=== PATIENT | male | born 1985 | race Hispanic/Latino ===

== ENCOUNTER 2017-06-21 04:09 | Emergency (ER) | payer MEDICAID ==
[2017-06-21 04:20] VITALS: BMI 18.1
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
[2017-06-21 04:31] VITALS: BP 116/63; PULSE 107; RESP 16; TEMP 98.5; O2SAT 98
[2017-06-21] MEDS ORDERED: TDAP Vaccine 0.5 mL Syr IM ONE (05:22)
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
== END 2017-06-21 05:50 | disposition home or self-care (01) ==
LOC: ED 04:09
DX: S00.33XA Contusion of nose, initial encounter (principal); Y04.0XXA Assault by unarmed brawl or fight, initial encounter; F17.210 Nicotine dependence, cigarettes, uncomplicated; Z23 Encounter for immunization

== ENCOUNTER 2017-08-27 10:48 | Emergency (ER) | payer MEDICAID ==
[2017-08-27 10:49] VITALS: BMI 18.1
--- NOTE | 2017-08-27 11:13 | ED PDOC ---
Arrival/HPI - General Time Seen by Provider: 08/27/17 11:09 Historian: Patient - History of Present Illness Narrative History of Present Illness (Text): 08/27/17 11:11 32yo male with no PMHx bib bls with complaint of tremors, palpitation since this morning. Patient notes past history of similar symptoms. States he was told is anxiety, but was never given anxiolytic. Denies chest pain, SOB, diaphoresis, focal weakness, nausea, dizziness, visual changes, any other complaint. Past Medical History - Provider Review Nursing Documentation Reviewed: Yes - Cardiac Hx Cardiac Disorders: No - Pulmonary Hx Respiratory Disorders: No - Neurological Hx Neurological Disorder: No - HEENT Other/Comment: deviated septum - Renal Hx Renal Disorder: No - Endocrine/Metabolic Hx Endocrine Disorders: No - Hematological/Oncological Hx Blood Disorders: No - Integumentary Hx Dermatological Disorder: No - Musculoskeletal/Rheumatological Hx Musculoskeletal Disorders: 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 - Gastrointestinal Hx Gastrointestinal Disorders: No - Genitourinary/Gynecological Hx Genitourinary Disorders: No - Psychiatric Hx Psychophysiologic Disorder: No Hx Substance Use: No - Surgical History Other/Comment: Hemifacial Microsomia - Anesthesia Hx Anesthesia: Yes Hx Anesthesia Reactions: No Hx Malignant Hyperthermia: No Family/Social History - Physician Review Nursing Documentation Reviewed: Yes Family/Social History: Unknown Family HX Smoking Status: Heavy Smoker > 10 Cigarettes Daily Hx Alcohol Use: No Hx Substance Use: No Allergies/Home Meds Allergies/Adverse Reactions: Allergies No Known Allergies Allergy (Verified 08/27/17 13:25) Home Medications: Home Meds Medication Instructions Recorded Confirmed No Known Home Med 06/21/17 08/27/17 Review of Systems - Physician Review All systems were reviewed & negative as marked: Yes - Review of Systems Constitutional: Normal, Other (Tremor) Eyes: Normal ENT: Normal Respiratory: Normal Cardiovascular: Normal Gastrointestinal: Normal Genitourinary Male: Normal Musculoskeletal: Normal Skin: Normal Neurological: Normal Endocrine: Normal Hemo/Lymphatic: Normal Psychiatric: Normal Physical Exam Vital Signs Reviewed: Yes Vital Signs Temp Pulse Resp BP Pulse Ox 08/27/17 17:50 74 16 108/60 97 08/27/17 16:11 65 18 107/61 99 08/27/17 15:41 69 18 105/59 L 99 08/27/17 13:01 98.0 F 77 18 103/58 L 100 08/27/17 11:17 98.4 F 88 18 102/51 L 95 Temperature: Afebrile Blood Pressure: Normal Pulse: Regular Respiratory Rate: Normal Appearance: Positive for: Well-Appearing, Non-Toxic, Comfortable, Other (Tremors ) Pain Distress: None Mental Status: Positive for: Alert and Oriented X 3 - Systems Exam Head: Present: Atraumatic, Normocephalic Pupils: Present: PERRL Extroacular Muscles: Present: EOMI Conjunctiva: Present: Normal Mouth: Present: Moist Mucous Membranes Neck: Present: Normal Range of Motion Respiratory/Chest: Present: Clear to Auscultation, Good Air Exchange. No: Respiratory Distress, Accessory Muscle Use Cardiovascular: Present: Regular Rate and Rhythm, Normal S1, S2. No: Murmurs Abdomen: Present: Normal Bowel Sounds. No: Tenderness, Distention, Peritoneal Signs Back: Present: Normal Inspection Upper Extremity: Present: Normal Inspection. No: Cyanosis, Edema Lower Extremity: Present: Normal Inspection. No: Edema Neurological: Present: GCS=15, CN II-XII Intact, Speech Normal Skin: Present: Warm, Dry, Normal Color. No: Rashes Psychiatric: Present: Alert, Oriented x 3, Normal Insight, Normal Concentration Medical Decision Making ED Course and Treatment: 08/27/17 20:07 Patient became sleep and difficult to arouse in ED. He was monitored, he was cris at a point, but his HR improved to the 80's with hydration. On re evaluation [id number] in ED pt was AAO x3. He admitted to taking ecstasy pill yesterday. He was adulatory with steady gait, without help. He was advised to stop using drugs. He will be DC home. - Lab Interpretations Lab Results: 08/27/17 12:50 08/27/17 12:50 Lab Results 08/27/17 12:50: PT 12.6 H, INR 1.09 H, APTT 28.7 08/27/17 12:50: Sodium 144, Potassium 4.0, Chloride 104, Carbon Dioxide 29, Anion Gap 15, BUN 10, Creatinine 0.6 L, Est GFR ( Amer) > 60, Est GFR ( Non-Af Amer) > 60, Random Glucose 99, Calcium 10.1, Total Bilirubin 0.6, AST 20 , ALT 21, Alkaline Phosphatase 60, Lactate Dehydrogenase 377, Total Creatine Kinase 175, Troponin I < 0.01, Total Protein 7.0, Albumin 4.3, Globulin 2.8, Albumin/Globulin Ratio 1.5 08/27/17 12:50: WBC 10.0, RBC 4.68, Hgb 14.1, Hct 42.8, MCV 91.5, MCH 30.1, MCHC 32.9, RDW 15.4 H, Plt Count 275, MPV 9.8, Gran % 77.8 H, Lymph % (Auto) 13.9 L, [place] % (Auto) 7.4 H, Eos % (Auto) 0.6 L, Baso % (Auto) 0.3, Gran # 7.78 H, Lymph # (Auto) 1.4, [place] # (Auto) 0.7 H, Eos # (Auto) 0.1, Baso # (Auto) 0.03 - Medication Orders Current Medication Orders: Discontinued Medications Sodium Chloride (Sodium Chloride 0.9%) 1,000 mls @ 999 mls/hr IV .Q1H1M STA Stop: 08/27/17 15:26 Last Admin: 08/27/17 14:41 Dose: 999 mls/hr eMAR Start Stop Document 08/27/17 14:41 OCS (Rec: 08/27/17 14:41 [place] [facility] [id number] Intravenous Solution Start Date 08/27/17 Start Time 14:41 End Date 08/27/17 End time 15:41 Total Infusion Time 60 Lorazepam (Ativan) 2 mg IVP ONCE ONE PRN Reason: Protocol Stop: 08/27/17 11:26 Last Admin: 08/27/17 12:43 Dose: 2 mg IVP Administration Document 08/27/17 12:43 OCS (Rec: 08/27/17 12:43 [place] [facility] [id number] Charges for Administration # of IVP Administrations 1 Disposition/Present on Arrival - Present on Arrival Any Indicators Present on Arrival: No History of DVT/PE: No History of Uncontrolled Diabetes: No Urinary Catheter: No History Surgical Site Infection Following: None - Disposition Have Diagnosis and Disposition been Completed?: Yes Diagnosis: Substance abuse Disposition: HOME/ ROUTINE Disposition Time: 20:10 Patient Plan: Discharge Condition: STABLE Additional Instructions: Follow up with your doctor Stop using drug Return to ED for colette li symptoms Referrals: [employer] Rekori, [Primary Care Provider] - Follow up with primary [facility] [place] [Outside] - Follow up with primary
[2017-08-27 12:59] LABS: BASO # 0.03 K/mm3 (0.0-2.0); BASO % 0.3 % (0.0-3.0); EOS # 0.1 (0.0-0.7); EOS % 0.6 % (1.5-5.0); GRAN # 7.78 (1.4-6.5); GRAN % 77.8 % (50.0-68.0); HEMOGLOBIN 14.1 g/dL (14.0-18.0); LYMPH # 1.4 (1.2-3.4); LYMPH % 13.9 % (22.0-35.0); MEAN CELL VOLUME 91.5 fl (80.0-105.0); MEAN CORPUSCULAR HEMOGLOBIN 30.1 pg (25.0-35.0); MEAN CORPUSCULAR HGB CONC 32.9 g/dl (31.0-37.0); MEAN PLATELET VOLUME 9.8 fl (7.0-11.0); MONO # 0.7 (0.1-0.6); MONO % 7.4 % (1.0-6.0); RBC 4.68 10^6/uL (3.5-6.1); RED CELL DISTRIBUTION WIDTH 15.4 % (11.5-14.5)
[2017-08-27 13:02] VITALS: TEMP 98
[2017-08-27 13:10] LABS: ALB/GLOB RATIO 1.5 (1.1-1.8); ALBUMIN 4.3 g/dL (3.0-4.8); ALT/SGPT 21 U/L (7-56); AST/SGOT 20 U/L (17-59); BLOOD UREA NITROGEN 10 mg/dL (7-21); CALCIUM 10.1 mg/dL (8.4-10.5); GFR AFRICAN-AMERICAN > 60; GFR NON-AFRICAN AMERICAN > 60
[2017-08-27 13:11] LABS: PROTHROMBIN TIME 12.6 SECONDS (9.4-12.5)
[2017-08-27 13:12] LABS: INR 1.09 (0.93-1.08); PARTIAL THROMBOPLASTIN TIME 28.7 Seconds (25.1-36.5)
[2017-08-27 13:22] LABS: TROPONIN I < 0.01 ng/mL
[2017-08-27] MEDS ORDERED: Sodium Chloride 0.9% 1,000 ML IV STA (14:26)
[2017-08-27 20:22] VITALS: BP 124/62; PULSE 100; RESP 18; O2SAT 99
--- NOTE | 2017-08-28 10:08 | CARD ---
APPROVED REPORT EKG Measurement Heart [id number] <Conclusion> Normal sinus rhythm Normal ECG
== END 2017-08-27 20:26 | disposition home or self-care (01) ==
LOC: ED 10:48
DX: F19.10 Other psychoactive substance abuse, uncomplicated (principal)
CPT/HCPCS: 80053; 82550; 82948; 83615; 84484; 85025; 85610; 85730; 93005; 96361; 96374; 99284; J2060; J7040

== ENCOUNTER 2017-10-15 10:29 | Emergency (ER) | payer MEDICAID ==
[2017-10-15 10:37] VITALS: BMI 17.7
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
[2017-10-15 11:31] LABS: BASO # 0.03 K/mm3 (0.0-2.0); BASO % 0.5 % (0.0-3.0); EOS # 0.1 (0.0-0.7); EOS % 1.8 % (1.5-5.0); GRAN # 4.18 (1.4-6.5); GRAN % 66.6 % (50.0-68.0); HEMOGLOBIN 13.8 g/dL (14.0-18.0); LYMPH # 1.4 (1.2-3.4); LYMPH % 22.5 % (22.0-35.0); MEAN CELL VOLUME 89.8 fl (80.0-105.0); MEAN CORPUSCULAR HEMOGLOBIN 30.1 pg (25.0-35.0); MEAN CORPUSCULAR HGB CONC 33.5 g/dl (31.0-37.0); MEAN PLATELET VOLUME 9.9 fl (7.0-11.0); MONO # 0.5 (0.1-0.6); MONO % 8.6 % (1.0-6.0); RBC 4.59 10^6/uL (3.5-6.1); RED CELL DISTRIBUTION WIDTH 14.6 % (11.5-14.5); WHITE BLOOD COUNT 6.3 10^3/ul (4.5-11.0)
[2017-10-15 11:40] LABS: ALB/GLOB RATIO 1.4 (1.1-1.8); ALT/SGPT 24 U/L (7-56); AST/SGOT 17 U/L (17-59); BLOOD UREA NITROGEN 11 mg/dL (7-21); GFR AFRICAN-AMERICAN > 60; GFR NON-AFRICAN AMERICAN > 60
[2017-10-15 11:52] LABS: TROPONIN I < 0.01 ng/mL
--- NOTE | 2017-10-15 12:53 | RAD ---
HISTORY: wheezing COMPARISON: No prior. TECHNIQUE: Chest PA and lateral FINDINGS: LUNGS: No active pulmonary disease. PLEURA: No significant pleural effusion identified. No pneumothorax apparent. CARDIOVASCULAR: Normal. OSSEOUS STRUCTURES: No significant abnormalities. VISUALIZED UPPER ABDOMEN: Normal. OTHER FINDINGS: None. IMPRESSION: No active disease.
[2017-10-15] MEDS ORDERED: Potassium Chloride 20 mEq ER Tab PO STA (13:27)
[2017-10-15 14:19] VITALS: BP 132/72; PULSE 73; RESP 20; TEMP 97.9; O2SAT 98
--- NOTE | 2017-10-15 17:22 | CARD ---
APPROVED REPORT EKG Measurement Heart [id number] <Conclusion> Normal sinus rhythm with sinus arrhythmia Normal ECG
== END 2017-10-15 14:20 | disposition home or self-care (01) ==
LOC: ED 10:29
DX: E87.6 Hypokalemia (principal); G47.00 Insomnia, unspecified; F19.10 Other psychoactive substance abuse, uncomplicated

== ENCOUNTER 2017-10-21 12:20 | Inpatient (IN) | payer MEDICAID ==
[2017-10-21 12:39] VITALS: BMI 17.2
[2017-10-21] MEDS ORDERED: DiphenhydrAMINE 50 mg/ml Inj IM STA (12:40)
[2017-10-21] MEDS ORDERED: DiphenhydrAMINE 50 mg/ml Inj ONE (12:46)
[2017-10-21 14:47] LABS: BASO # 0.02 K/mm3 (0.0-2.0); BASO % 0.2 % (0.0-3.0); EOS # 0.1 (0.0-0.7); EOS % 0.7 % (1.5-5.0); GRAN # 6.69 (1.4-6.5); GRAN % 79.6 % (50.0-68.0); LYMPH # 1.1 (1.2-3.4); LYMPH % 13.6 % (22.0-35.0); MEAN CELL VOLUME 89.5 fl (80.0-105.0); MEAN CORPUSCULAR HEMOGLOBIN 29.7 pg (25.0-35.0); MEAN CORPUSCULAR HGB CONC 33.2 g/dl (31.0-37.0); MEAN PLATELET VOLUME 9.7 fl (7.0-11.0); MONO # 0.5 (0.1-0.6); MONO % 5.9 % (1.0-6.0); RBC 4.37 10^6/uL (3.5-6.1); RED CELL DISTRIBUTION WIDTH 14.6 % (11.5-14.5); WHITE BLOOD COUNT 8.4 10^3/ul (4.5-11.0)
[2017-10-21 15:10] LABS: ALB/GLOB RATIO 1.5 (1.1-1.8); ALBUMIN 3.8 g/dL (3.0-4.8); ALT/SGPT 25 U/L (7-56); AST/SGOT 36 U/L (17-59); BLOOD UREA NITROGEN 10 mg/dL (7-21); CALCIUM 9.7 mg/dL (8.4-10.5); GFR AFRICAN-AMERICAN > 60; GFR NON-AFRICAN AMERICAN > 60
[2017-10-21 15:11] LABS: ACETAMINOPHEN < 10.0 ug/ml (10.0-20.0); SALICYLATE 5 mg/dL (2.0-20.0)
[2017-10-21 15:37] LABS: PH,URINE 5.5 (4.7-8.0); URINE APPEARANCE CLEAR (CLEAR); URINE BILIRUBIN NEGATIVE (NEGATIVE); URINE BLOOD NEGATIVE (NEGATIVE); URINE COLOR YELLOW (YELLOW); URINE GLUCOSE (UA) NEGATIVE (NEGATIVE); URINE LEUKOCYTE ESTERASE NEGATIVE Leu/uL (NEGATIVE); URINE PROTEIN NEGATIVE mg/dL (<30 mg/dL); URINE UROBILINOGEN 0.2 E.U./dL (<1 E.U./dL)
--- NOTE | 2017-10-21 15:47 | RAD ---
HISTORY: pes eval COMPARISON: 10/15/2017 FINDINGS: LUNGS: No active pulmonary disease. PLEURA: No significant pleural effusion identified, no pneumothorax apparent. CARDIOVASCULAR: Normal. OSSEOUS STRUCTURES: No significant abnormalities. VISUALIZED UPPER ABDOMEN: Normal. OTHER FINDINGS: None. IMPRESSION: No active disease.
[2017-10-21 16:15] LABS: BARBITURATES, UR NEGATIVE (NEGATIVE); BENZODIAZEPINES, UR NEGATIVE (NEGATIVE); OPIATES, UR POSITIVE (NEGATIVE); PHENCYCLIDINE, UR NEGATIVE (NEGATIVE)
[2017-10-21 17:15] VITALS: O2SAT 98
[2017-10-21] MEDS ORDERED: DiphenhydrAMINE 50 mg/ml Inj IM PRN (19:01)
--- NOTE | 2017-10-21 21:10 | ED PDOC ---
Arrival/HPI - General Chief Complaint: Psychiatric Evaluation Time Seen by Provider: 10/21/17 12:40 Historian: Patient, Parent, Family - History of Present Illness Narrative History of Present Illness (Text): 10/21/17 21:04 32-year-old male presents today with auditory and visual hallucinations. Patient states that he is hearing voices that are telling him and that he is done bad things and that he should patient denies chest pain or shortness of breath. Denies fevers or chills. Patient admits to using Suboxone and Vicodin. Patient also states that he takes unknown [id number] medication for sleep. Family states that the patient has been slowly deteriorating since his recent visit to the emergency room. Per family the patient was found hiding in a corner today saying that people were out to get him. Past Medical History - Provider Review Nursing Documentation Reviewed: Yes - Travel History Have you recently traveled outside [place] w/in the past 3 mons?: No - Infectious Disease Hx of Infectious Diseases: None - Cardiac Hx Cardiac Disorders: No Hx Hypertension: No - Pulmonary Hx Tuberculosis: No - Neurological HX Cerebrovascular Accident: No Hx Seizures: No - HEENT Other/Comment: deviated septum - Renal Hx Renal Disorder: No - Endocrine/Metabolic Hx Endocrine Disorders: No - Hematological/Oncological Hx Cancer: No - Integumentary Hx Dermatological Disorder: No - Musculoskeletal/Rheumatological Hx Musculoskeletal Disorders: 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 - Gastrointestinal Hx Gastrointestinal Disorders: No - Genitourinary/Gynecological Hx Sexually Transmitted Diseases: No - Psychiatric Hx Substance Use: Yes - Surgical History Other/Comment: Hemifacial Microsomia multiple skull sugery - Anesthesia Hx Anesthesia: Yes Hx Anesthesia Reactions: No Hx Malignant Hyperthermia: No - Suicidal Assessment Suicide Risk Precautions: Close Observation Family/Social History - Physician Review Nursing Documentation Reviewed: Yes Family/Social History: Unknown Family HX Smoking Status: Heavy Smoker > 10 Cigarettes Daily Hx Alcohol Use: Yes Hx Substance Use: Yes Allergies/Home Meds Allergies/Adverse Reactions: Allergies No Known Allergies Allergy (Verified 10/21/17 20:34) Home Medications: Home Meds Medication Instructions Recorded Confirmed Buprenorphine HCl/Naloxone HCl 0 mg SL PRN PRN 10/15/17 10/15/17 [Suboxone 2 mg-0.5 mg] Review of Systems - Review of Systems Constitutional: absent: Fatigue, Fevers Respiratory: absent: SOB, Cough Cardiovascular: absent: Chest Pain, Palpitations Gastrointestinal: absent: Abdominal Pain, Nausea, Vomiting Genitourinary Male: absent: Dysuria Musculoskeletal: absent: Arthralgias, Back Pain, Neck Pain Neurological: absent: Headache, Dizziness Psychiatric: Anxiety, Depression, Suicidal Ideation Physical Exam Vital Signs Reviewed: Yes Vital Signs Temp Pulse Resp BP Pulse Ox 10/21/17 17:15 97.3 F L 87 18 117/66 98 10/21/17 12:45 98.4 F 84 16 121/70 100 Temperature: Afebrile Blood Pressure: Normal Pulse: Regular Respiratory Rate: Normal Appearance: Positive for: Well-Appearing, Non-Toxic, Comfortable Pain Distress: None Mental Status: Positive for: Alert and Oriented X 3, Agitated - Systems Exam Head: Present: Atraumatic Mouth: Present: Moist Mucous Membranes Neck: Present: Normal Range of Motion Respiratory/Chest: Present: Clear to Auscultation, Good Air Exchange. No: Respiratory Distress, Accessory Muscle Use Cardiovascular: Present: Regular Rate and Rhythm, Normal S1, S2. No: Murmurs Abdomen: No: Tenderness, Rebound, Guarding Back: Present: Normal Inspection Upper Extremity: Present: Normal ROM Lower Extremity: Present: Normal ROM Neurological: Present: GCS=15, Speech Normal Skin: Present: Warm, Dry, Normal Color Psychiatric: Present: Alert, Oriented x 3, Anxious, Agitated, Depressed Mood, Suicidal Ideation Medical Decision Making ED Course and Treatment: 10/21/17 21:06 Patient is nontoxic well-appearing in no distress vital signs are stable. Patient agitated in the emergency room started hitting the wall with his hands. Patient yelling and screaming telling the voices inside his head to stop. Patient given Haldol 5 mg as well as Benadryl 25 mg IM Restraints were ordered but canceled as the patient improved drastically after medications. CBC WNL CMP k; 3.4 Tylenol WNL Salicylate wnl Alcohol level WNL Urine drug screen + opiates UA; wnl cxr: wnl ekg normal sinus rhythm at 79 bpm normal axis normal intervals no ST elevations pt is medically cleared for PES evaluation Patient was seen and evaluated by PES screener: [email or web address] pt signed voluntarily to psychiatric floor Impression; psychosis Admitted to behavioral health for 10/21/17 21:15 40mg po of potassium ordered; i spoke with patients nurse on 5B and made her aware that potassium po was ordered. - Lab Interpretations Lab Results: 10/21/17 14:30 10/21/17 14:30 Lab Results 10/21/17 15:26: Urine Opiates Screen Positive H, Urine Methadone Screen Negative , Ur Barbiturates Screen Negative, Ur Phencyclidine Scrn Negative, Ur Amphetamines Screen Negative, U Benzodiazepines Scrn Negative, U Oth Cocaine Metabols Negative, U Cannabinoids Screen Negative 10/21/17 15:26: Urine Color Yellow, Urine Appearance Clear, Urine pH 5.5, Ur Specific [place] >= 1.030, Urine Protein Negative, Urine Glucose (UA) Negative, Urine Ketones Trace H, Urine Blood Negative, Urine Nitrate Negative, Urine Bilirubin Negative, Urine Urobilinogen 0.2, Ur Leukocyte Esterase Negative 10/21/17 14:30: Alcohol, Quantitative < 10 10/21/17 14:30: Salicylates 5, Acetaminophen < 10.0 L 10/21/17 14:30: Sodium 144, Potassium 3.4 L, Chloride 106, Carbon Dioxide 27, Anion Gap 15, BUN 10, Creatinine 0.6 L, Est GFR ( Amer) > 60, Est GFR ( Non-Af Amer) > 60, Random Glucose 96, Calcium 9.7, Total Bilirubin 0.2, AST 36, ALT 25, Alkaline Phosphatase 56, Total Protein 6.4, Albumin 3.8, Globulin 2.6, Albumin/Globulin Ratio 1.5 10/21/17 14:30: WBC 8.4 D, RBC 4.37, Hgb 13.0 L, Hct 39.1 L, MCV 89.5, MCH 29.7 , MCHC 33.2, RDW 14.6 H, Plt Count 284, MPV 9.7, Gran % 79.6 H, Lymph % (Auto) 13.6 L, [place] % (Auto) 5.9, Eos % (Auto) 0.7 L, Baso % (Auto) 0.2, Gran # 6.69 H , Lymph # (Auto) 1.1 L, [place] # (Auto) 0.5, Eos # (Auto) 0.1, Baso # (Auto) 0.02 - RAD Interpretation Radiology Orders: 10/21/17 12:44 CHEST PORTABLE [RAD] Stat - Medication Orders Current Medication Orders: Clonidine HCl (Catapres) 0.1 mg PO BID PRN PRN Reason: Flu symptoms Diphenhydramine HCl (Benadryl) 50 mg IM Q6 PRN PRN Reason: Allergy symptoms Diphenhydramine HCl (Benadryl) 50 mg PO Q6 PRN PRN Reason: Anxiety Last Admin: 10/21/17 20:08 Dose: 50 mg Haloperidol (Haldol) 5 mg PO Q6 PRN; Protocol PRN Reason: Agitation Last Admin: 10/21/17 20:08 Dose: 5 mg Haloperidol Lactate (Haldol) 5 mg IM Q6 PRN; Protocol PRN Reason: Agitation Lorazepam (Ativan) 2 mg IM Q6H PRN; Protocol PRN Reason: Anxiety Lorazepam (Ativan) 2 mg PO Q6 PRN; Protocol PRN Reason: Anxiety Last Admin: 10/21/17 20:08 Dose: 2 mg Tramadol HCl (Ultram) 50 mg PO BID PRN PRN Reason: Pain, moderate (4-7) Last Admin: 10/21/17 20:11 Dose: 50 mg MAR Pain Assessment Document 10/21/17 20:11 KM (Rec: 10/21/17 20:12 KM [id number]) Pain Reassessment Is this a pain reassessment? No Presence of Pain Presence of Pain Yes Pain Scale Used Pain Scale Used Numeric Location Pain Location Body Site Generalized Description Intensity of Pain at present 7 Trazodone HCl (Desyrel) 50 mg PO HS PRN PRN Reason: Insomnia Zolpidem Tartrate (Ambien) 5 mg PO HS PRN; Protocol PRN Reason: Insomnia Last Admin: 10/21/17 20:14 Dose: 5 mg Discontinued Medications Diphenhydramine HCl (Benadryl) 25 mg IM STAT STA Stop: 10/21/17 12:41 Last Admin: 10/21/17 12:50 Dose: Haloperidol Lactate (Haldol) 5 mg IM STAT STA PRN Reason: Protocol Stop: 10/21/17 12:41 Last Admin: 10/21/17 12:50 Dose: Disposition/Present on Arrival - Present on Arrival Any Indicators Present on Arrival: No History of DVT/PE: No History of Uncontrolled Diabetes: No Urinary Catheter: No History of Decub. Ulcer: No History Surgical Site Infection Following: None - Disposition Have Diagnosis and Disposition been Completed?: Yes Diagnosis: Psychosis Disposition: HOSPITALIZED Disposition Time: 16:25 Patient Plan: Admission Patient Problems: Current Active Problems Problem Status Onset Psychosis Acute Condition: GOOD
[2017-10-21] MEDS ORDERED: Potassium Chloride 20 mEq ER Tab PO STA (21:12)
--- NOTE | 2017-10-22 07:33 | CARD ---
APPROVED REPORT EKG Measurement Heart [id number] <Conclusion> Normal sinus rhythm Normal ECG
[2017-10-22 07:35] LABS: HDL CHOLESTEROL 39 mg/dL (29-60)
[2017-10-22 07:45] LABS: LDL CHOLESTEROL 70 mg/dL (0-129)
--- NOTE | 2017-10-22 07:55 | PCM.BM ---
<Jaelyn Hancock - Last Filed: 10/22/17 07:51> Treatment Plan Problems - Problems identified on initial assessmt delusion Date Initiated: 10/22/17 Time Initiated: 07:52 Assessment reference: NA Status: Active thought process Date Initiated: 10/22/17 Time Initiated: 07:53 Assessment reference: NA Status: Active social isolation Date Initiated: 10/22/17 Time Initiated: 07:53 Assessment reference: NA Status: Active guarded behavior Date Initiated: 10/22/17 Time Initiated: 07:54 Assessment reference: NA Status: Active ineffective coping Date Initiated: 10/22/17 Time Initiated: 07:55 Assessment reference: NA Status: Active Treatment assets and liabiliti Patient Assests: cooperative, ADL independent, negotiates basic needs Patient Liabilities: substance abuse, auditory impairment - Milieu Protocol Maintain good personal hygiene: every shift Encourage regular showers, every shift Remind patient to perform daily oral care, every shift Assist patient to perform ADL's Conduct patient checks and document Observation sheet: Q15 minutes Maintain personal safety: every shift Educate patient to report safety concerns to staff, every shift Monitor environment for contraband/sharps Medication safety: Monitor for expected outcome, potential side effects: every shift, Assess barriers to learning: every shift, Assess readiness for medication education: every shift Discharge/Continuing Care - Education Needs Education Needs: Patient Medication, Patient Diagnosis/Disease Process, Patient Coping Skills, Patient Personal Hygiene/Grooming - Discharge Discharge Criteria: Tolerates medication w/o severe side effects, Free of Suicidal thoughts, Free of paranoid thoughts, Free of agitation, Normal sleep pattern, Ability to care for self <Katarina Buck - Last Filed: 10/22/17 12:34> Family Contact Family involvement: Family/SO is involved Family contact: Patient agrees to contact Family contact name: Abbie(mother) Family contacted how many times per week?: 2 <Molly Dickinson - Last Filed: 10/22/17 13:02> - Diagnosis (1) Substance-induced psychotic disorder Status: Acute Interventions: 10/22/17 13:04 Psychoeducation supportive therapy Psychopharmacology/adjustment of medications as needed/ monitoring possible side effects Evaluate pt on daily basis Compliance with medications and follow up appointments Suicide and homicide risk assessment and prevention, coping strategies, safety plan Relapse prevention Reduction of symptoms Improve functional status Possible assertive community treatment Cognitive behavioral therapy Family involvement Possible social skill training as outpatient (2) Opioid abuse Status: Acute Interventions: 10/22/17 13:04 Monitoring withdrawal symptoms Medical detoxification Pharmacotherapy for alcohol/benzos/opioid dependence Maintaining sobriety Relapse prevention Possible rehabilitation Motivational interviewing 12-step programs: AA meetings (3) Substance induced mood disorder Status: Acute Interventions: 10/22/17 13:03 Psychoeducation Psychopharmacology/adjustment of medications as needed/ monitoring possible side effects Evaluate pt on daily basis Compliance with medications and follow up appointments Suicide and homicide risk assessment and prevention Relapse prevention Reduction of symptoms Improve functional status Family involvement As outpatient: cognitive behavioral therapy (4) Psychosis Status: Acute Interventions: 10/22/17 13:04 Psychoeducation supportive therapy Psychopharmacology/adjustment of medications as needed/ monitoring possible side effects Evaluate pt on daily basis Compliance with medications and follow up appointments Suicide and homicide risk assessment and prevention, coping strategies, safety plan Relapse prevention Reduction of symptoms Improve functional status Possible assertive community treatment Cognitive behavioral therapy Family involvement Possible social skill training as outpatient <Darryl Cormier - Last Filed: 10/25/17 11:49> Treatment assets and liabiliti Patient Assests: ADL independent, negotiates basic needs Patient Liabilities: substance abuse - Milieu Protocol Maintain good personal hygiene: daily Encourage regular showers, daily Remind patient to perform daily oral care, daily Assist patient to perform ADL's Maintain personal safety: every shift Educate patient to report safety concerns to staff, every shift Monitor environment for contraband/sharps Medication safety: Monitor for expected outcome, potential side effects: every shift, Assess barriers to learning: every shift, Assess readiness for medication education: every shift Discharge/Continuing Care - Education Needs Education Needs: Patient Medication, Patient Diagnosis/Disease Process, Patient Aftercare Safety Plan - Discharge Discharge Criteria: Tolerates medication w/o severe side effects, Free of paranoid thoughts, Normal sleep pattern, Ability to care for self, Reduction of target symptoms Discharge to:: Home <Josette Briones - Last Filed: 10/25/17 15:48>
--- NOTE | 2017-10-22 14:03 | PCM.PSYCH ---
Initial Psychiatric Evaluation - Initial Psychiatric Evaluation Type of Admission: Voluntary Legal Status: Capacity (patient has capacity to sign consent for treatment) Chief Complaint (in patient's own words): "I was not feeling well, I was hearing voices, I'm here for depression" Patient's Reaction to Hospitalization: patient was admitted to psychiatric inpatient unit for evaluation and stabilization of psychotic symptoms, patient was hearing voices that he killed people, as well as command type hallucinations, worsening of depression, anxiety. History of Present Illness and Precipitating Events: shortly patient is 32 year old male with multiple medical issues including Goldenhar syndrome, opioid abuse, no formal psychiatric history, denied history of psychiatric admissions, denied history of suicidal attempts, patient came to the emergency room accompanied by his brother as well as mother for evaluation and stabilization of psychotic symptoms, patient was not functioning, was refusing to leave the house due to paranoia, patient also was hearing voices telling him that he killed people, patient also heard voices telling him to kill himself, patient was abusing Suboxone as well as Vicodin, patient was not able to sleep, was keeping the hammer under his pillow, patient does not have psychiatrist in the community, obviously requires further evaluation and stabilization and observation. 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 Thin build, long extremities , long palms. Patient was so confused that he was not able to find a way going back from the room, whenever at treatment team meeting was over, staff redirected patient back to his room. Patient presented to be depressed, difficult to to stay focused, was not able to concentrate, patient answers were only one word "yes/no", patient also presented with some poverty of thoughts as well as poverty of speech. pt deems to be poor and unreliable historian, possible due to AMS due to withdrawals from opioids or PRN meds over night. patient said that he has chronic pain and shoulder pain that is why she was taking Vicodin as well as Suboxone from his brother, patient reported that he takes about 4-5 spills a day, patient reported that at present moment she feels shaky, patient obviously was yawning as well had goosebumps, and teary eyes. Patient reported that he was able to tolerate food, denied diarrhea, denied nausea. vitals are stable. but K level is low, will call for medical consult pt smokes cigarettes 1/2 pack a day, nicotine patch offered, counseling provided pt was not able to provide history and majority of info was obtained from ED reports 10/15/17 and 10/21/17. 10/21/17: as per PES report pt was paranoid, guarded, has not left the house due to paranoia since 10/15/17, pt leaves a hammer under his pillow and says that there are cameras in his head and in the wall. 10/15/17: as per mother's report pt. has been suffering from anxiety and panic attacks for years, worsening since his friend was hit by a car and killed in front of patient in [place] about 7 years ago. Patient moved into an apartment of his own (within the past couple of weeks) at which time his panic attacks increased, and the pt. began to hear voices. Patient reports to his mother that he thinks people are talking about him, drilled a hole in the wall to watch him , and was observed yelling back at the voices telling them to "stop doing this" to him. Pt. notes to the mother that he knows the voices are not real. Extremely poor sleep, of approximately 3 hours per night, which triggers patients anxiety. Increased isolation. Past psych h/o: denied admissions, denied suicidal attempts. last ED visit , pt was provided with follow up appt, but pt did not attend. medical history: Chronic pain syndrome, left shoulder pain, Goldenhar syndrome. Family history: Patient denied family history of mental illness. 10/21/17 14:30 10/21/17 14:30 Lab Results 10/22/17 07:20: Triglycerides 122, Cholesterol 130, LDL Cholesterol Direct 70, HDL Cholesterol 39 10/21/17 15:26: Urine Opiates Screen Positive H, Urine Methadone Screen Negative , Ur Barbiturates Screen Negative, Ur Phencyclidine Scrn Negative, Ur Amphetamines Screen Negative, U Benzodiazepines Scrn Negative, U Oth Cocaine Metabols Negative, U Cannabinoids Screen Negative 10/21/17 15:26: Urine Color Yellow, Urine Appearance Clear, Urine pH 5.5, Ur Specific [place] >= 1.030, Urine Protein Negative, Urine Glucose (UA) Negative, Urine Ketones Trace H, Urine Blood Negative, Urine Nitrate Negative, Urine Bilirubin Negative, Urine Urobilinogen 0.2, Ur Leukocyte Esterase Negative 10/21/17 14:30: Alcohol, Quantitative < 10 10/21/17 14:30: Salicylates 5, Acetaminophen < 10.0 L 10/21/17 14:30: Sodium 144, Potassium 3.4 L, Chloride 106, Carbon Dioxide 27, Anion Gap 15, BUN 10, Creatinine 0.6 L, Est GFR ( Amer) > 60, Est GFR ( Non-Af Amer) > 60, Random Glucose 96, Calcium 9.7, Total Bilirubin 0.2, AST 36, ALT 25, Alkaline Phosphatase 56, Total Protein 6.4, Albumin 3.8, Globulin 2.6, Albumin/Globulin Ratio 1.5 10/21/17 14:30: WBC 8.4 D, RBC 4.37, Hgb 13.0 L, Hct 39.1 L, MCV 89.5, MCH 29.7 , MCHC 33.2, RDW 14.6 H, Plt Count 284, MPV 9.7, Gran % 79.6 H, Lymph % (Auto) 13.6 L, [place] % (Auto) 5.9, Eos % (Auto) 0.7 L, Baso % (Auto) 0.2, Gran # 6.69 H , Lymph # (Auto) 1.1 L, [place] # (Auto) 0.5, Eos # (Auto) 0.1, Baso # (Auto) 0.02 Vital Signs Temp Pulse Pulse Resp BP Pulse Ox 10/22/17 06:57 97.9 F 90 20 123/76 10/21/17 19:50 61 18 10/21/17 17:15 97.3 F L 87 18 117/66 98 10/21/17 12:45 98.4 F 84 16 121/70 100 10/21/2017 chest x-ray no active disease 10/21/2017 EKG within normal limits Current Medications: Active Medications Generic Name Dose Route Start Last Admin Trade Name Freq PRN Reason Stop Dose Admin Clonidine HCl 0.1 mg 10/21/17 19:41 Catapres PO BID PRN Flu symptoms Diphenhydramine HCl 50 mg 10/21/17 19:01 Benadryl IM Q6 PRN Allergy symptoms Diphenhydramine HCl 50 mg 10/21/17 19:05 10/21/17 20:08 Benadryl PO 50 mg Q6 PRN Administration Anxiety Haloperidol 5 mg 10/21/17 18:56 10/22/17 09:36 Haldol PO 5 mg Q6 PRN Administration Agitation Protocol Haloperidol Lactate 5 mg 10/21/17 18:58 Haldol IM Q6 PRN Agitation Protocol Lorazepam 2 mg 10/21/17 18:53 Ativan IM Q6H PRN Anxiety Protocol Lorazepam 2 mg 10/21/17 18:55 10/22/17 09:36 Ativan PO 2 mg Q6 PRN Administration Anxiety Protocol Quetiapine Fumarate 25 mg 10/22/17 22:00 Seroquel PO AMHS RAMIRO Protocol Tramadol HCl 50 mg 10/21/17 19:46 10/22/17 09:36 Ultram PO 50 mg BID PRN Administration Pain, moderate (4-7) Trazodone HCl 50 mg 10/21/17 19:36 Desyrel PO HS PRN Insomnia Zolpidem Tartrate 5 mg 10/21/17 19:44 10/21/17 20:14 Ambien PO 5 mg HS PRN Administration Insomnia Protocol Past Psychiatric History - Past Psychiatric History Previous Treatment History: None Prior Professional Help: see HPI Prior Psychiatric Treatment: see HPI At what hospital: see HPI Duration: see HPI Nature of Treatment: see HPI Explanation of prior treatment: see HPI History of Abuse: see HPI patient denied history or physical, emotional, sexual abuse History of ETOH/Drug Use: see HPI History of Family Illness: see HPI Pertinent Medical Hx (Current Medical&Sleep Prob, Allergies): Allergies Allergy/AdvReac Type Severity Reaction Status Date / Time No Known Allergies Allergy Verified 10/21/17 20:34 Buprenorphine HCl/Naloxone HCl [Suboxone 2 mg-0.5 mg] 0 mg SL PRN PRN 10/15/17 Docusate Sodium [Colace] 100 mg PO BID #10 capsule 10/15/17 hydrOXYzine HCl [Atarax] 50 mg PO Q6 5 Days #20 tab 10/15/17 Review of Systems - Review of Systems Systems not reviewed;Unavailable: Acuity of Condition - EENT Eyes: As Per HPI Ears: As Per HPI Nose/Mouth/Throat: As Per HPI - Cardiovascular Cardiovascular: As Per HPI - Respiratory Respiratory: As Per HPI - Gastrointestinal Gastrointestinal: As Per HPI - Genitourinary Genitourinary: As Per HPI - Reproductive: Male Reproductive:Male: As Per HPI - Musculoskeletal Musculoskeletal: As Par HPI - Integumentary Integumentary: As Per HPI - Neurological Neurological: As Per HPI - Psychiatric Psychiatric: As Per HPI - Endocrine Endocrine: As Per HPI - Hematologic/Lymphatic Hematologic: As Per HPI Mental Status Examination - Personal Presentation Personal Presentation: Looks younger than stated age - Affect Affect: Constricted, Flat - Motor Activity Motor Activity: Psychomotor Retardation - Reliability in Providing Information Reliability in Providing Information: Poor, due to alteration in thoughts, Poor , due to altered mood, Poor, due to cognitve impairment - Speech Speech: Disorganized - Mood Mood: Depressed - Formal Thought Process Formal Thought Process: Hallucinations, Delusions, Paranoia - Hallucinations/Delusions Delusions: Persecution - Obsessions/Compulsions Obsessions: None Compulsions: None - Cognitive Functions Orientation: Person Sensorium: Drowsy Attention/Concentration: Easily distracted Abstract Thinking: [place] Estimate of Intelligence: Below average Judgement: Intact, as evidence by: Insight regarding need for hospitalization - Risk Risk: Suicidal, Elopement, Withdrawal, Self-mutilation, Diminished functioning - Strength & Assets Inventory Strength & Assets Inventory: Family support, Cooperative - Limitations Limitations: Other (Psychotic symptoms) DSM 5 DX - DSM 5 DSM 5 Diagnosis: psychosis NOS rule out major depressive disorder with psychosis rule out substance-induced psychosis opioid abuse Substance-induced mood and anxiety disorder Rule out PTSD Rule out Panic disorder - Recommended/Plan of Treatment Treatment Recommendations and Plan of Treatment: Medical consult appreciated, see medical team note for more detailed info SW consultation for discharge plan and social issues Med management Seroquel 50 mg twice a day for psychosis Ambien 5 mg as needed for insomnia Klonopin 0.5 mg twice a day and at the nighttime for anxiety as needed medication, clonidine 0.1 mg twice a day for with goals, Zofran as needed for dyspepsia, tramadol for pain, multivitamins Will call for medical consulate for low potassium level as well as chronic pain syndrome Family involvement Follow up on labs Will monitor closely Pt was educated about risk/benefits and alternatives of medications, coping strategies (safety plan, suicide prevention), relapse prevention, importance of follow up with psychiatrist and therapist, stay away from drugs/alcohol/smoking Projected ELOS: 7days Prognosis: guarded Discharge Plan and Discharge Criteria: Pt will be not depressed or manic, will be more hopeful, will be not psychotic or anxious, will be not having thoughts of harming self or others, will be tolerating medications well, will not have major side effects, will be able to function, will not pose threat to self or others. - Smoking Cessation Smoking Cessation Initiated: Yes
[2017-10-23] MEDS: Multivitamin With Minerals Tab PO SCH (08:45)
--- NOTE | 2017-10-23 10:01 | PCM.PYCHPN ---
Psychiatric Progress Note - Psychiatric Progress Note Patient seen today, length of contact: 25 min Patient Chief Complaint: "all right, mostly bored" Problems Identified/Issues Discussed: I reviewed assessment. Patient is 32 year old male with no formal psychiatric history, current abuse of suboxone and Vicodin, denied history of psychiatric admissions, denied history of suicidal attempts, +multiple medical issues including Goldenhar syndrome who came to the emergency room accompanied by his brother as well as mother for evaluation and stabilization of psychotic symptoms. Patient was not functioning, not sleeping, refusing to leave the house due to paranoia, hearing voices telling him that he killed people and voices telling him to kill himself. Patient also kept a hammer under his pillow. I reviewed recent unit notes which indicate that patient has been confused with poor insight into his mental illness. Demonstrates negative symptoms; +PMR and patient likes to stay in his room despite encouragement by staff to join group for snacks and wrap up group discussion. This provider did note that patient was visible in the dayroom this morning. He appeared unkempt and tired. Oriented x3. Reports that his mood is "all right, mostly bored", affect is constricted and guarded though polite. He denies hallucinations or paranoia and doesnt appear to be responding to internal stimuli. Patient is tolerating his medications and denies side effects. Reports chronic pain, unchanged and denies any new discomfort. He doesn't appear to be in any overt distress during my visit. Diagnostic Results: psychosis NOS rule out major depressive disorder with psychosis rule out substance-induced psychosis opioid abuse Substance-induced mood and anxiety disorder Rule out PTSD Rule out Panic disorder Medical Record Reviewed: Yes Mental Status Examination - Cognitive Function Orientation: Person Attention: WNL - Mood Mood: Depressed ("all right, mostly bored") - Affect Affect: Constricted, Flat - Formal Thought Process Formal Thought Process: Hallucinations (denied), Delusions, Paranoia - Suicidal Ideation Suicidal Ideation: No - Homicidal Ideation Homicidal Ideation: No Goal/Treatment Plan - Goal/Treatment Plan Progress Toward Problem(s) and Goals/Treatment Plan: * c/w current tx and plan * No new weekend labs thus far * Vitals reviewed and noted below: Selected Entries 10/23/17 07:11 Temperature 98.3 F Pulse Rate 91 H Respiratory 20 Rate Blood Pressure 102/66
[2017-10-24] MEDS: Multivitamin With Minerals Tab PO SCH (09:16)
--- NOTE | 2017-10-24 10:18 | PCM.PYCHPN ---
Psychiatric Progress Note - Psychiatric Progress Note Patient seen today, length of contact: 25 min Patient Chief Complaint: "sad and bored" Problems Identified/Issues Discussed: I reviewed assessment. Patient is 32 year old male with no formal psychiatric history, current abuse of suboxone and Vicodin, denied history of psychiatric admissions, denied history of suicidal attempts, +multiple medical issues including Goldenhar syndrome who came to the emergency room accompanied by his brother as well as mother for evaluation and stabilization of psychotic symptoms. Patient was not functioning, not sleeping, refusing to leave the house due to paranoia, hearing voices telling him that he killed people and voices telling him to kill himself. Patient also kept a hammer under his pillow. I reviewed recent unit notes which indicate that patient has been confused with poor insight into his mental illness. Demonstrates negative symptoms and PMR. Patient requested for Haldol 5 mg and Benadryl 50 mg for voices on Wednesday however denied hallucinations when this provider inquired all weekend. Patient has been visible on the unit but keeps to himself. I interview him at bedside this morning. He remembers me from my introduction yesterday. Remains oriented x3 and affect is withdrawn, constricted and guarded. Patient tells me he is "sad and bored". He is not talkative or forthcoming with personal information and generally looks unhappy. Thought process remains coherent and responses are relevant to questioning. He denies hallucinations or paranoia and doesn't appear to be responding to internal stimuli. Patient is tolerating his medications and denies side effects. Reports chronic pain, unchanged and denies any new discomfort. He doesn't appear to be in any overt distress during my visit. Diagnostic Results: psychosis NOS rule out major depressive disorder with psychosis rule out substance-induced psychosis opioid abuse Substance-induced mood and anxiety disorder Rule out PTSD Rule out Panic disorder Medical Record Reviewed: Yes Mental Status Examination - Cognitive Function Orientation: Person Attention: WNL - Mood Mood: Depressed ( "sad and bored") - Affect Affect: Constricted, Flat - Speech Speech: Soft - Formal Thought Process Formal Thought Process: Hallucinations ( Patient requested for Haldol 5 mg and Benadryl 50 mg for voices on Wednesday however denied hallucinations when this provider inquired all weekend. ), Delusions, Paranoia - Suicidal Ideation Suicidal Ideation: No - Homicidal Ideation Homicidal Ideation: No Goal/Treatment Plan - Goal/Treatment Plan Progress Toward Problem(s) and Goals/Treatment Plan: * c/w current tx and plan * No new weekend labs * Vitals reviewed and noted below: 10/24/17 07:20 Temperature 98.2 F Pulse Rate 104 H Respiratory 20 Rate Blood Pressure 104/70
[2017-10-25] MEDS: Multivitamin With Minerals Tab PO SCH (08:55)
[2017-10-25] MEDS ORDERED: Alum-Mag Hydrox-Simethicone Susp (30 mL) PO PRN (13:12)
[2017-10-25] MEDS ORDERED: Magnesium Hydroxide Susp 30 ml UD PO PRN (13:12)
--- NOTE | 2017-10-25 14:50 | PCM.PYCHPN ---
Psychiatric Progress Note - Psychiatric Progress Note Patient seen today, length of contact: 25 min Patient Chief Complaint: "I need to go" Problems Identified/Issues Discussed: Suicide/ homicide prevention, past psychiatric h/o, current psychiatric symptoms , medical problems, risk/benefits and alternatives of medications, medications compliance, coping strategies, substance abuse h/o, relapse prevention, importance of follow up with psychiatrist and therapist, discharge plan. Medical Problems: see HPI Diagnostic Results: 10/21/17 14:30 10/21/17 14:30 Lab Results 10/22/17 07:20: Triglycerides 122, Cholesterol 130, LDL Cholesterol Direct 70, HDL Cholesterol 39 10/22/17 07:20: RPR Nonreactive 10/21/17 15:26: Urine Opiates Screen Positive H, Urine Methadone Screen Negative , Ur Barbiturates Screen Negative, Ur Phencyclidine Scrn Negative, Ur Amphetamines Screen Negative, U Benzodiazepines Scrn Negative, U Oth Cocaine Metabols Negative, U Cannabinoids Screen Negative 10/21/17 15:26: Urine Color Yellow, Urine Appearance Clear, Urine pH 5.5, Ur Specific [place] >= 1.030, Urine Protein Negative, Urine Glucose (UA) Negative, Urine Ketones Trace H, Urine Blood Negative, Urine Nitrate Negative, Urine Bilirubin Negative, Urine Urobilinogen 0.2, Ur Leukocyte Esterase Negative 10/21/17 14:30: Alcohol, Quantitative < 10 10/21/17 14:30: Salicylates 5, Acetaminophen < 10.0 L 10/21/17 14:30: Sodium 144, Potassium 3.4 L, Chloride 106, Carbon Dioxide 27, Anion Gap 15, BUN 10, Creatinine 0.6 L, Est GFR ( Amer) > 60, Est GFR ( Non-Af Amer) > 60, Random Glucose 96, Calcium 9.7, Total Bilirubin 0.2, AST 36, ALT 25, Alkaline Phosphatase 56, Total Protein 6.4, Albumin 3.8, Globulin 2.6, Albumin/Globulin Ratio 1.5 10/21/17 14:30: WBC 8.4 D, RBC 4.37, Hgb 13.0 L, Hct 39.1 L, MCV 89.5, MCH 29.7 , MCHC 33.2, RDW 14.6 H, Plt Count 284, MPV 9.7, Gran % 79.6 H, Lymph % (Auto) 13.6 L, [place] % (Auto) 5.9, Eos % (Auto) 0.7 L, Baso % (Auto) 0.2, Gran # 6.69 H , Lymph # (Auto) 1.1 L, [place] # (Auto) 0.5, Eos # (Auto) 0.1, Baso # (Auto) 0.02 Vital Signs Temp Pulse Pulse Resp BP Pulse Ox 10/24/17 07:20 98.2 F 104 H 20 104/70 10/23/17 17:23 92 H 97/65 L 10/23/17 07:11 98.3 F 91 H 20 102/66 10/22/17 06:57 97.9 F 90 20 123/76 10/21/17 19:50 61 18 10/21/17 17:15 97.3 F L 87 18 117/66 98 10/21/17 12:45 98.4 F 84 16 121/70 100 DSM 5 Symptoms Update: Patient is 32 year old male with no formal psychiatric history, current abuse of suboxone and Vicodin, denied history of psychiatric admissions , denied history of suicidal attempts, +multiple medical issues including Goldenhar syndrome who came to the emergency room accompanied by his brother as well as mother for evaluation and stabilization of psychotic symptoms. Patient was not functioning, not sleeping, refusing to leave the house due to paranoia, hearing voices telling him that he killed people and voices telling him to kill himself. Patient also kept a hammer under his pillow, pt also has impression that cameras are monitoring him. Patient has been confused with poor insight into his mental illness. Demonstrates negative symptoms and PMR. Patient requested for Haldol 5 mg and Benadryl 50 mg for voices on Wednesday morning, patient submitted 48 hour notice, requesting discharge, refused to rescinded it. pt was seen at the treatment team meeting, pt is confused, said he staid here for the past week, seems to be surprised when realized he was admitted on Wednesday. pt was suspicious, guarded, irritable, angry, paranoid, said he has to be discharged and he is ready to go, based on presentation pt obviously is not doing well. this casualty underwriter educated about [facility] screening process, pt left the room cursing. as per staff pt asked for the sneakers, seems planning to elope. later on pt tried to leave unit, trying to elope, pt needed to be medicated. pt tolerates meds well, no side effects, AIMS 0, no EPS. Diagnostic Results: psychosis NOS rule out major depressive disorder with psychosis rule out substance-induced psychosis opioid abuse Substance-induced mood and anxiety disorder Rule out PTSD Rule out Panic disorder Medication Change: Yes (seroquel increased) Medical Record Reviewed: Yes Mental Status Examination - Cognitive Function Orientation: Person Memory: Intact Attention: Poor Concentration: Poor Association: Loose Fund of Knowledge: Poor - Mood Mood: Depressed ("I need to go, I am fine) - Affect Affect: Constricted, Flat - Speech Speech: Soft - Formal Thought Process Formal Thought Process: Hallucinations ( Patient requested for Haldol 5 mg and Benadryl 50 mg for voices on Wednesday morning however denied hallucinations when this provider inquired all weekend. ), Delusions, Paranoia - Suicidal Ideation Suicidal Ideation: No - Homicidal Ideation Homicidal Ideation: No Goal/Treatment Plan - Goal/Treatment Plan Need for Continued Stay: Remain at risks for inpatient hospitalization, Severe depression anxiety, Discharge may exacerbated symptoms, Severe functional impairment Progress Toward Problem(s) and Goals/Treatment Plan: Medical consult appreciated, see medical team note for more detailed info SW consultation for discharge plan and social issues Med management Seroquel 100 mg twice a day for psychosis Ambien 10 mg as needed for insomnia Klonopin 0.5 mg twice a day and at the nighttime for anxiety as needed medication, clonidine 0.1 mg twice a day for with goals, Zofran as needed for dyspepsia, tramadol for pain, multivitamins Will call for medical consulate for low potassium level as well as chronic pain syndrome Family involvement Follow up on labs Will monitor closely Pt was educated about risk/benefits and alternatives of medications, coping strategies (safety plan, suicide prevention), relapse prevention, importance of follow up with psychiatrist and therapist, stay away from drugs/alcohol/smoking patient submitted 48 hour notice, will initiate screening Estimated Date of D/C: 10/29/17
--- NOTE | 2017-10-25 22:56 | CON ---
DATE: 10/25/2017 PULMONARY CONSULT REFERRING PHYSICIAN: Molly Dickinson MD. REASON FOR CONSULT: Admitted with delusion and hallucination to kill himself and a known sleep apnea syndrome, did not have a CPAP machine for a few years. HISTORY OF PRESENT ILLNESS: This is a 32-year-old gentleman, who was presented in the emergency room with auditory and visual hallucination. He was hearing voices to harm himself. He did on Suboxone and Vicodin in the past. Also has a history of substance abuse. At one point, he was diagnosed with sleep apnea, used CPAP many years ago. Presently does not have it. Admitted with loud snoring, daytime sleepy and tired. Presently admitted to Psychiatry Unit. No nausea. No vomiting, diarrhea, leg pain, leg swelling. PAST MEDICAL HISTORY: Substance abuse, sleep apnea syndrome, has a micrognathia. FAMILY HISTORY: No significant cardiopulmonary disease reported. SOCIAL HISTORY: He is a smoker, history of substance abuse in the past. ALLERGIES: NONE KNOWN. HOME MEDICATIONS: Suboxone. Presently on Ambien 10 mg at bedtime, p.r.n., Ativan 2 mg every 6 hours p.r.n., Benadryl p.r.n., Catapres 0.1 mg twice a day p.r.n., Cogentin 0.5 mg twice a day, trazodone 50 mg at bedtime, Geodon 20 mg every 8 hours p.r.n., Klonopin 0.5 mg twice a day, Maalox p.r.n., Nicoderm patch daily, Seroquel 100 mg in morning and at bedtime, multivitamins, Tylenol, Ultram 50 mg twice a day, Zofran p.r.n. basis. REVIEW OF SYSTEMS: No headache. No rhinitis. Admits to have snoring, daytime sleepy and tired. No chest pain. No nausea. No vomiting, diarrhea, leg pain, leg swelling. PHYSICAL EXAMINATION: GENERAL: Sitting up in a chair, no acute distress. VITAL SIGNS: Temp is 98, heart rate is 88, respiratory rate is 20, blood pressure 118/69, pulse ox 98% on room air. HEENT: Small oral cavity, poor dentition, micrognathia. LUNGS: Have a fair airflow with few rhonchi. HEART: S1 and S2. ABDOMEN: Soft and nontender. No organomegaly. EXTREMITIES: There is no edema. NEUROLOGICAL: Awake and alert. Follows simple command. LABORATORY DATA: Shows hemoglobin 13, hematocrit 39.1, WBC 8.4, platelet is 284. Sodium 144, potassium 3.4, chloride 106, bicarbonate 27, BUN 10, creatinine 0.6, glucose 96, AST 36, ALT 25, alk phos is 56, albumin 3.8, cholesterol 130. IMPRESSION AND PLAN: Sleep apnea syndrome, micrognathia, history of substance abuse with auditory and visual hallucination with having heaps of ideas. Also, spoke to the patient's family at bedside. We will place him on continuous positive airway pressure 7 cm with a full-face mask. Sleep apnea precaution. Careful with sedation. Fall precaution. We will recommend repeat sleep study post discharge as outpatient. Thank you and we will follow with you. Kenny Menjivar MD
[2017-10-26 06:45] VITALS: BP 102/69; PULSE 88; RESP 20; TEMP 97.5
[2017-10-26] MEDS: Multivitamin With Minerals Tab PO SCH (08:16)
--- NOTE | 2017-10-26 10:05 | PCM.PYCHDC ---
Mental Status Examination - Mental Status Examination Orientation: Person, Place, Situation Memory: Impaired (but improved ) Mood: Neutral Affect: Constricted Speech: Soft (and underproductive) Attention: Poor (but improved) Concentration: Poor (but improved) Association: WNL Fund of Knowledge: Poor (baseline) Formal Thought Process: Paranoia (mild paranoia, but improved) Description of patient's judgement and insight: limited insight Psychotic Thoughts and Behaviors: pt was mildly guarded and paranoid but with improvement Suicidal Ideation: No Current Homicidal Ideation?: No Plan: patient denied thoughts of harming self or others denied intent or plan, no agitated or aggressive behavior. Discharge Summary - Discharge Note Reason for Hospitalization: patient was admitted to psychiatric inpatient unit for evaluation and stabilization of psychotic symptoms, patient was hearing voices that he killed people, as well as command type hallucinations, worsening of depression, anxiety. please see initial knows more detailed information. Psychiatric History (includes Medical, Family, Personal Hx): see HPI Laboratory Data: 10/21/17 14:30 10/21/17 14:30 Lab Results 10/22/17 07:20: Triglycerides 122, Cholesterol 130, LDL Cholesterol Direct 70, HDL Cholesterol 39 10/22/17 07:20: RPR Nonreactive 10/21/17 15:26: Urine Opiates Screen Positive H, Urine Methadone Screen Negative , Ur Barbiturates Screen Negative, Ur Phencyclidine Scrn Negative, Ur Amphetamines Screen Negative, U Benzodiazepines Scrn Negative, U Oth Cocaine Metabols Negative, U Cannabinoids Screen Negative 10/21/17 15:26: Urine Color Yellow, Urine Appearance Clear, Urine pH 5.5, Ur Specific [place] >= 1.030, Urine Protein Negative, Urine Glucose (UA) Negative, Urine Ketones Trace H, Urine Blood Negative, Urine Nitrate Negative, Urine Bilirubin Negative, Urine Urobilinogen 0.2, Ur Leukocyte Esterase Negative 10/21/17 14:30: Alcohol, Quantitative < 10 10/21/17 14:30: Salicylates 5, Acetaminophen < 10.0 L 10/21/17 14:30: Sodium 144, Potassium 3.4 L, Chloride 106, Carbon Dioxide 27, Anion Gap 15, BUN 10, Creatinine 0.6 L, Est GFR ( Amer) > 60, Est GFR ( Non-Af Amer) > 60, Random Glucose 96, Calcium 9.7, Total Bilirubin 0.2, AST 36, ALT 25, Alkaline Phosphatase 56, Total Protein 6.4, Albumin 3.8, Globulin 2.6, Albumin/Globulin Ratio 1.5 10/21/17 14:30: WBC 8.4 D, RBC 4.37, Hgb 13.0 L, Hct 39.1 L, MCV 89.5, MCH 29.7 , MCHC 33.2, RDW 14.6 H, Plt Count 284, MPV 9.7, Gran % 79.6 H, Lymph % (Auto) 13.6 L, [place] % (Auto) 5.9, Eos % (Auto) 0.7 L, Baso % (Auto) 0.2, Gran # 6.69 H , Lymph # (Auto) 1.1 L, [place] # (Auto) 0.5, Eos # (Auto) 0.1, Baso # (Auto) 0.02 Vital Signs Temp Pulse Pulse Resp BP Pulse Ox 10/26/17 06:44 97.5 F L 88 20 102/69 10/25/17 15:00 96 H 113/71 10/25/17 07:00 97.9 F 88 18 118/69 10/24/17 07:20 98.2 F 104 H 20 104/70 10/23/17 17:23 92 H 97/65 L 10/23/17 07:11 98.3 F 91 H 20 102/66 10/22/17 06:57 97.9 F 90 20 123/76 10/21/17 19:50 61 18 10/21/17 17:15 97.3 F L 87 18 117/66 98 10/21/17 12:45 98.4 F 84 16 121/70 100 Consultations:: List each consultation separately and include: 1. Reason for request. 2. Findings. 3. Follow-up Consultations: patient was seen by political theory professor, was seen by medical team and the emergency room. Summary of Hospital Course include:: 1. Description of specific treatment plan utilized for patients during their course of treatmen. 2. Summarize the time- course for resolution of acute symptoms and/or regressed behaviors. 3. Describe issues identified and worked on during hospitalization. 4. Describe medication utilized. 5. Describe medical problems identified and treated. 6. Reassessment of suicide risk Summary of Hospital Course: shortly patient is 32 year old male with multiple medical issues including Goldenhar syndrome, opioid abuse, no formal psychiatric history, denied history of psychiatric admissions, denied history of suicidal attempts, patient came to the emergency room accompanied by his brother as well as mother for evaluation and stabilization of psychotic symptoms, patient was not functioning, was refusing to leave the house due to paranoia, patient also was hearing voices telling him that he killed people, patient also heard voices telling him to kill himself, patient was abusing Suboxone as well as Vicodin, patient was not able to sleep, was keeping the hammer under his pillow, patient does not have psychiatrist in the community, obviously requires further evaluation and stabilization and observation. 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 Thin build, long extremities, long palms. Patient was so confused that he was not able to find a way going back from the room, whenever at treatment team meeting was over, staff redirected patient back to his room. Patient presented to be depressed, difficult to to stay focused, was not able to concentrate, patient answers were only one word "yes/no", patient also presented with some poverty of thoughts as well as poverty of speech. pt deems to be poor and unreliable historian, possible due to AMS due to withdrawals from opioids or PRN meds over night. patient said that he has chronic pain and shoulder pain that is why she was taking Vicodin as well as Suboxone from his brother, patient reported that he takes about 4-5 spills a day, patient reported that at present moment she feels shaky, patient obviously was yawning as well had goosebumps, and teary eyes. Patient reported that he was able to tolerate food, denied diarrhea, denied nausea. vitals are stable. but K level is low, will call for medical consult pt smokes cigarettes 1/2 pack a day, nicotine patch offered, counseling provided pt was not able to provide history and majority of info was obtained from ED reports 10/15/17 and 10/21/17. 10/21/17: as per PES report pt was paranoid, guarded, has not left the house due to paranoia since 10/15/17, pt leaves a hammer under his pillow and says that there are cameras in his head and in the wall. 10/15/17: as per mother's report pt. has been suffering from anxiety and panic attacks for years, worsening since his friend was hit by a car and killed in front of patient in [place] about 7 years ago. Patient moved into an apartment of his own (within the past couple of weeks) at which time his panic attacks increased, and the pt. began to hear voices. Patient reports to his mother that he thinks people are talking about him, drilled a hole in the wall to watch him , and was observed yelling back at the voices telling them to "stop doing this" to him. Pt. notes to the mother that he knows the voices are not real. Extremely poor sleep, of approximately 3 hours per night, which triggers patients anxiety. Increased isolation. Past psych h/o: denied admissions, denied suicidal attempts. last ED visit , pt was provided with follow up appt, but pt did not attend. medical history: Chronic pain syndrome, left shoulder pain, Goldenhar syndrome. Family history: Patient denied family history of mental illness. 10/21/17 14:30 10/21/17 14:30 Lab Results 10/22/17 07:20: Triglycerides 122, Cholesterol 130, LDL Cholesterol Direct 70, HDL Cholesterol 39 10/21/17 15:26: Urine Opiates Screen Positive H, Urine Methadone Screen Negative , Ur Barbiturates Screen Negative, Ur Phencyclidine Scrn Negative, Ur Amphetamines Screen Negative, U Benzodiazepines Scrn Negative, U Oth Cocaine Metabols Negative, U Cannabinoids Screen Negative 10/21/17 15:26: Urine Color Yellow, Urine Appearance Clear, Urine pH 5.5, Ur Specific [place] >= 1.030, Urine Protein Negative, Urine Glucose (UA) Negative, Urine Ketones Trace H, Urine Blood Negative, Urine Nitrate Negative, Urine Bilirubin Negative, Urine Urobilinogen 0.2, Ur Leukocyte Esterase Negative 10/21/17 14:30: Alcohol, Quantitative < 10 10/21/17 14:30: Salicylates 5, Acetaminophen < 10.0 L 10/21/17 14:30: Sodium 144, Potassium 3.4 L, Chloride 106, Carbon Dioxide 27, Anion Gap 15, BUN 10, Creatinine 0.6 L, Est GFR ( Amer) > 60, Est GFR ( Non-Af Amer) > 60, Random Glucose 96, Calcium 9.7, Total Bilirubin 0.2, AST 36, ALT 25, Alkaline Phosphatase 56, Total Protein 6.4, Albumin 3.8, Globulin 2.6, Albumin/Globulin Ratio 1.5 10/21/17 14:30: WBC 8.4 D, RBC 4.37, Hgb 13.0 L, Hct 39.1 L, MCV 89.5, MCH 29.7 , MCHC 33.2, RDW 14.6 H, Plt Count 284, MPV 9.7, Gran % 79.6 H, Lymph % (Auto) 13.6 L, [place] % (Auto) 5.9, Eos % (Auto) 0.7 L, Baso % (Auto) 0.2, Gran # 6.69 H , Lymph # (Auto) 1.1 L, [place] # (Auto) 0.5, Eos # (Auto) 0.1, Baso # (Auto) 0.02 Vital Signs Temp Pulse Pulse Resp BP Pulse Ox 10/22/17 06:57 97.9 F 90 20 123/76 10/21/17 19:50 61 18 10/21/17 17:15 97.3 F L 87 18 117/66 98 10/21/17 12:45 98.4 F 84 16 121/70 100 10/21/2017 chest x-ray no active disease 10/21/2017 EKG within normal limits during this hospitalization pt was relatively stabilized on the following medications: Klonopin 0.5 mg twice a day for anxiety Seroquel was slowly they treated to 100 mg twice a day Trazodone 50 mg at the nighttime as needed for insomnia Ambien as needed for insomnia When necessary medication such as Zofran, milk of magnesia, Catapres as well as tramadol as needed for pain. Patient tolerated medications well, no side effects observed or reported, no opioid withdrawal symptoms, confusion improved. patient submitted 48 hour notice requesting to be discharged, patient was screened by [facility] on October 25, was found to be not committable, patient family is willing to accept patient back home, medications prescriptions provided, no painkillers or Ambien provided. Patient might improve further, but refused to stay in the hospital, yesterday patient tried to elope, at this time there is no other options other than discharge patient AGAINST MEDICAL ADVICE. At the time of the discharge pt denied been depressed, denied thoughts of harming self or others, pt is not in imminent danger to self or others, will be following up with psychiatrist of his choice, pt has supportive family, could assist pt with that. In case pt will need to obtain results of studies pending at discharge pt was provided with contact information of Psychiatric Inpatient unit [phone] as well as Medical Record Department [phone]. Nicotine patch was offered Naltrexone treatment is not indication now because pt was abusing pain meds Counseling about smoking and alcohol cessation provided AA meetings as well as smoking cessation treatment program information was provided by the pt was provided with prescriptions for all of medications (please see medication reconciliation form) Pt was educated about safety plan in case of worsening of symptoms or in case of suicidal or homicidal ideation call 911 or go to the nearest ER, also was educated to take meds as prescribed and stay away from drugs, pt verbalized understanding. - Diagnosis (1) Substance-induced psychotic disorder Current Visit: Yes Status: Acute Priority: High (2) Opioid abuse Current Visit: Yes Status: Chronic Priority: High (3) Substance induced mood disorder Current Visit: Yes Status: Chronic Priority: Medium (4) Psychosis Current Visit: Yes Status: Acute Priority: High - Final Diagnosis (DSM 5) Condition upon Discharge: GOOD Disposition: AGAINST MEDICAL ADVICE Follow-up Treatment Plan: At the time of the discharge pt denied been depressed, denied thoughts of harming self or others, pt is not in imminent danger to self or others, will be following up with psychiatrist of his choice, pt has supportive family, could assist pt with that. In case pt will need to obtain results of studies pending at discharge pt was provided with contact information of Psychiatric Inpatient unit [phone] as well as Medical Record Department [phone]. Nicotine patch was offered Naltrexone treatment is not indication now because pt was abusing pain meds Counseling about smoking and alcohol cessation provided AA meetings as well as smoking cessation treatment program information was provided by the pt was provided with prescriptions for all of medications (please see medication reconciliation form) Pt was educated about safety plan in case of worsening of symptoms or in case of suicidal or homicidal ideation call 911 or go to the nearest ER, also was educated to take meds as prescribed and stay away from drugs, pt verbalized understanding. pt's family came over and take pt back home Prescriptions/Medication Reconciliation: RX: Benztropine [Cogentin] 0.5 mg PO BID #14 tab RX: clonazePAM [Klonopin] 0.5 mg PO BID #14 tab RX: Multimineral/Multivitamin [Therapeutic-M Tab] 1 tab PO 0800 #14 tab RX: Nicotine 14 mg/24 hr [Nicoderm CQ] 1 patch TD DAILY #14 patch RX: QUEtiapine [Seroquel] 100 mg PO AMHS #30 tab - Smoking Cessation Smoking Cessation Medication prescribed: Yes - Antipsychotic Medications Pt discharged on 2 or more routine antipsychotic medications: No
--- NOTE | 2017-10-26 18:16 | CON ---
DATE: 10/25/2017 The patient was seen and examined on the bedside on 10/25/2017. CHIEF COMPLAINT: Hallucinations and delusions, cannot sleep at night, body aches. HISTORY OF PRESENT ILLNESS: Mr. Perico Gonzalez is 32-year-old male, came to the Emergency Room with auditory and visual hallucinations. He was hearing voices to harm himself. Vicodin in the past, also has a history of substance abuse. He was diagnosed with sleep apnea, used CPAP many years ago. The patient does not have it. Admitting of loud snoring, daytime sleepy and tiredness. Now he is in the Psych Unit. No fever, no chills. No nausea, vomiting or diarrhea. No hematuria or hematochezia. No headache, no dizziness. Feeling gassy and complaining about constipation. PAST MEDICAL HISTORY: Substance abuse, sleep apnea syndrome, micrognathia. FAMILY HISTORY: No significant cardiopulmonary disease. SOCIAL HISTORY: He is a smoker, history of substance abuse in the past, history of alcohol abuse. ALLERGIES: THE PATIENT IS NOT ALLERGIC TO ANY MEDICATIONS. HOME MEDICATIONS: Ambien, Ativan, Benadryl, Catapres, Cogentin, trazodone, Geodon, Klonopin, Maalox, Nicoderm patch, multivitamins, Tylenol, Zofran. REVIEW OF SYSTEMS: The patient was seen and examined on the bedside, looking comfortable. No nausea, vomiting or diarrhea. No hematuria or hematochezia. No swelling of the leg. No chest pain or palpitation. No headache, no dizziness. PHYSICAL EXAMINATION: VITAL SIGNS: Temperature 98.1, heart rate 88, respiratory rate 18, blood pressure 120/70. HEENT: Head normocephalic, atraumatic. Eyes PERRLA. Extraocular muscles intact. Conjunctivae clear. Nose patent. Mucous membrane moist. NECK: Supple. No carotid bruit. No JVD or thyromegaly. CHEST: Bilaterally symmetrical. HEART: S1 and S2 positive. LUNGS: Clear to auscultation. ABDOMEN: Soft. Bowel sounds present. No organomegaly. EXTREMITIES: No edema. No cyanosis. NEUROLOGIC: The patient is awake and alert. Follow simple commands. LABORATORY DATA: Hemoglobin 13, white blood cell is 8.4, hematocrit 39.1, platelets 284. Sodium 144, potassium 3.4, BUN 10, creatinine 0.6, AST 36, ALT 25. ASSESSMENT AND PLAN: Mr. River is seen by me on 10/25/2017 in Psych. He has sleep apnea syndrome, micrognathia, history of substance abuse, auditory and visual hallucination. Dr. Menjivar saw the patient, put on continuous positive airway pressure, sleep apnea precautions, fall precautions. He recommended sleep study repeat as outpatient. History of insomnia, hypertension, anxiety, gastroesophageal reflux disease, dyspepsia, gastrointestinal and deep venous thrombosis prophylaxis. Appreciated consult. We will follow up. Desiree Lemus MD MTDD
== END 2017-10-26 10:46 | disposition left against medical advice (07) | DRG 746 ==
LOC: ED 12:20 → ERH 16:25 → PSYC 18:18
PROVIDERS: ADMIT Psychiatry & Neurology Psychiatry; ATTEND Psychiatry & Neurology Psychiatry
DX: F11.159 Opioid abuse with opioid-induced psychotic disorder, unspecified (principal); F11.14 Opioid abuse with opioid-induced mood disorder; G89.4 Chronic pain syndrome; F17.210 Nicotine dependence, cigarettes, uncomplicated; M25.512 Pain in left shoulder; G47.30 Sleep apnea, unspecified; F41.0 Panic disorder [episodic paroxysmal anxiety]; Q87.0 Congenital malformation syndromes predominantly affecting facial appearance

== ENCOUNTER 2017-11-07 16:50 | Inpatient (IN) | payer MEDICAID ==
[2017-11-07 17:04] VITALS: BMI 19.5
[2017-11-07] MEDS ORDERED: Metoprolol 1 mg/ml Inj IVP ONE (17:31)
[2017-11-07] MEDS ORDERED: Metoprolol 1 mg/ml Inj IVP STA ×2 (17:31→17:50)
[2017-11-07] MEDS ORDERED: Sodium Chloride 0.9% 1,000 ML IV STA (17:31)
[2017-11-07 17:43] LABS: BASO # 0.01 K/mm3 (0.0-2.0); BASO % 0.1 % (0.0-3.0); EOS % 0.2 % (1.5-5.0); GRAN # 15.37 (1.4-6.5); GRAN % 91.4 % (50.0-68.0); HEMOGLOBIN 13.3 g/dL (14.0-18.0); LYMPH # 1.1 (1.2-3.4); LYMPH % 6.6 % (22.0-35.0); MEAN CELL VOLUME 91.6 fl (80.0-105.0); MEAN CORPUSCULAR HEMOGLOBIN 30.2 pg (25.0-35.0); MEAN PLATELET VOLUME 9.5 fl (7.0-11.0); MONO # 0.3 (0.1-0.6); MONO % 1.7 % (1.0-6.0); PLATELET COUNT 274 10^3/uL (120.0-450.0); RED CELL DISTRIBUTION WIDTH 14.7 % (11.5-14.5); WHITE BLOOD COUNT 16.8 10^3/ul (4.5-11.0)
[2017-11-07 17:55] LABS: ACETAMINOPHEN < 10.0 ug/ml (10.0-20.0); SALICYLATE < 1 mg/dL (2.0-20.0)
[2017-11-07 17:57] LABS: ALB/GLOB RATIO 1.5 (1.1-1.8); ALBUMIN 4.2 g/dL (3.0-4.8); ALT/SGPT 67 U/L (7-56); AST/SGOT 104 U/L (17-59); BLOOD UREA NITROGEN 12 mg/dL (7-21); CALCIUM 9.2 mg/dL (8.4-10.5); GFR AFRICAN-AMERICAN > 60; GFR NON-AFRICAN AMERICAN > 60; PROTHROMBIN TIME 11.4 SECONDS (9.4-12.5)
[2017-11-07 17:58] LABS: PARTIAL THROMBOPLASTIN TIME 27.1 Seconds (25.1-36.5)
--- NOTE | 2017-11-07 18:00 | RAD ---
HISTORY: chest pain COMPARISON: No prior. FINDINGS: LUNGS: Possible mild new patchy infiltrate is seen in the right lower lobe. Mild perihilar interstitial changes are seen elsewhere. PLEURA: No pleural effusion or pneumothorax. CARDIOVASCULAR: No CHF. Heart is unchanged. Aorta is unchanged. OSSEOUS STRUCTURES: No significant abnormalities. VISUALIZED UPPER ABDOMEN: Normal. OTHER FINDINGS: None. IMPRESSION: Possible mild new right lower lung field infiltrate.
[2017-11-07] MEDS ORDERED: Phenylephrine 10 mg/ml Inj ONE (18:02)
[2017-11-07] MEDS ORDERED: Midazolam 2 MG/2 ML VIAL ONE (18:02)
[2017-11-07] MEDS ORDERED: Lidocaine 2% Inj (20ml) ONE (18:02)
[2017-11-07] MEDS ORDERED: Iodixanol 320 MG/ML 100 ML BOTTLE IV ONE (18:04)
[2017-11-07] MEDS ORDERED: Nitroglycerin 50mg in D5W 0 MG/0 ML BOTTLE IV ONE (18:04)
[2017-11-07] MEDS ORDERED: Heparin 0 ML IV ONE (18:04)
[2017-11-07] MEDS ORDERED: Iohexol 350mgl/ml 50 ML ONE (18:04)
[2017-11-07] MEDS ORDERED: Iodixanol 320 MG/ML 200 ML BOTTLE IV ONE (18:04)
[2017-11-07 18:05] LABS: TROPONIN I < 0.01 ng/mL
--- NOTE | 2017-11-07 18:11 | ED PDOC ---
Arrival/HPI - General Chief Complaint: Psychiatric Evaluation Time Seen by Provider: 11/07/17 16:52 Historian: Patient, Family (brother) - Critical Care Critical Care Minutes: 30 minutes - History of Present Illness Narrative History of Present Illness (Text): 11/07/17 17:18 32 year old male, whose history includes Goldenhar syndrome, presents to the Emergency department for psychiatry clearance. Patient was recently discharged from a psychiatric admission and admits to hearing voices; as per brother, patient self-medicates using either Percocet or Morphine. Patient has also been complaining of chest pain for approximately 1 month. Today, the pain radiates into his jaw. Time/Duration: > week Symptom Onset: Gradual Symptom Course: Unchanged Context: Home Past Medical History - Provider Review Nursing Documentation Reviewed: Yes - Infectious Disease Hx of Infectious Diseases: None - Cardiac Hx Cardiac Disorders: No Hx Hypertension: No - Pulmonary Hx Tuberculosis: No - Neurological HX Cerebrovascular Accident: No Hx Seizures: No - HEENT Other/Comment: deviated septum - Renal Hx Renal Disorder: No - Endocrine/Metabolic Hx Endocrine Disorders: No - Hematological/Oncological Hx Cancer: No - Integumentary Hx Dermatological Disorder: No - Musculoskeletal/Rheumatological Hx Musculoskeletal Disorders: 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 - Gastrointestinal Hx Gastrointestinal Disorders: No - Genitourinary/Gynecological Hx Sexually Transmitted Diseases: No - Psychiatric Hx Psychophysiologic Disorder: No Hx Substance Use: Yes - Surgical History Other/Comment: Hemifacial Microsomia multiple skull sugery - Anesthesia Hx Anesthesia: Yes Hx Anesthesia Reactions: No Hx Malignant Hyperthermia: No Family/Social History - Physician Review Nursing Documentation Reviewed: Yes Family/Social History: Unknown Family HX Smoking Status: Heavy Smoker > 10 Cigarettes Daily Hx Alcohol Use: Yes Hx Substance Use: Yes Allergies/Home Meds Allergies/Adverse Reactions: Allergies No Known Allergies Allergy (Verified 10/21/17 20:34) Review of Systems - Physician Review All systems were reviewed & negative as marked: Yes - Review of Systems Constitutional: absent: Fevers Cardiovascular: Chest Pain Psychiatric: Depression, Suicidal Ideation Physical Exam Vital Signs Reviewed: Yes Vital Signs Temp Pulse Resp BP Pulse Ox 11/07/17 17:44 98 H 120/77 11/07/17 17:31 118 H 115/70 11/07/17 17:12 98.0 F 106 H 18 130/85 98 Temperature: Afebrile Blood Pressure: Normal Pulse: Tachycardic Respiratory Rate: Normal Appearance: Positive for: Well-Appearing, Non-Toxic, Comfortable Pain Distress: None Mental Status: Positive for: Alert and Oriented X 3 - Systems Exam Head: Present: Other (Obvious cranial and facial deformities. Multiple scars from previous surgeries.) Pupils: Present: PERRL Extroacular Muscles: Present: EOMI Neck: Present: Normal Range of Motion Respiratory/Chest: Present: Clear to Auscultation, Good Air Exchange. No: Respiratory Distress, Accessory Muscle Use Abdomen: No: Tenderness, Distention, Peritoneal Signs Lower Extremity: Present: Normal Inspection Neurological: Present: GCS=15, CN II-XII Intact, Speech Normal Skin: Present: Warm, Dry, Normal Color. No: Rashes Psychiatric: Present: Alert, Oriented x 3 Medical Decision Making ED Course and Treatment: 11/07/17 17:20 Impression: 32 year old male presents to the Emergency department complaining of chest pain and psychiatric issues. Differential Diagnosis included but are not limited to: STEMI vs. psych evaluation Plan: -- EKG -- Urinalysis -- Labs -- Aspirin, Metoprolol, Nitroglycerin, Sodium Chloride IV fluids -- Reassess and disposition Progress Notes: 11/07/17 17:22 Dr. Holden called to discuss EKG findings. 11/07/17 17:44 After discussing the case in detail with Dr. Holden, will activate code heart. 11/07/17 17:50 Patient states pain has improved after Nitro x3. 11/07/17 17:52 Had repeat EKG done and discussed with Dr. Holden. Repeat EKG was normal and will now cancel code heart. 11/07/17 20:39 Patient is being treated for aspiration of pneumonia. Psych worker will also come to evaluate the patient. Discussed case in detail with Dr. Darlene Perales and will admit the patient. - Lab Interpretations Lab Results: 11/07/17 17:20 11/07/17 17:20 Lab Results 11/07/17 20:15: pO2 137 H, VBG pH 7.34, VBG pCO2 53.0, VBG HCO3 28.6 H, VBG Total CO2 30.2 H, VBG O2 Sat (Calc) 98.7 H, VBG Base Excess 1.8, VBG Potassium 4.3, Glucose 115 H, Lactate 0.5 L, FiO2 21.0, Sodium 138.0, Chloride 108.0 H, Venous Blood Potassium 4.3 11/07/17 17:20: WBC 16.8 H D, RBC 4.40, Hgb 13.3 L, Hct 40.3 L, MCV 91.6, MCH 30.2, MCHC 33.0, RDW 14.7 H, Plt Count 274, MPV 9.5, Gran % 91.4 H, Lymph % ( Auto) 6.6 L, Placer % (Auto) 1.7, Eos % (Auto) 0.2 L, Baso % (Auto) 0.1, Gran # 15.37 H, Lymph # (Auto) 1.1 L, Placer # (Auto) 0.3, Eos # (Auto) 0.0, Baso # (Auto ) 0.01, Neutrophils % (Manual) 96 H, Lymphocytes % (Manual) 2 L, Monocytes % ( Manual) 2, Platelet Evaluation Normal 11/07/17 17:20: Alcohol, Quantitative < 10 11/07/17 17:20: Salicylates < 1 L, Acetaminophen < 10.0 L 11/07/17 17:20: Sodium 142, Potassium 4.2, Chloride 105, Carbon Dioxide 28, Anion Gap 14, BUN 12, Creatinine 0.6 L, Est GFR ( Amer) > 60, Est GFR ( Non-Af Amer) > 60, Random Glucose 121 H, Calcium 9.2, Magnesium 2.1, Total Bilirubin 0.4, AST 104 H D, ALT 67 H, Alkaline Phosphatase 88, Lactate Dehydrogenase 507, Total Creatine Kinase 60, Troponin I < 0.01, Total Protein 6.9, Albumin 4.2, Globulin 2.7, Albumin/Globulin Ratio 1.5 11/07/17 17:20: PT 11.4, INR 1.00, APTT 27.1 - RAD Interpretation Narrative RAD Interpretations (Text): 11/07/2017 17:58:58 Chest X-ray FINDINGS: LUNGS: Possible mild new patchy infiltrate is seen in the right lower lobe. Mild perihilar interstitial changes are seen elsewhere. PLEURA: No pleural effusion or pneumothorax. CARDIOVASCULAR: No CHF. Heart is unchanged. Aorta is unchanged. OSSEOUS STRUCTURES: No significant abnormalities. VISUALIZED UPPER ABDOMEN: Normal. OTHER FINDINGS: None. IMPRESSION: Possible mild new right lower lung field infiltrate. Radiology Orders: 11/07/17 17:27 CHEST PORTABLE [RAD] Stat - EKG Interpretation EKG Interpretation (Text): 11/07/17 17:20 EKG: Ordered, reviewed, and independently interpreted the EKG. Rate : 105 BPM Rhythm : Sinus tachycardia Interpretation : Lateral ST segment changes consistent with ischemia. Comparison : Abnormal. 11/07/17 17:21 EKG: Ordered, reviewed, and independently interpreted the EKG. Rate : 113 BPM Rhythm : Sinus Tachycardia Interpretation : Lateral ST segment changes consistent with acute infarct or STEMI. Comparison : Abnormal. 11/07/17 17:50 EKG: Ordered, reviewed, and independently interpreted the EKG. Rate : 88 BPM Rhythm : NSR Interpretation : No ST-segment elevations or depressions, no T-wave inversions, normal intervals. Comparison : Normal. 11/07/17 18:34 EKG: Ordered, reviewed, and independently interpreted the EKG. Rate : 94 BPM Rhythm : NSR Interpretation : No ST-segment elevations or depressions, no T-wave inversions, normal intervals. Comparison : Normal. Interpreted by ED Physician: Yes Type: 12 lead EKG - Medication Orders Current Medication Orders: Vancomycin HCl (Vancomycin 1gm) 1 gm in 250 mls @ 167 mls/hr IVPB STAT STA PRN Reason: Protocol Stop: 11/07/17 21:08 Discontinued Medications Aspirin (Aspirin Chewable) 324 mg PO STAT STA Stop: 11/07/17 17:32 Last Admin: 11/07/17 18:31 Dose: Sodium Chloride (Sodium Chloride 0.9%) 1,000 mls @ 999 mls/hr IV .Q1H1M STA Stop: 11/07/17 18:31 Last Admin: 11/07/17 17:31 Dose: 999 mls/hr eMAR Start Stop Document 11/07/17 17:31 RD (Rec: 11/07/17 18:34 RD [id number]) Intravenous Solution Start Date 11/07/17 Start Time 17:31 End Date 11/07/17 End time 18:31 Total Infusion Time 60 Piperacillin Sod/Tazobactam Sod (Zosyn 3.375 In Ns 100ml) 100 mls @ 200 mls/hr IVPB STAT STA PRN Reason: Protocol Stop: 11/07/17 20:07 Last Admin: 11/07/17 20:19 Dose: 200 mls/hr eMAR Start Stop Document 11/07/17 20:19 RG (Rec: 11/07/17 20:23 RG [id number]) Intravenous Solution Start Date 11/07/17 Start Time 20:19 Metoprolol Tartrate (Lopressor) 5 mg IVP STAT STA Stop: 11/07/17 17:32 Last Admin: 11/07/17 17:31 Dose: 5 mg Comments: Dr. Lundy aware. IVP Administration Document 11/07/17 17:31 RD (Rec: 11/07/17 18:32 RD [id number]) Charges for Administration # of IVP Administrations 1 MAR Pulse and Blood Pressure Document 11/07/17 17:31 RD (Rec: 11/07/17 18:32 RD [id number]) Pulse Pulse Rate (60-90) 118 Blood Pressure Blood Pressure (100/60-150/90) 115/70 Metoprolol Tartrate (Lopressor) 5 mg IVP STAT STA Stop: 11/07/17 17:51 Last Admin: 11/07/17 17:44 Dose: 5 mg IVP Administration Document 11/07/17 17:44 RD (Rec: 11/07/17 18:35 RD [id number]) Charges for Administration # of IVP Administrations 1 MAR Pulse and Blood Pressure Document 11/07/17 17:44 RD (Rec: 11/07/17 18:35 RD [id number]) Pulse Pulse Rate (60-90) 98 Blood Pressure Blood Pressure (100/60-150/90) 120/77 Nitroglycerin (Nitrostat Sl Tab) 0.4 mg SL STAT STA Stop: 11/07/17 17:32 Last Admin: 11/07/17 17:52 Dose: 0.4 mg Comments: 1st - 17:31 2nd - 17:36 3rd - 17:41 Nitroglycerin (Nitrostat Sl Tab) 0.4 mg SL STAT STA Stop: 11/07/17 17:52 Last Admin: 11/07/17 18:35 Dose: - Scribe Statement The provider has reviewed the documentation as recorded by the Chase Schneider Provider Scribe Attestation: All medical record entries made by the Scribe were at my direction and personally dictated by me. I have reviewed the chart and agree that the record accurately reflects my personal performance of the history, physical exam, medical decision making, and the department course for this patient. I have also personally directed, reviewed, and agree with the discharge instructions and disposition. Disposition/Present on Arrival - Present on Arrival Any Indicators Present on Arrival: No History of DVT/PE: No History of Uncontrolled Diabetes: No Urinary Catheter: No History of Decub. Ulcer: No History Surgical Site Infection Following: None - Disposition Have Diagnosis and Disposition been Completed?: Yes Diagnosis: Aspiration pneumonia, Tobacco abuse, Substance abuse, Chest pain, Goldenhar's syndrome, Bipolar disease, chronic, Hearing voices, Opioid abuse Disposition: HOSPITALIZED Disposition Time: 21:07 Patient Plan: Admission, Telemetry Condition: GOOD Discharge Instructions (ExitCare): Chest Pain (ED) Referrals: Mariela Mendoza MD [Primary Care Provider] - Follow up with primary Forms: ASSIA (Pashto)
[2017-11-07 18:33] LABS: LYMPHOCYTE 2 % (22.0-35.0); NEUTROPHIL 96 % (50.0-70.0)
[2017-11-07 18:34] LABS: MONOCYTE 2 % (1.0-6.0); PLATELET ESTIMATE NORMAL (NORMAL)
[2017-11-07] MEDS ORDERED: Piperacillin/Tazobact 3.375 gm 100 ML IVPB STA (19:38)
[2017-11-07] MEDS ORDERED: Vancomycin 1gm in NS 250ml 1 GM/250 ML BAG IVPB STA (19:39)
[2017-11-07 20:28] LABS: VENOUS BLOOD GAS BASE EXCESS 1.8 mmol/L (0.0-2.0); VENOUS BLOOD GAS PO2 137 mm/Hg (30-55); VENOUS BLOOD PH 7.34 (7.32-7.43)
[2017-11-07 22:03] LABS: PH,URINE 6.5 (4.7-8.0); URINE BILIRUBIN NEGATIVE (NEGATIVE); URINE BLOOD NEGATIVE (NEGATIVE); URINE GLUCOSE (UA) NEGATIVE (NEGATIVE); URINE LEUKOCYTE ESTERASE NEGATIVE Leu/uL (NEGATIVE); URINE PROTEIN NEGATIVE mg/dL (<30 mg/dL); URINE UROBILINOGEN 0.2 E.U./dL (<1 E.U./dL)
[2017-11-07 22:09] LABS: URINE APPEARANCE CLEAR (CLEAR); URINE COLOR YELLOW (YELLOW)
[2017-11-07 22:17] LABS: BARBITURATES, UR NEGATIVE (NEGATIVE); BENZODIAZEPINES, UR NEGATIVE (NEGATIVE); OPIATES, UR POSITIVE (NEGATIVE); PHENCYCLIDINE, UR NEGATIVE (NEGATIVE)
--- NOTE | 2017-11-07 22:55 | CP.PCM.HP ---
Addendum entered and electronically signed by Kyle Trujillo DO 00:17: Bipolar Disorder with Auditory Hallucinations - Psych consult: Dr. Barnes - Continue home medications Original Note: <Kyle Trujillo - Last Filed: 11/07/17 23:58> History of Present Illness - History of Present Illness History of Present Illness: Medicine H&P: Dr. Roxy Perales Chief Complaint: Shortness of breath HPI: 32 year old male with past medical history of Goldenhar syndrome, Sleep apnea and Bipolar disorder presents with shortness of breath and hearing voices. Patient was recently discharged from the psychiatry floor here at [facility] (10/26/2017 ). Patient denies chest pain, though he told the ED physician he did have some. Patient denies any other complaints at this time, including homicidal ideations and suicidal ideations and fevers/chills. Review of Systems: 12 point ROS obtained and negative, except as per HPI Surgical History: Patient denies Medical History: Goldenhar, Sleep apnea and Bipolar Allergies: NKDA Social History: +Alcohol, +Tobacco, Morphine and Percocet that is not Rx'd Home meds: Reviewed, see MAR Family History: Non-contributory PMD: Dr. Chapa Present on Admission - Present on Admission Any Indicators Present on Admission: No Past Patient History - Infectious Disease Hx of Infectious Diseases: None - Past Social History Smoking Status: Heavy Smoker > 10 Cigarettes Daily - CARDIAC Hx Cardiac Disorders: No Hx Hypertension: No - PULMONARY Hx Tuberculosis: No - NEUROLOGICAL HX Cerebrovascular Accident: No Hx Seizures: No - HEENT Other/Comment: deviated septum - RENAL Hx Chronic Kidney Disease: No - ENDOCRINE/METABOLIC Hx Endocrine Disorders: No - HEMATOLOGICAL/ONCOLOGICAL Hx Cancer: No - INTEGUMENTARY Hx Dermatological Problems: No - MUSCULOSKELETAL/RHEUMATOLOGICAL Hx Musculoskeletal Disorders: 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 - GASTROINTESTINAL Hx Gastrointestinal Disorders: No - GENITOURINARY/GYNECOLOGICAL Hx Sexually Transmitted Disorders: No - PSYCHIATRIC Hx Psychophysiologic Disorder: No Hx Substance Use: Yes - SURGICAL HISTORY Other/Comment: Hemifacial Microsomia multiple skull sugery - ANESTHESIA Hx Anesthesia: Yes Hx Anesthesia Reactions: No Hx Malignant Hyperthermia: No Meds Allergies/Adverse Reactions: Allergies Allergy/AdvReac Type Severity Reaction Status Date / Time No Known Allergies Allergy Verified 10/21/17 20:34 Physical Exam - Constitutional Appears: Well - Head Exam Head Exam: ATRAUMATIC, NORMAL INSPECTION, NORMOCEPHALIC - Eye Exam Eye Exam: EOMI, Normal appearance, PERRL Pupil Exam: NORMAL ACCOMODATION, PERRL - ENT Exam ENT Exam: Mucous Membranes Moist, Normal Exam - Neck Exam Neck exam: Positive for: Normal Inspection - Respiratory Exam Respiratory Exam: Clear to Auscultation Bilateral, NORMAL BREATHING PATTERN - Cardiovascular Exam Cardiovascular Exam: REGULAR RHYTHM - GI/Abdominal Exam GI & Abdominal Exam: Normal Bowel Sounds, Soft. absent: Tenderness - Extremities Exam Extremities exam: Positive for: normal inspection - Back Exam Back exam: NORMAL INSPECTION - Neurological Exam Neurological exam: Alert, CN II-XII Intact, Normal Gait, Oriented x3, Reflexes Normal - Psychiatric Exam Psychiatric exam: Normal Affect, Normal Mood - Skin Skin Exam: Dry, Intact, Normal Color, Warm Results - Vital Signs Recent Vital Signs: Last Vital Signs Temp 98.0 F 11/07/17 17:12 Pulse 83 11/07/17 21:55 Resp 12 11/07/17 21:55 BP 115/66 11/07/17 21:55 Pulse Ox 96 11/07/17 21:55 - Labs Result Diagrams: 11/07/17 17:20 11/07/17 17:20 Labs: Laboratory Results - last 24 hr 11/07/17 11/07/17 21:46 21:46 Urine Color Yellow Urine Appearance Clear Urine pH 6.5 Ur Specific [place] 1.025 Urine Protein Negative Urine Glucose (UA) Negative Urine Ketones Negative Urine Blood Negative Urine Nitrate Negative Urine Bilirubin Negative Urine Urobilinogen 0.2 Ur Leukocyte Esterase Negative Urine Opiates Screen Positive H Urine Methadone Screen Negative Ur Barbiturates Screen Negative Ur Phencyclidine Scrn Negative Ur Amphetamines Screen Negative U Benzodiazepines Scrn Negative U Oth Cocaine Metabols Negative U Cannabinoids Screen Negative Assessment & Plan - Assessment and Plan (Free Text) Assessment: 32 year old male with past medical history pertinent for bipolar disorder and prescription drug abuse presents with auditory hallucinations and mild shortness of breath. Patient's drug screen was positive for opiates. Patient had an elevated white count at 16.8 as well as tachycardia with a chest XR that showed right lower lobe infiltrate. Patient himself denied any productive cough or fevers/chills at home. Patient also has a diagnosis of sleep apnea. AST/ALT were 104/67. ED physician stated that patient complained of chest pain , but patient did not endorse this to me. Trope was negative X 1 in ED Chest Pain rule out ACS - Tropes, EKG - No further cardiac work up needed at this time: day team can consider lipid panel, tsh, a1c Right Lower Lobe Pneumonia possibly 2/2 aspiration due to opiate abuse - Azithro/Rocephin - Ibuprofen PRN for fever - Blood culture - Fluids: NS @ 100 ml/hr Obstructive sleep apnea - CPAP Transaminitis, likely 2/2 drug abuse - Monitor for now GI/DVT Prophylaxis - Protonix/SCD <Radha Perales - Last Filed: 11/08/17 05:09> Results - Vital Signs Recent Vital Signs: Last Vital Signs Temp 98 F 11/08/17 00:01 Pulse 58 L 11/08/17 02:00 Resp 20 11/08/17 00:01 BP 98/67 L 11/08/17 00:01 Pulse Ox 98 11/08/17 00:01 - Labs Result Diagrams: 11/07/17 17:20 11/07/17 17:20 Labs: Laboratory Results - last 24 hr 11/07/17 11/07/17 11/08/17 21:46 21:46 01:00 Troponin I 0.04 D Urine Color Yellow Urine Appearance Clear Urine pH 6.5 Ur Specific [place] 1.025 Urine Protein Negative Urine Glucose (UA) Negative Urine Ketones Negative Urine Blood Negative Urine Nitrate Negative Urine Bilirubin Negative Urine Urobilinogen 0.2 Ur Leukocyte Esterase Negative Urine Opiates Screen Positive H Urine Methadone Screen Negative Ur Barbiturates Screen Negative Ur Phencyclidine Scrn Negative Ur Amphetamines Screen Negative U Benzodiazepines Scrn Negative U Oth Cocaine Metabols Negative U Cannabinoids Screen Negative
[2017-11-08] MEDS: Sodium Chloride 0.9% 1,000 ML IV SCH ×2 (01:52→10:24)
[2017-11-08] MEDS: Pantoprazole 40 mg EC Tab PO SCH (05:26)
[2017-11-08 07:36] LABS: BASO # 0.03 K/mm3 (0.0-2.0); BASO % 0.4 % (0.0-3.0); EOS # 0.5 (0.0-0.7); EOS % 6.1 % (1.5-5.0); GRAN # 4.99 (1.4-6.5); GRAN % 64.6 % (50.0-68.0); HEMOGLOBIN 11.9 g/dL (14.0-18.0); LYMPH # 1.7 (1.2-3.4); LYMPH % 21.9 % (22.0-35.0); MEAN CELL VOLUME 91.8 fl (80.0-105.0); MEAN CORPUSCULAR HEMOGLOBIN 29.5 pg (25.0-35.0); MEAN CORPUSCULAR HGB CONC 32.1 g/dl (31.0-37.0); MEAN PLATELET VOLUME 9.7 fl (7.0-11.0); MONO # 0.5 (0.1-0.6); RBC 4.04 10^6/uL (3.5-6.1); WHITE BLOOD COUNT 7.7 10^3/ul (4.5-11.0)
[2017-11-08 07:47] LABS: ALB/GLOB RATIO 1.5 (1.1-1.8); ALBUMIN 3.3 g/dL (3.0-4.8); ALT/SGPT 41 U/L (7-56); AST/SGOT 35 U/L (17-59); BLOOD UREA NITROGEN 11 mg/dL (7-21); CALCIUM 8.7 mg/dL (8.4-10.5); GFR AFRICAN-AMERICAN > 60; GFR NON-AFRICAN AMERICAN > 60
[2017-11-08] MEDS: Cefepime 1gm in NS 100ml 1 GM/100 ML BAG IVPB SCH ×2 (07:54→13:30)
[2017-11-08 07:59] LABS: TROPONIN I 0.02 ng/mL
[2017-11-08] MEDS: Multivitamin With Minerals Tab PO SCH (09:17)
[2017-11-08] MEDS ORDERED: cefTRIAXone 1 gm 1 GM/100 ML BAG IVPB SCH (10:00)
[2017-11-08] MEDS: Azithromycin 250 MG in Sodium Chloride 0.9% 250 ML IVPB SCH (10:22)
--- NOTE | 2017-11-08 15:33 | CP.PCM.PN ---
<Ludwig Anderson - Last Filed: 11/08/17 15:28> Subjective - Date & Time of Evaluation Date of Evaluation: 11/08/17 Time of Evaluation: 15:28 - Subjective Subjective: Patient seen and examined this AM. Patient reports improved breathing. Denies auditory hallucinations. Denies chest pain, shortness of breath, abdominal pain , fever, chills, SI or HI. Objective - Vital Signs/Intake and Output Vital Signs (last 24 hours): Temp Pulse Resp BP Pulse Ox 98 F 89 20 100/61 100 11/08/17 12:00 11/08/17 14:00 11/08/17 12:00 11/08/17 12:00 11/08/17 05:40 Intake and Output: 11/08/17 11/08/17 06:59 18:59 Intake Total 0 Output Total 0 Balance 0 - Medications Medications: Current Medications Benztropine Mesylate (Cogentin) 0.5 mg PO BID [facility] Last Admin: 11/08/17 09:17 Dose: 0.5 mg Clonazepam (Klonopin) 0.5 mg PO BID [facility] PRN Reason: Protocol Last Admin: 11/08/17 09:17 Dose: 0.5 mg Docusate Sodium (Colace) 100 mg PO BID [facility] Last Admin: 11/08/17 09:18 Dose: 100 mg Azithromycin 250 mg/ Sodium (Chloride) 250 mls @ 167 mls/hr IVPB DAILY [facility] PRN Reason: Protocol Last Admin: 11/08/17 10:22 Dose: 167 mls/hr Sodium Chloride (Sodium Chloride 0.9%) 1,000 mls @ 100 mls/hr IV .Q10H [facility] Last Admin: 11/08/17 10:24 Dose: 100 mls/hr Cefepime HCl (Maxipime 1gm) 1 gm in 100 mls @ 100 mls/hr IVPB Q8 [facility] PRN Reason: Protocol Last Admin: 11/08/17 13:30 Dose: 100 mls/hr Ibuprofen (Motrin Tab) 400 mg PO Q6H PRN PRN Reason: Fever >100.4 F Multivitamins/Minerals (Therapeutic-M Tab) 1 tab PO 0800 [facility] Last Admin: 11/08/17 09:17 Dose: 1 tab Nicotine (Nicoderm Cq) 1 patch TD DAILY [facility] Last Admin: 11/08/17 09:18 Dose: 1 patch Pantoprazole Sodium (Protonix Ec Tab) 40 mg PO 0600 [facility] Last Admin: 11/08/17 05:26 Dose: 40 mg Quetiapine Fumarate (Seroquel) 100 mg PO AMHS [facility] PRN Reason: Protocol Last Admin: 11/08/17 09:17 Dose: 100 mg - Labs Labs: 11/08/17 07:00 11/08/17 07:00 PT 11.4 SECONDS (9.4-12.5) 11/07/17 17:20 INR 1.00 (0.93-1.08) 11/07/17 17:20 APTT 27.1 Seconds (25.1-36.5) 11/07/17 17:20 - Constitutional Appears: No Acute Distress - Eye Exam Eye Exam: EOMI, PERRL - ENT Exam ENT Exam: Mucous Membranes Moist - Neck Exam Neck Exam: Full ROM - Respiratory Exam Respiratory Exam: Clear to Ausculation Bilateral, NORMAL BREATHING PATTERN. absent: Rhonchi, Wheezes - Cardiovascular Exam Cardiovascular Exam: REGULAR RHYTHM, +S1, +S2 - GI/Abdominal Exam GI & Abdominal Exam: Soft, Normal Bowel Sounds. absent: Guarding, Rigid, Tenderness - Extremities Exam Extremities Exam: absent: Calf Tenderness, Pedal Edema - Back Exam Back Exam: absent: CVA tenderness (L), CVA tenderness (R) - Neurological Exam Neurological Exam: Alert, Awake, Normal Gait, Oriented x3 - Psychiatric Exam Psychiatric exam: Agitated, Anxious. absent: Homicidal Ideation, Suicidal Ideation - Skin Skin Exam: Dry, Warm Assessment and Plan - Assessment and Plan (Free Text) Assessment: 32 year old male with past medical history pertinent for bipolar disorder and prescription drug abuse presents with auditory hallucinations and mild shortness of breath. Patient's drug screen was positive for opiates.Patient treated for CAP. Patient evaluated by psych and found not to be competent at this time and will require revaluation in AM. Plan: Suspected Right Lower Lobe Pneumonia possibly 2/2 aspiration due to opiate abuse - Azithromycin Day 2 - Ibuprofen PRN for fever - Blood culture pending - Sputum culture pending - Procal pending - Strep pneumo and legionella pending, f/u - Fluids: NS @ 100 ml/hr Bipolar disorder with hallucinations - Psychiatry consulted - Patient deemed without competency for discharge at this time - f/u psych recommendations Obstructive sleep apnea - CPAP at night GI PPX: protonix DVT PPX: SCD Case and plan discussed with attending <Kenny Waller - Last Filed: 11/08/17 18:10> Objective - Vital Signs/Intake and Output Vital Signs (last 24 hours): Temp Pulse Resp BP Pulse Ox 98 F 89 20 100/61 100 11/08/17 12:00 11/08/17 14:00 11/08/17 12:00 11/08/17 12:00 11/08/17 05:40 Intake and Output: 11/08/17 11/08/17 06:59 18:59 Intake Total 0 Output Total 0 Balance 0 - Medications Medications: Current Medications Benztropine Mesylate (Cogentin) 0.5 mg PO BID [facility] Last Admin: 11/08/17 17:20 Dose: 0.5 mg Clonazepam (Klonopin) 0.5 mg PO BID [facility] PRN Reason: Protocol Last Admin: 11/08/17 17:17 Dose: 0.5 mg Docusate Sodium (Colace) 100 mg PO BID [facility] Last Admin: 11/08/17 17:19 Dose: 100 mg Azithromycin 250 mg/ Sodium (Chloride) 250 mls @ 167 mls/hr IVPB DAILY [facility] PRN Reason: Protocol Last Admin: 11/08/17 10:22 Dose: 167 mls/hr Sodium Chloride (Sodium Chloride 0.9%) 1,000 mls @ 100 mls/hr IV .Q10H [facility] Last Admin: 11/08/17 10:24 Dose: 100 mls/hr Cefepime HCl (Maxipime 1gm) 1 gm in 100 mls @ 100 mls/hr IVPB Q8 [facility] PRN Reason: Protocol Last Admin: 11/08/17 13:30 Dose: 100 mls/hr Ibuprofen (Motrin Tab) 400 mg PO Q6H PRN PRN Reason: Fever >100.4 F Multivitamins/Minerals (Therapeutic-M Tab) 1 tab PO 0800 [facility] Last Admin: 11/08/17 09:17 Dose: 1 tab Nicotine (Nicoderm Cq) 1 patch TD DAILY [facility] Last Admin: 11/08/17 09:18 Dose: 1 patch Pantoprazole Sodium (Protonix Ec Tab) 40 mg PO 0600 [facility] Last Admin: 11/08/17 05:26 Dose: 40 mg Quetiapine Fumarate (Seroquel) 100 mg PO AMHS [facility] PRN Reason: Protocol Last Admin: 11/08/17 09:17 Dose: 100 mg Ziprasidone (Geodon Inj) 10 mg IM TID PRN; Protocol PRN Reason: Agitation - Labs Labs: 11/08/17 07:00 11/08/17 07:00 PT 11.4 SECONDS (9.4-12.5) 11/07/17 17:20 INR 1.00 (0.93-1.08) 11/07/17 17:20 APTT 27.1 Seconds (25.1-36.5) 11/07/17 17:20 Attending/Attestation - Attestation I have personally seen and examined this patient.: Yes I have fully participated in the care of the patient.: Yes I have reviewed all pertinent clinical information, including history, physical exam and plan: Yes Notes (Text): 11/08/17 18:07 Patient was seen and examined with medical leader. 32 years old male was admitted with suicidal ideation and Pneumonia. Patient is afebrile, he is on room air.WBC is coming down.Procalcitonin level is mildly elevated.Antibiotics can be changed to oral. Patient case was discussed with Psychiatry, may need to go for inpatient Psychiatry.
--- NOTE | 2017-11-08 18:25 | CP.PCM.CON ---
History of Present Illness - History of Present Illness History of Present Illness: 32 year old male with PMH of Goldenhar syndrome, obstructive sleep apnea, bipolar disorder came in to [facility] complaining of shortness of breath and cough. She denies fever or chills, no nausea or vomiting, no chest pain, no palpitations, no abdominal pain, no diarrhea, no dysuria. She is also complaining of hearing voices but denies suicidal ideation. CXR done is showing is possible right lower lobe infiltrates. Infectious diseases consult is requested to further evaluate and manage. Review of Systems - Review of Systems All systems: reviewed and no additional remarkable complaints except (as per HPI ) Past Patient History - Infectious Disease Hx of Infectious Diseases: None - Past Social History Smoking Status: Heavy Smoker > 10 Cigarettes Daily - CARDIAC Hx Cardiac Disorders: No Hx Hypertension: No - PULMONARY Hx Tuberculosis: No - NEUROLOGICAL HX Cerebrovascular Accident: No Hx Seizures: No - HEENT Other/Comment: deviated septum - RENAL Hx Chronic Kidney Disease: No - ENDOCRINE/METABOLIC Hx Endocrine Disorders: No - HEMATOLOGICAL/ONCOLOGICAL Hx Cancer: No - INTEGUMENTARY Hx Dermatological Problems: No - MUSCULOSKELETAL/RHEUMATOLOGICAL Hx Musculoskeletal Disorders: 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 - GASTROINTESTINAL Hx Gastrointestinal Disorders: No - GENITOURINARY/GYNECOLOGICAL Hx Sexually Transmitted Disorders: No - PSYCHIATRIC Hx Psychophysiologic Disorder: No Hx Substance Use: Yes - SURGICAL HISTORY Other/Comment: Hemifacial Microsomia multiple skull sugery - ANESTHESIA Hx Anesthesia: Yes Hx Anesthesia Reactions: No Hx Malignant Hyperthermia: No Meds Home Medications: Home Medication List Medication Instructions Recorded Confirmed Type Levofloxacin [Levaquin] 750 mg PO DAILY 7 Days #7 tablet 11/08/17 Rx Allergies/Adverse Reactions: Allergies Allergy/AdvReac Type Severity Reaction Status Date / Time No Known Allergies Allergy Verified 10/21/17 20:34 - Medications Medications: Current Medications Benztropine Mesylate (Cogentin) 0.5 mg PO BID [facility] Clonazepam (Klonopin) 0.5 mg PO BID [facility] PRN Reason: Protocol Docusate Sodium (Colace) 100 mg PO BID [facility] Azithromycin 250 mg/ Sodium (Chloride) 250 mls @ 167 mls/hr IVPB DAILY [facility] PRN Reason: Protocol Sodium Chloride (Sodium Chloride 0.9%) 1,000 mls @ 100 mls/hr IV .Q10H [facility] Last Admin: 11/08/17 01:52 Dose: 100 mls/hr Cefepime HCl (Maxipime 1gm) 1 gm in 100 mls @ 100 mls/hr IVPB Q8 [facility] PRN Reason: Protocol Ibuprofen (Motrin Tab) 400 mg PO Q6H PRN PRN Reason: Fever >100.4 F Multivitamins/Minerals (Therapeutic-M Tab) 1 tab PO 0800 [facility] Nicotine (Nicoderm Cq) 1 patch TD DAILY [facility] Pantoprazole Sodium (Protonix Ec Tab) 40 mg PO 0600 [facility] Last Admin: 11/08/17 05:26 Dose: 40 mg Quetiapine Fumarate (Seroquel) 100 mg PO AMHS [facility] PRN Reason: Protocol Physical Exam - Constitutional Appears: Chronically Ill - Head Exam Head Exam: NORMAL INSPECTION - Neck Exam Neck exam: Negative for: Meningismus - Respiratory Exam Respiratory Exam: Decreased Breath Sounds - Cardiovascular Exam Cardiovascular Exam: +S1, +S2 - GI/Abdominal Exam GI & Abdominal Exam: Soft. absent: Tenderness Results - Vital Signs Recent Vital Signs: Last Vital Signs Temp 98.2 F 11/08/17 05:40 Pulse 63 11/08/17 05:40 Resp 20 11/08/17 05:40 BP 96/54 L 11/08/17 05:40 Pulse Ox 100 11/08/17 05:40 - Labs Result Diagrams: 11/08/17 07:00 11/08/17 07:00 Labs: Laboratory Results - last 24 hr 11/07/17 11/07/17 11/08/17 21:46 21:46 01:00 Troponin I 0.04 D Urine Color Yellow Urine Appearance Clear Urine pH 6.5 Ur Specific [place] 1.025 Urine Protein Negative Urine Glucose (UA) Negative Urine Ketones Negative Urine Blood Negative Urine Nitrate Negative Urine Bilirubin Negative Urine Urobilinogen 0.2 Ur Leukocyte Esterase Negative Urine Opiates Screen Positive H Urine Methadone Screen Negative Ur Barbiturates Screen Negative Ur Phencyclidine Scrn Negative Ur Amphetamines Screen Negative U Benzodiazepines Scrn Negative U Oth Cocaine Metabols Negative U Cannabinoids Screen Negative Assessment & Plan - Assessment and Plan (Free Text) Plan: Assessment Consider sepsis due to right lower lobe healthcare-associated pneumonia Goldenhar syndrome obstructive sleep apnea bipolar disorder Plan started patient on Vancomycin, Cefepime and Zithromax pending blood, sputum cx, PCT, urine Legionella Ag reviewed CXR will monitor clinically follow up Psych evaluation and recommendations
--- NOTE | 2017-11-08 20:30 | CARD ---
APPROVED REPORT EKG Measurement Heart [id number] <Conclusion> Normal sinus rhythm Normal ECG
--- NOTE | 2017-11-08 20:40 | CARD ---
APPROVED REPORT EKG Measurement Heart [id number] <Conclusion> Sinus tachycardia with 1st degree AV block ST elevation, consider anterolateral injury or acute infarct ACUTE [place] Abnormal ECG
--- NOTE | 2017-11-08 20:41 | CARD ---
APPROVED REPORT EKG Measurement Heart [id number] <Conclusion> Sinus tachycardia ST elevation, consider lateral injury or acute infarct ACUTE [place] Abnormal ECG
[2017-11-09] MEDS: Cefepime 1gm in NS 100ml 1 GM/100 ML BAG IVPB SCH ×4 (00:14→21:41)
--- NOTE | 2017-11-09 02:03 | CON ---
DATE: HISTORY OF PRESENT ILLNESS: The patient is a 32-year-old male with history of Goldenhar syndrome. Patient was brought in for psychiatric clearance due to psychotic symptoms. Patient was complaining of chest pain that is why he was admitted on the medical site. Psych consult was called for above-named symptoms. Patient is very familiar to this provider from the most recent admission to the psychiatric inpatient unit. Patient has tendency of misusing and abusing pain killers. As a result, patient became psychotic. Patient was having feeling that people are after him. Patient also had impression that people are monitoring him. Patient was not leaving the house. Patient was discharged against medical advice less than a month ago. Patient was seen and examined today. Patient presented somewhat better to compare with the previous admission. Patient was less guarded and paranoid. Patient remembered this science writer, but does not remember her name. Patient was minimizing his symptoms. Patient reported that he is feeling fine, denied feeling depressed, denied thoughts of harming himself or others. Denied intent or plan. Patient reported that he has followup appointment at [facility] outpatient program. Patient wants to be discharged. Based on the previous history, this science writer decided to ask permission of the patient to talk to the mother. Patient gave permission to speak to the mother. Her name is Leslie [phone]. vice president of human resources gave her a call. As per mother's collateral information, patient is not ready to go home. Patient's mother refused to accept the patient back home because of psychosis and unpredictable behavior. Moreover, patient's mother feels that patient will be not compliant with the followup appointment. At present moment, patient is not cleared for discharge. PS worker talked to the mother as well. Mother reported that patient was responding to internal stimuli. Patient ran out of the house with underwear due to voices that he was hearing and patient was not able to sleep for past 3 days and patient's mother expressed her highest concern about patient's safety. PHYSICAL EXAMINATION: VITAL SIGNS: Reviewed. Temperature 98, pulse is 89, blood pressure 100/61, respiration 20, oxygen saturation is 100. MEDICATIONS: Reviewed. Patient is on azithromycin, Cogentin, cefepime, Klonopin 0.5 mg twice a day, Colace, Motrin, Nicoderm, Protonix, Seroquel 100 mg twice a day, which was started by medical team as well as sodium chloride. This science writer will implement Geodon as needed for agitation. MENTAL STATUS EXAMINATION: Patient was minimizing all of his symptoms, reported that he feels fine. Patient requested to be discharged, intermittent eye contact. Mood described "I'm feeling just fine." Affect was constricted. Thought process concrete. Thought content, based on the history, patient is psychotic, was running in the streets in his underwear. Insight and judgment seems to be limited. Impulses are unpredictable. IMPRESSION: Psychosis, not otherwise specified; substance-induced psychosis; rule out schizophrenia. PLAN: Continue current management. Continue current medications. This science writer implemented Geodon. Collaterals from the mother appreciated. Patient refused to stay in the hospital into the psychiatric inpatient unit. If patient will continue refusing to stay in the hospital, most likely a screening process needs to be initiated. Meanwhile, patient might benefit from one-to-one observation due to elopement risk. Thank you very much for letting me participate in care of your patient. Molly Dickinson MD
[2017-11-09] MEDS: Pantoprazole 40 mg EC Tab PO SCH (05:31)
[2017-11-09 06:24] VITALS: O2SAT 98
[2017-11-09 07:51] LABS: BASO # 0.03 K/mm3 (0.0-2.0); BASO % 0.6 % (0.0-3.0); EOS # 0.4 (0.0-0.7); EOS % 8.4 % (1.5-5.0); GRAN # 2.5 (1.4-6.5); HEMOGLOBIN 12.2 g/dL (14.0-18.0); LYMPH # 1.6 (1.2-3.4); LYMPH % 32.2 % (22.0-35.0); MEAN CELL VOLUME 90.9 fl (80.0-105.0); MEAN CORPUSCULAR HEMOGLOBIN 29.3 pg (25.0-35.0); MEAN CORPUSCULAR HGB CONC 32.2 g/dl (31.0-37.0); MEAN PLATELET VOLUME 9.9 fl (7.0-11.0); MONO # 0.5 (0.1-0.6); MONO % 9.8 % (1.0-6.0); RBC 4.17 10^6/uL (3.5-6.1); RED CELL DISTRIBUTION WIDTH 14.8 % (11.5-14.5); WHITE BLOOD COUNT 5.1 10^3/ul (4.5-11.0)
[2017-11-09 08:08] LABS: ALB/GLOB RATIO 1.6 (1.1-1.8); ALBUMIN 3.9 g/dL (3.0-4.8); ALT/SGPT 39 U/L (7-56); AST/SGOT 21 U/L (17-59); BLOOD UREA NITROGEN 8 mg/dL (7-21); CALCIUM 9.2 mg/dL (8.4-10.5); GFR AFRICAN-AMERICAN > 60; GFR NON-AFRICAN AMERICAN > 60
[2017-11-09] MEDS: Multivitamin With Minerals Tab PO SCH (09:04)
[2017-11-09] MEDS: Azithromycin 250 MG in Sodium Chloride 0.9% 250 ML IVPB SCH (09:30)
[2017-11-09] MEDS: Sodium Chloride 0.9% 1,000 ML IV SCH (09:30)
--- NOTE | 2017-11-09 12:38 | PCM.RRT ---
<Briana Batista - Last Filed: 11/09/17 12:57> [employer]ION [employer]URE [employer]OR Nurse Assessment - Situation Date: 11/09/17 Time MOTION PICTURE ACTOR was called: 12:24 (Arron Cortez) MOTION PICTURE ACTOR Responder Arrival Time: 12:24 [employer]ION PI[employer]URE ACTOR Location:: [address] [place] [address] Room Number: 276-2 [employer]ION [employer]URE ACTOR Called By: RN I.Reason for MOTION PICTURE ACTOR - A) Acute Change in Patient: Subjective: PGY-[address] Salas. Mr Gonzalez, 32 years old male, was admitted with suicidal ideation and Pneumonia. Patient is afebrile, he is on room air. WBC is coming down. Procalcitonin level is mildly elevated. Antibiotics can be changed to oral and pt is medically stable. This afternoon, when pt was downgraded from tele to med/ surg floor, he became agitated and violent. He threw things in his room. Arron cortez was called. Juventino the brother called and expressed worriness that the pt slept with knife. Psychiatrist endorsed that the mother of the patient had reported pt's erratic behavior at home. VS: VS stable per this AM. Next vital check is at 2pm GEN: NAD, sitting by bedside Pulm: breathing easy. Able to raise voice on demand. No issue with airway Neuro: Alert, oriented to place, people. He knows this year but he states that the month is October. Psych: Gittery gesture. Agitated at times with yelling. Denies SI/HI/ depression A/P: Mood instability with reported erratic behavior from family - Continue 1:1 - Javierdon 20 IM x 1 per psych - Screen for involuntary admission at [facility] [place] - Screener please also called family for collateral information: (1) Mom, Ms Abbie Gonzalez, (M) [phone] (2) Brother, Juventino, - If not accepted by [facility] [place], pt was not willing to voluntarily to be admitted to psych, then sign AMA. - Primary team to follow up oral antibiotics choice and duration <Kenny Waller - Last Filed: 11/09/17 16:58> Attending/Attestation - Attestation I have personally seen and examined this patient.: Yes I have fully participated in the care of the patient.: Yes I have reviewed all pertinent clinical information, including history, physical exam and plan: Yes
--- NOTE | 2017-11-09 13:01 | CP.PCM.PN ---
Subjective - Date & Time of Evaluation Date of Evaluation: 11/09/17 Time of Evaluation: 10:25 - Subjective Subjective: Comfortable, cough is better, no nausea, no diarrhea, no fevers. Objective - Vital Signs/Intake and Output Vital Signs (last 24 hours): Temp Pulse Resp BP Pulse Ox 97.5 F L 66 20 97/64 L 98 11/09/17 06:00 11/09/17 06:00 11/09/17 06:00 11/09/17 06:00 11/09/17 06:00 Intake and Output: 11/09/17 11/09/17 06:59 18:59 Intake Total 1440 Balance 1440 - Medications Medications: Current Medications Benztropine Mesylate (Cogentin) 0.5 mg PO BID [facility] Last Admin: 11/08/17 17:20 Dose: 0.5 mg Clonazepam (Klonopin) 0.5 mg PO BID [facility] PRN Reason: Protocol Last Admin: 11/08/17 17:17 Dose: 0.5 mg Docusate Sodium (Colace) 100 mg PO BID [facility] Last Admin: 11/08/17 17:19 Dose: 100 mg Azithromycin 250 mg/ Sodium (Chloride) 250 mls @ 167 mls/hr IVPB DAILY [facility] PRN Reason: Protocol Last Admin: 11/08/17 10:22 Dose: 167 mls/hr Sodium Chloride (Sodium Chloride 0.9%) 1,000 mls @ 100 mls/hr IV .Q10H [facility] Last Admin: 11/08/17 10:24 Dose: 100 mls/hr Cefepime HCl (Maxipime 1gm) 1 gm in 100 mls @ 100 mls/hr IVPB Q8 [facility] PRN Reason: Protocol Last Admin: 11/09/17 05:32 Dose: Not Given Ibuprofen (Motrin Tab) 400 mg PO Q6H PRN PRN Reason: Fever >100.4 F Multivitamins/Minerals (Therapeutic-M Tab) 1 tab PO 0800 [facility] Last Admin: 11/08/17 09:17 Dose: 1 tab Nicotine (Nicoderm Cq) 1 patch TD DAILY [facility] Last Admin: 11/08/17 09:18 Dose: 1 patch Pantoprazole Sodium (Protonix Ec Tab) 40 mg PO 0600 [facility] Last Admin: 11/09/17 05:31 Dose: 40 mg Quetiapine Fumarate (Seroquel) 100 mg PO AMHS [facility] PRN Reason: Protocol Last Admin: 11/08/17 22:17 Dose: 100 mg Ziprasidone (Geodon Inj) 10 mg IM TID PRN; Protocol PRN Reason: Agitation - Labs Labs: 11/09/17 07:00 11/09/17 07:00 PT 11.4 SECONDS (9.4-12.5) 11/07/17 17:20 INR 1.00 (0.93-1.08) 11/07/17 17:20 APTT 27.1 Seconds (25.1-36.5) 11/07/17 17:20 - Constitutional Appears: Chronically Ill - Head Exam Head Exam: NORMAL INSPECTION - Neck Exam Neck Exam: absent: Meningismus - Respiratory Exam Respiratory Exam: Decreased Breath Sounds - Cardiovascular Exam Cardiovascular Exam: +S1, +S2 - GI/Abdominal Exam GI & Abdominal Exam: Soft. absent: Tenderness Assessment and Plan - Assessment and Plan (Free Text) Plan: Assessment Consider sepsis due to right lower lobe healthcare-associated pneumonia, slowly improving Goldenhar syndrome obstructive sleep apnea bipolar disorder Plan on Vancomycin, Cefepime and changed Zithromax to PO Doxycycline (day 2); blood cx are negative - should complete 5-7 days of therapy - when ready for discharge , can be switched to PO augmentin and doxycycline or po Vantin and Doxycycline to complete the course of therapy reviewed CXR discussed with Dr. Waller
--- NOTE | 2017-11-09 15:27 | CP.PCM.PN ---
<LeticiachelsyLudwig - Last Filed: 11/09/17 15:20> Subjective - Date & Time of Evaluation Date of Evaluation: 11/09/17 Time of Evaluation: 15:21 - Subjective Subjective: Patient seen and examined this AM. Denies auditory hallucinations, SI, HI. Patient reports stable breathing, denies any other complaints at time of interview. Objective - Vital Signs/Intake and Output Vital Signs (last 24 hours): Temp Pulse Resp BP Pulse Ox 98 F 97 H 20 123/74 98 11/09/17 12:00 11/09/17 12:00 11/09/17 12:00 11/09/17 12:00 11/09/17 06:00 Intake and Output: 11/09/17 11/09/17 06:59 18:59 Intake Total 1440 Balance 1440 - Medications Medications: Current Medications Benztropine Mesylate (Cogentin) 0.5 mg PO BID [facility] Last Admin: 11/09/17 09:28 Dose: 0.5 mg Clonazepam (Klonopin) 0.5 mg PO BID [facility] PRN Reason: Protocol Last Admin: 11/09/17 09:27 Dose: 0.5 mg Docusate Sodium (Colace) 100 mg PO BID [facility] Last Admin: 11/09/17 09:28 Dose: 100 mg Doxycycline Hyclate (Doryx) 100 mg PO Q12 [facility] PRN Reason: Protocol Sodium Chloride (Sodium Chloride 0.9%) 1,000 mls @ 100 mls/hr IV .Q10H [facility] Last Admin: 11/09/17 09:30 Dose: Not Given Cefepime HCl (Maxipime 1gm) 1 gm in 100 mls @ 100 mls/hr IVPB Q8 [facility] PRN Reason: Protocol Last Admin: 11/09/17 15:18 Dose: Not Given Ibuprofen (Motrin Tab) 400 mg PO Q6H PRN PRN Reason: Fever >100.4 F Multivitamins/Minerals (Therapeutic-M Tab) 1 tab PO 0800 [facility] Last Admin: 11/09/17 09:04 Dose: 1 tab Nicotine (Nicoderm Cq) 1 patch TD DAILY [facility] Last Admin: 11/09/17 09:29 Dose: 1 patch Pantoprazole Sodium (Protonix Ec Tab) 40 mg PO 0600 [facility] Last Admin: 11/09/17 05:31 Dose: 40 mg Quetiapine Fumarate (Seroquel) 100 mg PO AMHS [facility] PRN Reason: Protocol Last Admin: 11/09/17 09:28 Dose: 100 mg Ziprasidone (Geodon Inj) 10 mg IM TID PRN; Protocol PRN Reason: Agitation - Labs Labs: 11/09/17 07:00 11/09/17 07:00 PT 11.4 SECONDS (9.4-12.5) 11/07/17 17:20 INR 1.00 (0.93-1.08) 11/07/17 17:20 APTT 27.1 Seconds (25.1-36.5) 11/07/17 17:20 - Constitutional Appears: No Acute Distress - Head Exam Additional comments: Patient exhibiting features of Goldenhar syndrome - Eye Exam Eye Exam: EOMI, PERRL - Respiratory Exam Respiratory Exam: Clear to Ausculation Bilateral, NORMAL BREATHING PATTERN. absent: Rales, Respiratory Distress - Cardiovascular Exam Cardiovascular Exam: REGULAR RHYTHM, +S1, +S2 - GI/Abdominal Exam GI & Abdominal Exam: Soft, Tenderness, Normal Bowel Sounds. absent: Guarding, Rigid - Extremities Exam Extremities Exam: Full ROM, Normal Capillary Refill. absent: Calf Tenderness, Pedal Edema - Neurological Exam Neurological Exam: Alert, Awake, Oriented x3 - Psychiatric Exam Psychiatric exam: Normal Mood. absent: Homicidal Ideation, Suicidal Ideation - Skin Skin Exam: Dry, Warm Assessment and Plan - Assessment and Plan (Free Text) Assessment: 32 year old male with past medical history pertinent for bipolar disorder and prescription drug abuse presents with auditory hallucinations and mild shortness of breath. Patient's drug screen was positive for opiates.Patient treated for CAP. Patient showing agitation during evaluation by psychiatrist and will be awaiting evaluation by [facility] for possible involuntary psych admission. Plan: Suspected Right Lower Lobe Pneumonia possibly 2/2 aspiration due to opiate abuse - Vancomycin, Cefepime changed to zithromax which was changed to PO doxycycline day 2 - Complete 5-7 days of therapy when ready for dc can be switched to PO augmentin and doxycycline - Doxycycline Day 2 - Ibuprofen PRN for fever - Blood culture negative - Procal elevated Bipolar disorder with hallucinations - Psychiatry consulted - f/u psych recommendations - Arron cortez called on patient for agitation, see note for details - Patient to be screened by [facility] for [facility] psych unit - family contact and aware Obstructive sleep apnea - CPAP at night GI PPX: protonix DVT PPX: SCD Patient is medically cleared from primary care team standpoint. Will await [facility] screeners for further dispo planning at this time. Case and plan discussed with attending <Kenny Waller - Last Filed: 11/09/17 16:57> Objective - Vital Signs/Intake and Output Vital Signs (last 24 hours): Temp Pulse Resp BP Pulse Ox 98 F 97 H 20 123/74 98 11/09/17 12:00 11/09/17 12:00 11/09/17 12:00 11/09/17 12:00 11/09/17 06:00 Intake and Output: 11/09/17 11/09/17 06:59 18:59 Intake Total 1440 600 Output Total 600 Balance 1440 0 - Medications Medications: Current Medications Benztropine Mesylate (Cogentin) 0.5 mg PO BID [facility] Last Admin: 11/09/17 09:28 Dose: 0.5 mg Clonazepam (Klonopin) 0.5 mg PO BID [facility] PRN Reason: Protocol Last Admin: 11/09/17 09:27 Dose: 0.5 mg Docusate Sodium (Colace) 100 mg PO BID [facility] Last Admin: 11/09/17 09:28 Dose: 100 mg Doxycycline Hyclate (Doryx) 100 mg PO Q12 [facility] PRN Reason: Protocol Last Admin: 11/09/17 15:22 Dose: 100 mg Cefepime HCl (Maxipime 1gm) 1 gm in 100 mls @ 100 mls/hr IVPB Q8 [facility] PRN Reason: Protocol Last Admin: 11/09/17 15:18 Dose: Not Given Ibuprofen (Motrin Tab) 400 mg PO Q6H PRN PRN Reason: Fever >100.4 F Multivitamins/Minerals (Therapeutic-M Tab) 1 tab PO 0800 [facility] Last Admin: 11/09/17 09:04 Dose: 1 tab Nicotine (Nicoderm Cq) 1 patch TD DAILY [facility] Last Admin: 11/09/17 09:29 Dose: 1 patch Pantoprazole Sodium (Protonix Ec Tab) 40 mg PO 0600 [facility] Last Admin: 11/09/17 05:31 Dose: 40 mg Quetiapine Fumarate (Seroquel) 100 mg PO [facility] PRN Reason: Protocol Last Admin: 11/09/17 09:28 Dose: 100 mg Ziprasidone (Geodon Inj) 10 mg IM TID PRN; Protocol PRN Reason: Agitation - Labs Labs: 11/09/17 07:00 11/09/17 07:00 PT 11.4 SECONDS (9.4-12.5) 11/07/17 17:20 INR 1.00 (0.93-1.08) 11/07/17 17:20 APTT 27.1 Seconds (25.1-36.5) 11/07/17 17:20 Attending/Attestation - Attestation I have personally seen and examined this patient.: Yes I have fully participated in the care of the patient.: Yes I have reviewed all pertinent clinical information, including history, physical exam and plan: Yes Notes (Text): 11/09/17 16:50 Medical record note made by the resident after discussion with my direction and input after the patient was personally seen and examined by me. I have reviewed the chart and agree that the record accurately reflects by personal performance of the history, physical exam, data review, and medical decision-making, in the course for the patient. I have also personally directed the plan of care. 32 years old male was admitted with Pneumonia and Paranoid behaviour. He is afebrile.Antibiotics can be changed to oral levofloxacin 750 mg daily to complete 7 day course for treatment of Pneumonia at the time of discharge. Psychiatry has recommended [facility]. Patient is stable medically .We will follow up [facility] Psychiat[facility] evaluation
--- NOTE | 2017-11-09 17:13 | PN ---
DATE: 11/09/2017 FOLLOWUP NOTE SUBJECTIVE: In short, the patient is a 32-year-old male, multiple medical issues. Initially, the patient presented to the emergency room for psychiatric clearance because the patient was disorganized in the community, misusing and abusing pain medication such as Percocet or morphine. As per family, the patient was paranoid, was hearing voices. The patient was acting rationally, running outside with no clothes on, wearing only underwear. The patient also is sleeping with a knife under his pillow. The patient's family expressed highest concern about patient's safety. Yesterday, the patient offered psychiatric admission, but the patient declined that offer. Medical team called family for collateral information. As per mother, the patient was acting irrationally, bizarre. The patient was not safe in the community and the patient's mother refused to accept the patient back. Today, the patient's brother also called and he is expressing his highest concern about patient's safety because the patient was sleeping with a knife under his pillow, had impression that people are after him and they are going to hurt him and was misusing and abusing pain medication. This journalists and other writers attempted to speak to the patient today, offered admission again, but the patient became very aggressive and verbally abusive. The patient was calling people names, also using profanities. Also, the patient was making racial remarks and the patient threw food trays towards this journalists and other writers and noam agustin was called. The patient needed to be medicated with Geodon. Family was notified about possible screening. As per family, the patient will be not safe in the community. Vital signs reviewed. Temperature 98, pulse is 97, blood pressure 123/74, respirations 20, oxygen saturation is 98. Medications reviewed, Cogentin, Maxipime, Klonopin 0.5 mg twice a day, Colace. The patient was refusing antibiotics. The patient also is on doxycycline, morphine, multivitamins, Nicoderm, Protonix, Seroquel 100 mg twice a day and Geodon IM three times a day as needed for agitation. The patient got Geodon today. Labs reviewed, seems to be better. Hemoglobin and hematocrit 12.2 and 37.9. Chemistry reviewed. Procalcitonin is elevated. MENTAL STATUS EXAMINATION: As this journalists and other writers described above, the patient appears to be guarded, irritable and paranoid, agitated. Noam agustin was called. No eye contact. Speech was loud and the patient is screaming and yelling. Mood described as okay, I want to go home. Affect was constricted. Mood incongruent. Thought process circumstantial, tangential. Thought content, the patient denied visual, auditory or tactile hallucinations, but based on the patient's family history, the patient was acting irrationally, running with no clothes on. The patient also slipping with a knife under his bed. The patient had impression that he is monitored by cameras in the wall. The patient is obviously psychotic and agitated. Insight and judgment seems to be impaired at present moment. Impulses are unpredictable. IMPRESSION: Psychosis, not otherwise specified; rule out substance-induced psychosis; rule out schizophrenia; pain medication addiction. PLAN: This journalists and other writers offered admission, but the patient declined that offer. As per family, the patient will be not safe in the community, please see above. [facility] screening process will be initiated. Meanwhile, continue current medication and continue current plan. We will follow up and advise accordingly. [facility] involuntary commitment recommended at the present moment. In case if the patient will be not accepted, the patient needs to be discharged against medical advice and family needs to be notified. Molly Dickinson MD
[2017-11-10] MEDS: Pantoprazole 40 mg EC Tab PO SCH (05:31)
[2017-11-10] MEDS: Cefepime 1gm in NS 100ml 1 GM/100 ML BAG IVPB SCH (05:31)
[2017-11-10 07:06] LABS: BASO # 0.02 K/mm3 (0.0-2.0); BASO % 0.3 % (0.0-3.0); EOS # 0.3 (0.0-0.7); EOS % 5.3 % (1.5-5.0); GRAN # 3.56 (1.4-6.5); HEMOGLOBIN 12.3 g/dL (14.0-18.0); LYMPH % 30.9 % (22.0-35.0); MEAN CELL VOLUME 90.2 fl (80.0-105.0); MEAN CORPUSCULAR HEMOGLOBIN 29.3 pg (25.0-35.0); MEAN CORPUSCULAR HGB CONC 32.5 g/dl (31.0-37.0); MEAN PLATELET VOLUME 9.9 fl (7.0-11.0); MONO # 0.6 (0.1-0.6); MONO % 8.5 % (1.0-6.0); RBC 4.2 10^6/uL (3.5-6.1); RED CELL DISTRIBUTION WIDTH 14.6 % (11.5-14.5); WHITE BLOOD COUNT 6.5 10^3/ul (4.5-11.0)
[2017-11-10 07:25] LABS: ALB/GLOB RATIO 1.5 (1.1-1.8); ALBUMIN 3.8 g/dL (3.0-4.8); ALT/SGPT 29 U/L (7-56); AST/SGOT 18 U/L (17-59); BLOOD UREA NITROGEN 9 mg/dL (7-21); CALCIUM 9.4 mg/dL (8.4-10.5); GFR AFRICAN-AMERICAN > 60; GFR NON-AFRICAN AMERICAN > 60
[2017-11-10] MEDS: Multivitamin With Minerals Tab PO SCH (08:23)
--- NOTE | 2017-11-10 11:45 | CP.PCM.DIS ---
<Ludwig Anderson - Last Filed: 11/10/17 13:37> Provider - Provider Date of Admission: 11/07/17 20:27 Attending physician: Kenny Waller MD Primary care physician: Mariela Grayson MD Consults: Psychiatry: Dr. Dickinson Infectious Disease: Dr. Jessee Long Time Spent in preparation of Discharge (in minutes): 45 Diagnosis - Discharge Diagnosis (1) Aspiration pneumonia Status: Acute (2) Bipolar disease, chronic Status: Chronic (3) Goldenhar's syndrome Status: Chronic (4) Hearing voices Status: Chronic (5) Tobacco abuse Status: Chronic Hospital Course - Lab Results Lab Results: Micro Results 11/07/17 20:45 Blood-Venous Blood Culture - Preliminary NO GROWTH AFTER 48 HOURS Most Recent Lab Values WBC 6.5 10^3/ul (4.5-11.0) D 11/10/17 06:30 RBC 4.20 10^6/uL (3.5-6.1) 11/10/17 06:30 Hgb 12.3 g/dL (14.0-18.0) L 11/10/17 06:30 Hct 37.9 % (42.0-52.0) L 11/10/17 06:30 MCV 90.2 fl (80.0-105.0) 11/10/17 06:30 MCH 29.3 pg (25.0-35.0) 11/10/17 06:30 MCHC 32.5 g/dl (31.0-37.0) 11/10/17 06:30 RDW 14.6 % (11.5-14.5) H 11/10/17 06:30 Plt Count 256 10^3/uL (120.0-450.0) 11/10/17 06:30 MPV 9.9 fl (7.0-11.0) 11/10/17 06:30 Gran % 55.0 % (50.0-68.0) 11/10/17 06:30 Lymph % (Auto) 30.9 % (22.0-35.0) 11/10/17 06:30 [place] % (Auto) 8.5 % (1.0-6.0) H 11/10/17 06:30 Eos % (Auto) 5.3 % (1.5-5.0) H 11/10/17 06:30 Baso % (Auto) 0.3 % (0.0-3.0) 11/10/17 06:30 Gran # 3.56 (1.4-6.5) 11/10/17 06:30 Lymph # (Auto) 2.0 (1.2-3.4) 11/10/17 06:30 [place] # (Auto) 0.6 (0.1-0.6) 11/10/17 06:30 Eos # (Auto) 0.3 (0.0-0.7) 11/10/17 06:30 Baso # (Auto) 0.02 K/mm3 (0.0-2.0) 11/10/17 06:30 Neutrophils % (Manual) 96 % (50.0-70.0) H 11/07/17 17:20 Lymphocytes % (Manual) 2 % (22.0-35.0) L 11/07/17 17:20 Monocytes % (Manual) 2 % (1.0-6.0) 11/07/17 17:20 Platelet Evaluation Normal (NORMAL) 11/07/17 17:20 PT 11.4 SECONDS (9.4-12.5) 11/07/17 17:20 INR 1.00 (0.93-1.08) 11/07/17 17:20 APTT 27.1 Seconds (25.1-36.5) 11/07/17 17:20 pO2 137 mm/Hg (30-55) H 11/07/17 20:15 VBG pH 7.34 (7.32-7.43) 11/07/17 20:15 VBG pCO2 53.0 (40-60) 11/07/17 20:15 VBG HCO3 28.6 mmol/l (21-28) H 11/07/17 20:15 VBG Total CO2 30.2 mmol.L (22-28) H 11/07/17 20:15 VBG O2 Sat (Calc) 98.7 % (40-65) H 11/07/17 20:15 VBG Base Excess 1.8 mmol/L (0.0-2.0) 11/07/17 20:15 VBG Potassium 4.3 mmol/L (3.6-5.2) 11/07/17 20:15 Sodium 138.0 mmol/L (132-148) 11/07/17 20:15 Chloride 108.0 mmol/L (98-107) H 11/07/17 20:15 Glucose 115 mg/dl (75-110) H 11/07/17 20:15 Lactate 0.5 mmol/L (0.7-2.1) L 11/07/17 20:15 FiO2 21.0 % 11/07/17 20:15 Sodium 143 mmol/L (132-148) 11/10/17 06:30 Potassium 3.9 mmol/L (3.6-5.0) 11/10/17 06:30 Chloride 107 mmol/L (98-107) 11/10/17 06:30 Carbon Dioxide 27 mmol/L (21-33) 11/10/17 06:30 Anion Gap 14 (10-20) 11/10/17 06:30 BUN 9 mg/dL (7-21) 11/10/17 06:30 Creatinine 0.6 mg/dl (0.8-1.5) L 11/10/17 06:30 Est GFR ( Amer) > 60 11/10/17 06:30 Est GFR (Non-Af Amer) > 60 11/10/17 06:30 Random Glucose 93 mg/dL (70-110) 11/10/17 06:30 Calcium 9.4 mg/dL (8.4-10.5) 11/10/17 06:30 Phosphorus 3.8 mg/dL (2.5-4.5) 11/10/17 06:30 Magnesium 2.0 mg/dL (1.7-2.2) 11/10/17 06:30 Total Bilirubin 0.2 mg/dL (0.2-1.3) 11/10/17 06:30 AST 18 U/L (17-59) 11/10/17 06:30 ALT 29 U/L (7-56) 11/10/17 06:30 Alkaline Phosphatase 50 U/L (38-126) 11/10/17 06:30 Lactate Dehydrogenase 507 U/L (333-699) 11/07/17 17:20 Total Creatine Kinase 60 U/L (35-230) 11/07/17 17:20 Troponin I 0.02 ng/mL D 11/08/17 07:00 Total Protein 6.3 g/dL (5.8-8.3) 11/10/17 06:30 Albumin 3.8 g/dL (3.0-4.8) 11/10/17 06:30 Globulin 2.6 gm/dL 11/10/17 06:30 Albumin/Globulin Ratio 1.5 (1.1-1.8) 11/10/17 06:30 Procalcitonin 0.54 NG/ML (0.19-0.49) H 11/08/17 07:00 Venous Blood Potassium 4.3 mmol/L (3.6-5.2) 11/07/17 20:15 Urine Color Yellow (YELLOW) 11/07/17 21:46 Urine Appearance Clear (CLEAR) 11/07/17 21:46 Urine pH 6.5 (4.7-8.0) 11/07/17 21:46 Ur Specific [place] 1.025 (1.005-1.035) 11/07/17 21:46 Urine Protein Negative mg/dL (<30 mg/dL) 11/07/17 21:46 Urine Glucose (UA) Negative mg/dL (NEGATIVE) 11/07/17 21:46 Urine Ketones Negative mg/dL (NEGATIVE) 11/07/17 21:46 Urine Blood Negative (NEGATIVE) 11/07/17 21:46 Urine Nitrate Negative (NEGATIVE) 11/07/17 21:46 Urine Bilirubin Negative (NEGATIVE) 11/07/17 21:46 Urine Urobilinogen 0.2 E.U./dL (<1 E.U./dL) 11/07/17 21:46 Ur Leukocyte Esterase Negative Sulma/uL (NEGATIVE) 11/07/17 21:46 Salicylates < 1 mg/dL (2.0-20.0) L 11/07/17 17:20 Urine Opiates Screen Positive (NEGATIVE) H 11/07/17 21:46 Urine Methadone Screen Negative (NEGATIVE) 11/07/17 21:46 Acetaminophen < 10.0 ug/ml (10.0-20.0) L 11/07/17 17:20 Ur Barbiturates Screen Negative (NEGATIVE) 11/07/17 21:46 Ur Phencyclidine Scrn Negative (NEGATIVE) 11/07/17 21:46 Ur Amphetamines Screen Negative (NEGATIVE) 11/07/17 21:46 U Benzodiazepines Scrn Negative (NEGATIVE) 11/07/17 21:46 U Oth Cocaine Metabols Negative (NEGATIVE) 11/07/17 21:46 U Cannabinoids Screen Negative (NEGATIVE) 11/07/17 21:46 Alcohol, Quantitative < 10 mg/dL (0-10) 11/07/17 17:20 HIV 1&2 Ag/Ab, 4th Gen Nonreactive (Nonreactive) 11/08/17 07:00 - Hospital Course Hospital Course: Patient is a 32 year old male with past medical history that includes Goldenhar syndome, sleep apnea, bipolar disorder with history of auditory hallucinations who presented complaining of shortness of breath and auditory hallucinations. Patient was evaluated in the Ed and found to have suspected right lower lobe pneumonia on chest x ray. Patient was admitted and treated for CAP vs. HCAP. Patient was given IV antibiotics and placed on BiPAP. Psychiatry was consulted and evaluated the patient with recommendations for voluntary admission to in house psychiatry gaspar. Patient refused psychiatry recommendations. As conversations continued to occur regarding inpatient psychiatry admission the patient became more and more agitated. Arron cortez was called on patient due to agitation and violent behavior. Patient was noted to be verbally and physically agitated. See [employer] note for further details. Patient was evaluated by [facility] screeners for possible involuntary admission to psychiatric facility. Patient was deemed appropriate and not a harm to himself or others and was denied admittance. Patient case and plan was discussed with primary care team and psychiatry team in regards to discharge. Psychiatry felt the patient required further psychiatric treatment. Patient was advised to sign himself into the voluntary in patient psych unit. Patient refused and signed himself out against medical advice. Patient was already screened by [facility] screeners to be competent. Patient was instructed to follow up outpatient with psychiatry and primary care physician. Patient medication reconciliation and outpatient follow up were advised. Patient was in understanding and agreeable. Patient was given prescription for continued antibiotics for lower lobe pneumonia. At time of discharge and throughout the past 24-48 hours patient continued to express denial of any homicidal or suicidal ideations. Patient denied chest pain, shortness of breath, abdominal pain, nausea, vomiting, fever, chills. Patient was hemodynamically stable at time of discharge. This is a synopsis of the patient stay and medical treatment, refer to chart for more details. 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 absent: Tenderness - Extremities Exam Extremities exam: normal capillary refill, pedal pulses present - Neurological Exam Neurological exam: Alert, Normal Gait, Oriented x3 - Psychiatric Exam Psychiatric exam: Normal Mood - Skin Skin Exam: Dry, Warm Discharge Plan - Discharge Medications Prescriptions: Levofloxacin [Levaquin] 750 mg PO DAILY #4 tablet - Follow Up Plan Condition: GOOD Disposition: AGAINST MEDICAL ADVICE Additional Instructions: Take medications as prescribed to you Follow up with outpatient psychiatrist within 3-5 days of discharge Follow up with primary care physician within 3-5 days of discharge Return to ED if you begin experiencing auditory or visual hallucinations, homicidal or suicidal ideation Referrals: Mariela Mendoza MD [Primary Care Provider] - <Kenny Waller - Last Filed: 11/10/17 14:35> Provider - Provider Date of Admission: 11/07/17 20:27 Attending physician: Kenny Waller MD Primary care physician: Mariela Grayson MD Hospital Course - Lab Results Lab Results: Micro Results 11/07/17 20:45 Blood-Venous Blood Culture - Preliminary NO GROWTH AFTER 48 HOURS Most Recent Lab Values WBC 6.5 10^3/ul (4.5-11.0) D 11/10/17 06:30 RBC 4.20 10^6/uL (3.5-6.1) 11/10/17 06:30 Hgb 12.3 g/dL (14.0-18.0) L 11/10/17 06:30 Hct 37.9 % (42.0-52.0) L 11/10/17 06:30 MCV 90.2 fl (80.0-105.0) 11/10/17 06:30 MCH 29.3 pg (25.0-35.0) 11/10/17 06:30 MCHC 32.5 g/dl (31.0-37.0) 11/10/17 06:30 RDW 14.6 % (11.5-14.5) H 11/10/17 06:30 Plt Count 256 10^3/uL (120.0-450.0) 11/10/17 06:30 MPV 9.9 fl (7.0-11.0) 11/10/17 06:30 Gran % 55.0 % (50.0-68.0) 11/10/17 06:30 Lymph % (Auto) 30.9 % (22.0-35.0) 11/10/17 06:30 [place] % (Auto) 8.5 % (1.0-6.0) H 11/10/17 06:30 Eos % (Auto) 5.3 % (1.5-5.0) H 11/10/17 06:30 Baso % (Auto) 0.3 % (0.0-3.0) 11/10/17 06:30 Gran # 3.56 (1.4-6.5) 11/10/17 06:30 Lymph # (Auto) 2.0 (1.2-3.4) 11/10/17 06:30 [place] # (Auto) 0.6 (0.1-0.6) 11/10/17 06:30 Eos # (Auto) 0.3 (0.0-0.7) 11/10/17 06:30 Baso # (Auto) 0.02 K/mm3 (0.0-2.0) 11/10/17 06:30 Neutrophils % (Manual) 96 % (50.0-70.0) H 11/07/17 17:20 Lymphocytes % (Manual) 2 % (22.0-35.0) L 11/07/17 17:20 Monocytes % (Manual) 2 % (1.0-6.0) 11/07/17 17:20 Platelet Evaluation Normal (NORMAL) 11/07/17 17:20 PT 11.4 SECONDS (9.4-12.5) 11/07/17 17:20 INR 1.00 (0.93-1.08) 11/07/17 17:20 APTT 27.1 Seconds (25.1-36.5) 11/07/17 17:20 pO2 137 mm/Hg (30-55) H 11/07/17 20:15 VBG pH 7.34 (7.32-7.43) 11/07/17 20:15 VBG pCO2 53.0 (40-60) 11/07/17 20:15 VBG HCO3 28.6 mmol/l (21-28) H 11/07/17 20:15 VBG Total CO2 30.2 mmol.L (22-28) H 11/07/17 20:15 VBG O2 Sat (Calc) 98.7 % (40-65) H 11/07/17 20:15 VBG Base Excess 1.8 mmol/L (0.0-2.0) 11/07/17 20:15 VBG Potassium 4.3 mmol/L (3.6-5.2) 11/07/17 20:15 Sodium 138.0 mmol/L (132-148) 11/07/17 20:15 Chloride 108.0 mmol/L (98-107) H 11/07/17 20:15 Glucose 115 mg/dl (75-110) H 11/07/17 20:15 Lactate 0.5 mmol/L (0.7-2.1) L 11/07/17 20:15 FiO2 21.0 % 11/07/17 20:15 Sodium 143 mmol/L (132-148) 11/10/17 06:30 Potassium 3.9 mmol/L (3.6-5.0) 11/10/17 06:30 Chloride 107 mmol/L (98-107) 11/10/17 06:30 Carbon Dioxide 27 mmol/L (21-33) 11/10/17 06:30 Anion Gap 14 (10-20) 11/10/17 06:30 BUN 9 mg/dL (7-21) 11/10/17 06:30 Creatinine 0.6 mg/dl (0.8-1.5) L 11/10/17 06:30 Est GFR ( Amer) > 60 11/10/17 06:30 Est GFR (Non-Af Amer) > 60 11/10/17 06:30 Random Glucose 93 mg/dL (70-110) 11/10/17 06:30 Calcium 9.4 mg/dL (8.4-10.5) 11/10/17 06:30 Phosphorus 3.8 mg/dL (2.5-4.5) 11/10/17 06:30 Magnesium 2.0 mg/dL (1.7-2.2) 11/10/17 06:30 Total Bilirubin 0.2 mg/dL (0.2-1.3) 11/10/17 06:30 AST 18 U/L (17-59) 11/10/17 06:30 ALT 29 U/L (7-56) 11/10/17 06:30 Alkaline Phosphatase 50 U/L (38-126) 11/10/17 06:30 Lactate Dehydrogenase 507 U/L (333-699) 11/07/17 17:20 Total Creatine Kinase 60 U/L (35-230) 11/07/17 17:20 Troponin I 0.02 ng/mL D 11/08/17 07:00 Total Protein 6.3 g/dL (5.8-8.3) 11/10/17 06:30 Albumin 3.8 g/dL (3.0-4.8) 11/10/17 06:30 Globulin 2.6 gm/dL 11/10/17 06:30 Albumin/Globulin Ratio 1.5 (1.1-1.8) 11/10/17 06:30 Procalcitonin 0.54 NG/ML (0.19-0.49) H 11/08/17 07:00 Venous Blood Potassium 4.3 mmol/L (3.6-5.2) 11/07/17 20:15 Urine Color Yellow (YELLOW) 11/07/17 21:46 Urine Appearance Clear (CLEAR) 11/07/17 21:46 Urine pH 6.5 (4.7-8.0) 11/07/17 21:46 Ur Specific [place] 1.025 (1.005-1.035) 11/07/17 21:46 Urine Protein Negative mg/dL (<30 mg/dL) 11/07/17 21:46 Urine Glucose (UA) Negative mg/dL (NEGATIVE) 11/07/17 21:46 Urine Ketones Negative mg/dL (NEGATIVE) 11/07/17 21:46 Urine Blood Negative (NEGATIVE) 11/07/17 21:46 Urine Nitrate Negative (NEGATIVE) 11/07/17 21:46 Urine Bilirubin Negative (NEGATIVE) 11/07/17 21:46 Urine Urobilinogen 0.2 E.U./dL (<1 E.U./dL) 11/07/17 21:46 Ur Leukocyte Esterase Negative Sulma/uL (NEGATIVE) 11/07/17 21:46 Salicylates < 1 mg/dL (2.0-20.0) L 11/07/17 17:20 Urine Opiates Screen Positive (NEGATIVE) H 11/07/17 21:46 Urine Methadone Screen Negative (NEGATIVE) 11/07/17 21:46 Acetaminophen < 10.0 ug/ml (10.0-20.0) L 11/07/17 17:20 Ur Barbiturates Screen Negative (NEGATIVE) 11/07/17 21:46 Ur Phencyclidine Scrn Negative (NEGATIVE) 11/07/17 21:46 Ur Amphetamines Screen Negative (NEGATIVE) 11/07/17 21:46 U Benzodiazepines Scrn Negative (NEGATIVE) 11/07/17 21:46 U Oth Cocaine Metabols Negative (NEGATIVE) 11/07/17 21:46 U Cannabinoids Screen Negative (NEGATIVE) 11/07/17 21:46 Alcohol, Quantitative < 10 mg/dL (0-10) 11/07/17 17:20 HIV 1&2 Ag/Ab, 4th Gen Nonreactive (Nonreactive) 11/08/17 07:00 Attending/Attestation - Attestation I have personally seen and examined this patient.: Yes I have fully participated in the care of the patient.: Yes I have reviewed all pertinent clinical information, including history, physical exam and plan: Yes Notes (Text): 11/10/17 14:31 Medical record note made by the resident after discussion with my direction and input after the patient was personally seen and examined by me. I have reviewed the chart and agree that the record accurately reflects by personal performance of the history, physical exam, data review, and medical decision-making, in the course for the patient. I have also personally directed the plan of care. 32 years old male was admitted with Pneumonia and Paranoid behaviour. He is afebrile.Antibiotics can be changed to oral levofloxacin 750 mg daily to complete 7 day course for treatment of Pneumonia at the time of discharge. Psychiatry recommended [facility] Psychiatry evaluation.Patient was evaluated by [facility] Psychiatry and felt that he does not meet the criteria for involuntary Psychiatric admission.He has refused voluntary admission to Psychiatry.This issue was discussed in detail with him by me as well by Psychiatrist , Patient has signed against medical advice.He is alert,awake and oriented.He understood the risk of leaving the hospital against medical advice.He was given antibiotics for Pneumonia at the tome of discharge. Prognosis is guarded.
[2017-11-10 12:19] VITALS: BP 114/63; PULSE 70; RESP 16; TEMP 97.6
--- NOTE | 2017-11-11 12:35 | CP.PCM.PCO ---
Physician Communication Note - Physician Communication Note Physician Communication Note: pt was screened by [facility] [place], was not commited pt was d /c AMA
== END 2017-11-10 14:26 | disposition left against medical advice (07) | DRG 79 ==
LOC: ED 16:50 → ERH 20:27 → 2RSO 22:30
PROVIDERS: ADMIT Internal Medicine; ATTEND Internal Medicine
PROC: 5A09357 Assistance with Respiratory Ventilation, Less than 24 Consecutive Hours, Continuous Positive Airway Pressure (ICD-10-PCS; principal; 2017-11-08)
DX: J69.0 Pneumonitis due to inhalation of food and vomit (principal); F11.10 Opioid abuse, uncomplicated; F31.9 Bipolar disorder, unspecified; F19.959 Other psychoactive substance use, unspecified with psychoactive substance-induced psychotic disorder, unspecified; G47.33 Obstructive sleep apnea (adult) (pediatric); F17.210 Nicotine dependence, cigarettes, uncomplicated; Q87.0 Congenital malformation syndromes predominantly affecting facial appearance

== ENCOUNTER 2017-11-15 19:05 | Emergency (ER) | payer MEDICAID ==
[2017-11-15 19:05] VITALS: BMI 17.2
[2017-11-15 19:35] VITALS: O2SAT 100
--- NOTE | 2017-11-15 19:35 | ED PDOC ---
Arrival/HPI - General Chief Complaint: Headache Time Seen by Provider: 11/15/17 19:06 Historian: Patient, Family - History of Present Illness Narrative History of Present Illness (Text): 11/15/17 19:31 Pt. to ED PMHX [place] Syndrome,psychosis to ED for evaluation.Pt. with recent abnormal behaviour as per family.Has been hitting his head against the wall/ neighbors windows and hearing voices.Pt. is denying this.States that his head hurts and needs a CT scan.Denies any SI/HI.Pt. states he is compliant with his antipsychotic meds.Denies any drug or alcohol use.No c/o chest pain ,sob, abdominal pain,neck pain,or any other complaints. Past Medical History - Provider Review Nursing Documentation Reviewed: Yes - Travel History Have you recently traveled outside [place] w/in the past 3 mons?: No - Infectious Disease Hx of Infectious Diseases: None - Cardiac Hx Cardiac Disorders: No Hx Hypertension: No - Pulmonary Hx Tuberculosis: No - Neurological HX Cerebrovascular Accident: No Hx Seizures: No - HEENT Other/Comment: deviated septum - Renal Hx Renal Disorder: No - Endocrine/Metabolic Hx Endocrine Disorders: No - Hematological/Oncological Hx Cancer: No - Integumentary Hx Dermatological Disorder: No - Musculoskeletal/Rheumatological Hx Musculoskeletal Disorders: 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 - Gastrointestinal Hx Gastrointestinal Disorders: No - Genitourinary/Gynecological Hx Sexually Transmitted Diseases: No - Psychiatric Hx Psychophysiologic Disorder: No Hx Substance Use: Yes - Surgical History Other/Comment: Hemifacial Microsomia multiple skull sugery - Anesthesia Hx Anesthesia: Yes Hx Anesthesia Reactions: No Hx Malignant Hyperthermia: No Family/Social History - Physician Review Nursing Documentation Reviewed: Yes Family/Social History: No Known Family HX Smoking Status: Heavy Smoker > 10 Cigarettes Daily Hx Alcohol Use: Yes Hx Substance Use: Yes Allergies/Home Meds Allergies/Adverse Reactions: Allergies No Known Allergies Allergy (Verified 10/21/17 20:34) Review of Systems - Physician Review All systems were reviewed & negative as marked: Yes - Review of Systems Constitutional: Normal Eyes: Normal ENT: Normal Respiratory: Normal. absent: SOB Cardiovascular: Normal. absent: Chest Pain Gastrointestinal: Normal. absent: Abdominal Pain Genitourinary Male: Normal Musculoskeletal: Normal. absent: Neck Pain Skin: Normal Neurological: Headache Endocrine: Normal Hemo/Lymphatic: Normal Psychiatric: Other (hallucinations) Physical Exam Vital Signs Temp Pulse Resp BP Pulse Ox 11/15/17 22:27 80 17 116/73 100 11/15/17 19:30 98.2 F 98 H 17 112/82 100 Temperature: Afebrile Blood Pressure: Normal Pulse: Regular Respiratory Rate: Normal Appearance: Positive for: Well-Appearing, Non-Toxic, Comfortable Pain Distress: None Mental Status: Positive for: Alert and Oriented X 3 - Systems Exam Head: Present: Atraumatic, Normocephalic Pupils: Present: PERRL Extroacular Muscles: Present: EOMI Conjunctiva: Present: Normal Mouth: Present: Moist Mucous Membranes Neck: Present: Normal Range of Motion Respiratory/Chest: Present: Clear to Auscultation, Good Air Exchange. No: Respiratory Distress, Accessory Muscle Use Cardiovascular: Present: Regular Rate and Rhythm, Normal S1, S2. No: Murmurs Abdomen: No: Tenderness, Distention, Peritoneal Signs Back: Present: Normal Inspection Upper Extremity: Present: Normal Inspection. No: Cyanosis, Edema Lower Extremity: Present: Normal Inspection. No: Edema Neurological: Present: GCS=15, CN II-XII Intact, Speech Normal, Motor Func Grossly Intact, Normal Sensory Function Skin: Present: Warm, Dry, Normal Color. No: Rashes Psychiatric: Present: Alert, Hallucinations Medical Decision Making ED Course and Treatment: 11/15/17 22:58 Impression: Patient is a 32 year old male who Differential Diagnosis included but are not limited to: Plan: -- Reassess and disposition Prior Visits: Notes and results from previous visits were reviewed. Patient was last seen in the emergency department on Progress Notes: EKG shows NSR at 91 BPM, normal EKG. Interpreted by me. 11/16/17 00:33 Pt. cleared by PES/psychiatry for discharge. - Lab Interpretations Lab Results: 11/15/17 20:06 11/15/17 20:06 Lab Results 11/15/17 21:00: Urine Opiates Screen Positive H, Urine Methadone Screen Negative , Ur Barbiturates Screen Negative, Ur Phencyclidine Scrn Negative, Ur Amphetamines Screen Negative, U Benzodiazepines Scrn Positive, U Oth Cocaine Metabols Negative, U Cannabinoids Screen Negative 11/15/17 20:06: Alcohol, Quantitative < 10 11/15/17 20:06: WBC 3.8 L D, RBC 4.23, Hgb 12.5 L, Hct 38.3 L, MCV 90.5, MCH 29.6, MCHC 32.6, RDW 14.8 H, Plt Count 239, MPV 10.1 11/15/17 20:06: Sodium 144, Potassium 3.8, Chloride 105, Carbon Dioxide 28, Anion Gap 16, BUN 9, Creatinine 0.6 L, Est GFR ( Amer) > 60, Est GFR (Non -Af Amer) > 60, Random Glucose 102, Calcium 9.6, Total Bilirubin 0.2, AST 23, ALT 26, Alkaline Phosphatase 55, Total Protein 7.2, Albumin 4.3, Globulin 2.9, Albumin/Globulin Ratio 1.5 - RAD Interpretation Radiology Orders: 11/15/17 19:28 HEAD W/O CONTRAST [CT] Stat 11/15/17 19:29 CHEST PORTABLE [RAD] Stat Disposition/Present on Arrival - Present on Arrival Any Indicators Present on Arrival: No History of DVT/PE: No History of Uncontrolled Diabetes: No Urinary Catheter: No History of Decub. Ulcer: No History Surgical Site Infection Following: None - Disposition Have Diagnosis and Disposition been Completed?: Yes Diagnosis: Substance-induced psychotic disorder, Opioid abuse Disposition: HOME/ ROUTINE Disposition Time: 00:33 Patient Problems: Current Active Problems Problem Status Onset Substance-induced psychotic disorder Acute Opioid abuse Chronic Condition: STABLE Referrals: Desiree Lemus MD [Primary Care Provider] - Follow up with [facility] [Outside] - Follow up with primary Forms: [employer] ([place])
[2017-11-15 20:24] LABS: HEMOGLOBIN 12.5 g/dL (14.0-18.0); MEAN CELL VOLUME 90.5 fl (80.0-105.0); MEAN CORPUSCULAR HEMOGLOBIN 29.6 pg (25.0-35.0); MEAN CORPUSCULAR HGB CONC 32.6 g/dl (31.0-37.0); MEAN PLATELET VOLUME 10.1 fl (7.0-11.0); RBC 4.23 10^6/uL (3.5-6.1); RED CELL DISTRIBUTION WIDTH 14.8 % (11.5-14.5); WHITE BLOOD COUNT 3.8 10^3/ul (4.5-11.0)
[2017-11-15 20:44] LABS: ALB/GLOB RATIO 1.5 (1.1-1.8); ALBUMIN 4.3 g/dL (3.0-4.8); ALT/SGPT 26 U/L (7-56); AST/SGOT 23 U/L (17-59); BLOOD UREA NITROGEN 9 mg/dL (7-21); CALCIUM 9.6 mg/dL (8.4-10.5); GFR AFRICAN-AMERICAN > 60; GFR NON-AFRICAN AMERICAN > 60
[2017-11-15 23:08] LABS: BARBITURATES, UR NEGATIVE (NEGATIVE); BENZODIAZEPINES, UR POSITIVE (NEGATIVE); OPIATES, UR POSITIVE (NEGATIVE); PHENCYCLIDINE, UR NEGATIVE (NEGATIVE)
[2017-11-16 00:59] VITALS: BP 115/78; PULSE 82; RESP 18; TEMP 98.1
--- NOTE | 2017-11-16 08:14 | RAD ---
HISTORY: medical clearance COMPARISON: Comparison chest 11/07/2017 FINDINGS: LUNGS: No active pulmonary disease. PLEURA: No significant pleural effusion identified, no pneumothorax apparent. CARDIOVASCULAR: Normal. OSSEOUS STRUCTURES: No significant abnormalities. VISUALIZED UPPER ABDOMEN: Normal. OTHER FINDINGS: None. IMPRESSION: No active disease.
--- NOTE | 2017-11-16 09:41 | CT ---
PROCEDURE: CT HEAD WITHOUT CONTRAST. HISTORY: headache COMPARISON: None available. TECHNIQUE: Axial computed tomography images were obtained through the head/brain without intravenous contrast. Radiation dose: Total exam DLP = 986 mGy-cm. This CT exam was performed using one or more of the following dose reduction techniques: Automated exposure control, adjustment of the mA and/or kV according to patient size, and/or use of iterative reconstruction technique. FINDINGS: HEMORRHAGE: No intracranial hemorrhage. BRAIN: No mass effect or edema. No atrophy or chronic microvascular ischemic changes. VENTRICLES: Unremarkable. No hydrocephalus. CALVARIUM: There is a bony defect in the left frontal skull and smaller defects in the right frontal skull. The findings may be congenital or postoperative PARANASAL SINUSES: Unremarkable as visualized. No significant inflammatory changes. 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 OTHER FINDINGS: The report concurs with the preliminary [facility] report IMPRESSION: No acute intracranial findings. 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 Abnormalities are also seen in the skull
--- NOTE | 2017-11-16 10:21 | CARD ---
APPROVED REPORT EKG Measurement Heart [id number] [place] [id number] <Conclusion> Normal sinus rhythm LVH by voltage No change
== END 2017-11-16 00:40 | disposition home or self-care (01) ==
LOC: ED 19:05
DX: F19.159 Other psychoactive substance abuse with psychoactive substance-induced psychotic disorder, unspecified (principal); Q87.0 Congenital malformation syndromes predominantly affecting facial appearance

== ENCOUNTER 2017-12-02 11:36 | Inpatient (IN) | payer MEDICAID ==
[2017-12-02 11:36] VITALS: BMI 17.2
--- NOTE | 2017-12-02 11:44 | ED PDOC ---
Arrival/HPI - General Time Seen by Provider: 12/02/17 11:41 Historian: Patient - History of Present Illness Narrative History of Present Illness (Text): 12/02/17 11:41 32yo male with PMHx of depression and schizophrenia bib EMS from the [facility] for psychiatric evaluation. Patient reports auditory hallucination and depression for weeks now. States he ran out of his medications 3weeks ago. the mother states that the medication wasn't helping him when he was taking it. He denies SI/HI, somatic complaint. Past Medical History - Provider Review Nursing Documentation Reviewed: Yes - Infectious Disease Hx of Infectious Diseases: None - Cardiac Hx Cardiac Disorders: No Hx Hypertension: No - Pulmonary Hx Tuberculosis: No - Neurological HX Cerebrovascular Accident: No Hx Seizures: No - HEENT Other/Comment: deviated septum - Renal Hx Renal Disorder: No - Endocrine/Metabolic Hx Endocrine Disorders: No - Hematological/Oncological Hx Cancer: No - Integumentary Hx Dermatological Disorder: No - Musculoskeletal/Rheumatological Hx Musculoskeletal Disorders: 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 - Gastrointestinal Hx Gastrointestinal Disorders: No - Genitourinary/Gynecological Hx Sexually Transmitted Diseases: No - Psychiatric Hx Psychophysiologic Disorder: No Hx Substance Use: Yes - Surgical History Other/Comment: Hemifacial Microsomia multiple skull sugery - Anesthesia Hx Anesthesia: Yes Hx Anesthesia Reactions: No Hx Malignant Hyperthermia: No Family/Social History - Physician Review Nursing Documentation Reviewed: Yes Family/Social History: Unknown Family HX Smoking Status: Heavy Smoker > 10 Cigarettes Daily Hx Alcohol Use: Yes Hx Substance Use: Yes Allergies/Home Meds Allergies/Adverse Reactions: Allergies No Known Allergies Allergy (Verified 12/02/17 11:45) Home Medications: Home Meds Medication Instructions Recorded Confirmed No Known Home Med 12/02/17 12/02/17 Review of Systems - Physician Review All systems were reviewed & negative as marked: Yes - Review of Systems Constitutional: Normal Eyes: Normal ENT: Normal Respiratory: Normal Cardiovascular: Normal Gastrointestinal: Normal Genitourinary Male: Normal Musculoskeletal: Normal Skin: Normal Neurological: Normal Endocrine: Normal Hemo/Lymphatic: Normal Psychiatric: Depression Physical Exam Vital Signs Reviewed: Yes Temperature: Afebrile Blood Pressure: Normal Pulse: Regular Respiratory Rate: Normal Appearance: Positive for: Well-Appearing, Non-Toxic, Comfortable Pain Distress: None Mental Status: Positive for: Alert and Oriented X 3 - Systems Exam Head: Present: Atraumatic, Normocephalic Pupils: Present: PERRL Extroacular Muscles: Present: EOMI Conjunctiva: Present: Normal Mouth: Present: Moist Mucous Membranes Neck: Present: Normal Range of Motion Respiratory/Chest: Present: Clear to Auscultation, Good Air Exchange. No: Respiratory Distress, Accessory Muscle Use Cardiovascular: Present: Regular Rate and Rhythm, Normal S1, S2. No: Murmurs Abdomen: No: Tenderness, Distention, Peritoneal Signs Back: Present: Normal Inspection Upper Extremity: Present: Normal Inspection. No: Cyanosis, Edema Lower Extremity: Present: Normal Inspection. No: Edema Neurological: Present: GCS=15, CN II-XII Intact, Speech Normal Skin: Present: Warm, Dry, Normal Color. No: Rashes Psychiatric: Present: Alert, Oriented x 3, Normal Insight, Normal Concentration Medical Decision Making ED Course and Treatment: 12/02/17 15:45 Pt was calm and hemodynamically stable in ED. Lab was unremarkable. UDS + Opiate. Pt was medically cleared for psych evaluation. He was seen seen in ED by GRACIELA Finch. she DC with Dr. Barnes and pt was admitted to her service for Schizophrenia. EKG: NSR @78bpm CXR NAD - Lab Interpretations Lab Results: 12/02/17 12:30 12/02/17 12:30 Lab Results 12/02/17 12:45: Urine Opiates Screen Positive H, Urine Methadone Screen Negative , Ur Barbiturates Screen Negative, Ur Phencyclidine Scrn Negative, Ur Amphetamines Screen Negative, U Benzodiazepines Scrn Negative, U Oth Cocaine Metabols Negative, U Cannabinoids Screen Negative 12/02/17 12:45: Urine Color Yellow, Urine Appearance Clear, Urine pH 6.0, Ur Specific [place] 1.025, Urine Protein Negative, Urine Glucose (UA) Negative, Urine Ketones Negative, Urine Blood Negative, Urine Nitrate Negative, Urine Bilirubin Negative, Urine Urobilinogen 0.2, Ur Leukocyte Esterase Negative 12/02/17 12:30: Alcohol, Quantitative < 10 12/02/17 12:30: Salicylates < 1 L, Acetaminophen < 10.0 L 12/02/17 12:30: Sodium 142, Potassium 3.9, Chloride 104, Carbon Dioxide 29, Anion Gap 14, BUN 13, Creatinine 0.6 L, Est GFR ( Amer) > 60, Est GFR ( Non-Af Amer) > 60, Random Glucose 107, Calcium 9.6, Magnesium 2.1, Total Bilirubin 0.3, AST 17 D, ALT 22, Alkaline Phosphatase 51, Total Protein 6.7, Albumin 4.2, Globulin 2.5, Albumin/Globulin Ratio 1.7 12/02/17 12:30: WBC 5.2 D, RBC 4.13, Hgb 12.2 L, Hct 37.2 L, MCV 90.1, MCH 29.5 , MCHC 32.8, RDW 14.2, Plt Count 247, MPV 9.5, Gran % 62.5, Lymph % (Auto) 25.6 , [place] % (Auto) 7.5 H, Eos % (Auto) 4.0, Baso % (Auto) 0.4, Gran # 3.27, Lymph # (Auto) 1.3, [place] # (Auto) 0.4, Eos # (Auto) 0.2, Baso # (Auto) 0.02 Disposition/Present on Arrival - Present on Arrival Any Indicators Present on Arrival: No History of DVT/PE: No History of Uncontrolled Diabetes: No Urinary Catheter: No History Surgical Site Infection Following: None - Disposition Have Diagnosis and Disposition been Completed?: Yes Diagnosis: Schizophrenia Disposition: HOSPITALIZED Disposition Time: 15:00 Patient Plan: Admission Patient Problems: Current Active Problems Problem Status Onset Schizophrenia Acute Condition: STABLE
[2017-12-02 12:47] LABS: BASO # 0.02 K/mm3 (0.0-2.0); BASO % 0.4 % (0.0-3.0); EOS # 0.2 (0.0-0.7); GRAN # 3.27 (1.4-6.5); GRAN % 62.5 % (50.0-68.0); HEMOGLOBIN 12.2 g/dL (14.0-18.0); LYMPH # 1.3 (1.2-3.4); LYMPH % 25.6 % (22.0-35.0); MEAN CELL VOLUME 90.1 fl (80.0-105.0); MEAN CORPUSCULAR HEMOGLOBIN 29.5 pg (25.0-35.0); MEAN CORPUSCULAR HGB CONC 32.8 g/dl (31.0-37.0); MEAN PLATELET VOLUME 9.5 fl (7.0-11.0); MONO # 0.4 (0.1-0.6); MONO % 7.5 % (1.0-6.0); RBC 4.13 10^6/uL (3.5-6.1); RED CELL DISTRIBUTION WIDTH 14.2 % (11.5-14.5); WHITE BLOOD COUNT 5.2 10^3/ul (4.5-11.0)
[2017-12-02 12:53] LABS: ALB/GLOB RATIO 1.7 (1.1-1.8); ALBUMIN 4.2 g/dL (3.0-4.8); ALT/SGPT 22 U/L (7-56); AST/SGOT 17 U/L (17-59); BLOOD UREA NITROGEN 13 mg/dL (7-21); CALCIUM 9.6 mg/dL (8.4-10.5); GFR AFRICAN-AMERICAN > 60; GFR NON-AFRICAN AMERICAN > 60
[2017-12-02 12:55] LABS: ACETAMINOPHEN < 10.0 ug/ml (10.0-20.0); SALICYLATE < 1 mg/dL (2.0-20.0)
[2017-12-02 12:59] LABS: URINE BILIRUBIN NEGATIVE (NEGATIVE); URINE BLOOD NEGATIVE (NEGATIVE); URINE GLUCOSE (UA) NEGATIVE (NEGATIVE); URINE LEUKOCYTE ESTERASE NEGATIVE Leu/uL (NEGATIVE); URINE PROTEIN NEGATIVE mg/dL (<30 mg/dL); URINE UROBILINOGEN 0.2 E.U./dL (<1 E.U./dL)
[2017-12-02 13:01] LABS: URINE APPEARANCE CLEAR (CLEAR); URINE COLOR YELLOW (YELLOW)
[2017-12-02 13:30] LABS: PHENCYCLIDINE, UR NEGATIVE (NEGATIVE)
[2017-12-02 13:42] LABS: BARBITURATES, UR NEGATIVE (NEGATIVE); BENZODIAZEPINES, UR NEGATIVE (NEGATIVE)
[2017-12-02 13:49] LABS: OPIATES, UR POSITIVE (NEGATIVE)
--- NOTE | 2017-12-02 15:39 | RAD ---
HISTORY: admission COMPARISON: 11/15/2017 FINDINGS: LUNGS: No active pulmonary disease. PLEURA: No significant pleural effusion identified, no pneumothorax apparent. CARDIOVASCULAR: Normal. OSSEOUS STRUCTURES: No significant abnormalities. VISUALIZED UPPER ABDOMEN: Normal. OTHER FINDINGS: None. IMPRESSION: No active disease.
--- NOTE | 2017-12-02 16:29 | CARD ---
APPROVED REPORT EKG Measurement Heart [id number] [place] [id number] [id number] <Conclusion> Normal sinus rhythm Normal ECG
[2017-12-02 17:50] VITALS: O2SAT 99
[2017-12-02] MEDS ORDERED: Alum-Mag Hydrox-Simethicone Susp (30 mL) PO PRN (22:26)
[2017-12-02] MEDS ORDERED: Magnesium Hydroxide Susp 30 ml UD PO PRN (22:26)
--- NOTE | 2017-12-02 23:33 | PCM.BM ---
<Johanne Lay - Last Filed: 12/02/17 23:30> Treatment Plan Problems - Problems identified on initial assessmt Command/Auditory Hallucinations Date Initiated: 12/02/17 Time Initiated: 23:30 Assessment reference: NA Status: Active Anxiety Date Initiated: 12/02/17 Time Initiated: 23:30 Assessment reference: NA Status: Active Social Isolation Date Initiated: 12/02/17 Time Initiated: 23:31 Assessment reference: NA Status: Active Ineffective Coping Date Initiated: 12/02/17 Time Initiated: 23:31 Assessment reference: NA Status: Active Medication nonadherence Date Initiated: 12/02/17 Time Initiated: 23:32 Assessment reference: NA Status: Active Treatment assets and liabiliti Patient Assests: cooperative, ADL independent, negotiates basic needs, cognitively intact Patient Liabilities: substance abuse - Milieu Protocol Maintain good personal hygiene: daily Encourage regular showers, daily Remind patient to perform daily oral care, daily Assist patient to perform ADL's Conduct patient checks and document Observation sheet: Q15 minutes Maintain personal safety: every shift Educate patient to report safety concerns to staff, every shift Monitor environment for contraband/sharps Medication safety: Monitor for expected outcome, potential side effects: every shift, Assess barriers to learning: every shift, Assess readiness for medication education: every shift Discharge/Continuing Care - Education Needs Education Needs: Patient Medication, Patient Diagnosis/Disease Process, Patient Coping Skills, Patient Community resources, Patient Activities of Daily Living, Patient Nutrition, Patient Health Practices/Safety, Patient Personal Hygiene/ Grooming, Patient Aftercare Safety Plan - Discharge Discharge Criteria: Tolerates medication w/o severe side effects, Free of Suicidal thoughts, Free of paranoid thoughts, Normal sleep pattern, Ability to care for self <Dimitry Castillo - Last Filed: 12/03/17 13:07> - Diagnosis (1) Psychosis Status: Acute Interventions: group, milieu and supportive tx klonopin 0.5 mg po bid for anxiety and mood control Seroquel 50/50 for disorganization, titrate as tolerated to prior dose of 100 /100 Trazodone 50 mg HS prn: insomnia (off-label) Thorazine 50 mg po/IM TID prn: agitation with Ativan 2 mg q6 prn: agitation 12/03/17 13:07 (2) Substance induced mood disorder Status: Chronic Interventions: group, milieu and supportive tx klonopin 0.5 mg po bid for anxiety and mood control Seroquel 50/50 for disorganization, titrate as tolerated to prior dose of 100 /100 Trazodone 50 mg HS prn: insomnia (off-label) Thorazine 50 mg po/IM TID prn: agitation with Ativan 2 mg q6 prn: agitation 12/03/17 13:07 <Katarina Buck Y - Last Filed: 12/03/17 14:30>
[2017-12-03 08:10] LABS: GLUCOSE,FASTING 88 mg/dL (65-110); HDL CHOLESTEROL 33 mg/dL (29-60)
[2017-12-03 08:22] LABS: LDL CHOLESTEROL 68 mg/dL (0-129)
[2017-12-03] MEDS: Multivitamin Therapeutic Tab PO SCH (09:39)
--- NOTE | 2017-12-03 13:07 | PCM.PSYCH ---
Initial Psychiatric Evaluation - Initial Psychiatric Evaluation Type of Admission: Voluntary Legal Status: Capacity History of Present Illness and Precipitating Events: Patient is single 32 year old male with psychiatric history of Mood disorder, Psychotic disorder, Opioid abuse, substance-induced mood disorder, substance induced psychotic disorder, recent admission to [place] psychiatric unit last month 10/21-10/26/17 and ultimately discharged AMA on a 48 hour letter ( [facility] did not commit him) who was brought in by EMS from his outpatient mental health clinic to the ER for psychiatric evaluation. Apparently patient ran out of medications three weeks ago and has been increasingly depressed with auditory hallucinations. I met with patient at bedside and then again during treatment team this morning. He is alert, oriented to month, year, location and circumstances. Affect is constricted preoccupied and disengaged. Grooming is unkempt and hair is shaggy. Patient reluctantly responds to my questioning and his responses are brief without elaboration. Patient indicates that he has been depressed, panicky and experiencing paranoia or the last couple weeks. This is likely secondary to stopping his medications 2-3 ago. He is unsure whether discharge medications from October 2017 admission were beneficial. Affect is bizarre. Presently he denies having any perceptual disturbance, suicidal thoughts or thoughts to harm others. The patient does have a history of behavioral issues while he is on the psychiatric unit as well as medical floor however thus far he has been calm on the unit without incident. Nonetheless his insight and judgment are poor and impulse control is tenuous. 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 PSYCHIATRIC HISTORY Patient was hospitalized at [facility] from October 21 to October 26, 2017. Symptoms included paranoia, CAH voices telling him to kill himself as well as AH of hearing voices telling him that he killed people. Patient was not functioning and isolated himself in his home because of his paranoia. Patient was also abusing Suboxone as well as Vicodin. He was ultimately discharged AMA on a 48 hour letter after [facility] did not find that he met criteria for involuntary commitment. Patient was given a diagnosis of psychosis, opioid abuse, SIMD and SIPD. Discharged on cogentin 0.5 mg PO BID, Klonopin 0.5 mg PO BID, Seroquel 100 mg PO AMHS. Of note patient was also seen as a consult while he was medically hospitalized from November 07 to November 10, 2017. Patient was seen by [facility] screeners who evaluated patient and found that he did not put meet criteria for involuntary commitment. Patient was ultimately discharged AMA from this medical hospitalization. SOCIAL HISTORY Patient was going to race in [place]. He is single. He has no children. He lives with his parents and his twin brother. Patient graduated high school and he is unemployed. Patient has a history of abusing Suboxone as well as Vicodin prior to his admission last month. Smoked 1 ppd of cigarettes and was provided counseling about morbidity and mortality risks of tobacco use. Patient was also offered a nicotine patch. Current Medications: Active Medications Generic Name Dose Route Start Last Admin Trade Name Freq PRN Reason Stop Dose Admin Al Hydrox/Mg Hydrox/Simethicone 30 ml 12/02/17 22:26 Maalox Plus 30 Ml PO DAILY PRN Upset Stomach Chlorpromazine 50 mg 12/02/17 19:05 Thorazine IM TID PRN Agitation Protocol Chlorpromazine 50 mg 12/02/17 19:06 Thorazine PO TID PRN Agitation Protocol Clonazepam 0.5 mg 12/02/17 19:01 12/02/17 22:09 Klonopin PO 0.5 mg BID PRN Administration Anxiety Protocol Clonidine HCl 0.1 mg 12/02/17 18:56 Catapres PO BID PRN Symptoms of alcohol withdrawl Lorazepam 2 mg 12/02/17 19:03 Ativan IM Q6H PRN Anxiety Protocol Magnesium Hydroxide 30 ml 12/02/17 22:26 Milk Of Magnesia PO DAILY PRN Constipation Multivitamins 1 tab 12/03/17 08:00 Thera Tab PO 0800 RAMIRO Ondansetron HCl 4 mg 12/02/17 19:02 12/02/17 20:34 Zofran Odt PO 4 mg Q8H PRN Administration Nausea/Vomiting Quetiapine Fumarate 50 mg 12/02/17 22:00 12/02/17 21:10 Seroquel PO 50 mg AMHS RAMIRO Administration Protocol Tramadol HCl 50 mg 12/02/17 18:55 12/02/17 21:59 Ultram PO 50 mg BID PRN Administration Pain, moderate (4-7) Trazodone HCl 50 mg 12/02/17 18:59 12/02/17 21:10 Desyrel PO 50 mg HS PRN Administration Insomnia Past Psychiatric History - Past Psychiatric History Pertinent Medical Hx (Current Medical&Sleep Prob, Allergies): Allergies Allergy/AdvReac Type Severity Reaction Status Date / Time No Known Allergies Allergy Verified 12/02/17 22:15 No Known Home Med 12/02/17 Mental Status Examination - Personal Presentation Personal Presentation: Looks stated age - Affect Affect: Constricted - Motor Activity Motor Activity: Calm - Reliability in Providing Information Reliability in Providing Information: Poor, due to alteration in thoughts - Speech Speech: Disorganized - Mood Mood: Depressed, Anxious - Formal Thought Process Formal Thought Process: No Impairment, Hallucinations (reported AH prior to admission) - Obsessions/Compulsions Obsessions: No Compulsions: No - Cognitive Functions Orientation: Person, Place, Situation Sensorium: Drowsy Attention/Concentration: Easily distracted Judgement: Imparied, as evidence by: Poor judgement, Imparied, as evidence by: Lack of insight into illness - Risk Risk: Suicidal, Diminished functioning - Strength & Assets Inventory Strength & Assets Inventory: Family support DSM 5 DX - DSM 5 DSM 5 Diagnosis: Psychosis NOS r/o Schizophrenia vs. Schizoaffective Disorder r/o MDD Likely continue opioid abuse, SIMD and SIPD. - Recommended/Plan of Treatment Treatment Recommendations and Plan of Treatment: * group, milieu and supportive tx * klonopin 0.5 mg po bid for anxiety and mood control * Seroquel 50/50 for disorganization, titrate as tolerated to prior dose of 100/ 100 * Trazodone 50 mg HS prn: insomnia (off-label) * Thorazine 50 mg po/IM TID prn: agitation with Ativan 2 mg q6 prn: agitation * Vitals reviewed and noted below: Selected Entries 12/03/17 06:45 Temperature 97.7 F Pulse Rate 84 Respiratory 20 Rate Blood Pressure 102/72 ER LABS AND STUDIES 12/02/17 15:45 EKG: NSR @78bpm CXR NAD Lab Results 12/02/17 12:45: Urine Opiates Screen Positive H, Urine Methadone Screen Negative , Ur Barbiturates Screen Negative, Ur Phencyclidine Scrn Negative, Ur Amphetamines Screen Negative, U Benzodiazepines Scrn Negative, U Oth Cocaine Metabols Negative, U Cannabinoids Screen Negative 12/02/17 12:45: Urine Color Yellow, Urine Appearance Clear, Urine pH 6.0, Ur Specific [place] 1.025, Urine Protein Negative, Urine Glucose (UA) Negative, Urine Ketones Negative, Urine Blood Negative, Urine Nitrate Negative, Urine Bilirubin Negative, Urine Urobilinogen 0.2, Ur Leukocyte Esterase Negative 12/02/17 12:30: Alcohol, Quantitative < 10 12/02/17 12:30: Salicylates < 1 L, Acetaminophen < 10.0 L 12/02/17 12:30: Sodium 142, Potassium 3.9, Chloride 104, Carbon Dioxide 29, Anion Gap 14, BUN 13, Creatinine 0.6 L, Est GFR ( Amer) > 60, Est GFR ( Non-Af Amer) > 60, Random Glucose 107, Calcium 9.6, Magnesium 2.1, Total Bilirubin 0.3, AST 17 D, ALT 22, Alkaline Phosphatase 51, Total Protein 6.7, Albumin 4.2, Globulin 2.5, Albumin/Globulin Ratio 1.7 12/02/17 12:30: WBC 5.2 D, RBC 4.13, Hgb 12.2 L, Hct 37.2 L, MCV 90.1, MCH 29.5 , MCHC 32.8, RDW 14.2, Plt Count 247, MPV 9.5, Gran % 62.5, Lymph % (Auto) 25.6 , [place] % (Auto) 7.5 H, Eos % (Auto) 4.0, Baso % (Auto) 0.4, Gran # 3.27, Lymph # (Auto) 1.3, [place] # (Auto) 0.4, Eos # (Auto) 0.2, Baso # (Auto) 0.02 FLOOR LABS 12/03/17 12/03/17 07:45 07:45 Fasting Glucose 88 Triglycerides 150 Cholesterol 128 L LDL Cholesterol Direct 68 HDL Cholesterol 33 TSH 3rd Generation 0.35 L - Smoking Cessation Smoking Cessation Initiated: Yes
[2017-12-04] MEDS: Multivitamin Therapeutic Tab PO SCH (08:51)
--- NOTE | 2017-12-04 09:51 | PCM.PYCHPN ---
Psychiatric Progress Note - Psychiatric Progress Note Patient seen today, length of contact: 25 MIN Problems Identified/Issues Discussed: History of Present Illness and Precipitating Events: Patient is single 32 year old male with psychiatric history of Mood disorder, Psychotic disorder, Opioid abuse, substance-induced mood disorder, substance induced psychotic disorder, recent admission to [place] psychiatric unit last month 10/21-10/26/17 and ultimately discharged AMA on a 48 hour letter ( [facility] did not commit him) who was brought in by EMS from his outpatient mental health clinic to the ER for psychiatric evaluation. Apparently patient ran out of medications three weeks ago and has been increasingly depressed with auditory hallucinations. I met with patient at bedside and then again during treatment team this morning. He is alert, oriented to month, year, location and circumstances. Affect is constricted preoccupied and disengaged. Grooming is unkempt and hair is shaggy. Patient reluctantly responds to my questioning and his responses are brief without elaboration. Patient indicates that he has been depressed, panicky and experiencing paranoia or the last couple weeks. This is likely secondary to stopping his medications 2-3 ago. He is unsure whether discharge medications from October 2017 admission were beneficial. Affect is bizarre. Presently he denies having any perceptual disturbance, suicidal thoughts or thoughts to harm others. The patient does have a history of behavioral issues while he is on the psychiatric unit as well as medical floor however thus far he has been calm on the unit without incident. Nonetheless his insight and judgment are poor and impulse control is tenuous. 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 PSYCHIATRIC HISTORY Patient was hospitalized at [facility] from October 21 to October 26, 2017. Symptoms included paranoia, CAH voices telling him to kill himself as well as AH of hearing voices telling him that he killed people. Patient was not functioning and isolated himself in his home because of his paranoia. Patient was also abusing Suboxone as well as Vicodin. He was ultimately discharged AMA on a 48 hour letter after [facility] did not find that he met criteria for involuntary commitment. Patient was given a diagnosis of psychosis, opioid abuse, SIMD and SIPD. Discharged on cogentin 0.5 mg PO BID, Klonopin 0.5 mg PO BID, Seroquel 100 mg PO AMHS. Of note patient was also seen as a consult while he was medically hospitalized from November 07 to November 10, 2017. Patient was seen by [facility] screeners who evaluated patient and found that he did not put meet criteria for involuntary commitment. Patient was ultimately discharged AMA from this medical hospitalization. SOCIAL HISTORY Patient was going to race in [place]. He is single. He has no children. He lives with his parents and his twin brother. Patient graduated high school and he is unemployed. Patient has a history of abusing Suboxone as well as Vicodin prior to his admission last month. Smoked 1 ppd of cigarettes and was provided counseling about morbidity and mortality risks of tobacco use. Patient was also offered a nicotine patch. PROGRESS NOTE I reviewed recent notes and met with patient at bedside and in the hallway today. He is better groomed and more communicative today. Oriented x3 with improved focus and relatedness. He denies hallucinations and this denial is more credible today though he still appears preoccupied. Patient feels like he is improving and in general, at least in the short term, he appears to be improving. He is tolerating his medications and denies any side effects or new discomfort or pain. Thought process is coherent and he seems a little less odd and aloof. Sleep was restless and patient agrees to increase in seroquel. Yesterday he was withdrawn, isolative and guarded. Will monitor patient's behavior and mental status to ensure his overall functioning is improving. Diagnostic Results: Psychosis NOS r/o Schizophrenia vs. Schizoaffective Disorder r/o MDD Likely continue opioid abuse, SIMD and SIPD. Medication Change: Yes (Increased Seroquel to prior dose of 100/100) Medical Record Reviewed: Yes Mental Status Examination - Cognitive Function Orientation: Person, Place, Situation - Mood Mood: Depressed, Anxious - Affect Affect: Constricted - Formal Thought Process Formal Thought Process: No Impairment, Hallucinations (reported AH prior to admission) - Homicidal Ideation Homicidal Ideation: No Goal/Treatment Plan - Goal/Treatment Plan Progress Toward Problem(s) and Goals/Treatment Plan: * group, milieu and supportive tx * klonopin 0.5 mg po bid for anxiety and mood control * Seroquel 100/100 for disorganization and reported AH at admission. * Trazodone 50 mg HS prn: insomnia (off-label) * Thorazine 50 mg po/IM TID prn: agitation with Ativan 2 mg q6 prn: agitation * Vitals reviewed and noted below: Selected Entries 12/04/17 07:05 Temperature 97.3 F L Pulse Rate 65 Respiratory 20 Rate Blood Pressure 104/66 ER LABS AND STUDIES 12/02/17 15:45 EKG: NSR @78bpm CXR NAD Lab Results 12/02/17 12:45: Urine Opiates Screen Positive H, Urine Methadone Screen Negative , Ur Barbiturates Screen Negative, Ur Phencyclidine Scrn Negative, Ur Amphetamines Screen Negative, U Benzodiazepines Scrn Negative, U Oth Cocaine Metabols Negative, U Cannabinoids Screen Negative 12/02/17 12:45: Urine Color Yellow, Urine Appearance Clear, Urine pH 6.0, Ur Specific [place] 1.025, Urine Protein Negative, Urine Glucose (UA) Negative, Urine Ketones Negative, Urine Blood Negative, Urine Nitrate Negative, Urine Bilirubin Negative, Urine Urobilinogen 0.2, Ur Leukocyte Esterase Negative 12/02/17 12:30: Alcohol, Quantitative < 10 12/02/17 12:30: Salicylates < 1 L, Acetaminophen < 10.0 L 12/02/17 12:30: Sodium 142, Potassium 3.9, Chloride 104, Carbon Dioxide 29, Anion Gap 14, BUN 13, Creatinine 0.6 L, Est GFR ( Amer) > 60, Est GFR ( Non-Af Amer) > 60, Random Glucose 107, Calcium 9.6, Magnesium 2.1, Total Bilirubin 0.3, AST 17 D, ALT 22, Alkaline Phosphatase 51, Total Protein 6.7, Albumin 4.2, Globulin 2.5, Albumin/Globulin Ratio 1.7 12/02/17 12:30: WBC 5.2 D, RBC 4.13, Hgb 12.2 L, Hct 37.2 L, MCV 90.1, MCH 29.5 , MCHC 32.8, RDW 14.2, Plt Count 247, MPV 9.5, Gran % 62.5, Lymph % (Auto) 25.6 , [place] % (Auto) 7.5 H, Eos % (Auto) 4.0, Baso % (Auto) 0.4, Gran # 3.27, Lymph # (Auto) 1.3, [place] # (Auto) 0.4, Eos # (Auto) 0.2, Baso # (Auto) 0.02 FLOOR LABS 12/03/17 12/03/17 07:45 07:45 Fasting Glucose 88 Triglycerides 150 Cholesterol 128 L LDL Cholesterol Direct 68 HDL Cholesterol 33 TSH 3rd Generation 0.35 L
[2017-12-05] MEDS: Multivitamin Therapeutic Tab PO SCH (07:46)
--- NOTE | 2017-12-05 10:23 | PCM.PYCHPN ---
Psychiatric Progress Note - Psychiatric Progress Note Patient seen today, length of contact: 25 MIN Patient Chief Complaint: better Problems Identified/Issues Discussed: History of Present Illness and Precipitating Events: Patient is single 32 year old male with psychiatric history of Mood disorder, Psychotic disorder, Opioid abuse, substance-induced mood disorder, substance induced psychotic disorder, recent admission to [place] psychiatric unit last month 10/21-10/26/17 and ultimately discharged AMA on a 48 hour letter ( [facility] did not commit him) who was brought in by EMS from his outpatient mental health clinic to the ER for psychiatric evaluation. Apparently patient ran out of medications three weeks ago and has been increasingly depressed with auditory hallucinations. I met with patient at bedside and then again during treatment team this morning. He is alert, oriented to month, year, location and circumstances. Affect is constricted preoccupied and disengaged. Grooming is unkempt and hair is shaggy. Patient reluctantly responds to my questioning and his responses are brief without elaboration. Patient indicates that he has been depressed, panicky and experiencing paranoia or the last couple weeks. This is likely secondary to stopping his medications 2-3 ago. He is unsure whether discharge medications from October 2017 admission were beneficial. Affect is bizarre. Presently he denies having any perceptual disturbance, suicidal thoughts or thoughts to harm others. The patient does have a history of behavioral issues while he is on the psychiatric unit as well as medical floor however thus far he has been calm on the unit without incident. Nonetheless his insight and judgment are poor and impulse control is tenuous. 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 PSYCHIATRIC HISTORY Patient was hospitalized at [facility] from October 21 to October 26, 2017. Symptoms included paranoia, CAH voices telling him to kill himself as well as AH of hearing voices telling him that he killed people. Patient was not functioning and isolated himself in his home because of his paranoia. Patient was also abusing Suboxone as well as Vicodin. He was ultimately discharged AMA on a 48 hour letter after [facility] did not find that he met criteria for involuntary commitment. Patient was given a diagnosis of psychosis, opioid abuse, SIMD and SIPD. Discharged on cogentin 0.5 mg PO BID, Klonopin 0.5 mg PO BID, Seroquel 100 mg PO AMHS. Of note patient was also seen as a consult while he was medically hospitalized from November 07 to November 10, 2017. Patient was seen by [facility] screeners who evaluated patient and found that he did not put meet criteria for involuntary commitment. Patient was ultimately discharged AMA from this medical hospitalization. SOCIAL HISTORY Patient was going to [place] in [place]. He is single. He has no children. He lives with his parents and his twin brother. Patient graduated high school and he is unemployed. Patient has a history of abusing Suboxone as well as Vicodin prior to his admission last month. Smoked 1 ppd of cigarettes and was provided counseling about morbidity and mortality risks of tobacco use. Patient was also offered a nicotine patch. PROGRESS NOTE I reviewed recent notes and met with patient in the hallway today. His grooming is unkempt but still better than at admission. Remains oriented x3 with improved focus and relatedness. He denies hallucinations and this denial is a lot more credible though he still appears preoccupied. Patient spoke with SW yesterday and expressed hope that the voices don't come back. Patient feels like he is improving and at least in the short term, he appears to be improving in the last 2 days. Thought process is coherent and he seems a little less odd and aloof. Patient has been very cooperative. Affect is still constricted and detached however staff have noted that he is more reactive and smiles more readily. Patient has been attending groups. Sleep is improved with recent increase in seroquel. He is tolerating his medications and denies any side effects or new discomfort or pain. Diagnostic Results: Psychosis NOS r/o Schizophrenia vs. Schizoaffective Disorder r/o MDD Likely continue opioid abuse, SIMD and SIPD. Medication Change: No ( ) Medical Record Reviewed: Yes Mental Status Examination - Cognitive Function Orientation: Person, Place, Situation Attention: WNL Concentration: WNL Association: Loose Fund of Knowledge: Poor - Mood Mood: Depressed (better), Anxious (still anxious) - Affect Affect: Constricted (a little more reactive) - Formal Thought Process Formal Thought Process: No Impairment, Hallucinations (reported AH prior to admission, denied recurrence all weekend) - Suicidal Ideation Suicidal Ideation: No - Homicidal Ideation Homicidal Ideation: No Goal/Treatment Plan - Goal/Treatment Plan Progress Toward Problem(s) and Goals/Treatment Plan: * group, milieu and supportive tx * klonopin 0.5 mg po bid for anxiety and mood control * Seroquel 100/100 for disorganization and reported AH at admission. * Trazodone 50 mg HS prn: insomnia (off-label) * Thorazine 50 mg po/IM TID prn: agitation with Ativan 2 mg q6 prn: agitation * Vitals reviewed and noted below: Selected Entries 12/05/17 07:00 Temperature 97.7 F Pulse Rate 71 Respiratory 20 Rate Blood Pressure 102/88 ER LABS AND STUDIES 12/02/17 15:45 EKG: NSR @78bpm CXR NAD Lab Results 12/02/17 12:45: Urine Opiates Screen Positive H, Urine Methadone Screen Negative , Ur Barbiturates Screen Negative, Ur Phencyclidine Scrn Negative, Ur Amphetamines Screen Negative, U Benzodiazepines Scrn Negative, U Oth Cocaine Metabols Negative, U Cannabinoids Screen Negative 12/02/17 12:45: Urine Color Yellow, Urine Appearance Clear, Urine pH 6.0, Ur Specific [place] 1.025, Urine Protein Negative, Urine Glucose (UA) Negative, Urine Ketones Negative, Urine Blood Negative, Urine Nitrate Negative, Urine Bilirubin Negative, Urine Urobilinogen 0.2, Ur Leukocyte Esterase Negative 12/02/17 12:30: Alcohol, Quantitative < 10 12/02/17 12:30: Salicylates < 1 L, Acetaminophen < 10.0 L 12/02/17 12:30: Sodium 142, Potassium 3.9, Chloride 104, Carbon Dioxide 29, Anion Gap 14, BUN 13, Creatinine 0.6 L, Est GFR ( Amer) > 60, Est GFR ( Non-Af Amer) > 60, Random Glucose 107, Calcium 9.6, Magnesium 2.1, Total Bilirubin 0.3, AST 17 D, ALT 22, Alkaline Phosphatase 51, Total Protein 6.7, Albumin 4.2, Globulin 2.5, Albumin/Globulin Ratio 1.7 12/02/17 12:30: WBC 5.2 D, RBC 4.13, Hgb 12.2 L, Hct 37.2 L, MCV 90.1, MCH 29.5 , MCHC 32.8, RDW 14.2, Plt Count 247, MPV 9.5, Gran % 62.5, Lymph % (Auto) 25.6 , [place] % (Auto) 7.5 H, Eos % (Auto) 4.0, Baso % (Auto) 0.4, Gran # 3.27, Lymph # (Auto) 1.3, [place] # (Auto) 0.4, Eos # (Auto) 0.2, Baso # (Auto) 0.02 FLOOR LABS 12/03/17 12/03/17 07:45 07:45 Fasting Glucose 88 Triglycerides 150 Cholesterol 128 L LDL Cholesterol Direct 68 HDL Cholesterol 33 TSH 3rd Generation 0.35 L
[2017-12-06] MEDS: Multivitamin Therapeutic Tab PO SCH (09:59)
--- NOTE | 2017-12-06 10:16 | PCM.PYCHPN ---
Psychiatric Progress Note - Psychiatric Progress Note Patient seen today, length of contact: 25 MIN Patient Chief Complaint: better Problems Identified/Issues Discussed: History of Present Illness and Precipitating Events: Patient is single 32 year old male with psychiatric history of Mood disorder, Psychotic disorder, Opioid abuse, substance-induced mood disorder, substance induced psychotic disorder, recent admission to [facility] unit last month 10/21-10/26/17 and ultimately discharged AMA on a 48 hour letter ( [facility] [place] who was brought in by EMS from his outpatient mental health clinic to the ER for psychiatric evaluation. Apparently patient ran out of medications three weeks ago and has been increasingly depressed with auditory hallucinations. I met with patient at bedside and then again during treatment team this morning. He is alert, oriented to month, year, location and circumstances. Affect is constricted preoccupied and disengaged. Grooming is unkempt and hair is shaggy. Patient reluctantly responds to my questioning and his responses are brief without elaboration. Patient indicates that he has been depressed, panicky and experiencing paranoia or the last couple weeks. This is likely secondary to stopping his medications 2-3 ago. He is unsure whether discharge medications from October 2017 admission were beneficial. Affect is bizarre. Presently he denies having any perceptual disturbance, suicidal thoughts or thoughts to harm others. The patient does have a history of behavioral issues while he is on the psychiatric unit as well as medical floor however thus far he has been calm on the unit without incident. Nonetheless his insight and judgment are poor and impulse control is tenuous. 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 PSYCHIATRIC HISTORY Patient was hospitalized at [facility] [place] from October 21 to October 26, 2017. Symptoms included paranoia, CAH voices telling him to kill himself as well as AH of hearing voices telling him that he killed people. Patient was not functioning and isolated himself in his home because of his paranoia. Patient was also abusing Suboxone as well as Vicodin. He was ultimately discharged AMA on a 48 hour letter after [facility] did not find that he met criteria for involuntary commitment. Patient was given a diagnosis of psychosis, opioid abuse, SIMD and SIPD. Discharged on cogentin 0.5 mg PO BID, Klonopin 0.5 mg PO BID, Seroquel 100 mg PO AMHS. Of note patient was also seen as a consult while he was medically hospitalized from November 07 to November 10, 2017. Patient was seen by [facility] screeners who evaluated patient and found that he did not put meet criteria for involuntary commitment. Patient was ultimately discharged AMA from this medical hospitalization. SOCIAL HISTORY Patient was born and raised in [place]. He is single. He has no children. He lives with his parents and his twin brother. Patient graduated high school and he is unemployed. Patient has a history of abusing Suboxone as well as Vicodin prior to his admission last month. Smoked 1 ppd of cigarettes and was provided counseling about morbidity and mortality risks of tobacco use. Patient was also offered a nicotine patch. PROGRESS NOTE Patient appeared to be improving over the holiday weekend. Grooming and orientation was better and he showed positive changes in focus and relatedness. He denied hallucinations and expressed hope to SW on Wednesday that the voices don't come back. I reviewed recent notes from WednesdayDecember 05 which indicate that patient started to get more impatient and irritable on this day. He was agitated, demanding discharge and endorsing auditiory hallucinations. He threatened to escape when he had the chance. Alirio received thorazine 50 mg twice that day with improvement in behavior and impulsivity. I met with patient in the hallway today. His grooming is unkempt but still better than at admission. Remains oriented x3 with improved focus and relatedness. He denies hallucinations and denies that he endorsed hallucinations yesterday. He asks about discharge, indicating that a 48 hour letter was placed 2 days ago. I spoke with nursing and there is no record of this letter. I double checked his chart and further confirmed there was no [address]. In addition, the presence of this letter was never brought up during our 1:1 interview yesterday. Sleep has been restless and patient agrees to small increase in seroquel (which may also improve his mood control and impulsivity). He is tolerating his medications and denies any side effects or new discomfort or pain. Still attending groups and demonstrates good appetite Diagnostic Results: Psychosis NOS r/o Schizophrenia vs. Schizoaffective Disorder r/o MDD Likely continue opioid abuse, SIMD and SIPD. Medication Change: Yes (Seroquel increased to 100/125 on 12/06/17) Medical Record Reviewed: Yes Mental Status Examination - Cognitive Function Orientation: Person, Place, Situation Attention: WNL Concentration: WNL Association: Loose Fund of Knowledge: Poor - Mood Mood: Depressed (better), Anxious (still anxious) - Affect Affect: Constricted (a little more reactive) - Formal Thought Process Formal Thought Process: No Impairment, Hallucinations (reported AH prior to admission, denied recurrence all weekend) - Suicidal Ideation Suicidal Ideation: No - Homicidal Ideation Homicidal Ideation: No Goal/Treatment Plan - Goal/Treatment Plan Progress Toward Problem(s) and Goals/Treatment Plan: * group, milieu and supportive tx * klonopin 0.5 mg po bid for anxiety and mood control * Seroquel increased to 100/125 to help with mood control, impulsivity, disorganization and reported AH, as well as off-label for insomnia. * Trazodone 50 mg HS prn: insomnia (off-label) * Thorazine 50 mg po/IM TID prn: agitation with Ativan 2 mg q6 prn: agitation * Vitals reviewed and noted below: Selected Entries 12/06/17 06:33 Temperature 97.8 F Pulse Rate 80 Respiratory 19 Rate Blood Pressure 101/69 ER LABS AND STUDIES 12/02/17 15:45 EKG: NSR @78bpm CXR NAD Lab Results 12/02/17 12:45: Urine Opiates Screen Positive H, Urine Methadone Screen Negative , Ur Barbiturates Screen Negative, Ur Phencyclidine Scrn Negative, Ur Amphetamines Screen Negative, U Benzodiazepines Scrn Negative, U Oth Cocaine Metabols Negative, U Cannabinoids Screen Negative 12/02/17 12:45: Urine Color Yellow, Urine Appearance Clear, Urine pH 6.0, Ur Specific [place] 1.025, Urine Protein Negative, Urine Glucose (UA) Negative, Urine Ketones Negative, Urine Blood Negative, Urine Nitrate Negative, Urine Bilirubin Negative, Urine Urobilinogen 0.2, Ur Leukocyte Esterase Negative 12/02/17 12:30: Alcohol, Quantitative < 10 12/02/17 12:30: Salicylates < 1 L, Acetaminophen < 10.0 L 12/02/17 12:30: Sodium 142, Potassium 3.9, Chloride 104, Carbon Dioxide 29, Anion Gap 14, BUN 13, Creatinine 0.6 L, Est GFR ( Amer) > 60, Est GFR ( Non-Af Amer) > 60, Random Glucose 107, Calcium 9.6, Magnesium 2.1, Total Bilirubin 0.3, AST 17 D, ALT 22, Alkaline Phosphatase 51, Total Protein 6.7, Albumin 4.2, Globulin 2.5, Albumin/Globulin Ratio 1.7 12/02/17 12:30: WBC 5.2 D, RBC 4.13, Hgb 12.2 L, Hct 37.2 L, MCV 90.1, MCH 29.5 , MCHC 32.8, RDW 14.2, Plt Count 247, MPV 9.5, Gran % 62.5, Lymph % (Auto) 25.6 , [place] % (Auto) 7.5 H, Eos % (Auto) 4.0, Baso % (Auto) 0.4, Gran # 3.27, Lymph # (Auto) 1.3, [place] # (Auto) 0.4, Eos # (Auto) 0.2, Baso # (Auto) 0.02 FLOOR LABS 12/03/17 12/03/17 07:45 07:45 Fasting Glucose 88 Triglycerides 150 Cholesterol 128 L LDL Cholesterol Direct 68 HDL Cholesterol 33 TSH 3rd Generation 0.35 L
[2017-12-07 07:13] VITALS: RESP 20
[2017-12-07] MEDS: Multivitamin Therapeutic Tab PO SCH (07:36)
--- NOTE | 2017-12-07 15:04 | PCM.PYCHPN ---
Psychiatric Progress Note - Psychiatric Progress Note Patient seen today, length of contact: 30 minutes Patient Chief Complaint: "what the F...ing your problem? I want to be discharge..." Problems Identified/Issues Discussed: Suicide/ homicide prevention, past psychiatric h/o, current psychiatric symptoms , medical problems, risk/benefits and alternatives of medications, medications compliance, coping strategies, substance abuse h/o, relapse prevention, importance of follow up with psychiatrist and therapist, discharge plan. Medical Problems: Chronic pain syndrome, left shoulder pain, Goldenhar syndrome. Diagnostic Results: 12/02/17 12:30 12/02/17 12:30 Lab Results 12/03/17 07:45: TSH 3rd Generation 0.35 L 12/03/17 07:45: Fasting Glucose 88, Triglycerides 150, Cholesterol 128 L, LDL Cholesterol Direct 68, HDL Cholesterol 33 12/03/17 07:30: RPR Nonreactive 12/02/17 12:45: Urine Opiates Screen Positive H, Urine Methadone Screen Negative , Ur Barbiturates Screen Negative, Ur Phencyclidine Scrn Negative, Ur Amphetamines Screen Negative, U Benzodiazepines Scrn Negative, U Oth Cocaine Metabols Negative, U Cannabinoids Screen Negative 12/02/17 12:45: Urine Color Yellow, Urine Appearance Clear, Urine pH 6.0, Ur Specific [place] 1.025, Urine Protein Negative, Urine Glucose (UA) Negative, Urine Ketones Negative, Urine Blood Negative, Urine Nitrate Negative, Urine Bilirubin Negative, Urine Urobilinogen 0.2, Ur Leukocyte Esterase Negative 12/02/17 12:30: Alcohol, Quantitative < 10 12/02/17 12:30: Salicylates < 1 L, Acetaminophen < 10.0 L 12/02/17 12:30: Sodium 142, Potassium 3.9, Chloride 104, Carbon Dioxide 29, Anion Gap 14, BUN 13, Creatinine 0.6 L, Est GFR ( Amer) > 60, Est GFR ( Non-Af Amer) > 60, Random Glucose 107, Calcium 9.6, Magnesium 2.1, Total Bilirubin 0.3, AST 17 D, ALT 22, Alkaline Phosphatase 51, Total Protein 6.7, Albumin 4.2, Globulin 2.5, Albumin/Globulin Ratio 1.7 12/02/17 12:30: WBC 5.2 D, RBC 4.13, Hgb 12.2 L, Hct 37.2 L, MCV 90.1, MCH 29.5 , MCHC 32.8, RDW 14.2, Plt Count 247, MPV 9.5, Gran % 62.5, Lymph % (Auto) 25.6 , [place] % (Auto) 7.5 H, Eos % (Auto) 4.0, Baso % (Auto) 0.4, Gran # 3.27, Lymph # (Auto) 1.3, [place] # (Auto) 0.4, Eos # (Auto) 0.2, Baso # (Auto) 0.02 Vital Signs Temp Pulse Pulse Resp BP Pulse Ox 12/07/17 07:12 97.5 F L 68 20 108/70 12/06/17 15:38 74 127/77 12/06/17 06:33 97.8 F 80 19 101/69 12/05/17 16:00 71 104/57 L 12/05/17 07:00 97.7 F 71 20 102/88 12/04/17 16:00 83 107/67 12/04/17 07:05 97.3 F L 65 20 104/66 12/04/17 06:57 97.3 F L 65 20 104/66 12/03/17 16:28 61 101/62 12/03/17 06:45 97.7 F 84 20 102/72 12/02/17 21:00 87 12/02/17 20:00 97.6 F 87 20 108/73 12/02/17 17:46 98 F 70 18 110/71 99 12/02/17 16:17 98.2 F 84 18 108/55 L 100 12/02/17 11:55 98.2 F 82 18 112/77 98 DSM 5 Symptoms Update: As per 's assessment: Patient is single 32 year old male with psychiatric history of Mood disorder, Psychotic disorder, Opioid abuse, substance-induced mood disorder, substance induced psychotic disorder, recent admission to [facility] psychiatric unit last month 10/21-10/26/17 and ultimately discharged AMA on a 48 hour letter ( [facility] [place]) who was brought in by EMS from his outpatient mental health clinic to the ER for psychiatric evaluation. Apparently patient ran out of medications three weeks ago and has been increasingly depressed with auditory hallucinations. this check writer is fair familiar with this patient from multiple admissions to the medical floor as well as psychiatric inpatient hospitalizations here at [facility]. Patient was seen today at the treatment team meeting,from Dr. Castillo as well as nursing staff reviewed. at the beginning of the interview patient presented relatively well, was minimizing all of his symptoms, reported that he is not hearing voices and not seeing things, reported that his appetite and sleep improving, patient requested to be discharged from the hospital as soon as possible, pt was advised that this check writer would like to have a family meeting with his mother who seems to be very involved into his care, as well as this check writer let pt know that as per RN report pt was cursing at the staff, was banging on the glass window at the nursing station, pt was insisting to habe a sneakers (of note last admission pt did have the same type of behavior before he attempted to elope. Initially patient was in agreement for family meeting tomorrow but later on pt came back to the treatment team room, was threatening this check writer and staff, threw chair towards this check writer, nobody got hurt,pt escorted from the room, pt was given IM of thorazine 50mg, with good effect, pt became calmer. Patient was reassessed later on, patient presented the same way superficially corporative, patient impulses are still unpredictable, patient presented to be psychotic, irritable, angry. Pt tolerates meds well, no side effects observed or reported, AIMS 0, no EPS. Diagnostic Results: Psychosis NOS r/o Schizophrenia vs. Schizoaffective Disorder r/o MDD Likely continue opioid abuse, SIMD and SIPD. Medication Change: Yes (seroquel increased, depakote initiated) Medical Record Reviewed: Yes Consults ordered or reviewed: no need for medical consult as of now Mental Status Examination - Cognitive Function Orientation: Person, Place, Situation Attention: WNL Concentration: WNL Association: Loose Fund of Knowledge: Poor - Mood Mood: Depressed (better), Anxious (still anxious) - Affect Affect: Constricted (angry, irritable) - Speech Speech: Loud - Formal Thought Process Formal Thought Process: No Impairment, Hallucinations (reported AH prior to admission, denied recurrence all weekend), Other (pt is impulsive, guarded, agitated) - Suicidal Ideation Suicidal Ideation: No - Homicidal Ideation Homicidal Ideation: No Goal/Treatment Plan - Goal/Treatment Plan Need for Continued Stay: Remain at risks for inpatient hospitalization, Severe depression anxiety, Discharge may exacerbated symptoms, Failed transitioning, Severe functional impairment Progress Toward Problem(s) and Goals/Treatment Plan: group, milieu and supportive tx klonopin 0.5 mg po bid for anxiety and mood control Seroquel 200mh amhs for disorganization, psychosis, mood stabilization depakote 250mg po bid for mood stabilization Trazodone 50 mg HS prn: insomnia (off-label) Thorazine 50 mg po/IM TID prn: agitation with Ativan 2 mg q6 prn: agitation family involvement Follow up on labs Will monitor closely Pt was educated about risk/benefits and alternatives of medications, coping strategies (safety plan, suicide prevention), relapse prevention, importance of follow up with psychiatrist and therapist, stay away from drugs/alcohol/smoking Estimated Date of D/C: 12/10/17
[2017-12-07] MEDS: Divalproex 250 mg DR (BID formulation) PO SCH (17:24)
[2017-12-08] MEDS: Divalproex 250 mg DR (BID formulation) PO SCH (08:45)
[2017-12-08] MEDS: Multivitamin Therapeutic Tab PO SCH (08:45)
[2017-12-08 09:33] VITALS: BP 109/69; PULSE 76; TEMP 97.6
[2017-12-08] MEDS ORDERED: Divalproex 500 mg DR(BID formulation) PO SCH (12:17)
--- NOTE | 2017-12-08 13:45 | PCM.PYCHDC ---
Mental Status Examination - Mental Status Examination Orientation: Person, Place, Situation, Time Memory: Intact Mood: Neutral Affect: Constricted (but reactive, mood congruent) Speech: Appropriate (but some dysarthria present, seems to be chronic) Attention: WNL (much improved) Concentration: WNL (much improved) Language: Dysarthria Association: WNL Fund of Knowledge: Poor (baseline, as per mother pt has learning disability) Formal Thought Process: Other (concrete) Description of patient's judgement and insight: Pt has improved insight into mental and medical illness, pt was compliant with medications and unit rules and regulations, pt was going to groups, was calm, cooperative, socially appropriate, no behavioral incidents, no agitation, no aggression. Psychotic Thoughts and Behaviors: Pt denied v/a/t hallucinations, denied paranoid ideations, pt does not appear to be psychotic, and thought process is goal directed. Suicidal Ideation: No Current Homicidal Ideation?: No Plan: pt adamantly denied thoughts of harming self or others denied intent or plan. Discharge Summary - Discharge Note Reason for Hospitalization: psychosis, inability to function, please see 's initial assessment for more detailed information Psychiatric History (includes Medical, Family, Personal Hx): h/o psychosis Laboratory Data: 12/02/17 12:30 12/02/17 12:30 Lab Results 12/03/17 07:45: TSH 3rd Generation 0.35 L 12/03/17 07:45: Fasting Glucose 88, Triglycerides 150, Cholesterol 128 L, LDL Cholesterol Direct 68, HDL Cholesterol 33 12/03/17 07:30: RPR Nonreactive 12/02/17 12:45: Urine Opiates Screen Positive H, Urine Methadone Screen Negative , Ur Barbiturates Screen Negative, Ur Phencyclidine Scrn Negative, Ur Amphetamines Screen Negative, U Benzodiazepines Scrn Negative, U Oth Cocaine Metabols Negative, U Cannabinoids Screen Negative 12/02/17 12:45: Urine Color Yellow, Urine Appearance Clear, Urine pH 6.0, Ur Specific [place] 1.025, Urine Protein Negative, Urine Glucose (UA) Negative, Urine Ketones Negative, Urine Blood Negative, Urine Nitrate Negative, Urine Bilirubin Negative, Urine Urobilinogen 0.2, Ur Leukocyte Esterase Negative 12/02/17 12:30: Alcohol, Quantitative < 10 12/02/17 12:30: Salicylates < 1 L, Acetaminophen < 10.0 L 12/02/17 12:30: Sodium 142, Potassium 3.9, Chloride 104, Carbon Dioxide 29, Anion Gap 14, BUN 13, Creatinine 0.6 L, Est GFR ( Amer) > 60, Est GFR ( Non-Af Amer) > 60, Random Glucose 107, Calcium 9.6, Magnesium 2.1, Total Bilirubin 0.3, AST 17 D, ALT 22, Alkaline Phosphatase 51, Total Protein 6.7, Albumin 4.2, Globulin 2.5, Albumin/Globulin Ratio 1.7 12/02/17 12:30: WBC 5.2 D, RBC 4.13, Hgb 12.2 L, Hct 37.2 L, MCV 90.1, MCH 29.5 , MCHC 32.8, RDW 14.2, Plt Count 247, MPV 9.5, Gran % 62.5, Lymph % (Auto) 25.6 , [place] % (Auto) 7.5 H, Eos % (Auto) 4.0, Baso % (Auto) 0.4, Gran # 3.27, Lymph # (Auto) 1.3, [place] # (Auto) 0.4, Eos # (Auto) 0.2, Baso # (Auto) 0.02 Vital Signs Temp Pulse Pulse Resp BP Pulse Ox 12/08/17 07:00 97.6 F 76 20 109/69 12/08/17 06:53 97.5 F L 70 20 105/65 12/07/17 16:00 80 112/74 12/07/17 07:12 97.5 F L 68 20 108/70 12/06/17 15:38 74 127/77 12/06/17 06:33 97.8 F 80 19 101/69 12/05/17 16:00 71 104/57 L 12/05/17 07:00 97.7 F 71 20 102/88 12/04/17 16:00 83 107/67 12/04/17 07:05 97.3 F L 65 20 104/66 12/04/17 06:57 97.3 F L 65 20 104/66 12/03/17 16:28 61 101/62 12/03/17 06:45 97.7 F 84 20 102/72 12/02/17 21:00 87 05/24/18 20:00 97.6 F 87 20 108/73 12/02/17 17:46 98 F 70 18 110/71 99 12/02/17 16:17 98.2 F 84 18 108/55 L 100 12/02/17 11:55 98.2 F 82 18 112/77 98 Consultations:: List each consultation separately and include: 1. Reason for request. 2. Findings. 3. Follow-up Consultations: no need for medical consult Summary of Hospital Course include:: 1. Description of specific treatment plan utilized for patients during their course of treatmen. 2. Summarize the time- course for resolution of acute symptoms and/or regressed behaviors. 3. Describe issues identified and worked on during hospitalization. 4. Describe medication utilized. 5. Describe medical problems identified and treated. 6. Reassessment of suicide risk Summary of Hospital Course: shortly: Patient is single 32 year old male with psychiatric history of Mood disorder, Psychotic disorder, Opioid abuse, substance-induced mood disorder, substance induced psychotic disorder, recent admission to [place] psychiatric unit last month 10/21-10/26/17 and ultimately discharged AMA on a 48 hour letter ([facility] [place]) who was brought in by EMS from his outpatient mental health clinic to the ER for psychiatric evaluation. Apparently patient ran out of medications three weeks ago and has been increasingly depressed with auditory hallucinations. this va underwriter is very familiar with this patient from multiple admissions to the medical floor as well as psychiatric inpatient hospitalizations here at [facility]. pt was seen by over the long weekend, this va underwriter took over on 12/07/17. as per report over the long weekend pt had episodes of agitation, pt banged front end ui developer glass window on 12/06/17. 12/07/17 at the beginning of the interview patient presented relatively well, was minimizing all of his symptoms, reported that he is not hearing voices and not seeing things, reported that his appetite and sleep improving, patient requested to be discharged from the hospital as soon as possible, pt was advised that this va underwriter would like to have a family meeting with his mother who seems to be very involved into his care, as well as this va underwriter let pt know that as per RN report pt was cursing at the staff, was banging on the glass window at the nursing station, pt was insisting to have a sneakers of note last admission pt did have the same type of behavior before he attempted to elope. Initially patient was in agreement for family meeting 12/08/17 but later on pt came back to the treatment team room, was threatening this va underwriter and staff, threw chair towards this va underwriter, nobody got hurt, pt escorted from the room, pt was given IM of thorazine 50mg, with good effect, pt became calmer. later on pt was apologetic. 12/08/17: family meeting took place, pt presented well, as per mother pt is doing better, pt's mother agreed that pt might benefit from staying in the hospital longer, but pt insisted that he wants to be discharged today. pt said last time he heard voices was four days ago, pt reported that his appetite is good and he gained couple of pounds. pt and his mother were educated about dangerousness of taking meds which were not prescribed to the pt (as per mother she was given pt her meds for pain, as well mother gave pt thorazine which was not prescribed to the pt), pt and mother verbalized understanding. pt and mother were advised to look for help from the heel painter because pt has chronic pain in his jaw area. overall family meeting was productive, all questions answered, concerns addressed. pt was in agreement to go to IOP program, mother thought it was "a good idea", mother will help pt with the first appt. as per mother pt presents better, willing to take pt back home, as per mother pt has some learning disabilities. pt was stabilized on the following medications: depakote 250mg po bid for mood stabilization seroquel 200mg po bid for psychosis trazodone 50mg po hs for depression and insomnia multivitamines and nicoderm Pt tolerates meds well, no side effects observed or reported, AIMS 0, no EPS. Overall pt improved, pt's affect became brighter, pt was less depressed, has realistic future oriented plans, pt also does not appear to be psychotic, or anxious, pt was socially appropriate, at the same time pt had outburst yesterday and might benefit from further hospitalization, but pt refused to stay in the hospital and at present moment pt does not meet a criteria for [facility] screening. At the time of the discharge pt denied been depressed, denied thoughts of harming self or others, denied psychotic symptoms, and pt does not appeared to be psychotic, denied been anxious, pt is not in imminent danger to self or others, will be following up at [facility] IOP program, information about follow up appointment, time and address provided to the pt, it is patient responsibility to follow up with outpatient clinic, PMD as well as specialists (see note for more detailed information). In case pt will need to obtain results of studies pending at discharge pt was provided with contact information of Psychiatric Inpatient unit [phone] as well as Medical Record Department [phone]. Nicotine patch was offered Counseling about smoking and alcohol cessation provided smoking cessation treatment program information was provided by the pt was provided with prescriptions for all of medications (please see medication reconciliation form) Pt was educated about safety plan in case of worsening of symptoms or in case of suicidal or homicidal ideation call 911 or go to the nearest ER, also was educated to take meds as prescribed and stay away from drugs, pt verbalized understanding. - Diagnosis (1) Psychosis Current Visit: No Status: Acute Priority: High - Final Diagnosis (DSM 5) Condition upon Discharge: STABLE DSM 5: r/o substance induced psychosis r/o schizophrenia r/o impulse control disorder Disposition: HOME/ ROUTINE Follow-up Treatment Plan: At the time of the discharge pt denied been depressed, denied thoughts of harming self or others, denied psychotic symptoms, and pt does not appeared to be psychotic, denied been anxious, pt is not in imminent danger to self or others, will be following up at [facility] [place] program, information about follow up appointment, time and address provided to the pt, it is patient responsibility to follow up with outpatient clinic, PMD as well as specialists (see note for more detailed information). In case pt will need to obtain results of studies pending at discharge pt was provided with contact information of Psychiatric Inpatient unit [phone] as well as Medical Record Department [phone]. Nicotine patch was offered Counseling about smoking and alcohol cessation provided smoking cessation treatment program information was provided by the pt was provided with prescriptions for all of medications (please see medication reconciliation form) Pt was educated about safety plan in case of worsening of symptoms or in case of suicidal or homicidal ideation call 911 or go to the nearest ER, also was educated to take meds as prescribed and stay away from drugs, pt verbalized understanding. Prescriptions/Medication Reconciliation: Divalproex [Depakote DR (*BID*)] 250 mg PO BID #30 tcp Multivitamin Therapeutic Tab [Thera Tab] 1 tab PO 0800 #14 tab Nicotine 14 mg/24 hr [Nicoderm CQ] 1 patch TD DAILY #14 patch Quetiapine Fumarate [Seroquel] 200 mg PO AMHS #30 tablet traZODone [Desyrel] 50 mg PO HS PRN #14 tab PRN Reason: Insomnia/depression - Smoking Cessation Smoking Cessation Medication prescribed: Yes - Antipsychotic Medications Pt discharged on 2 or more routine antipsychotic medications: No
== END 2017-12-08 15:04 | disposition left against medical advice (07) | DRG 746 ==
LOC: ED 11:36 → ERH 15:05 → PSYC 18:18
PROVIDERS: ADMIT Psychiatry & Neurology Psychiatry; ATTEND Psychiatry & Neurology Psychiatry
DX: F11.159 Opioid abuse with opioid-induced psychotic disorder, unspecified (principal); G89.4 Chronic pain syndrome; M25.512 Pain in left shoulder; Q87.0 Congenital malformation syndromes predominantly affecting facial appearance

== ENCOUNTER 2017-12-18 00:21 | Emergency (ER) | payer MEDICAID ==
[2017-12-18 00:39] VITALS: BMI 16.5
--- NOTE | 2017-12-18 00:55 | ED PDOC ---
Arrival/HPI - General Chief Complaint: Psychiatric Evaluation Time Seen by Provider: 12/18/17 00:22 Historian: Patient - History of Present Illness Narrative History of Present Illness (Text): 12/18/17 00:53 A 32 year old male, whose past medical history includes depression and schizophrenia, presents to the emergency department for a complaint of auditory hallucination. The patient denies fevers, chills, headache, dizziness, chest pain, shortness of breath, dyspnea on exertion, cough, abdominal pain, nausea, vomiting, diarrhea, back pain, neck pain, urinary/bowel changes, suicidal/ homicidal ideation, or any other complaint. Time/Duration: Other (Today) Symptom Onset: Sudden Symptom Course: Unchanged Activities at Onset: Rest, Light Context: Home Past Medical History - Provider Review Nursing Documentation Reviewed: Yes - Infectious Disease Hx of Infectious Diseases: None - Cardiac Hx Cardiac Disorders: No Hx Hypertension: No - Pulmonary Hx Respiratory Disorders: No Hx Tuberculosis: No - Neurological Hx Neurological Disorder: No HX Cerebrovascular Accident: No Hx Seizures: No - HEENT Other/Comment: deviated septum - Renal Hx Renal Disorder: No - Endocrine/Metabolic Hx Endocrine Disorders: No - Hematological/Oncological Hx Blood Disorders: No Hx Cancer: No - Integumentary Hx Dermatological Disorder: No - Musculoskeletal/Rheumatological Hx Musculoskeletal Disorders: Yes Other/Comment: Hemifacial Microsomia - Gastrointestinal Hx Gastrointestinal Disorders: No - Genitourinary/Gynecological Hx Genitourinary Disorders: No Hx Sexually Transmitted Diseases: No - Psychiatric Hx Depression: Yes Hx Schizophrenia: Yes Hx Substance Use: Yes - Surgical History Other/Comment: Hemifacial Microsomia multiple skull sugery - Anesthesia Hx Anesthesia: Yes Hx Anesthesia Reactions: No Hx Malignant Hyperthermia: No Family/Social History - Physician Review Nursing Documentation Reviewed: Yes Family/Social History: No Known Family HX Smoking Status: Heavy Smoker > 10 Cigarettes Daily Hx Alcohol Use: No Hx Substance Use: Yes Allergies/Home Meds Allergies/Adverse Reactions: Allergies No Known Allergies Allergy (Verified 12/02/17 22:15) Home Medications: Home Meds Medication Instructions Recorded Confirmed Haloperidol [Haldol] 1 tab PO DAILY 12/18/17 12/18/17 clonazePAM [Klonopin] 1 tab PO DAILY 12/18/17 12/18/17 Review of Systems - Physician Review All systems were reviewed & negative as marked: Yes - Review of Systems Constitutional: absent: Fevers, Night Sweats ENT: absent: Sore Throat Respiratory: absent: SOB, Cough Cardiovascular: absent: Chest Pain, MARTÍNEZ Gastrointestinal: absent: Abdominal Pain, Diarrhea, Nausea, Vomiting Genitourinary Male: absent: Urinary Output Changes Musculoskeletal: absent: Back Pain, Neck Pain Neurological: absent: Headache, Dizziness Psychiatric: Other (Auditory Hallucination). absent: Suicidal Ideation Physical Exam Vital Signs Temp Pulse Resp BP Pulse Ox 12/18/17 08:30 98.6 F 72 18 118/79 99 12/18/17 06:15 71 17 141/53 L 99 12/18/17 04:24 78 18 101/80 99 12/18/17 00:21 98.2 F 89 18 114/61 98 Appearance: Positive for: Well-Appearing, Non-Toxic, Comfortable Pain Distress: None Mental Status: Positive for: Alert and Oriented X 3 - Systems Exam Head: Present: Atraumatic, Normocephalic Pupils: Present: PERRL Extroacular Muscles: Present: EOMI Conjunctiva: Present: Normal Mouth: Present: Moist Mucous Membranes Neck: Present: Normal Range of Motion Respiratory/Chest: Present: Clear to Auscultation, Good Air Exchange. No: Respiratory Distress, Accessory Muscle Use Cardiovascular: Present: Regular Rate and Rhythm, Normal S1, S2. No: Murmurs Abdomen: No: Tenderness, Distention, Peritoneal Signs Back: Present: Normal Inspection Upper Extremity: Present: Normal Inspection. No: Cyanosis, Edema Lower Extremity: Present: Normal Inspection. No: Edema Neurological: Present: GCS=15, CN II-XII Intact, Speech Normal Skin: Present: Warm, Dry, Normal Color. No: Rashes Psychiatric: Present: Alert, Oriented x 3, Normal Insight, Normal Concentration Medical Decision Making ED Course and Treatment: 12/18/17 00:58 Impression: A 32 year old male presents to the emergency department complaining of auditory hallucinations. Plan: -- Urinalysis -- Labs -- Reassess and disposition Progress Notes: 12/18/17 03:04 EKG: Ordered, reviewed, and independently interpreted the EKG. Rate : 78 BPM Rhythm : NSR Interpretation : Non specific ST-T changes. Comparison : No chnages from previous EKG. 12/18/17 04:10: Patient was evaluated by PES. Pending evaluation by Dr. Echeverria 12/18/17 06:53 pt observed in nad, endorsed to day shift pending face to face. - Lab Interpretations Lab Results: 12/18/17 01:15 12/18/17 01:15 Lab Results 12/18/17 02:00: Urine Opiates Screen Negative, Urine Methadone Screen Negative, Ur Barbiturates Screen Negative, Ur Phencyclidine Scrn Negative, Ur Amphetamines Screen Negative, U Benzodiazepines Scrn Positive H, U Oth Cocaine Metabols Negative, U Cannabinoids Screen Negative 12/18/17 02:00: Urine Color Yellow, Urine Appearance Clear, Urine pH 6.0, Ur Specific [place] >= 1.030, Urine Protein Trace H, Urine Glucose (UA) Negative, Urine Ketones Negative, Urine Blood Negative, Urine Nitrate Negative, Urine Bilirubin Negative, Urine Urobilinogen 0.2, Ur Leukocyte Esterase Negative, Urine RBC 0 - 2, Urine WBC Negative, Ur Epithelial Cells None, Calcium Oxalate Crystal Occ, Urine Bacteria Few, Urine Other Mucus 12/18/17 01:15: Alcohol, Quantitative < 10 12/18/17 01:15: Sodium 145, Potassium 3.5 L, Chloride 105, Carbon Dioxide 27, Anion Gap 17, BUN 11, Creatinine 0.6 L, Est GFR ( Amer) > 60, Est GFR ( Non-Af Amer) > 60, Random Glucose 99, Calcium 9.3, Magnesium 1.8, Total Bilirubin 0.1 L, AST 18, ALT 19, Alkaline Phosphatase 45, Total Protein 6.6, Albumin 3.9, Globulin 2.7, Albumin/Globulin Ratio 1.5 12/18/17 01:15: WBC 10.0 D, RBC 4.04, Hgb 12.1 L, Hct 36.0 L, MCV 89.1, MCH 30.0, MCHC 33.6, RDW 14.3, Plt Count 260, MPV 9.8, Gran % 69.8 H, Lymph % (Auto ) 17.2 L, [place] % (Auto) 10.5 H, Eos % (Auto) 2.3, Baso % (Auto) 0.2, Gran # 7.00 H, Lymph # (Auto) 1.7, [place] # (Auto) 1.1 H, Eos # (Auto) 0.2, Baso # (Auto ) 0.02 12/18/17 01:15: Salicylates < 1 L, Acetaminophen < 10.0 L, Valproic Acid 17 L I have reviewed the lab results: Yes - Scribe Statement The provider has reviewed the documentation as recorded by the Chase Rizvi Provider Scribe Attestation: All medical record entries made by the Scribe were at my direction and personally dictated by me. I have reviewed the chart and agree that the record accurately reflects my personal performance of the history, physical exam, medical decision making, and the department course for this patient. I have also personally directed, reviewed, and agree with the discharge instructions and disposition. Disposition/Present on Arrival - Present on Arrival Any Indicators Present on Arrival: No History of DVT/PE: No History of Uncontrolled Diabetes: No Urinary Catheter: No History of Decub. Ulcer: No History Surgical Site Infection Following: None - Disposition Have Diagnosis and Disposition been Completed?: Yes Diagnosis: General medical exam, Schizo affective schizophrenia Disposition: HOME/ ROUTINE Disposition Time: 07:00 Condition: STABLE Discharge Instructions (ExitCare): Schizoaffective Disorder Print Language: YI Additional Instructions: Make sure to see your doctor in 1-2 days DRINK PLENTY OF FLUIDS take your medications as prescribed DONT DO DRUGS, DONT SMOKE, DONT drink alcohol RETURN TO ED IF worse pain, cant breath, persistent vomiting, high fever >101- 102 for hours, altered behavior, slurr speech, facial changes, focal weakness ( arm/leg or both), unable to urinate, heavy/persistent bleeding, passing out, chest pain, or other medical emergencies Referrals: Desiree Lemus MD [Primary Care Provider] - Follow up with primary Forms: Contently (Irish)
[2017-12-18 01:35] LABS: BASO # 0.02 K/mm3 (0.0-2.0); BASO % 0.2 % (0.0-3.0); EOS # 0.2 (0.0-0.7); EOS % 2.3 % (1.5-5.0); GRAN % 69.8 % (50.0-68.0); HEMOGLOBIN 12.1 g/dL (14.0-18.0); LYMPH # 1.7 (1.2-3.4); LYMPH % 17.2 % (22.0-35.0); MEAN CELL VOLUME 89.1 fl (80.0-105.0); MEAN CORPUSCULAR HGB CONC 33.6 g/dl (31.0-37.0); MEAN PLATELET VOLUME 9.8 fl (7.0-11.0); MONO # 1.1 (0.1-0.6); MONO % 10.5 % (1.0-6.0); RBC 4.04 10^6/uL (3.5-6.1); RED CELL DISTRIBUTION WIDTH 14.3 % (11.5-14.5)
[2017-12-18 01:48] LABS: ALB/GLOB RATIO 1.5 (1.1-1.8); ALBUMIN 3.9 g/dL (3.0-4.8); ALT/SGPT 19 U/L (7-56); AST/SGOT 18 U/L (17-59); BLOOD UREA NITROGEN 11 mg/dL (7-21); CALCIUM 9.3 mg/dL (8.4-10.5); GFR AFRICAN-AMERICAN > 60; GFR NON-AFRICAN AMERICAN > 60
[2017-12-18 02:21] LABS: ACETAMINOPHEN < 10.0 ug/ml (10.0-20.0); SALICYLATE < 1 mg/dL (2.0-20.0)
[2017-12-18 02:26] LABS: VALPROIC ACID 17 ug/mL (50.0-100.0)
[2017-12-18 02:39] LABS: URINE APPEARANCE CLEAR (CLEAR); URINE BILIRUBIN NEGATIVE (NEGATIVE); URINE BLOOD NEGATIVE (NEGATIVE); URINE COLOR YELLOW (YELLOW); URINE GLUCOSE (UA) NEGATIVE (NEGATIVE); URINE LEUKOCYTE ESTERASE NEGATIVE Leu/uL (NEGATIVE); URINE PROTEIN TRACE mg/dL (<30 mg/dL); URINE UROBILINOGEN 0.2 E.U./dL (<1 E.U./dL)
[2017-12-18 02:45] LABS: BARBITURATES, UR NEGATIVE (NEGATIVE)
[2017-12-18 02:52] LABS: BENZODIAZEPINES, UR POSITIVE (NEGATIVE); OPIATES, UR NEGATIVE (NEGATIVE); PHENCYCLIDINE, UR NEGATIVE (NEGATIVE)
[2017-12-18 02:57] LABS: URINE BACTERIA FEW (NEG); URINE CALCIUM OXALATE CRYSTALS OCC /hpf; URINE RBC 0 - 2 /hpf (0-2); URINE WBC NEGATIVE /hpf (0-6)
[2017-12-18 04:26] VITALS: O2SAT 99
--- NOTE | 2017-12-18 07:28 | ED PDOC ---
Physical Exam - Physical Exam Narrative Physical Exam (Text): 12/18/17 07:26 General: alert/awake, GCS = 15, oriented x 3, resting in bed, uncomfortable, cooperative, interactive Head: NC/AT EYE: PERRLA, EOMI, sclera anicteric, no nystagmus, no photophobia Facial: WNL Oral: uvula/tongue are midline, no exudate/lesions, no drooling/stridor, no dysphonia NECK: intact ROM, no midline tenderness, no nuchal rigidity, no meningeal signs Chest: CTA b/l, no w/r/r; no tachypenia, no accessory muscle use noted Cardiac: +S1, +S2, no m/r/r Abdominal: +BS, soft/nd/nt, well nourished patient; no masses/rebound/guarding/ rigidity ext: intact ROM, strength 5/5 grossly intact in all limbs, neurovasc intact b/l SKIN: cap refill < 1 sec, no ulcerations, no petechiae, no rashes NEURO: CNII-XII WNL, no facial asymmetries, no slurr speech, oriented x 3 NIH stroke scale ~ 0 Psych: normal insight, normal affect Vital Signs Reviewed: Yes Vital Signs Temp Pulse Resp BP Pulse Ox 12/18/17 08:30 98.6 F 72 18 118/79 99 12/18/17 06:15 71 17 141/53 L 99 12/18/17 04:24 78 18 101/80 99 12/18/17 00:21 98.2 F 89 18 114/61 98 Temperature: Afebrile Blood Pressure: Normal Pulse: Regular Respiratory Rate: Normal Appearance: Positive for: Well-Appearing, Non-Toxic, Comfortable Pain Distress: None Mental Status: Positive for: Alert and Oriented X 3 - Systems Exam Head: Present: Atraumatic, Normocephalic Medical Decision Making ED Course and Treatment: 12/18/17 07:28 Impression: 32 year old male presents to the Emergency department for auditory hallucination. psych eval; warranting medical clearance Plan: -- psychiatric evaluation -- Reassess and disposition Progress Notes: 12/18/17 07:26 Pt medically cleared by previous attending for psych eval Case endorsed to me by Dr. Vu for pending Dr. Hoyos/psychiatric evaluation and final disposition this morning. Patient presented to the Emergency department with complaints of auditory hallucinations. Patient is currently stable and is in no acute distress. Patient currently denies any new complaints and is awaiting psychiatric clearance. 12/18/17 08:47 Patient was evaluated by PES/crisis at bedside, pt is deemed stable for discharge; pt is cleared by psych for outpt f/u; pt is instructed to follow-up with outpatient care. Will discharge patient as instructed. pt is made aware of his medical results pt will f/u as directed pt will be discharged home Re-evaluation Time: 08:00 Reassessment Condition: Improved - Lab Interpretations Lab Results: 12/18/17 01:15 12/18/17 01:15 Lab Results 12/18/17 02:00: Urine Opiates Screen Negative, Urine Methadone Screen Negative, Ur Barbiturates Screen Negative, Ur Phencyclidine Scrn Negative, Ur Amphetamines Screen Negative, U Benzodiazepines Scrn Positive H, U Oth Cocaine Metabols Negative, U Cannabinoids Screen Negative 12/18/17 02:00: Urine Color Yellow, Urine Appearance Clear, Urine pH 6.0, Ur Specific [place] >= 1.030, Urine Protein Trace H, Urine Glucose (UA) Negative, Urine Ketones Negative, Urine Blood Negative, Urine Nitrate Negative, Urine Bilirubin Negative, Urine Urobilinogen 0.2, Ur Leukocyte Esterase Negative, Urine RBC 0 - 2, Urine WBC Negative, Ur Epithelial Cells None, Calcium Oxalate Crystal Occ, Urine Bacteria Few, Urine Other Mucus 12/18/17 01:15: Alcohol, Quantitative < 10 12/18/17 01:15: Sodium 145, Potassium 3.5 L, Chloride 105, Carbon Dioxide 27, Anion Gap 17, BUN 11, Creatinine 0.6 L, Est GFR ( Amer) > 60, Est GFR ( Non-Af Amer) > 60, Random Glucose 99, Calcium 9.3, Magnesium 1.8, Total Bilirubin 0.1 L, AST 18, ALT 19, Alkaline Phosphatase 45, Total Protein 6.6, Albumin 3.9, Globulin 2.7, Albumin/Globulin Ratio 1.5 12/18/17 01:15: WBC 10.0 D, RBC 4.04, Hgb 12.1 L, Hct 36.0 L, MCV 89.1, MCH 30.0, MCHC 33.6, RDW 14.3, Plt Count 260, MPV 9.8, Gran % 69.8 H, Lymph % (Auto ) 17.2 L, Dukes % (Auto) 10.5 H, Eos % (Auto) 2.3, Baso % (Auto) 0.2, Gran # 7.00 H, Lymph # (Auto) 1.7, Dukes # (Auto) 1.1 H, Eos # (Auto) 0.2, Baso # (Auto ) 0.02 12/18/17 01:15: Salicylates < 1 L, Acetaminophen < 10.0 L, Valproic Acid 17 L I have reviewed the lab results: Yes Interpretation: Abnormal lab values (+ abnl Utox) - Scribe Statement The provider has reviewed the documentation as recorded by the Scribe Brendan Garcia. All medical record entries made by the Scribe were at my direction and personally dictated by me. I have reviewed the chart and agree that the record accurately reflects my personal performance of the history, physical exam, medical decision making, and the department course for this patient. I have also personally directed, reviewed, and agree with the discharge instructions and disposition. Disposition/Present on Arrival - Present on Arrival Any Indicators Present on Arrival: No History of DVT/PE: No History of Uncontrolled Diabetes: No Urinary Catheter: No History of Decub. Ulcer: No History Surgical Site Infection Following: None - Disposition Have Diagnosis and Disposition been Completed?: Yes Diagnosis: General medical exam, Schizo affective schizophrenia Disposition: HOME/ ROUTINE Disposition Time: 09:00 Patient Plan: Discharge Condition: STABLE Discharge Instructions (ExitCare): Schizoaffective Disorder Print Language: SLOVAK Additional Instructions: Make sure to see your doctor in 1-2 days DRINK PLENTY OF FLUIDS take your medications as prescribed DONT DO DRUGS, DONT SMOKE, DONT drink alcohol RETURN TO ED IF worse pain, cant breath, persistent vomiting, high fever >101- 102 for hours, altered behavior, slurr speech, facial changes, focal weakness ( arm/leg or both), unable to urinate, heavy/persistent bleeding, passing out, chest pain, or other medical emergencies Referrals: Desiree Lemus MD [Primary Care Provider] - Follow up with primary Forms: [employer] (Fijian)
--- NOTE | 2017-12-18 10:02 | CARD ---
APPROVED REPORT EKG Measurement Heart [id number] <Conclusion> Normal sinus rhythm RVCD Normal ECG No change
[2017-12-18 10:13] VITALS: BP 118/79; PULSE 72; RESP 18; TEMP 98.6
== END 2017-12-18 08:30 | disposition home or self-care (01) ==
LOC: ED 00:21
DX: Z00.00 Encounter for general adult medical examination without abnormal findings (principal); F25.9 Schizoaffective disorder, unspecified; F17.210 Nicotine dependence, cigarettes, uncomplicated

== ENCOUNTER 2017-12-20 09:46 | Inpatient (IN) | payer MEDICAID ==
[2017-12-20 09:46] VITALS: BMI 16.5
--- NOTE | 2017-12-20 11:14 | ED PDOC ---
Arrival/HPI - General Chief Complaint: Psychiatric Evaluation Time Seen by Provider: 12/20/17 11:09 Historian: Patient - History of Present Illness Narrative History of Present Illness (Text): 12/20/17 11:10 32 year old male presents to the Emergency department complaining of auditory hallucinations. Patient states the voices he hears are telling him to stop smoking, stop taking sleeping pills, and to stop being insecure. Patient is requesting to be admitted to psychiatry; he has been admitted to psych multiple times in the past. Patient reports he has been compliant with his psych medications. Patient denies any suicidal/homicidal ideation, fever, chills, chest pain, shortness of breath, nausea, vomiting, diarrhea, urinary symptoms, back pain, neck pain, headache, dizziness, trauma/injury, or any other somatic complaints. Time/Duration: Prior to Arrival Symptom Onset: Gradual Symptom Course: Unchanged Context: Home Past Medical History - Provider Review Nursing Documentation Reviewed: Yes - Infectious Disease Hx of Infectious Diseases: None - Cardiac Hx Cardiac Disorders: No Hx Hypertension: No - Pulmonary Hx Respiratory Disorders: No Hx Tuberculosis: No - Neurological Hx Neurological Disorder: No HX Cerebrovascular Accident: No Hx Seizures: No - HEENT Other/Comment: deviated septum - Renal Hx Renal Disorder: No - Endocrine/Metabolic Hx Endocrine Disorders: No - Hematological/Oncological Hx Blood Disorders: No Hx Cancer: No - Integumentary Hx Dermatological Disorder: No - Musculoskeletal/Rheumatological Hx Musculoskeletal Disorders: Yes Other/Comment: Hemifacial Microsomia - Gastrointestinal Hx Gastrointestinal Disorders: No - Genitourinary/Gynecological Hx Genitourinary Disorders: No Hx Sexually Transmitted Diseases: No - Psychiatric Hx Depression: Yes Hx Schizophrenia: Yes Hx Substance Use: No - Surgical History Other/Comment: Hemifacial Microsomia multiple skull sugery - Anesthesia Hx Anesthesia: Yes Hx Anesthesia Reactions: No Hx Malignant Hyperthermia: No Family/Social History - Physician Review Nursing Documentation Reviewed: Yes Family/Social History: Unknown Family HX Smoking Status: Heavy Smoker > 10 Cigarettes Daily Hx Alcohol Use: No Hx Substance Use: No Allergies/Home Meds Allergies/Adverse Reactions: Allergies No Known Allergies Allergy (Verified 12/20/17 10:28) Home Medications: Home Meds Medication Instructions Recorded Confirmed Haloperidol [Haldol] 1 tab PO DAILY 12/18/17 12/20/17 clonazePAM [Klonopin] 1 tab PO DAILY 12/18/17 12/20/17 Review of Systems - Review of Systems Constitutional: absent: Fevers, Night Sweats ENT: absent: Rhinorrhea Respiratory: absent: SOB Cardiovascular: absent: Chest Pain Gastrointestinal: absent: Diarrhea, Nausea, Vomiting Genitourinary Male: absent: Dysuria Musculoskeletal: absent: Back Pain, Neck Pain Skin: absent: Rash Neurological: absent: Headache, Dizziness Psychiatric: Other (auditory hallucinations). absent: Suicidal Ideation Physical Exam Vital Signs Reviewed: Yes Vital Signs Temp Pulse Resp BP Pulse Ox 12/20/17 12:00 88 18 131/67 99 12/20/17 10:28 98.1 F 93 H 18 123/80 98 Temperature: Afebrile Blood Pressure: Normal Pulse: Tachycardic Respiratory Rate: Normal Appearance: Positive for: Non-Toxic, Comfortable, Other (disheveled) Pain Distress: None Mental Status: Positive for: Alert and Oriented X 3 - Systems Exam Head: Present: Atraumatic, Normocephalic Pupils: Present: PERRL Extroacular Muscles: Present: EOMI Conjunctiva: Present: Normal Mouth: Present: Moist Mucous Membranes Neck: Present: Normal Range of Motion Respiratory/Chest: Present: Clear to Auscultation, Good Air Exchange. No: Respiratory Distress, Accessory Muscle Use Cardiovascular: Present: Regular Rate and Rhythm, Normal S1, S2. No: Murmurs Abdomen: No: Tenderness, Distention, Peritoneal Signs Back: Present: Normal Inspection Upper Extremity: Present: Normal Inspection. No: Cyanosis, Edema Lower Extremity: Present: Normal Inspection. No: Edema Neurological: Present: GCS=15, CN II-XII Intact, Speech Normal Skin: Present: Warm, Dry, Normal Color. No: Rashes Psychiatric: Present: Alert, Oriented x 3, Normal Insight, Normal Concentration Medical Decision Making ED Course and Treatment: 12/20/17 11:12 Impression: 32 year old male presents to the Emergency department complaining of auditory hallucinations. Wi Differential Diagnosis included but are not limited to: schizophrenia Plan: -- Chest xray -- Urinalysis -- Labs -- AES crisis evaluation -- Reassess and disposition Prior Visits: Notes and results from previous visits were reviewed. Patient has had multiple psych admissions in the past for schizophrenia. Progress Notes: 12/20/17 11:52 PES notified at 11:11 12/20/2017 12:25:57 Chest Xray FINDINGS: LUNGS: No active pulmonary disease. PLEURA: No significant pleural effusion identified, no pneumothorax apparent. CARDIOVASCULAR: Normal. OSSEOUS STRUCTURES: No significant abnormalities. VISUALIZED UPPER ABDOMEN: Normal. OTHER FINDINGS: None. IMPRESSION: No active disease. 12/20/17 14:31 Patient medically cleared and accepted for voluntary admission - Lab Interpretations Lab Results: 12/20/17 11:07 12/20/17 11:07 Lab Results 12/20/17 13:40: Urine Color Yellow, Urine Appearance Clear, Urine pH 6.5, Ur Specific [place] 1.015, Urine Protein Negative, Urine Glucose (UA) Negative, Urine Ketones 15 H, Urine Blood Negative, Urine Nitrate Negative, Urine Bilirubin Negative, Urine Urobilinogen 0.2, Ur Leukocyte Esterase Negative 12/20/17 11:07: Alcohol, Quantitative < 10 12/20/17 11:07: Sodium 144, Potassium 4.3, Chloride 104, Carbon Dioxide 29, Anion Gap 15, BUN 7, Creatinine 0.7 L, Est GFR ( Amer) > 60, Est GFR (Non -Af Amer) > 60, Random Glucose 96, Calcium 9.5, Total Bilirubin 0.3, AST 17, ALT 21, Alkaline Phosphatase 56, Total Protein 7.4, Albumin 4.5, Globulin 2.9, Albumin/Globulin Ratio 1.6 12/20/17 11:07: WBC 6.3 D, RBC 4.72, Hgb 13.9 L, Hct 42.5, MCV 90.0, MCH 29.4, MCHC 32.7, RDW 14.2, Plt Count 305, MPV 10.0, Gran % 72.2 H, Lymph % (Auto) 19.2 L, [place] % (Auto) 7.2 H, Eos % (Auto) 1.1 L, Baso % (Auto) 0.3, Gran # 4.54 , Lymph # (Auto) 1.2, [place] # (Auto) 0.5, Eos # (Auto) 0.1, Baso # (Auto) 0.02 - RAD Interpretation Radiology Orders: 12/20/17 11:09 CHEST PORTABLE [RAD] Stat - EKG Interpretation EKG Interpretation (Text): 12/20/17 11:04 EKG: Ordered, reviewed, and independently interpreted the EKG. Rate : 83 BPM Rhythm : NSR Interpretation : LVH Comparison : No change from previous EKG. Interpreted by ED Physician: Yes Type: 12 lead EKG - Scribe Statement The provider has reviewed the documentation as recorded by the Scribe Jose Eduardo Schneider All medical record entries made by the Scribe were at my direction and personally dictated by me. I have reviewed the chart and agree that the record accurately reflects my personal performance of the history, physical exam, medical decision making, and the department course for this patient. I have also personally directed, reviewed, and agree with the discharge instructions and disposition. Disposition/Present on Arrival - Present on Arrival Any Indicators Present on Arrival: No History of DVT/PE: No History of Uncontrolled Diabetes: No Urinary Catheter: No History of Decub. Ulcer: No History Surgical Site Infection Following: None - Disposition Have Diagnosis and Disposition been Completed?: Yes Diagnosis: Schizophrenia Disposition: HOSPITALIZED Disposition Time: 14:31 Patient Plan: Discharge Condition: FAIR Forms: [email or web address] (Malaysian)
[2017-12-20 11:28] LABS: BASO # 0.02 K/mm3 (0.0-2.0); BASO % 0.3 % (0.0-3.0); EOS # 0.1 (0.0-0.7); EOS % 1.1 % (1.5-5.0); GRAN # 4.54 (1.4-6.5); GRAN % 72.2 % (50.0-68.0); HEMOGLOBIN 13.9 g/dL (14.0-18.0); LYMPH # 1.2 (1.2-3.4); LYMPH % 19.2 % (22.0-35.0); MEAN CORPUSCULAR HEMOGLOBIN 29.4 pg (25.0-35.0); MEAN CORPUSCULAR HGB CONC 32.7 g/dl (31.0-37.0); MONO # 0.5 (0.1-0.6); MONO % 7.2 % (1.0-6.0); RBC 4.72 10^6/uL (3.5-6.1); RED CELL DISTRIBUTION WIDTH 14.2 % (11.5-14.5); WHITE BLOOD COUNT 6.3 10^3/ul (4.5-11.0)
[2017-12-20 11:43] LABS: ALB/GLOB RATIO 1.6 (1.1-1.8); ALBUMIN 4.5 g/dL (3.0-4.8); ALT/SGPT 21 U/L (7-56); AST/SGOT 17 U/L (17-59); BLOOD UREA NITROGEN 7 mg/dL (7-21); CALCIUM 9.5 mg/dL (8.4-10.5); GFR AFRICAN-AMERICAN > 60; GFR NON-AFRICAN AMERICAN > 60
--- NOTE | 2017-12-20 12:27 | RAD ---
HISTORY: psych COMPARISON: 12/02/2017 FINDINGS: LUNGS: No active pulmonary disease. PLEURA: No significant pleural effusion identified, no pneumothorax apparent. CARDIOVASCULAR: Normal. OSSEOUS STRUCTURES: No significant abnormalities. VISUALIZED UPPER ABDOMEN: Normal. OTHER FINDINGS: None. IMPRESSION: No active disease.
[2017-12-20 14:14] LABS: PH,URINE 6.5 (4.7-8.0); URINE BILIRUBIN NEGATIVE (NEGATIVE); URINE BLOOD NEGATIVE (NEGATIVE); URINE GLUCOSE (UA) NEGATIVE (NEGATIVE); URINE LEUKOCYTE ESTERASE NEGATIVE Leu/uL (NEGATIVE); URINE PROTEIN NEGATIVE mg/dL (<30 mg/dL); URINE UROBILINOGEN 0.2 E.U./dL (<1 E.U./dL)
[2017-12-20 14:24] LABS: URINE APPEARANCE CLEAR (CLEAR); URINE COLOR YELLOW (YELLOW)
[2017-12-20 14:54] LABS: BARBITURATES, UR NEGATIVE (NEGATIVE); BENZODIAZEPINES, UR NEGATIVE (NEGATIVE); OPIATES, UR NEGATIVE (NEGATIVE); PHENCYCLIDINE, UR NEGATIVE (NEGATIVE)
[2017-12-20 15:40] VITALS: O2SAT 99
[2017-12-20] MEDS: Divalproex 250 mg DR (BID formulation) PO SCH (17:28)
--- NOTE | 2017-12-20 18:47 | PCM.BM ---
<Trish Guillen - Last Filed: 12/20/17 18:44> Treatment Plan Problems - Problems identified on initial assessmt AUDITORY HALLUCINATION Date Initiated: 12/20/17 Time Initiated: 19:00 Assessment reference: NA Status: Active Priority: 1 ALTERED THOUGHT PROCESS Date Initiated: 12/20/17 Time Initiated: 19:00 Assessment reference: NA Status: Active Priority: 2 INEFFECTIVE COPING SKILLS Date Initiated: 12/20/17 Time Initiated: 19:00 Assessment reference: NA Status: Active Priority: 3 SOCIAL IOSLATION Date Initiated: 12/20/17 Time Initiated: 19:00 Assessment reference: NA Status: Active Priority: 4 Treatment assets and liabiliti Patient Assests: cooperative, ADL independent, good support system, negotiates basic needs, cognitively intact Patient Liabilities: dietary restrictions, substance abuse - Milieu Protocol Maintain good personal hygiene: every shift Encourage regular showers, every shift Remind patient to perform daily oral care, every shift Assist patient to perform ADL's Maintain personal safety: daily Educate patient to report safety concerns to staff, daily Monitor environment for contraband/sharps Medication safety: Monitor for expected outcome, potential side effects: daily, Assess barriers to learning: daily, Assess readiness for medication education: daily Discharge/Continuing Care - Education Needs Education Needs: Patient Medication, Patient Diagnosis/Disease Process, Patient Coping Skills, Patient Community resources, Patient Activities of Daily Living, Patient Nutrition, Patient Health Practices/Safety, Patient Personal Hygiene/ Grooming, Patient Aftercare Safety Plan - Discharge Discharge Criteria: Tolerates medication w/o severe side effects, Free of Suicidal thoughts, Free of agitation, Normal sleep pattern, Ability to care for self, Reduction of target symptoms Discharge to:: Home <Molly Dickinson - Last Filed: 12/21/17 15:58> - Diagnosis (1) Schizophrenia Status: Acute Interventions: 12/21/17 15:58 Psychoeducation/psychotherapy Psychopharmacology/adjustment of medications as needed/ monitoring possible side effects Evaluate pt on daily basis Compliance with medications and follow up appointments Long acting medication if pt is noncompliant with pill form Suicide and homicide risk assessment and prevention, coping strategies, safety plan Relapse prevention Reduction of symptoms Improve functional status Possible assertive community treatment Cognitive behavioral therapy Family involvement Possible social skill training as outpatient <Heber,Katarina Y - Last Filed: 12/22/17 16:21> Family Contact Family involvement: Family/SO is involved - Outside Agency [facility] Care involvment: Not involved Agency contact name: [facility] Agency contact number: [phone] ext. [phone]
--- NOTE | 2017-12-21 00:32 | CARD ---
APPROVED REPORT EKG Measurement Heart [id number] <Conclusion> Normal sinus rhythm Minimal voltage criteria for LVH, may be normal variant Borderline ECG
[2017-12-21] MEDS: Divalproex 250 mg DR (BID formulation) PO SCH ×2 (07:59→17:32)
--- NOTE | 2017-12-21 08:17 | CP.PCM.CON ---
<LuzAngelic - Last Filed: 12/21/17 12:19> History of Present Illness - History of Present Illness History of Present Illness: Angelic Escobar, PGY1, Consult Note for Dr Salas: CC: hallucinations, depression 32 year old male presents with PMH Goldenhar syndrome, sleep apnea, seizure disorder, bipolar disorder, presents for auditory hallucinations and depression. States that it has been ongoing since Deceme2016. Denies seizure like activity, cp, sob, headache, neck pain, abdominal pain, diarrhea, urinary symptoms, leg swelling, dizziness, trauma. In ED, pt afebrile, hemodynamically stable. CXR shows no active disease. Labs reviewed and wnl. 12 point ROS obtained and negative, except as per HPI. PMH: Goldenhar, Sleep apnea, seizure disorder and Bipolar PSH: denies Allergies: NKDA Family History: Non-contributory Social History: +Alcohol, +Tobacco, Morphine and Percocet that is not Rx'd Home meds: trazadone 50 mg PO hs, klonopin 1 tab, seroquel 200 mg PO AM HS, haldol, depakote 250 mg BID PMD: Dr. Chapa Review of Systems - Review of Systems All systems: reviewed and no additional remarkable complaints except Review of Systems: as per HPI Past Patient History - Infectious Disease Hx of Infectious Diseases: None - Past Social History Smoking Status: Heavy Smoker > 10 Cigarettes Daily - CARDIAC Hx Cardiac Disorders: No Hx Hypertension: No - PULMONARY Hx Respiratory Disorders: No Hx Tuberculosis: No - NEUROLOGICAL Hx Neurological Disorder: No HX Cerebrovascular Accident: No Hx Seizures: No - HEENT Hx HEENT Problems: No Other/Comment: deviated septum - RENAL Hx Chronic Kidney Disease: No - ENDOCRINE/METABOLIC Hx Endocrine Disorders: No - HEMATOLOGICAL/ONCOLOGICAL Hx Blood Disorders: No Hx Cancer: No - INTEGUMENTARY Hx Dermatological Problems: No - MUSCULOSKELETAL/RHEUMATOLOGICAL Hx Musculoskeletal Disorders: Yes Other/Comment: Hemifacial Microsomia - GASTROINTESTINAL Hx Gastrointestinal Disorders: No - GENITOURINARY/GYNECOLOGICAL Hx Genitourinary Disorders: No Hx Sexually Transmitted Disorders: No - PSYCHIATRIC Hx Substance Use: Yes - SURGICAL HISTORY Other/Comment: Hemifacial Microsomia multiple skull sugery - ANESTHESIA Hx Anesthesia: Yes Hx Anesthesia Reactions: No Hx Malignant Hyperthermia: No Meds Allergies/Adverse Reactions: Allergies Allergy/AdvReac Type Severity Reaction Status Date / Time No Known Allergies Allergy Verified 12/20/17 19:38 - Medications Medications: Current Medications Clonazepam (Klonopin) 0.5 mg PO DAILY [facility] PRN Reason: Protocol Divalproex Sodium (Depakote Dr (*Bid*)) 250 mg PO BID [facility] Last Admin: 12/21/17 07:59 Dose: 250 mg Lorazepam (Ativan) 2 mg IM Q6 PRN; Protocol PRN Reason: Agitation Lorazepam (Ativan) 2 mg PO Q6H PRN; Protocol PRN Reason: anxiety/agitation Last Admin: 12/21/17 07:59 Dose: 2 mg Nicotine (Nicoderm Cq) 1 patch TD DAILY [facility] Last Admin: 12/21/17 07:58 Dose: 1 patch Quetiapine Fumarate (Seroquel) 200 mg PO AMHS [facility] PRN Reason: Protocol Last Admin: 12/20/17 21:29 Dose: 200 mg Trazodone HCl (Desyrel) 50 mg PO HS PRN PRN Reason: Insomnia Ziprasidone (Geodon Inj) 20 mg IM Q6H PRN; Protocol PRN Reason: severe agitaiton/psychosis Ziprasidone (Geodon Cap) 20 mg PO Q6H PRN; Protocol PRN Reason: psychosis/agitation Last Admin: 12/21/17 07:59 Dose: 20 mg Physical Exam - Constitutional Appears: Non-toxic, No Acute Distress - Head Exam Head Exam: ATRAUMATIC, NORMOCEPHALIC - Eye Exam Eye Exam: EOMI, PERRL. absent: Conjunctival injection, Nystagmus, Scleral icterus Pupil Exam: NORMAL ACCOMODATION, PERRL. absent: Irregular, Miosis, Unequal Additional comments: + mild pstosis of left eye. - ENT Exam ENT Exam: Mucous Membranes Moist - Neck Exam Neck exam: Positive for: Full Rom - Respiratory Exam Respiratory Exam: Clear to Auscultation Bilateral, NORMAL BREATHING PATTERN. absent: Accessory Muscle Use, Rales, Rhonchi, Wheezes, Stridor - Cardiovascular Exam Cardiovascular Exam: RRR, +S1, +S2. absent: Systolic Murmur - GI/Abdominal Exam GI & Abdominal Exam: Normal Bowel Sounds, Soft. absent: Firm, Guarding, Mass, Organomegaly, Rebound, Rigid, Tenderness - Extremities Exam Extremities exam: Positive for: normal inspection. Negative for: calf tenderness, pedal edema - Back Exam Back exam: NORMAL INSPECTION - Neurological Exam Neurological exam: Alert, Oriented x3 - Psychiatric Exam Psychiatric exam: Depressed - Skin Skin Exam: Dry, Normal Color, Warm Results - Vital Signs Recent Vital Signs: Last Vital Signs Temp 97.4 F L 12/21/17 07:03 Pulse 86 12/21/17 07:03 Resp 20 12/21/17 07:03 BP 121/75 12/21/17 07:03 Pulse Ox 99 12/20/17 15:39 - Labs Result Diagrams: 12/20/17 11:07 12/20/17 11:07 Assessment & Plan - Assessment and Plan (Free Text) Assessment: 32 year old male with PMH Goldenhar syndrome, bipolar disorder, sleep apnea, presents for management of depression and hallucinations. Medicine consulted for medical evaluation and history of seizure. Pt denies any seizure like activity, LOC, trauma. Denies cp, sob, headache, nausea, vomiting, dizziness, abdominal pain. Vital signs, labs, imaging reviewed. Can go further with psychiatric management. Will sign off case. Please reconsult as necessary. Case seen and discussed with Dr Salas. Angelic Escobar, PGY1 - Date & Time Date: 12/21/17 Time: 09:45 <Guillermo Salas - Last Filed: 12/21/17 15:31> Meds - Medications Medications: Current Medications Clonazepam (Klonopin) 0.5 mg PO DAILY [facility] PRN Reason: Protocol Last Admin: 12/21/17 09:34 Dose: 0.5 mg Divalproex Sodium (Clara Vázquez (*Bid*)) 250 mg PO BID [facility] Last Admin: 12/21/17 07:59 Dose: 250 mg Lorazepam (Ativan) 2 mg IM Q6 PRN; Protocol PRN Reason: Agitation Last Admin: 12/21/17 12:01 Dose: 2 mg Lorazepam (Ativan) 2 mg PO Q6H PRN; Protocol PRN Reason: anxiety/agitation Last Admin: 12/21/17 07:59 Dose: 2 mg Nicotine (Nicoderm Cq) 1 patch TD DAILY [facility] Last Admin: 12/21/17 07:58 Dose: 1 patch Quetiapine Fumarate (Seroquel) 200 mg PO AMHS [facility] PRN Reason: Protocol Last Admin: 12/21/17 09:34 Dose: 200 mg Trazodone HCl (Desyrel) 50 mg PO HS PRN PRN Reason: Insomnia Ziprasidone (Geodon Inj) 20 mg IM Q6H PRN; Protocol PRN Reason: severe agitaiton/psychosis Last Admin: 12/21/17 12:01 Dose: 20 mg Ziprasidone (Geodon Cap) 20 mg PO Q6H PRN; Protocol PRN Reason: psychosis/agitation Last Admin: 12/21/17 07:59 Dose: 20 mg Results - Vital Signs Recent Vital Signs: Last Vital Signs Temp 97.4 F L 12/21/17 07:03 Pulse 86 12/21/17 07:03 Resp 20 12/21/17 07:03 BP 121/75 12/21/17 07:03 Pulse Ox 99 12/20/17 15:39 - Labs Result Diagrams: 12/20/17 11:07 12/20/17 11:07 Labs: Laboratory Results - last 24 hr 12/21/17 12/21/17 07:30 07:30 Triglycerides 117 Cholesterol 147 LDL Cholesterol Direct 81 HDL Cholesterol 43 Free T4 1.00 TSH 3rd Generation 0.38 L Attending/Attestation - Attestation I have personally seen and examined this patient.: Yes I have fully participated in the care of the patient.: Yes I have reviewed all pertinent clinical information: Yes Notes (Text): 12/21/17 15:22 attending note; Patient seen and examined with resident in psychiatric floor. Patient is alert and awake. Denies any complaints. Not in any distress. Looks restless. Patient is a 32 year old male presents with PMH of Goldenhar syndrome, sleep apnea, bipolar disorder is admitted to the psychiatric floor for auditory hallucinations and depression. Labs reviewed. patient is restless. Otherwise clinically stable. Please reconsult as needed. Patient is medically stable for now. continue management per psychiatrist. Upon discharge the patient will follow-up with PMD Dr. Lemus.
[2017-12-21 08:22] LABS: HDL CHOLESTEROL 43 mg/dL (29-60)
[2017-12-21 08:33] LABS: LDL CHOLESTEROL 81 mg/dL (0-129)
--- NOTE | 2017-12-21 15:58 | PCM.PSYCH ---
Initial Psychiatric Evaluation - Initial Psychiatric Evaluation Type of Admission: Voluntary Legal Status: Capacity (patient has capacity to sign consent for treatment) Chief Complaint (in patient's own words): "where's my lunch, I didn't eat lunch, I didn't eat breakfast.. " (Patient was confused, as per staff patient ate breakfast as well as lunch) Patient's Reaction to Hospitalization: patient was admitted to the psychiatric inpatient unit for evaluation of psychotic symptoms, disorganized thoughts and behavior, paranoia. History of Present Illness and Precipitating Events: Patient is single 32 year old male with psychiatric history of Mood disorder, Psychotic disorder, Opioid abuse, substance-induced mood disorder, substance induced psychotic disorder, recent admission to [place] psychiatric unit last month 12/08/17, was signed AMA, the for that 10/21-10/26/17 and ultimately discharged AMA on a 48 hour letter ([facility] [place] patient brought himself to the hospital complaining for hallucinations, disorganized thoughts and behavior, possible noncompliance with the medications , follow-up appointments. Patient was so disorganized that he sneaked into the hospital, was knocking on the psych inpatient unit in to work, staff refer him to the emergency room and patient was admitted yesterday 12/20/2017.patient requires further evaluation and stabilization, medications resumption and titration, observation. Patient was seen today in his room, patient was started on one-to-one because patient was agitated, submit 48 hour notice, requesting to be discharged as soon as possible, was paranoid saying that he is hearing voices telling him that he is a rapist, patient was spacing on the staff, patient was placed into the seclusion room, and one-to-one observation was started. This casualty underwriter is very familiar with this patient rom multiple psychiatric admissions where patient was sign AGAINST MEDICAL ADVICE as well as on the medical side for agitation and aggression and paranoia. in the emergency room patient verbalized that he is hearing command type hallucinations telling him to kill self. 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 PSYCHIATRIC HISTORY recent admission November 2017, was d/c AMA, after the family meeting with mother. Patient was [place] [facility] [place] 21 to October 26, 2017. Symptoms included paranoia, CAH voices telling him to kill himself as well as AH of hearing voices telling him that he killed people. Patient was not functioning and isolated himself in his home because of his paranoia. Patient was also abusing Suboxone as well as Vicodin. He was ultimately discharged AMA on a 48 hour letter after [facility] did not find that he met criteria for involuntary commitment. Patient was given a diagnosis of psychosis, opioid abuse, SIMD and SIPD. pt was d/c on the following meds: Divalproex [Depakote DR (*BID*)] 250 mg PO BID #30 tcp Multivitamin Therapeutic Tab [Thera Tab] 1 tab PO 0800 #14 tab Nicotine 14 mg/24 hr [Nicoderm CQ] 1 patch TD DAILY #14 patch Quetiapine Fumarate [Seroquel] 200 mg PO AMHS #30 tablet traZODone [Desyrel] 50 mg PO HS PRN #14 tab SOCIAL HISTORY Patient was going to race in [place]. He is single. He has no children. He lives with his parents and his twin brother. Patient graduated high school and he is unemployed. Patient has a history of abusing Suboxone as well as Vicodin prior to his admission last month. Smoked 1 ppd of cigarettes and was provided counseling about morbidity and mortality risks of tobacco use. Patient was also offered a nicotine patch, pt was not receptive due to his mental status. \\ 12/20/17 11:07 12/20/17 11:07 Lab Results 12/21/17 07:30: Triglycerides 117, Cholesterol 147, LDL Cholesterol Direct 81, HDL Cholesterol 43 12/21/17 07:30: Free T4 1.00, TSH 3rd Generation 0.38 L 12/20/17 13:40: Urine Opiates Screen Negative, Urine Methadone Screen Negative, Ur Barbiturates Screen Negative, Ur Phencyclidine Scrn Negative, Ur Amphetamines Screen Negative, U Benzodiazepines Scrn Negative, U Oth Cocaine Metabols Negative, U Cannabinoids Screen Negative 12/20/17 13:40: Urine Color Yellow, Urine Appearance Clear, Urine pH 6.5, Ur Specific [place] 1.015, Urine Protein Negative, Urine Glucose (UA) Negative, Urine Ketones 15 H, Urine Blood Negative, Urine Nitrate Negative, Urine Bilirubin Negative, Urine Urobilinogen 0.2, Ur Leukocyte Esterase Negative 12/20/17 11:07: Alcohol, Quantitative < 10 12/20/17 11:07: Sodium 144, Potassium 4.3, Chloride 104, Carbon Dioxide 29, Anion Gap 15, BUN 7, Creatinine 0.7 L, Est GFR ( Amer) > 60, Est GFR (Non -Af Amer) > 60, Random Glucose 96, Calcium 9.5, Total Bilirubin 0.3, AST 17, ALT 21, Alkaline Phosphatase 56, Total Protein 7.4, Albumin 4.5, Globulin 2.9, Albumin/Globulin Ratio 1.6 12/20/17 11:07: WBC 6.3 D, RBC 4.72, Hgb 13.9 L, Hct 42.5, MCV 90.0, MCH 29.4, MCHC 32.7, RDW 14.2, Plt Count 305, MPV 10.0, Gran % 72.2 H, Lymph % (Auto) 19.2 L, [place] % (Auto) 7.2 H, Eos % (Auto) 1.1 L, Baso % (Auto) 0.3, Gran # 4.54 , Lymph # (Auto) 1.2, [place] # (Auto) 0.5, Eos # (Auto) 0.1, Baso # (Auto) 0.02 Vital Signs Temp Pulse Resp BP Pulse Ox 12/21/17 07:03 97.4 F L 86 20 121/75 12/20/17 15:39 98.0 F 74 16 116/70 99 12/20/17 14:38 74 18 116/70 98 12/20/17 12:00 88 18 131/67 99 12/20/17 10:28 98.1 F 93 H 18 123/80 98 Current Medications: Active Medications Generic Name Dose Route Start Last Admin Trade Name Freq PRN Reason Stop Dose Admin Clonazepam 0.5 mg 12/21/17 08:00 12/21/17 09:34 Klonopin PO 0.5 mg DAILY [facility] Administration Protocol Divalproex Sodium 250 mg 12/20/17 17:15 12/21/17 07:59 Clara Vázquez (*Bid*) PO 250 mg BID [facility] Administration Lorazepam 2 mg 12/20/17 17:59 12/21/17 12:01 Ativan IM 2 mg Q6 PRN Administration Agitation Protocol Lorazepam 2 mg 12/20/17 17:59 12/21/17 07:59 Ativan PO 2 mg Q6H PRN Administration anxiety/agitation Protocol Nicotine 1 patch 12/21/17 08:00 12/21/17 07:58 Nicoderm Cq TD 1 patch DAILY [facility] Administration Quetiapine Fumarate 200 mg 12/20/17 22:00 12/21/17 09:34 Seroquel PO 200 mg AMHS [facility] Administration Protocol Trazodone HCl 50 mg 12/20/17 17:07 Desyrel PO HS PRN Insomnia Ziprasidone 20 mg 12/20/17 17:59 12/21/17 12:01 Geodon Inj IM 20 mg Q6H PRN Administration severe agitaiton/psychosis Protocol Ziprasidone 20 mg 12/20/17 17:59 12/21/17 07:59 Geodon Cap PO 20 mg Q6H PRN Administration psychosis/agitation Protocol Past Psychiatric History - Past Psychiatric History Previous Treatment History: Inpatient Prior Professional Help: see HPI Prior Psychiatric Treatment: see HPI At what hospital: see HPI Duration: see HPI Nature of Treatment: see HPI Explanation of prior treatment: see HPI History of Abuse: see HPI History of ETOH/Drug Use: see HPI History of Family Illness: see HPI Pertinent Medical Hx (Current Medical&Sleep Prob, Allergies): Allergies Allergy/AdvReac Type Severity Reaction Status Date / Time No Known Allergies Allergy Verified 12/20/17 19:38 Divalproex [Depakote DR (*BID*)] 250 mg PO BID #30 tcp 12/08/17 Quetiapine Fumarate [Seroquel] 200 mg PO AMHS #30 tablet 12/08/17 traZODone [Desyrel] 50 mg PO HS PRN #14 tab 12/08/17 Haloperidol [Haldol] 1 tab PO DAILY 12/18/17 clonazePAM [Klonopin] 1 tab PO DAILY 12/18/17 Review of Systems - Review of Systems Systems not reviewed;Unavailable: Acuity of Condition - EENT Eyes: As Per HPI Nose/Mouth/Throat: As Per HPI - Cardiovascular Cardiovascular: As Per HPI - Respiratory Respiratory: As Per HPI - Gastrointestinal Gastrointestinal: As Per HPI - Genitourinary Genitourinary: As Per HPI - Reproductive: Male Reproductive:Male: As Per HPI - Musculoskeletal Musculoskeletal: As Par HPI - Integumentary Integumentary: As Per HPI - Neurological Neurological: As Per HPI - Psychiatric Psychiatric: As Per HPI - Endocrine Endocrine: As Per HPI - Hematologic/Lymphatic Hematologic: As Per HPI Mental Status Examination - Personal Presentation Personal Presentation: Looks older than stated age - Affect Affect: Constricted, Flat - Motor Activity Motor Activity: Violent, Psychomotor Agitation - Reliability in Providing Information Reliability in Providing Information: Poor, due to alteration in thoughts, Poor , due to altered mood, Poor, due to cognitve impairment - Speech Speech: Disorganized, Irrelevant, Tangential - Mood Mood: Depressed, Anxious - Formal Thought Process Formal Thought Process: Hallucinations, Delusions, Paranoia, Loosening of associations, Circumstantial - Hallucinations/Delusions Hallucinations: Auditory Delusions: Persecution - Obsessions/Compulsions Obsessions: None Compulsions: None - Cognitive Functions Orientation: Person Sensorium: Alert Attention/Concentration: Easily distracted Abstract Thinking: [place] Estimate of Intelligence: Below average Judgement: Imparied, as evidence by: Poor judgement, Imparied, as evidence by: Lack of insight into illness - Risk Risk: Suicidal, Elopement, Diminished functioning - Strength & Assets Inventory Strength & Assets Inventory: Family support - Limitations Limitations: Other (he shouldn't is on corporative, acutely psychotic, agitated , multiple medical issues) DSM 5 DX - DSM 5 DSM 5 Diagnosis: schizophrenia - Recommended/Plan of Treatment Treatment Recommendations and Plan of Treatment: Milieu/structure/supportive therapy Medical consult appreciated, see medical team note for more detailed info SW consultation for discharge plan and social issues Med management (specify the name, doses, plan to titrate or wean it off) Divalproex [Depakote DR (*BID*)] 250 mg PO BID formal stabilization of resumed Quetiapine Fumarate [Seroquel] 200 mg PO AMHS for psychosis resumed traZODone [Desyrel] 50 mg PO HS PRNfor insomnia resumed clonazePAM [Klonopin] 0.5 mg 3 times a day for anxiety Patient submitted 48 hour notice we'll consider to screen patient by [facility] Family involvement Follow up on labs Will monitor closely Pt was educated about risk/benefits and alternatives of medications, coping strategies (safety plan, suicide prevention), relapse prevention, importance of follow up with psychiatrist and therapist, stay away from drugs/alcohol/smoking Projected ELOS: 7 days Prognosis: guarded Discharge Plan and Discharge Criteria: Pt will be not depressed or manic, will be more hopeful, will be not psychotic or anxious, will be not having thoughts of harming self or others, will be tolerating medications well, will not have major side effects, will be able to function, will not pose threat to self or others. - Smoking Cessation Smoking Cessation Initiated: Yes
[2017-12-21] MEDS ORDERED: DiphenhydrAMINE 50 mg/ml Inj IM PRN (16:09)
[2017-12-22] MEDS: Divalproex 250 mg DR (BID formulation) PO SCH ×2 (09:04→17:04)
--- NOTE | 2017-12-22 14:14 | PCM.PYCHPN ---
Psychiatric Progress Note - Psychiatric Progress Note Patient seen today, length of contact: 30 minutes Patient Chief Complaint: "i came here myself, now I am not that bad, I hear only one voice, before it was multiple voices, I submitted 48hr notice yesterday, I need to go home tomorrow, I don't want to stay here..." Problems Identified/Issues Discussed: Suicide/ homicide prevention, past psychiatric h/o, current psychiatric symptoms , medical problems, risk/benefits and alternatives of medications, medications compliance, coping strategies, substance abuse h/o, relapse prevention, importance of follow up with psychiatrist and therapist, discharge plan. 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 Diagnostic Results: 12/21/17 12/21/17 12/21/17 07:30 07:30 07:30 WBC RBC Hgb Hct MCV MCH MCHC RDW Plt Count MPV Gran % Lymph % (Auto) Hardy % (Auto) Eos % (Auto) Baso % (Auto) Gran # Lymph # (Auto) Hardy # (Auto) Eos # (Auto) Baso # (Auto) Sodium Potassium Chloride Carbon Dioxide Anion Gap BUN Creatinine Est GFR ( Amer) Est GFR (Non-Af Amer) Random Glucose Calcium Total Bilirubin AST ALT Alkaline Phosphatase Total Protein Albumin Globulin Albumin/Globulin Ratio Triglycerides 117 Cholesterol 147 LDL Cholesterol Direct 81 HDL Cholesterol 43 Free T4 1.00 TSH 3rd Generation 0.38 L Urine Color Urine Appearance Urine pH Ur Specific [place] Urine Protein Urine Glucose (UA) Urine Ketones Urine Blood Urine Nitrate Urine Bilirubin Urine Urobilinogen Ur Leukocyte Esterase Urine Opiates Screen Urine Methadone Screen Ur Barbiturates Screen Ur Phencyclidine Scrn Ur Amphetamines Screen U Benzodiazepines Scrn U Oth Cocaine Metabols U Cannabinoids Screen Alcohol, Quantitative RPR Nonreactive 12/20/17 12/20/17 12/20/17 13:40 13:40 11:07 WBC RBC Hgb Hct MCV MCH MCHC RDW Plt Count MPV Gran % Lymph % (Auto) Hardy % (Auto) Eos % (Auto) Baso % (Auto) Gran # Lymph # (Auto) Hardy # (Auto) Eos # (Auto) Baso # (Auto) Sodium Potassium Chloride Carbon Dioxide Anion Gap BUN Creatinine Est GFR ( Amer) Est GFR (Non-Af Amer) Random Glucose Calcium Total Bilirubin AST ALT Alkaline Phosphatase Total Protein Albumin Globulin Albumin/Globulin Ratio Triglycerides Cholesterol LDL Cholesterol Direct HDL Cholesterol Free T4 TSH 3rd Generation Urine Color Yellow Urine Appearance Clear Urine pH 6.5 Ur Specific [place] 1.015 Urine Protein Negative Urine Glucose (UA) Negative Urine Ketones 15 H Urine Blood Negative Urine Nitrate Negative Urine Bilirubin Negative Urine Urobilinogen 0.2 Ur Leukocyte Esterase Negative Urine Opiates Screen Negative Urine Methadone Screen Negative Ur Barbiturates Screen Negative Ur Phencyclidine Scrn Negative Ur Amphetamines Screen Negative U Benzodiazepines Scrn Negative U Oth Cocaine Metabols Negative U Cannabinoids Screen Negative Alcohol, Quantitative < 10 RPR 12/20/17 12/20/17 11:07 11:07 WBC 6.3 D RBC 4.72 Hgb 13.9 L Hct 42.5 MCV 90.0 MCH 29.4 MCHC 32.7 RDW 14.2 Plt Count 305 MPV 10.0 Gran % 72.2 H Lymph % (Auto) 19.2 L Hardy % (Auto) 7.2 H Eos % (Auto) 1.1 L Baso % (Auto) 0.3 Gran # 4.54 Lymph # (Auto) 1.2 Hardy # (Auto) 0.5 Eos # (Auto) 0.1 Baso # (Auto) 0.02 Sodium 144 Potassium 4.3 Chloride 104 Carbon Dioxide 29 Anion Gap 15 BUN 7 Creatinine 0.7 L Est GFR ( Amer) > 60 Est GFR (Non-Af Amer) > 60 Random Glucose 96 Calcium 9.5 Total Bilirubin 0.3 AST 17 ALT 21 Alkaline Phosphatase 56 Total Protein 7.4 Albumin 4.5 Globulin 2.9 Albumin/Globulin Ratio 1.6 Triglycerides Cholesterol LDL Cholesterol Direct HDL Cholesterol Free T4 TSH 3rd Generation Urine Color Urine Appearance Urine pH Ur Specific [place] Urine Protein Urine Glucose (UA) Urine Ketones Urine Blood Urine Nitrate Urine Bilirubin Urine Urobilinogen Ur Leukocyte Esterase Urine Opiates Screen Urine Methadone Screen Ur Barbiturates Screen Ur Phencyclidine Scrn Ur Amphetamines Screen U Benzodiazepines Scrn U Oth Cocaine Metabols U Cannabinoids Screen Alcohol, Quantitative RPR Vital Signs Temp Pulse Resp BP Pulse Ox 12/22/17 07:00 97.8 F 73 20 130/75 12/22/17 06:48 97.8 F 73 20 130/75 12/21/17 07:03 97.4 F L 86 20 121/75 12/20/17 15:39 98.0 F 74 16 116/70 99 12/20/17 14:38 74 18 116/70 98 12/20/17 12:00 88 18 131/67 99 12/20/17 10:28 98.1 F 93 H 18 123/80 98 DSM 5 Symptoms Update: Patient is single 32 year old male with psychiatric history of Mood disorder, Psychotic disorder, Opioid abuse, substance-induced mood disorder, substance induced psychotic disorder, recent admission to [place] psychiatric unit last month 12/08/17, was signed AMA, the for that 10/21-10/26/17 and ultimately discharged AMA on a 48 hour letter ([facility] did not commit him), patient brought himself to the hospital complaining for hallucinations, disorganized thoughts and behavior, possible noncompliance with the medications , follow-up appointments. Patient was so disorganized that he sneaked into the hospital, was knocking on the psych inpatient unit entrance door, staff refer him to the emergency room and patient was admitted 12/20/2017.patient requires further evaluation and stabilization, medications resumption and titration, observation. Patient was seen at the treatment team room, patient was started on one-to-one because patient was agitated yesterday, was in restraint, pt was spitting, cursing, throwing his underwear towards staff, pt was acutely psychotic, talking to self, was acting paranoid, was hearing voices that he is a rapist, submit 48 hour notice, requesting to be discharged as soon as possible. pt refused rescind 48hr notice. This technical report writer is very familiar with this patient rom multiple psychiatric admissions where patient was sign AGAINST MEDICAL ADVICE as well as on the medical side for agitation and aggression and paranoia. in the emergency room patient verbalized that he is hearing command type hallucinations telling him to kill self. 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 PSYCHIATRIC HISTORY recent admission November 2017, was d/c AMA, after the family meeting with mother. Patient was hospitalized at [facility] from October 21 to October 26, 2017. Symptoms included paranoia, CAH voices telling him to kill himself as well as AH of hearing voices telling him that he killed people. Patient was not functioning and isolated himself in his home because of his paranoia. Patient was also abusing Suboxone as well as Vicodin. He was ultimately discharged AMA on a 48 hour letter after [facility] did not find that he met criteria for involuntary commitment. Patient was given a diagnosis of psychosis, opioid abuse, SIMD and SIPD. pt was d/c on the following meds: Divalproex [Depakote DR (*BID*)] 250 mg PO BID #30 tcp Multivitamin Therapeutic Tab [Thera Tab] 1 tab PO 0800 #14 tab Nicotine 14 mg/24 hr [Nicoderm CQ] 1 patch TD DAILY #14 patch Quetiapine Fumarate [Seroquel] 200 mg PO AMHS #30 tablet traZODone [Desyrel] 50 mg PO HS PRN #14 tab SOCIAL HISTORY Patient was going to race in [place]. He is single. He has no children. He lives with his parents and his twin brother. Patient graduated high school and he is unemployed. Patient has a history of abusing Suboxone as well as Vicodin prior to his admission last month. Smoked 1 ppd of cigarettes and was provided counseling about morbidity and mortality risks of tobacco use. Patient was also offered a nicotine patch, pt was not receptive due to his mental status. collaterals from pt's mother: pt was refusing to go to see psychiatrist, as well taking meds. see SW note for more detailed information. Impression: DSM 5 Diagnosis: schizophrenia Medication Change: Yes (pt requested haldol) Medical Record Reviewed: Yes Consults ordered or reviewed: medical team evaluated pt see notes for more detailed information Mental Status Examination - Cognitive Function Orientation: Person, Place Memory: Impaired Attention: Poor Concentration: Poor Association: Loose Fund of Knowledge: Poor - Mood Mood: Depressed, Anxious - Affect Affect: Constricted, Flat - Formal Thought Process Formal Thought Process: Hallucinations, Delusions, Paranoia, Loosening of associations, Circumstantial - Suicidal Ideation Suicidal Ideation: No Plan: pt denied now, but impulses are unpredictable in ED pt expressed thoughts of harming self pt said to his mother that "there is nothing to live for" - Homicidal Ideation Homicidal Ideation: No Goal/Treatment Plan - Goal/Treatment Plan Need for Continued Stay: Remain at risks for inpatient hospitalization, Severe depression anxiety, Discharge may exacerbated symptoms, Failed transitioning, Severe functional impairment Progress Toward Problem(s) and Goals/Treatment Plan: Milieu/structure/supportive therapy Medical consult appreciated, see medical team note for more detailed info SW consultation for discharge plan and social issues Med management (specify the name, doses, plan to titrate or wean it off) Divalproex [Clara KHAN (*BID*)] 250 mg PO BID formal stabilization of resumed Quetiapine will be d/c haldol 5mg po bid and 10mg po hs for psychosis cogentin 0.5mg po bid for possible EPS traZODone [Desyrel] 50 mg PO HS PRNfor insomnia resumed clonazePAM [Klonopin] 0.5 mg 3 times a day for anxiety Patient submitted 48 hour notice we'll screen patient by [facility] Family involvement Follow up on labs Will monitor closely Pt was educated about risk/benefits and alternatives of medications, coping strategies (safety plan, suicide prevention), relapse prevention, importance of follow up with psychiatrist and therapist, stay away from drugs/alcohol/smoking Estimated Date of D/C: 12/29/17
[2017-12-23] MEDS: Divalproex 250 mg DR (BID formulation) PO SCH ×2 (08:17→15:51)
--- NOTE | 2017-12-23 16:26 | PCM.PYCHPN ---
Psychiatric Progress Note - Psychiatric Progress Note Patient seen today, length of contact: 30 minutes Patient Chief Complaint: "i came here myself, now I am not that bad, I hear only one voice, before it was multiple voices, I submitted 48hr notice yesterday, I need to go home tomorrow, I don't want to stay here..., F...k you, F...k you all!!!" Problems Identified/Issues Discussed: Suicide/ homicide prevention, past psychiatric h/o, current psychiatric symptoms , medical problems, risk/benefits and alternatives of medications, medications compliance, coping strategies, substance abuse h/o, relapse prevention, importance of follow up with psychiatrist and therapist, discharge plan. 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 Diagnostic Results: 12/21/17 12/21/17 12/21/17 07:30 07:30 07:30 WBC RBC Hgb Hct MCV MCH MCHC RDW Plt Count MPV Gran % Lymph % (Auto) [place] % (Auto) Eos % (Auto) Baso % (Auto) Gran # Lymph # (Auto) [place] # (Auto) Eos # (Auto) Baso # (Auto) Sodium Potassium Chloride Carbon Dioxide Anion Gap BUN Creatinine Est GFR ( Amer) Est GFR (Non-Af Amer) Random Glucose Calcium Total Bilirubin AST ALT Alkaline Phosphatase Total Protein Albumin Globulin Albumin/Globulin Ratio Triglycerides 117 Cholesterol 147 LDL Cholesterol Direct 81 HDL Cholesterol 43 Free T4 1.00 TSH 3rd Generation 0.38 L Urine Color Urine Appearance Urine pH Ur Specific [place] Urine Protein Urine Glucose (UA) Urine Ketones Urine Blood Urine Nitrate Urine Bilirubin Urine Urobilinogen Ur Leukocyte Esterase Urine Opiates Screen Urine Methadone Screen Ur Barbiturates Screen Ur Phencyclidine Scrn Ur Amphetamines Screen U Benzodiazepines Scrn U Oth Cocaine Metabols U Cannabinoids Screen Alcohol, Quantitative RPR Nonreactive 12/20/17 12/20/17 12/20/17 13:40 13:40 11:07 WBC RBC Hgb Hct MCV MCH MCHC RDW Plt Count MPV Gran % Lymph % (Auto) [place] % (Auto) Eos % (Auto) Baso % (Auto) Gran # Lymph # (Auto) [place] # (Auto) Eos # (Auto) Baso # (Auto) Sodium Potassium Chloride Carbon Dioxide Anion Gap BUN Creatinine Est GFR ( Amer) Est GFR (Non-Af Amer) Random Glucose Calcium Total Bilirubin AST ALT Alkaline Phosphatase Total Protein Albumin Globulin Albumin/Globulin Ratio Triglycerides Cholesterol LDL Cholesterol Direct HDL Cholesterol Free T4 TSH 3rd Generation Urine Color Yellow Urine Appearance Clear Urine pH 6.5 Ur Specific [place] 1.015 Urine Protein Negative Urine Glucose (UA) Negative Urine Ketones 15 H Urine Blood Negative Urine Nitrate Negative Urine Bilirubin Negative Urine Urobilinogen 0.2 Ur Leukocyte Esterase Negative Urine Opiates Screen Negative Urine Methadone Screen Negative Ur Barbiturates Screen Negative Ur Phencyclidine Scrn Negative Ur Amphetamines Screen Negative U Benzodiazepines Scrn Negative U Oth Cocaine Metabols Negative U Cannabinoids Screen Negative Alcohol, Quantitative < 10 RPR 12/20/17 12/20/17 11:07 11:07 WBC 6.3 D RBC 4.72 Hgb 13.9 L Hct 42.5 MCV 90.0 MCH 29.4 MCHC 32.7 RDW 14.2 Plt Count 305 MPV 10.0 Gran % 72.2 H Lymph % (Auto) 19.2 L [place] % (Auto) 7.2 H Eos % (Auto) 1.1 L Baso % (Auto) 0.3 Gran # 4.54 Lymph # (Auto) 1.2 [place] # (Auto) 0.5 Eos # (Auto) 0.1 Baso # (Auto) 0.02 Sodium 144 Potassium 4.3 Chloride 104 Carbon Dioxide 29 Anion Gap 15 BUN 7 Creatinine 0.7 L Est GFR ( Amer) > 60 Est GFR (Non-Af Amer) > 60 Random Glucose 96 Calcium 9.5 Total Bilirubin 0.3 AST 17 ALT 21 Alkaline Phosphatase 56 Total Protein 7.4 Albumin 4.5 Globulin 2.9 Albumin/Globulin Ratio 1.6 Triglycerides Cholesterol LDL Cholesterol Direct HDL Cholesterol Free T4 TSH 3rd Generation Urine Color Urine Appearance Urine pH Ur Specific [place] Urine Protein Urine Glucose (UA) Urine Ketones Urine Blood Urine Nitrate Urine Bilirubin Urine Urobilinogen Ur Leukocyte Esterase Urine Opiates Screen Urine Methadone Screen Ur Barbiturates Screen Ur Phencyclidine Scrn Ur Amphetamines Screen U Benzodiazepines Scrn U Oth Cocaine Metabols U Cannabinoids Screen Alcohol, Quantitative RPR Vital Signs Temp Pulse Resp BP Pulse Ox 12/22/17 07:00 97.8 F 73 20 130/75 12/22/17 06:48 97.8 F 73 20 130/75 12/21/17 07:03 97.4 F L 86 20 121/75 12/20/17 15:39 98.0 F 74 16 116/70 99 12/20/17 14:38 74 18 116/70 98 12/20/17 12:00 88 18 131/67 99 12/20/17 10:28 98.1 F 93 H 18 123/80 98 Temp Pulse Resp BP Pulse Ox 97.9 F 90 20 104/69 99 12/23/17 07:13 12/23/17 07:13 12/23/17 07:13 12/23/17 07:13 12/20/17 15:39 DSM 5 Symptoms Update: Patient is single 32 year old male with psychiatric history of Mood disorder, Psychotic disorder, Opioid abuse, substance-induced mood disorder, substance induced psychotic disorder, recent admission to [place] psychiatric unit last month 12/08/17, was signed AMA, the for that 10/21-10/26/17 and ultimately discharged AMA on a 48 hour letter ([facility] did not commit him), patient brought himself to the hospital complaining for hallucinations, disorganized thoughts and behavior, possible noncompliance with the medications , follow-up appointments. Patient was so disorganized that he sneaked into the hospital, was knocking on the psych inpatient unit entrance door, staff refer him to the emergency room and patient was admitted 12/20/2017.patient requires further evaluation and stabilization, medications resumption and titration, observation. Patient was seen at the hallway, pt was off 1:1, pt still disorganized, paranoid and psychotic, pt was screened by [facility], was accepted, now pt is waiting for the bed to be available. when this scientific technical writer explained pt that he will be transferred there, pt became agitated, was kicking the front office specialist door, was redirected by PCP, PRN offered. pt still has unpredictable impulses. staff was educated at the time of transfer offer PRN meds because pt is high risk of elopement. Impression: DSM 5 Diagnosis: schizophrenia Medication Change: Yes (pt requested haldol) Medical Record Reviewed: Yes Consults ordered or reviewed: medical team evaluated pt see notes for more detailed information Mental Status Examination - Cognitive Function Orientation: Person, Place Memory: Impaired Attention: Poor Concentration: Poor Association: Loose Fund of Knowledge: Poor - Mood Mood: Depressed, Anxious - Affect Affect: Constricted, Flat - Formal Thought Process Formal Thought Process: Hallucinations, Delusions, Paranoia, Loosening of associations, Circumstantial - Suicidal Ideation Suicidal Ideation: No - Homicidal Ideation Homicidal Ideation: No Goal/Treatment Plan - Goal/Treatment Plan Need for Continued Stay: Remain at risks for inpatient hospitalization, Severe depression anxiety, Discharge may exacerbated symptoms, Failed transitioning, Severe functional impairment Progress Toward Problem(s) and Goals/Treatment Plan: Milieu/structure/supportive therapy Medical consult appreciated, see medical team note for more detailed info SW consultation for discharge plan and social issues Med management (specify the name, doses, plan to titrate or wean it off) Divalproex [Depgalina KHAN (*BID*)] 250 mg PO BID formal stabilization of resumed Quetiapine will be d/c haldol 5mg po bid and 10mg po hs for psychosis cogentin 0.5mg po bid for possible EPS traZODone [Desyrel] 50 mg PO HS PRNfor insomnia resumed clonazePAM [Klonopin] 0.5 mg 3 times a day for anxiety Patient submitted 48 hour notice, wa screened, was accepted now pt is waiting for the bed in [facility] Family involvement Follow up on labs Will monitor closely Pt was educated about risk/benefits and alternatives of medications, coping strategies (safety plan, suicide prevention), relapse prevention, importance of follow up with psychiatrist and therapist, stay away from drugs/alcohol/smoking Estimated Date of D/C: 12/29/17
[2017-12-24] MEDS: Divalproex 250 mg DR (BID formulation) PO SCH (08:30)
--- NOTE | 2017-12-24 15:56 | PCM.PYCHPN ---
Psychiatric Progress Note - Psychiatric Progress Note Patient seen today, length of contact: 30 minutes Patient Chief Complaint: "i came here myself, F...k you, F...k you all!!!" Problems Identified/Issues Discussed: Suicide/ homicide prevention, past psychiatric h/o, current psychiatric symptoms , medical problems, risk/benefits and alternatives of medications, medications compliance, coping strategies, substance abuse h/o, relapse prevention, importance of follow up with psychiatrist and therapist, discharge plan. 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 Diagnostic Results: 12/21/17 12/21/17 12/21/17 07:30 07:30 07:30 WBC RBC Hgb Hct MCV MCH MCHC RDW Plt Count MPV Gran % Lymph % (Auto) [place] % (Auto) Eos % (Auto) Baso % (Auto) Gran # Lymph # (Auto) [place] # (Auto) Eos # (Auto) Baso # (Auto) Sodium Potassium Chloride Carbon Dioxide Anion Gap BUN Creatinine Est GFR ( Amer) Est GFR (Non-Af Amer) Random Glucose Calcium Total Bilirubin AST ALT Alkaline Phosphatase Total Protein Albumin Globulin Albumin/Globulin Ratio Triglycerides 117 Cholesterol 147 LDL Cholesterol Direct 81 HDL Cholesterol 43 Free T4 1.00 TSH 3rd Generation 0.38 L Urine Color Urine Appearance Urine pH Ur Specific [place] Urine Protein Urine Glucose (UA) Urine Ketones Urine Blood Urine Nitrate Urine Bilirubin Urine Urobilinogen Ur Leukocyte Esterase Urine Opiates Screen Urine Methadone Screen Ur Barbiturates Screen Ur Phencyclidine Scrn Ur Amphetamines Screen U Benzodiazepines Scrn U Oth Cocaine Metabols U Cannabinoids Screen Alcohol, Quantitative RPR Nonreactive 12/20/17 12/20/17 12/20/17 13:40 13:40 11:07 WBC RBC Hgb Hct MCV MCH MCHC RDW Plt Count MPV Gran % Lymph % (Auto) [place] % (Auto) Eos % (Auto) Baso % (Auto) Gran # Lymph # (Auto) [place] # (Auto) Eos # (Auto) Baso # (Auto) Sodium Potassium Chloride Carbon Dioxide Anion Gap BUN Creatinine Est GFR ( Amer) Est GFR (Non-Af Amer) Random Glucose Calcium Total Bilirubin AST ALT Alkaline Phosphatase Total Protein Albumin Globulin Albumin/Globulin Ratio Triglycerides Cholesterol LDL Cholesterol Direct HDL Cholesterol Free T4 TSH 3rd Generation Urine Color Yellow Urine Appearance Clear Urine pH 6.5 Ur Specific [place] 1.015 Urine Protein Negative Urine Glucose (UA) Negative Urine Ketones 15 H Urine Blood Negative Urine Nitrate Negative Urine Bilirubin Negative Urine Urobilinogen 0.2 Ur Leukocyte Esterase Negative Urine Opiates Screen Negative Urine Methadone Screen Negative Ur Barbiturates Screen Negative Ur Phencyclidine Scrn Negative Ur Amphetamines Screen Negative U Benzodiazepines Scrn Negative U Oth Cocaine Metabols Negative U Cannabinoids Screen Negative Alcohol, Quantitative < 10 RPR 12/20/17 12/20/17 11:07 11:07 WBC 6.3 D RBC 4.72 Hgb 13.9 L Hct 42.5 MCV 90.0 MCH 29.4 MCHC 32.7 RDW 14.2 Plt Count 305 MPV 10.0 Gran % 72.2 H Lymph % (Auto) 19.2 L [place] % (Auto) 7.2 H Eos % (Auto) 1.1 L Baso % (Auto) 0.3 Gran # 4.54 Lymph # (Auto) 1.2 [place] # (Auto) 0.5 Eos # (Auto) 0.1 Baso # (Auto) 0.02 Sodium 144 Potassium 4.3 Chloride 104 Carbon Dioxide 29 Anion Gap 15 BUN 7 Creatinine 0.7 L Est GFR ( Amer) > 60 Est GFR (Non-Af Amer) > 60 Random Glucose 96 Calcium 9.5 Total Bilirubin 0.3 AST 17 ALT 21 Alkaline Phosphatase 56 Total Protein 7.4 Albumin 4.5 Globulin 2.9 Albumin/Globulin Ratio 1.6 Triglycerides Cholesterol LDL Cholesterol Direct HDL Cholesterol Free T4 TSH 3rd Generation Urine Color Urine Appearance Urine pH Ur Specific [place] Urine Protein Urine Glucose (UA) Urine Ketones Urine Blood Urine Nitrate Urine Bilirubin Urine Urobilinogen Ur Leukocyte Esterase Urine Opiates Screen Urine Methadone Screen Ur Barbiturates Screen Ur Phencyclidine Scrn Ur Amphetamines Screen U Benzodiazepines Scrn U Oth Cocaine Metabols U Cannabinoids Screen Alcohol, Quantitative RPR Vital Signs Temp Pulse Resp BP Pulse Ox 12/22/17 07:00 97.8 F 73 20 130/75 12/22/17 06:48 97.8 F 73 20 130/75 12/21/17 07:03 97.4 F L 86 20 121/75 12/20/17 15:39 98.0 F 74 16 116/70 99 12/20/17 14:38 74 18 116/70 98 12/20/17 12:00 88 18 131/67 99 12/20/17 10:28 98.1 F 93 H 18 123/80 98 Temp Pulse Resp BP Pulse Ox 97.9 F 90 20 104/69 99 12/23/17 07:13 12/23/17 07:13 12/23/17 07:13 12/23/17 07:13 12/20/17 15:39 DSM 5 Symptoms Update: Patient is single 32 year old male with psychiatric history of Mood disorder, Psychotic disorder, Opioid abuse, substance-induced mood disorder, substance induced psychotic disorder, recent admission to [place] psychiatric unit last month 12/08/17, was signed AMA, the for that 10/21-10/26/17 and ultimately discharged AMA on a 48 hour letter ([facility] did not commit him), patient brought himself to the hospital complaining for hallucinations, disorganized thoughts and behavior, possible noncompliance with the medications , follow-up appointments. Patient was so disorganized that he sneaked into the hospital, was knocking on the psych inpatient unit entrance door, staff refer him to the emergency room and patient was admitted 12/20/2017.patient requires further evaluation and stabilization, medications resumption and titration, observation. Patient was seen at the hallway, pt observed laying on the floor, this fiction writer approached the pt, pt does not have any rationale in his statements, pt was not able to comprehend that he will go to the [facility], pt started to bang the head against wall, not hard, pt was started on 1:1 again. pt is cursing, impulses are still unpredictable, patient is impulsive, peers of agitation, required frequent when necessary's. pt still has unpredictable impulses. staff was educated at the time of transfer offer PRN meds because pt is high risk of elopement. so far patient tolerates medications well, no side effects observed or reported , aims 0, no EPS Impression: DSM 5 Diagnosis: schizophrenia Medication Change: Yes (haldol increased) Medical Record Reviewed: Yes Mental Status Examination - Cognitive Function Orientation: Person, Place Memory: Impaired Attention: Poor Concentration: Poor Association: Loose Fund of Knowledge: Poor - Mood Mood: Depressed, Anxious - Affect Affect: Constricted, Flat - Formal Thought Process Formal Thought Process: Hallucinations, Delusions, Paranoia, Loosening of associations, Circumstantial - Suicidal Ideation Suicidal Ideation: No - Homicidal Ideation Homicidal Ideation: No Goal/Treatment Plan - Goal/Treatment Plan Need for Continued Stay: Remain at risks for inpatient hospitalization, Severe depression anxiety, Discharge may exacerbated symptoms, Failed transitioning, Severe functional impairment Progress Toward Problem(s) and Goals/Treatment Plan: Milieu/structure/supportive therapy Medical consult appreciated, see medical team note for more detailed info SW consultation for discharge plan and social issues Med management (specify the name, doses, plan to titrate or wean it off) Divalproex [Depakotewill be increased to 500 mg BID for mood stabilization haldol 10 mg 3 times a day for psychosis cogentin 0.5mg po bid for possible EPS traZODone [Desyrel] 50 mg PO HS PRNfor insomnia resumed clonazePAM [Klonopin] 0.5 mg 3 times a day for anxiety Patient submitted 48 hour notice, wa screened, was accepted now pt is waiting for the bed in [facility] Family involvement Follow up on labs Will monitor closely Pt was educated about risk/benefits and alternatives of medications, coping strategies (safety plan, suicide prevention), relapse prevention, importance of follow up with psychiatrist and therapist, stay away from drugs/alcohol/smoking Estimated Date of D/C: 12/29/17
[2017-12-24] MEDS: Divalproex 500 mg DR(BID formulation) PO SCH (21:30)
[2017-12-25] MEDS: Divalproex 500 mg DR(BID formulation) PO SCH ×2 (13:04→21:43)
[2017-12-26] MEDS: Divalproex 500 mg DR(BID formulation) PO SCH ×2 (09:33→21:54)
[2017-12-26] MEDS: Alum-Mag Hydrox-Simethicone Susp (30 mL) PO PRN (11:04)
--- NOTE | 2017-12-26 11:18 | PCM.PYCHPN ---
Psychiatric Progress Note - Psychiatric Progress Note Patient seen today, length of contact: 25 minutes Problems Identified/Issues Discussed: I reviewed assessment and recent notes. Patient is well known to me from prior admissions to the unit. He is currently awaiting an involuntary bed at [facility]. Patient remains unpredictable, restless, flat and disengaged on the unit. He denies any hallucinations/SI/HI during my interviews however his responses are generally dismissive and superficial. Remains labile and unpredictable. Patient is oriented x3 and aware of current circumstances. Remains compliant with all medications and denies side effects or new discomfort/pain. Diagnostic Results: Schizophrenia Medication Change: No ( ) Medical Record Reviewed: Yes Mental Status Examination - Cognitive Function Orientation: Person, Place Memory: Impaired Attention: Poor Concentration: Poor Association: Loose Fund of Knowledge: Poor - Mood Mood: Depressed, Anxious - Affect Affect: Constricted, Flat - Formal Thought Process Formal Thought Process: Hallucinations, Delusions, Paranoia, Loosening of associations, Circumstantial - Suicidal Ideation Suicidal Ideation: No - Homicidal Ideation Homicidal Ideation: No Goal/Treatment Plan - Goal/Treatment Plan Need for Continued Stay: Remain at risks for inpatient hospitalization, Severe depression anxiety, Discharge may exacerbated symptoms, Failed transitioning, Severe functional impairment Progress Toward Problem(s) and Goals/Treatment Plan: * c/w current tx and plan * Vitals reviewed and noted below: Selected Entries 12/25/17 06:52 Temperature 97.7 F Pulse Rate 100 H Respiratory 18 Rate Blood Pressure 122/74 * Patient awaiting transfer to involuntary unit at [facility] when bed becomes available. Estimated Date of D/C: 12/29/17
--- NOTE | 2017-12-26 11:18 | PCM.PYCHPN ---
Psychiatric Progress Note - Psychiatric Progress Note Patient seen today, length of contact: 25 minutes Problems Identified/Issues Discussed: I reviewed assessment and recent notes. Patient is well known to me from prior admissions to the unit. He is currently [place] an involuntary [place] [facility] [place] Patient remains unpredictable, restless, flat and disengaged on the unit. He denies any hallucinations/SI/HI during my interviews however his responses are generally dismissive and superficial. Staff notes indicate that patient had an episode of screaming, swearing and banging the phone on Wednesday. Patient needed to be escorted to the quiet room where he was able to calm down. Patient is oriented x3 and seems aware of current circumstances, states "I've been having tantrums". Remains compliant with all medications and denies side effects or new discomfort/pain. Remains labile and unpredictable. Diagnostic Results: Schizophrenia Medication Change: No ( ) Medical Record Reviewed: Yes Mental Status Examination - Cognitive Function Orientation: Person, Place Memory: Impaired Attention: Poor Concentration: Poor Association: Loose Fund of Knowledge: Poor - Mood Mood: Depressed, Anxious - Affect Affect: Constricted, Flat - Formal Thought Process Formal Thought Process: Hallucinations, Delusions, Paranoia, Loosening of associations, Circumstantial - Suicidal Ideation Suicidal Ideation: No - Homicidal Ideation Homicidal Ideation: No Goal/Treatment Plan - Goal/Treatment Plan Need for Continued Stay: Remain at risks for inpatient hospitalization, Severe depression anxiety, Discharge may exacerbated symptoms, Failed transitioning, Severe functional impairment Progress Toward Problem(s) and Goals/Treatment Plan: * c/w current tx and plan * No new weekend labs * Vitals reviewed and noted below: Selected Entries 12/26/17 07:27 Temperature 97.9 F Pulse Rate 75 Respiratory 20 Rate Blood Pressure 101/57 L * Patient awaiting transfer to [place] unit [place] [facility] [place]. Estimated Date of D/C: 12/29/17
[2017-12-27] MEDS: Divalproex 500 mg DR(BID formulation) PO SCH ×2 (09:13→22:07)
[2017-12-27] MEDS: Alum-Mag Hydrox-Simethicone Susp (30 mL) PO PRN (09:17)
--- NOTE | 2017-12-27 16:42 | PCM.PYCHPN ---
Psychiatric Progress Note - Psychiatric Progress Note Patient seen today, length of contact: 30min Patient Chief Complaint: "i think Haldol is giving me shakiness in my legs" Problems Identified/Issues Discussed: Suicide/ homicide prevention, past psychiatric h/o, current psychiatric symptoms , medical problems, risk/benefits and alternatives of medications, medications compliance, coping strategies, substance abuse h/o, relapse prevention, importance of follow up with psychiatrist and therapist, discharge plan. 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 Diagnostic Results: 12/21/17 12/21/17 12/21/17 07:30 07:30 07:30 WBC RBC Hgb Hct MCV MCH MCHC RDW Plt Count MPV Gran % Lymph % (Auto) [place] % (Auto) Eos % (Auto) Baso % (Auto) Gran # Lymph # (Auto) [place] # (Auto) Eos # (Auto) Baso # (Auto) Sodium Potassium Chloride Carbon Dioxide Anion Gap BUN Creatinine Est GFR ( Amer) Est GFR (Non-Af Amer) Random Glucose Calcium Total Bilirubin AST ALT Alkaline Phosphatase Total Protein Albumin Globulin Albumin/Globulin Ratio Triglycerides 117 Cholesterol 147 LDL Cholesterol Direct 81 HDL Cholesterol 43 Free T4 1.00 TSH 3rd Generation 0.38 L Urine Color Urine Appearance Urine pH Ur Specific [place] Urine Protein Urine Glucose (UA) Urine Ketones Urine Blood Urine Nitrate Urine Bilirubin Urine Urobilinogen Ur Leukocyte Esterase Urine Opiates Screen Urine Methadone Screen Ur Barbiturates Screen Ur Phencyclidine Scrn Ur Amphetamines Screen U Benzodiazepines Scrn U Oth Cocaine Metabols U Cannabinoids Screen Alcohol, Quantitative RPR Nonreactive 12/20/17 12/20/17 12/20/17 13:40 13:40 11:07 WBC RBC Hgb Hct MCV MCH MCHC RDW Plt Count MPV Gran % Lymph % (Auto) [place] % (Auto) Eos % (Auto) Baso % (Auto) Gran # Lymph # (Auto) [place] # (Auto) Eos # (Auto) Baso # (Auto) Sodium Potassium Chloride Carbon Dioxide Anion Gap BUN Creatinine Est GFR ( Amer) Est GFR (Non-Af Amer) Random Glucose Calcium Total Bilirubin AST ALT Alkaline Phosphatase Total Protein Albumin Globulin Albumin/Globulin Ratio Triglycerides Cholesterol LDL Cholesterol Direct HDL Cholesterol Free T4 TSH 3rd Generation Urine Color Yellow Urine Appearance Clear Urine pH 6.5 Ur Specific [place] 1.015 Urine Protein Negative Urine Glucose (UA) Negative Urine Ketones 15 H Urine Blood Negative Urine Nitrate Negative Urine Bilirubin Negative Urine Urobilinogen 0.2 Ur Leukocyte Esterase Negative Urine Opiates Screen Negative Urine Methadone Screen Negative Ur Barbiturates Screen Negative Ur Phencyclidine Scrn Negative Ur Amphetamines Screen Negative U Benzodiazepines Scrn Negative U Oth Cocaine Metabols Negative U Cannabinoids Screen Negative Alcohol, Quantitative < 10 RPR 12/20/17 12/20/17 11:07 11:07 WBC 6.3 D RBC 4.72 Hgb 13.9 L Hct 42.5 MCV 90.0 MCH 29.4 MCHC 32.7 RDW 14.2 Plt Count 305 MPV 10.0 Gran % 72.2 H Lymph % (Auto) 19.2 L [place] % (Auto) 7.2 H Eos % (Auto) 1.1 L Baso % (Auto) 0.3 Gran # 4.54 Lymph # (Auto) 1.2 [place] # (Auto) 0.5 Eos # (Auto) 0.1 Baso # (Auto) 0.02 Sodium 144 Potassium 4.3 Chloride 104 Carbon Dioxide 29 Anion Gap 15 BUN 7 Creatinine 0.7 L Est GFR ( Amer) > 60 Est GFR (Non-Af Amer) > 60 Random Glucose 96 Calcium 9.5 Total Bilirubin 0.3 AST 17 ALT 21 Alkaline Phosphatase 56 Total Protein 7.4 Albumin 4.5 Globulin 2.9 Albumin/Globulin Ratio 1.6 Triglycerides Cholesterol LDL Cholesterol Direct HDL Cholesterol Free T4 TSH 3rd Generation Urine Color Urine Appearance Urine pH Ur Specific [place] Urine Protein Urine Glucose (UA) Urine Ketones Urine Blood Urine Nitrate Urine Bilirubin Urine Urobilinogen Ur Leukocyte Esterase Urine Opiates Screen Urine Methadone Screen Ur Barbiturates Screen Ur Phencyclidine Scrn Ur Amphetamines Screen U Benzodiazepines Scrn U Oth Cocaine Metabols U Cannabinoids Screen Alcohol, Quantitative RPR Vital Signs Temp Pulse Resp BP Pulse Ox 12/22/17 07:00 97.8 F 73 20 130/75 12/22/17 06:48 97.8 F 73 20 130/75 12/21/17 07:03 97.4 F L 86 20 121/75 12/20/17 15:39 98.0 F 74 16 116/70 99 12/20/17 14:38 74 18 116/70 98 12/20/17 12:00 88 18 131/67 99 12/20/17 10:28 98.1 F 93 H 18 123/80 98 Temp Pulse Resp BP Pulse Ox 97.9 F 90 20 104/69 99 12/23/17 07:13 12/23/17 07:13 12/23/17 07:13 12/23/17 07:13 12/20/17 15:39 DSM 5 Symptoms Update: Patient is single 32 year old male with psychiatric history of Mood disorder, Psychotic disorder, Opioid abuse, substance-induced mood disorder, substance induced psychotic disorder, recent admission to [place] psychiatric unit last month 12/08/17, was signed AMA, the for that 10/21-10/26/17 and ultimately discharged AMA on a 48 hour letter ([facility] did not commit him), patient brought himself to the hospital complaining for hallucinations, disorganized thoughts and behavior, possible noncompliance with the medications , follow-up appointments. Patient was so disorganized that he sneaked into the hospital, was knocking on the psych inpatient unit entrance door, staff refer him to the emergency room and patient was admitted 12/20/2017.patient requires further evaluation and stabilization, medications resumption and titration, observation. Patient was seen at the treatment team meeting room, patient presented much calmer, patient makes no sense, patient complains of shaking shakiness of his legs, Cogentin will be increased, patient was on one-to-one over the weekend for aggressive and agitated behavior, one-to-one was discontinued today. Patient is still awaiting for bed to be available at [facility]. pt's impulses are still unpredictable, patient is impulsive. so far patient tolerates medications well, no side effects observed or reported , aims 0, no EPS Impression: DSM 5 Diagnosis: schizophrenia Medication Change: Yes (Cogentin ncreased) Medical Record Reviewed: Yes Mental Status Examination - Cognitive Function Orientation: Person, Place Memory: Impaired Attention: Poor Concentration: Poor Association: Loose Fund of Knowledge: Poor - Mood Mood: Depressed, Anxious - Affect Affect: Constricted, Flat - Formal Thought Process Formal Thought Process: Hallucinations (I don't have any hallucinations), Delusions, Paranoia - Suicidal Ideation Suicidal Ideation: No - Homicidal Ideation Homicidal Ideation: No Goal/Treatment Plan - Goal/Treatment Plan Need for Continued Stay: Remain at risks for inpatient hospitalization, Severe depression anxiety, Discharge may exacerbated symptoms, Failed transitioning, Severe functional impairment Progress Toward Problem(s) and Goals/Treatment Plan: Milieu/structure/supportive therapy Medical consult appreciated, see medical team note for more detailed info SW consultation for discharge plan and social issues Med management (specify the name, doses, plan to titrate or wean it off) Divalproex 500 mg BID for mood stabilization haldol 10 mg 3 times a day for psychosis cogentin 1mg po bid and hs for possible EPS traZODone [Desyrel] 50 mg PO HS PRNfor insomnia resumed clonazePAM [Klonopin] 0.5 mg 3 times a day for anxiety Patient submitted 48 hour notice, wa screened, was accepted now pt is waiting for the bed in [facility] Family involvement Follow up on labs Will monitor closely Pt was educated about risk/benefits and alternatives of medications, coping strategies (safety plan, suicide prevention), relapse prevention, importance of follow up with psychiatrist and therapist, stay away from drugs/alcohol/smoking Estimated Date of D/C: 12/31/17
[2017-12-28] MEDS: Alum-Mag Hydrox-Simethicone Susp (30 mL) PO PRN ×2 (02:11→20:29)
[2017-12-28] MEDS: Divalproex 500 mg DR(BID formulation) PO SCH ×2 (09:18→21:11)
--- NOTE | 2017-12-28 15:54 | PCM.PYCHPN ---
Psychiatric Progress Note - Psychiatric Progress Note Patient seen today, length of contact: 30min Patient Chief Complaint: "I am fine" Problems Identified/Issues Discussed: Suicide/ homicide prevention, past psychiatric h/o, current psychiatric symptoms , medical problems, risk/benefits and alternatives of medications, medications compliance, coping strategies, substance abuse h/o, relapse prevention, importance of follow up with psychiatrist and therapist, discharge plan. 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 Diagnostic Results: 12/21/17 12/21/17 12/21/17 07:30 07:30 07:30 WBC RBC Hgb Hct MCV MCH MCHC RDW Plt Count MPV Gran % Lymph % (Auto) [place] % (Auto) Eos % (Auto) Baso % (Auto) Gran # Lymph # (Auto) [place] # (Auto) Eos # (Auto) Baso # (Auto) Sodium Potassium Chloride Carbon Dioxide Anion Gap BUN Creatinine Est GFR ( Amer) Est GFR (Non-Af Amer) Random Glucose Calcium Total Bilirubin AST ALT Alkaline Phosphatase Total Protein Albumin Globulin Albumin/Globulin Ratio Triglycerides 117 Cholesterol 147 LDL Cholesterol Direct 81 HDL Cholesterol 43 Free T4 1.00 TSH 3rd Generation 0.38 L Urine Color Urine Appearance Urine pH Ur Specific [place] Urine Protein Urine Glucose (UA) Urine Ketones Urine Blood Urine Nitrate Urine Bilirubin Urine Urobilinogen Ur Leukocyte Esterase Urine Opiates Screen Urine Methadone Screen Ur Barbiturates Screen Ur Phencyclidine Scrn Ur Amphetamines Screen U Benzodiazepines Scrn U Oth Cocaine Metabols U Cannabinoids Screen Alcohol, Quantitative RPR Nonreactive 12/20/17 12/20/17 12/20/17 13:40 13:40 11:07 WBC RBC Hgb Hct MCV MCH MCHC RDW Plt Count MPV Gran % Lymph % (Auto) [place] % (Auto) Eos % (Auto) Baso % (Auto) Gran # Lymph # (Auto) [place] # (Auto) Eos # (Auto) Baso # (Auto) Sodium Potassium Chloride Carbon Dioxide Anion Gap BUN Creatinine Est GFR ( Amer) Est GFR (Non-Af Amer) Random Glucose Calcium Total Bilirubin AST ALT Alkaline Phosphatase Total Protein Albumin Globulin Albumin/Globulin Ratio Triglycerides Cholesterol LDL Cholesterol Direct HDL Cholesterol Free T4 TSH 3rd Generation Urine Color Yellow Urine Appearance Clear Urine pH 6.5 Ur Specific [place] 1.015 Urine Protein Negative Urine Glucose (UA) Negative Urine Ketones 15 H Urine Blood Negative Urine Nitrate Negative Urine Bilirubin Negative Urine Urobilinogen 0.2 Ur Leukocyte Esterase Negative Urine Opiates Screen Negative Urine Methadone Screen Negative Ur Barbiturates Screen Negative Ur Phencyclidine Scrn Negative Ur Amphetamines Screen Negative U Benzodiazepines Scrn Negative U Oth Cocaine Metabols Negative U Cannabinoids Screen Negative Alcohol, Quantitative < 10 RPR 12/20/17 12/20/17 11:07 11:07 WBC 6.3 D RBC 4.72 Hgb 13.9 L Hct 42.5 MCV 90.0 MCH 29.4 MCHC 32.7 RDW 14.2 Plt Count 305 MPV 10.0 Gran % 72.2 H Lymph % (Auto) 19.2 L [place] % (Auto) 7.2 H Eos % (Auto) 1.1 L Baso % (Auto) 0.3 Gran # 4.54 Lymph # (Auto) 1.2 [place] # (Auto) 0.5 Eos # (Auto) 0.1 Baso # (Auto) 0.02 Sodium 144 Potassium 4.3 Chloride 104 Carbon Dioxide 29 Anion Gap 15 BUN 7 Creatinine 0.7 L Est GFR ( Amer) > 60 Est GFR (Non-Af Amer) > 60 Random Glucose 96 Calcium 9.5 Total Bilirubin 0.3 AST 17 ALT 21 Alkaline Phosphatase 56 Total Protein 7.4 Albumin 4.5 Globulin 2.9 Albumin/Globulin Ratio 1.6 Triglycerides Cholesterol LDL Cholesterol Direct HDL Cholesterol Free T4 TSH 3rd Generation Urine Color Urine Appearance Urine pH Ur Specific [place] Urine Protein Urine Glucose (UA) Urine Ketones Urine Blood Urine Nitrate Urine Bilirubin Urine Urobilinogen Ur Leukocyte Esterase Urine Opiates Screen Urine Methadone Screen Ur Barbiturates Screen Ur Phencyclidine Scrn Ur Amphetamines Screen U Benzodiazepines Scrn U Oth Cocaine Metabols U Cannabinoids Screen Alcohol, Quantitative RPR Vital Signs Temp Pulse Resp BP Pulse Ox 12/22/17 07:00 97.8 F 73 20 130/75 12/22/17 06:48 97.8 F 73 20 130/75 12/21/17 07:03 97.4 F L 86 20 121/75 12/20/17 15:39 98.0 F 74 16 116/70 99 12/20/17 14:38 74 18 116/70 98 12/20/17 12:00 88 18 131/67 99 12/20/17 10:28 98.1 F 93 H 18 123/80 98 Temp Pulse Resp BP Pulse Ox 97.9 F 90 20 104/69 99 12/23/17 07:13 12/23/17 07:13 12/23/17 07:13 12/23/17 07:13 12/20/17 15:39 DSM 5 Symptoms Update: Patient is single 32 year old male with psychiatric history of Mood disorder, Psychotic disorder, Opioid abuse, substance-induced mood disorder, substance induced psychotic disorder, recent admission to [facility] psychiatric unit last month 12/08/17, was signed AMA, the for that 10/21-10/26/17 and ultimately discharged AMA on a 48 hour letter ([facility] did not commit him), patient brought himself to the hospital complaining for hallucinations, disorganized thoughts and behavior, possible noncompliance with the medications , follow-up appointments. Patient was so disorganized that he sneaked into the hospital, was knocking on the psych inpatient unit entrance door, staff refer him to the emergency room and patient was admitted 12/20/2017.patient requires further evaluation and stabilization, medications resumption and titration, observation. Patient was seen next to the nursing station, patient presented with mild improvement with his symptoms, presented to be much calmer, patient makes no sense, shakiness of his legs improved after Cogentin increased. pt still psychotic, internally preoccupied, but no agitation or aggression. pt' s impulses are still unpredictable, patient is impulsive. so far patient tolerates medications well, no side effects observed or reported , aims 0, no EPS Impression: DSM 5 Diagnosis: schizophrenia Medication Change: Yes (Cogentin ncreased) Medical Record Reviewed: Yes Consults ordered or reviewed: medical team evaluated pt see notes for more detailed information Mental Status Examination - Cognitive Function Orientation: Person, Place Memory: Impaired Attention: Poor (some improvement) Concentration: Poor (some improvement) Association: Loose Fund of Knowledge: Poor - Mood Mood: Depressed ("I think I am fine"), Anxious - Affect Affect: Constricted, Flat - Formal Thought Process Formal Thought Process: Hallucinations (I don't have any hallucinations), Delusions, Paranoia - Suicidal Ideation Suicidal Ideation: No - Homicidal Ideation Homicidal Ideation: No Goal/Treatment Plan - Goal/Treatment Plan Need for Continued Stay: Remain at risks for inpatient hospitalization, Severe depression anxiety, Discharge may exacerbated symptoms, Failed transitioning, Severe functional impairment Progress Toward Problem(s) and Goals/Treatment Plan: Milieu/structure/supportive therapy Medical consult appreciated, see medical team note for more detailed info SW consultation for discharge plan and social issues Med management (specify the name, doses, plan to titrate or wean it off) Divalproex 500 mg BID for mood stabilization will f/u on depakote level at am 12/29/17 haldol 10 mg 3 times a day for psychosis cogentin 1mg po bid and hs for possible EPS traZODone [Desyrel] 50 mg PO HS PRNfor insomnia resumed clonazePAM [Klonopin] 0.5 mg 3 times a day for anxiety Patient submitted 48 hour notice, wa screened, was accepted now pt is waiting for the bed in [facility] Family involvement Follow up on labs Will monitor closely Pt was educated about risk/benefits and alternatives of medications, coping strategies (safety plan, suicide prevention), relapse prevention, importance of follow up with psychiatrist and therapist, stay away from drugs/alcohol/smoking Estimated Date of D/C: 12/31/17
[2017-12-29] MEDS: Divalproex 500 mg DR(BID formulation) PO SCH ×2 (10:34→21:48)
--- NOTE | 2017-12-29 10:48 | PCM.BM ---
<ChantelraymondAidan - Last Filed: 12/29/17 10:48> Treatment Plan Problems - Problems identified on initial assessmt AUDITORY HALLUCINATION Date Initiated: 12/20/17 Time Initiated: 19:00 Assessment reference: NA Status: Active Priority: 1 ALTERED THOUGHT PROCESS Date Initiated: 12/20/17 Time Initiated: 19:00 Assessment reference: NA Status: Active Priority: 2 INEFFECTIVE COPING SKILLS Date Initiated: 12/20/17 Time Initiated: 19:00 Assessment reference: NA Status: Active Priority: 3 SOCIAL IOSLATION Date Initiated: 12/20/17 Time Initiated: 19:00 Assessment reference: NA Status: Active Priority: 4 Treatment assets and liabiliti Patient Assests: cooperative, ADL independent, good support system, negotiates basic needs, cognitively intact Patient Liabilities: dietary restrictions, substance abuse - Milieu Protocol Maintain good personal hygiene: every shift Encourage regular showers, every shift Remind patient to perform daily oral care, every shift Assist patient to perform ADL's Maintain personal safety: daily Educate patient to report safety concerns to staff, daily Monitor environment for contraband/sharps Medication safety: Monitor for expected outcome, potential side effects: daily, Assess barriers to learning: daily, Assess readiness for medication education: daily Milieu Narrative: Milieu/structure/supportive therapy Medical consult appreciated, see medical team note for more detailed info SW consultation for discharge plan and social issues Med management (specify the name, doses, plan to titrate or wean it off) Divalproex 500 mg BID for mood stabilization will f/u on depakote level at am 12/29/17 haldol 10 mg 3 times a day for psychosis cogentin 1mg po bid and hs for possible EPS traZODone [Desyrel] 50 mg PO HS PRNfor insomnia resumed clonazePAM [Klonopin] 0.5 mg 3 times a day for anxiety Patient submitted 48 hour notice, wa screened, was accepted now pt is waiting for the bed in [facility] Family involvement Follow up on labs Will monitor closely Pt was educated about risk/benefits and alternatives of medications, coping strategies (safety plan, suicide prevention), relapse prevention, importance of follow up with psychiatrist and therapist, stay away from drugs/alcohol/smoking Family Contact Family involvement: Family/SO is involved - Outside Agency [facility] [place] Care involvment: Not involved Agency contact name: [facility] [place] Agency contact number: [phone]. [phone] Discharge/Continuing Care - Education Needs Education Needs: Patient Medication, Patient Diagnosis/Disease Process, Patient Coping Skills, Patient Community resources, Patient Activities of Daily Living, Patient Nutrition, Patient Health Practices/Safety, Patient Personal Hygiene/ Grooming, Patient Aftercare Safety Plan - Discharge Discharge Criteria: Tolerates medication w/o severe side effects, Free of Suicidal thoughts, Free of agitation, Normal sleep pattern, Ability to care for self, Reduction of target symptoms Discharge to:: Home - Treatment Team Participation Patient/Family/SO Statement: Milieu/structure/supportive therapy Medical consult appreciated, see medical team note for more detailed info SW consultation for discharge plan and social issues Med management (specify the name, doses, plan to titrate or wean it off) Divalproex 500 mg BID for mood stabilization will f/u on depakote level at am 12/29/17 haldol 10 mg 3 times a day for psychosis cogentin 1mg po bid and hs for possible EPS traZODone [Desyrel] 50 mg PO HS PRNfor insomnia resumed clonazePAM [Klonopin] 0.5 mg 3 times a day for anxiety Patient submitted 48 hour notice, wa screened, was accepted now pt is waiting for the bed in [facility] Family involvement Follow up on labs Will monitor closely Pt was educated about risk/benefits and alternatives of medications, coping strategies (safety plan, suicide prevention), relapse prevention, importance of follow up with psychiatrist and therapist, stay away from drugs/alcohol/smoking Treatment Plan Review - Problem AUDITORY HALLUCINATION Time Initiated: 19:00 ALTERED THOUGHT PROCESS Time Initiated: 19:00 INEFFECTIVE COPING SKILLS Time Initiated: 19:00 SOCIAL IOSLATION Time Initiated: 19:00 <Molly Dickinson - Last Filed: 12/29/17 14:44> - Diagnosis (1) Schizophrenia Status: Acute Interventions: 12/29/17 14:44 Patient is slowly improving, compliant with the medications, no side effects observed or reported, Patient is willing to stay in the hospital was to get treatment, cancel screening process by [facility] [place]. <Katarina Buck - Last Filed: 12/29/17 17:00> Family Contact Family involvement: Family/SO is involved - Outside Agency [facility] [place] Care involvment: Information-sharing
[2017-12-29] MEDS: Alum-Mag Hydrox-Simethicone Susp (30 mL) PO PRN (12:59)
--- NOTE | 2017-12-29 14:48 | PCM.PYCHPN ---
Psychiatric Progress Note - Psychiatric Progress Note Patient seen today, length of contact: 30min Patient Chief Complaint: "I will complete treatment with you guys" Problems Identified/Issues Discussed: Suicide/ homicide prevention, past psychiatric h/o, current psychiatric symptoms , medical problems, risk/benefits and alternatives of medications, medications compliance, coping strategies, substance abuse h/o, relapse prevention, importance of follow up with psychiatrist and therapist, discharge plan. 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 Diagnostic Results: 12/21/17 12/21/17 12/21/17 07:30 07:30 07:30 WBC RBC Hgb Hct MCV MCH MCHC RDW Plt Count MPV Gran % Lymph % (Auto) [place] % (Auto) Eos % (Auto) Baso % (Auto) Gran # Lymph # (Auto) [place] # (Auto) Eos # (Auto) Baso # (Auto) Sodium Potassium Chloride Carbon Dioxide Anion Gap BUN Creatinine Est GFR ( Amer) Est GFR (Non-Af Amer) Random Glucose Calcium Total Bilirubin AST ALT Alkaline Phosphatase Total Protein Albumin Globulin Albumin/Globulin Ratio Triglycerides 117 Cholesterol 147 LDL Cholesterol Direct 81 HDL Cholesterol 43 Free T4 1.00 TSH 3rd Generation 0.38 L Urine Color Urine Appearance Urine pH Ur Specific [place] Urine Protein Urine Glucose (UA) Urine Ketones Urine Blood Urine Nitrate Urine Bilirubin Urine Urobilinogen Ur Leukocyte Esterase Urine Opiates Screen Urine Methadone Screen Ur Barbiturates Screen Ur Phencyclidine Scrn Ur Amphetamines Screen U Benzodiazepines Scrn U Oth Cocaine Metabols U Cannabinoids Screen Alcohol, Quantitative RPR Nonreactive 12/20/17 12/20/17 12/20/17 13:40 13:40 11:07 WBC RBC Hgb Hct MCV MCH MCHC RDW Plt Count MPV Gran % Lymph % (Auto) [place] % (Auto) Eos % (Auto) Baso % (Auto) Gran # Lymph # (Auto) [place] # (Auto) Eos # (Auto) Baso # (Auto) Sodium Potassium Chloride Carbon Dioxide Anion Gap BUN Creatinine Est GFR ( Amer) Est GFR (Non-Af Amer) Random Glucose Calcium Total Bilirubin AST ALT Alkaline Phosphatase Total Protein Albumin Globulin Albumin/Globulin Ratio Triglycerides Cholesterol LDL Cholesterol Direct HDL Cholesterol Free T4 TSH 3rd Generation Urine Color Yellow Urine Appearance Clear Urine pH 6.5 Ur Specific [place] 1.015 Urine Protein Negative Urine Glucose (UA) Negative Urine Ketones 15 H Urine Blood Negative Urine Nitrate Negative Urine Bilirubin Negative Urine Urobilinogen 0.2 Ur Leukocyte Esterase Negative Urine Opiates Screen Negative Urine Methadone Screen Negative Ur Barbiturates Screen Negative Ur Phencyclidine Scrn Negative Ur Amphetamines Screen Negative U Benzodiazepines Scrn Negative U Oth Cocaine Metabols Negative U Cannabinoids Screen Negative Alcohol, Quantitative < 10 RPR 12/20/17 12/20/17 11:07 11:07 WBC 6.3 D RBC 4.72 Hgb 13.9 L Hct 42.5 MCV 90.0 MCH 29.4 MCHC 32.7 RDW 14.2 Plt Count 305 MPV 10.0 Gran % 72.2 H Lymph % (Auto) 19.2 L [place] % (Auto) 7.2 H Eos % (Auto) 1.1 L Baso % (Auto) 0.3 Gran # 4.54 Lymph # (Auto) 1.2 [place] # (Auto) 0.5 Eos # (Auto) 0.1 Baso # (Auto) 0.02 Sodium 144 Potassium 4.3 Chloride 104 Carbon Dioxide 29 Anion Gap 15 BUN 7 Creatinine 0.7 L Est GFR ( Amer) > 60 Est GFR (Non-Af Amer) > 60 Random Glucose 96 Calcium 9.5 Total Bilirubin 0.3 AST 17 ALT 21 Alkaline Phosphatase 56 Total Protein 7.4 Albumin 4.5 Globulin 2.9 Albumin/Globulin Ratio 1.6 Triglycerides Cholesterol LDL Cholesterol Direct HDL Cholesterol Free T4 TSH 3rd Generation Urine Color Urine Appearance Urine pH Ur Specific [place] Urine Protein Urine Glucose (UA) Urine Ketones Urine Blood Urine Nitrate Urine Bilirubin Urine Urobilinogen Ur Leukocyte Esterase Urine Opiates Screen Urine Methadone Screen Ur Barbiturates Screen Ur Phencyclidine Scrn Ur Amphetamines Screen U Benzodiazepines Scrn U Oth Cocaine Metabols U Cannabinoids Screen Alcohol, Quantitative RPR Vital Signs Temp Pulse Resp BP Pulse Ox 12/22/17 07:00 97.8 F 73 20 130/75 12/22/17 06:48 97.8 F 73 20 130/75 12/21/17 07:03 97.4 F L 86 20 121/75 12/20/17 15:39 98.0 F 74 16 116/70 99 12/20/17 14:38 74 18 116/70 98 12/20/17 12:00 88 18 131/67 99 06/11/18 10:28 98.1 F 93 H 18 123/80 98 Temp Pulse Resp BP Pulse Ox 97.9 F 90 20 104/69 99 12/23/17 07:13 12/23/17 07:13 12/23/17 07:13 12/23/17 07:13 12/20/17 15:39 DSM 5 Symptoms Update: Patient is single 32 year old male with psychiatric history of Mood disorder, Psychotic disorder, Opioid abuse, substance-induced mood disorder, substance induced psychotic disorder, recent admission to [facility] psychiatric unit last month 12/08/17, was signed AMA, the for that 10/21-10/26/17 and ultimately discharged AMA on a 48 hour letter ([facility] [place] patient brought himself to the hospital complaining for hallucinations, disorganized thoughts and behavior, possible noncompliance with the medications , follow-up appointments. Patient was so disorganized that he sneaked into the hospital, was knocking on the psych inpatient unit entrance door, staff refer him to the emergency room and patient was admitted 12/20/2017.patient requires further evaluation and stabilization, medications resumption and titration, observation. Patient was seen at the treatment team meeting, patient presented with mild improvement with his symptoms, presented to be much calmer, patient makes better sense, shakiness of his legs improved after Cogentin increased, at the same time patient appears to be more clumsy, has upper extremity rigidity, Haldol will be decreased to 20 mg daily. Patient is improving very much, does not need to have screening by , was contacted, cancel screening, patient signed consent for treatment, resend at 48 hour notice. pt still psychotic, internally preoccupied, but no agitation or aggression. pt' s impulses are still unpredictable, patient is impulsive. so far patient tolerates medications well, no side effects observed or reported , aims 0, no EPS Impression: DSM 5 Diagnosis: schizophrenia Medication Change: Yes (Haldol decreased) Medical Record Reviewed: Yes Mental Status Examination - Cognitive Function Orientation: Person, Place Memory: Impaired Attention: Poor (some improvement) Concentration: Poor (some improvement) Association: Loose Fund of Knowledge: Poor - Mood Mood: Depressed ("I think I am fine"), Anxious - Affect Affect: Constricted, Flat - Formal Thought Process Formal Thought Process: Hallucinations (I don't have any hallucinations), Delusions, Paranoia - Suicidal Ideation Suicidal Ideation: No - Homicidal Ideation Homicidal Ideation: No Goal/Treatment Plan - Goal/Treatment Plan Need for Continued Stay: Remain at risks for inpatient hospitalization, Severe depression anxiety, Discharge may exacerbated symptoms, Failed transitioning, Severe functional impairment Progress Toward Problem(s) and Goals/Treatment Plan: Milieu/structure/supportive therapy Medical consult appreciated, see medical team note for more detailed info SW consultation for discharge plan and social issues Med management (specify the name, doses, plan to titrate or wean it off) Divalproex 500 mg BID for mood stabilization will f/u on depakote level at am 12/29/17 haldol 10 mg times a day for psychosis cogentin 1mg po bid and hs for possible EPS traZODone [Desyrel] 50 mg PO HS PRNfor insomnia resumed clonazePAM [Klonopin] 0.5 mg 3 times a day for anxiety Patient submitted 48 hour notice, wa screened, was accepted now pt is waiting for the bed [place] [facility] [place] Family involvement Follow up on labs Will monitor closely Pt was educated about risk/benefits and alternatives of medications, coping strategies (safety plan, suicide prevention), relapse prevention, importance of follow up with psychiatrist and therapist, stay away from drugs/alcohol/smoking Estimated Date of D/C: 12/31/17
[2017-12-30] MEDS: Divalproex 500 mg DR(BID formulation) PO SCH ×2 (10:11→21:07)
--- NOTE | 2017-12-30 15:19 | PCM.PYCHPN ---
Psychiatric Progress Note - Psychiatric Progress Note Patient seen today, length of contact: 30min Patient Chief Complaint: "when I will be discharged?" Problems Identified/Issues Discussed: Suicide/ homicide prevention, past psychiatric h/o, current psychiatric symptoms , medical problems, risk/benefits and alternatives of medications, medications compliance, coping strategies, substance abuse h/o, relapse prevention, importance of follow up with psychiatrist and therapist, discharge plan. 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 Diagnostic Results: 12/21/17 12/21/17 12/21/17 07:30 07:30 07:30 WBC RBC Hgb Hct MCV MCH MCHC RDW Plt Count MPV Gran % Lymph % (Auto) [place] % (Auto) Eos % (Auto) Baso % (Auto) Gran # Lymph # (Auto) [place] # (Auto) Eos # (Auto) Baso # (Auto) Sodium Potassium Chloride Carbon Dioxide Anion Gap BUN Creatinine Est GFR ( Amer) Est GFR (Non-Af Amer) Random Glucose Calcium Total Bilirubin AST ALT Alkaline Phosphatase Total Protein Albumin Globulin Albumin/Globulin Ratio Triglycerides 117 Cholesterol 147 LDL Cholesterol Direct 81 HDL Cholesterol 43 Free T4 1.00 TSH 3rd Generation 0.38 L Urine Color Urine Appearance Urine pH Ur Specific [place] Urine Protein Urine Glucose (UA) Urine Ketones Urine Blood Urine Nitrate Urine Bilirubin Urine Urobilinogen Ur Leukocyte Esterase Urine Opiates Screen Urine Methadone Screen Ur Barbiturates Screen Ur Phencyclidine Scrn Ur Amphetamines Screen U Benzodiazepines Scrn U Oth Cocaine Metabols U Cannabinoids Screen Alcohol, Quantitative RPR Nonreactive 12/20/17 12/20/17 12/20/17 13:40 13:40 11:07 WBC RBC Hgb Hct MCV MCH MCHC RDW Plt Count MPV Gran % Lymph % (Auto) [place] % (Auto) Eos % (Auto) Baso % (Auto) Gran # Lymph # (Auto) [place] # (Auto) Eos # (Auto) Baso # (Auto) Sodium Potassium Chloride Carbon Dioxide Anion Gap BUN Creatinine Est GFR ( Amer) Est GFR (Non-Af Amer) Random Glucose Calcium Total Bilirubin AST ALT Alkaline Phosphatase Total Protein Albumin Globulin Albumin/Globulin Ratio Triglycerides Cholesterol LDL Cholesterol Direct HDL Cholesterol Free T4 TSH 3rd Generation Urine Color Yellow Urine Appearance Clear Urine pH 6.5 Ur Specific [place] 1.015 Urine Protein Negative Urine Glucose (UA) Negative Urine Ketones 15 H Urine Blood Negative Urine Nitrate Negative Urine Bilirubin Negative Urine Urobilinogen 0.2 Ur Leukocyte Esterase Negative Urine Opiates Screen Negative Urine Methadone Screen Negative Ur Barbiturates Screen Negative Ur Phencyclidine Scrn Negative Ur Amphetamines Screen Negative U Benzodiazepines Scrn Negative U Oth Cocaine Metabols Negative U Cannabinoids Screen Negative Alcohol, Quantitative < 10 RPR 12/20/17 12/20/17 11:07 11:07 WBC 6.3 D RBC 4.72 Hgb 13.9 L Hct 42.5 MCV 90.0 MCH 29.4 MCHC 32.7 RDW 14.2 Plt Count 305 MPV 10.0 Gran % 72.2 H Lymph % (Auto) 19.2 L [place] % (Auto) 7.2 H Eos % (Auto) 1.1 L Baso % (Auto) 0.3 Gran # 4.54 Lymph # (Auto) 1.2 [place] # (Auto) 0.5 Eos # (Auto) 0.1 Baso # (Auto) 0.02 Sodium 144 Potassium 4.3 Chloride 104 Carbon Dioxide 29 Anion Gap 15 BUN 7 Creatinine 0.7 L Est GFR ( Amer) > 60 Est GFR (Non-Af Amer) > 60 Random Glucose 96 Calcium 9.5 Total Bilirubin 0.3 AST 17 ALT 21 Alkaline Phosphatase 56 Total Protein 7.4 Albumin 4.5 Globulin 2.9 Albumin/Globulin Ratio 1.6 Triglycerides Cholesterol LDL Cholesterol Direct HDL Cholesterol Free T4 TSH 3rd Generation Urine Color Urine Appearance Urine pH Ur Specific [place] Urine Protein Urine Glucose (UA) Urine Ketones Urine Blood Urine Nitrate Urine Bilirubin Urine Urobilinogen Ur Leukocyte Esterase Urine Opiates Screen Urine Methadone Screen Ur Barbiturates Screen Ur Phencyclidine Scrn Ur Amphetamines Screen U Benzodiazepines Scrn U Oth Cocaine Metabols U Cannabinoids Screen Alcohol, Quantitative RPR Vital Signs Temp Pulse Resp BP Pulse Ox 12/22/17 07:00 97.8 F 73 20 130/75 12/22/17 06:48 97.8 F 73 20 130/75 12/21/17 07:03 97.4 F L 86 20 121/75 12/20/17 15:39 98.0 F 74 16 116/70 99 12/20/17 14:38 74 18 116/70 98 12/20/17 12:00 88 18 131/67 99 12/20/17 10:28 98.1 F 93 H 18 123/80 98 Temp Pulse Resp BP Pulse Ox 97.9 F 90 20 104/69 99 12/23/17 07:13 12/23/17 07:13 12/23/17 07:13 12/23/17 07:13 12/20/17 15:39 DSM 5 Symptoms Update: Patient is single 32 year old male with psychiatric history of Mood disorder, Psychotic disorder, Opioid abuse, substance-induced mood disorder, substance induced psychotic disorder, recent admission to [facility] last month 12/08/17, was signed AMA, the for that 10/21-10/26/17 and ultimately discharged AMA on a 48 hour letter ([facility] [place] patient brought himself to the hospital complaining for hallucinations, disorganized thoughts and behavior, possible noncompliance with the medications , follow-up appointments. Patient was so disorganized that he sneaked into the hospital, was knocking on the psych inpatient unit entrance door, staff refer him to the emergency room and patient was admitted 12/20/2017.patient requires further evaluation and stabilization, medications resumption and titration, observation. Patient was seen next at nursing station, patient presented with poor personal hygiene, a lot of stains on his daughter, patient has greasy, long, uncombed hair, covering all of his face, patient still fixated on discharge, at the same time patient does not have any aggression or agitation, this procedure writer canceled screening. does not need to have screening by [facility], [facility] was contacted, cancel screening, patient signed consent for treatment, resend at 48 hour notice 12/29/17. pt still psychotic, internally preoccupied, but no agitation or aggression. pt' s impulses are still unpredictable, patient is much calmer. Impulses are better controlled so far patient tolerates medications well, no side effects observed or reported , aims 0, no EPS Impression: DSM 5 Diagnosis: schizophrenia Medication Change: Yes (Haldol decreased) Medical Record Reviewed: Yes Mental Status Examination - Cognitive Function Orientation: Person, Place Memory: Impaired Attention: Poor (some improvement) Concentration: Poor (some improvement) Association: Loose Fund of Knowledge: Poor - Mood Mood: Depressed ("I think I am fine"), Anxious - Affect Affect: Constricted, Flat - Formal Thought Process Formal Thought Process: Hallucinations (I don't have any hallucinations), Delusions, Paranoia - Suicidal Ideation Suicidal Ideation: No - Homicidal Ideation Homicidal Ideation: No Goal/Treatment Plan - Goal/Treatment Plan Need for Continued Stay: Remain at risks for inpatient hospitalization, Severe depression anxiety, Discharge may exacerbated symptoms, Failed transitioning, Severe functional impairment Progress Toward Problem(s) and Goals/Treatment Plan: Milieu/structure/supportive therapy Medical consult appreciated, see medical team note for more detailed info SW consultation for discharge plan and social issues Med management (specify the name, doses, plan to titrate or wean it off) Divalproex 500 mg BID for mood stabilization will f/u on depakote level at am 12/29/17 was75 haldol 10 mg times a day for psychosis cogentin 1mg po bid and hs for possible EPS traZODone [Desyrel] 50 mg PO HS PRNfor insomnia resumed clonazePAM [Klonopin] 0.5 mg 3 times a day for anxiety Patient submitted 48 hour notice, wa screened, was accepted now pt is waiting for the bed in [facility] Family involvement Follow up on labs Will monitor closely Pt was educated about risk/benefits and alternatives of medications, coping strategies (safety plan, suicide prevention), relapse prevention, importance of follow up with psychiatrist and therapist, stay away from drugs/alcohol/smoking Estimated Date of D/C: 12/31/17
[2017-12-31] MEDS: Alum-Mag Hydrox-Simethicone Susp (30 mL) PO PRN ×3 (00:24→22:05)
[2017-12-31 07:30] VITALS: PULSE 81
[2017-12-31] MEDS: Divalproex 500 mg DR(BID formulation) PO SCH ×2 (09:14→21:17)
--- NOTE | 2017-12-31 13:04 | CP.PCM.CON ---
History of Present Illness - History of Present Illness History of Present Illness: 32 yr old male with schizophrenia who presents with new right sided weakness that was noted to be new. On my exam, does not seem to have any weakness but rather a normal neuro exam. I am not able to elicit any focal signs, although he does have right sided facial weakness and facial malformations from Goldenhar syndrome. He also has pmh of sleep apnea, epilepsy , bipolar disease and is admitted to the hospital for auditory hallucinations since June 2017. Denies seizure like activity, cp, sob, headache, neck pain, abdominal pain, diarrhea, urinary symptoms, leg swelling, dizziness, trauma. In ED, pt afebrile, hemodynamically stable. CXR shows no active disease. Labs reviewed and wnl. 12 point ROS obtained and negative, except as per HPI. PMH: Goldenhar, Sleep apnea, seizure disorder and Bipolar PSH: denies Allergies: NKDA Family History: Non-contributory Social History: +Alcohol, +Tobacco, Morphine and Percocet that is not Rx'd Home meds: trazadone 50 mg PO hs, klonopin 1 tab, seroquel 200 mg PO AM HS, haldol, depakote 250 mg BID PMD: Dr. Chapa On exam: normal neurological examination. no focal deficits. PERRL. EOMI. Gait normal. +2 dtr ul and ll. Toes downgoing. No clonus. Past Patient History - Infectious Disease Hx of Infectious Diseases: None - Past Social History Smoking Status: Heavy Smoker > 10 Cigarettes Daily - CARDIAC Hx Cardiac Disorders: No Hx Hypertension: No - PULMONARY Hx Respiratory Disorders: No Hx Tuberculosis: No - NEUROLOGICAL Hx Neurological Disorder: No HX Cerebrovascular Accident: No Hx Seizures: No - HEENT Hx HEENT Problems: No Other/Comment: deviated septum - RENAL Hx Chronic Kidney Disease: No - ENDOCRINE/METABOLIC Hx Endocrine Disorders: No - HEMATOLOGICAL/ONCOLOGICAL Hx Blood Disorders: No Hx Cancer: No - INTEGUMENTARY Hx Dermatological Problems: No - MUSCULOSKELETAL/RHEUMATOLOGICAL Hx Musculoskeletal Disorders: Yes Other/Comment: Hemifacial Microsomia - GASTROINTESTINAL Hx Gastrointestinal Disorders: No - GENITOURINARY/GYNECOLOGICAL Hx Genitourinary Disorders: No Hx Sexually Transmitted Disorders: No - PSYCHIATRIC Hx Substance Use: Yes - SURGICAL HISTORY Other/Comment: Hemifacial Microsomia multiple skull sugery - ANESTHESIA Hx Anesthesia: Yes Hx Anesthesia Reactions: No Hx Malignant Hyperthermia: No Meds Allergies/Adverse Reactions: Allergies Allergy/AdvReac Type Severity Reaction Status Date / Time No Known Allergies Allergy Verified 12/20/17 19:38 - Medications Medications: Current Medications Al Hydrox/Mg Hydrox/Simethicone (Maalox Plus 30 Ml) 30 ml PO DAILY PRN PRN Reason: Indigestion / Heartburn Last Admin: 12/31/17 00:24 Dose: 30 ml Benztropine Mesylate (Cogentin) 1 mg PO BID [facility] Last Admin: 12/31/17 09:13 Dose: 1 mg Benztropine Mesylate (Cogentin) 1 mg PO HS [facility] Last Admin: 12/30/17 21:07 Dose: 1 mg Clonazepam (Klonopin) 0.5 mg PO TID [facility] PRN Reason: Protocol Last Admin: 12/31/17 09:14 Dose: 0.5 mg Diphenhydramine HCl (Benadryl) 50 mg IM Q6H PRN PRN Reason: Agitation Divalproex Sodium (Depakote Dr(*Bid*)) 500 mg PO [facility] Last Admin: 12/31/17 09:14 Dose: 500 mg Haloperidol (Haldol) 10 mg PO [facility] PRN Reason: Protocol Last Admin: 12/31/17 09:14 Dose: 10 mg Haloperidol Lactate (Haldol) 5 mg IM Q6H PRN; Protocol PRN Reason: Agitation Lorazepam (Ativan) 2 mg PO Q6H PRN; Protocol PRN Reason: anxiety/agitation Last Admin: 12/27/17 22:07 Dose: 2 mg Lorazepam (Ativan) 2 mg IM Q6 PRN; Protocol PRN Reason: Agitation Nicotine (Nicoderm Cq) 1 patch TD DAILY [facility] Last Admin: 12/31/17 09:14 Dose: 1 patch Trazodone HCl (Desyrel) 50 mg PO HS PRN PRN Reason: Insomnia Last Admin: 12/30/17 21:06 Dose: 50 mg Ziprasidone (Geodon Inj) 20 mg IM Q6H PRN; Protocol PRN Reason: severe agitaiton/psychosis Last Admin: 12/21/17 12:01 Dose: 20 mg Ziprasidone (Geodon Cap) 20 mg PO Q6H PRN; Protocol PRN Reason: psychosis/agitation Last Admin: 12/28/17 23:51 Dose: 20 mg Results - Vital Signs Recent Vital Signs: Last Vital Signs Temp 96.2 F L 12/31/17 07:29 Pulse 81 12/31/17 07:29 Resp 18 12/31/17 07:29 BP 110/59 L 12/31/17 07:29 Pulse Ox 99 12/20/17 15:39 - Labs Result Diagrams: 12/20/17 11:07 12/20/17 11:07 Assessment & Plan - Assessment and Plan (Free Text) Assessment: 32 yr old male with schizophrenia, who has a normal neurological exam. I still think that he would benefit from a CT scan head. Our team will follow. Dr. Escobar
--- NOTE | 2017-12-31 13:12 | CT ---
PROCEDURE: CT HEAD WITHOUT CONTRAST. HISTORY: Rule out Stroke COMPARISON: 11/15/2017 TECHNIQUE: Axial computed tomography images were obtained through the head/brain without intravenous contrast. Radiation dose: Total exam DLP = 918 mGy-cm. This CT exam was performed using one or more of the following dose reduction techniques: Automated exposure control, adjustment of the mA and/or kV according to patient size, and/or use of iterative reconstruction technique. FINDINGS: HEMORRHAGE: No intracranial hemorrhage. BRAIN: No mass effect or edema. No atrophy or chronic microvascular ischemic changes. VENTRICLES: Unremarkable. No hydrocephalus. CALVARIUM: Previous craniotomy PARANASAL SINUSES: Unremarkable as visualized. No significant inflammatory changes. MASTOID AIR CELLS: Unremarkable as visualized. No inflammatory changes. OTHER FINDINGS: None. IMPRESSION: No acute intracranial findings
--- NOTE | 2017-12-31 15:36 | PCM.PYCHPN ---
Psychiatric Progress Note - Psychiatric Progress Note Patient seen today, length of contact: 30min Patient Chief Complaint: "I am fine, everything is okay" Problems Identified/Issues Discussed: Suicide/ homicide prevention, past psychiatric h/o, current psychiatric symptoms , medical problems, risk/benefits and alternatives of medications, medications compliance, coping strategies, substance abuse h/o, relapse prevention, importance of follow up with psychiatrist and therapist, discharge plan. 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 Diagnostic Results: 12/21/17 12/21/17 12/21/17 07:30 07:30 07:30 WBC RBC Hgb Hct MCV MCH MCHC RDW Plt Count MPV Gran % Lymph % (Auto) [place] % (Auto) Eos % (Auto) Baso % (Auto) Gran # Lymph # (Auto) [place] # (Auto) Eos # (Auto) Baso # (Auto) Sodium Potassium Chloride Carbon Dioxide Anion Gap BUN Creatinine Est GFR ( Amer) Est GFR (Non-Af Amer) Random Glucose Calcium Total Bilirubin AST ALT Alkaline Phosphatase Total Protein Albumin Globulin Albumin/Globulin Ratio Triglycerides 117 Cholesterol 147 LDL Cholesterol Direct 81 HDL Cholesterol 43 Free T4 1.00 TSH 3rd Generation 0.38 L Urine Color Urine Appearance Urine pH Ur Specific [place] Urine Protein Urine Glucose (UA) Urine Ketones Urine Blood Urine Nitrate Urine Bilirubin Urine Urobilinogen Ur Leukocyte Esterase Urine Opiates Screen Urine Methadone Screen Ur Barbiturates Screen Ur Phencyclidine Scrn Ur Amphetamines Screen U Benzodiazepines Scrn U Oth Cocaine Metabols U Cannabinoids Screen Alcohol, Quantitative RPR Nonreactive 12/20/17 12/20/17 12/20/17 13:40 13:40 11:07 WBC RBC Hgb Hct MCV MCH MCHC RDW Plt Count MPV Gran % Lymph % (Auto) [place] % (Auto) Eos % (Auto) Baso % (Auto) Gran # Lymph # (Auto) [place] # (Auto) Eos # (Auto) Baso # (Auto) Sodium Potassium Chloride Carbon Dioxide Anion Gap BUN Creatinine Est GFR ( Amer) Est GFR (Non-Af Amer) Random Glucose Calcium Total Bilirubin AST ALT Alkaline Phosphatase Total Protein Albumin Globulin Albumin/Globulin Ratio Triglycerides Cholesterol LDL Cholesterol Direct HDL Cholesterol Free T4 TSH 3rd Generation Urine Color Yellow Urine Appearance Clear Urine pH 6.5 Ur Specific [place] 1.015 Urine Protein Negative Urine Glucose (UA) Negative Urine Ketones 15 H Urine Blood Negative Urine Nitrate Negative Urine Bilirubin Negative Urine Urobilinogen 0.2 Ur Leukocyte Esterase Negative Urine Opiates Screen Negative Urine Methadone Screen Negative Ur Barbiturates Screen Negative Ur Phencyclidine Scrn Negative Ur Amphetamines Screen Negative U Benzodiazepines Scrn Negative U Oth Cocaine Metabols Negative U Cannabinoids Screen Negative Alcohol, Quantitative < 10 RPR 12/20/17 12/20/17 11:07 11:07 WBC 6.3 D RBC 4.72 Hgb 13.9 L Hct 42.5 MCV 90.0 MCH 29.4 MCHC 32.7 RDW 14.2 Plt Count 305 MPV 10.0 Gran % 72.2 H Lymph % (Auto) 19.2 L [place] % (Auto) 7.2 H Eos % (Auto) 1.1 L Baso % (Auto) 0.3 Gran # 4.54 Lymph # (Auto) 1.2 [place] # (Auto) 0.5 Eos # (Auto) 0.1 Baso # (Auto) 0.02 Sodium 144 Potassium 4.3 Chloride 104 Carbon Dioxide 29 Anion Gap 15 BUN 7 Creatinine 0.7 L Est GFR ( Amer) > 60 Est GFR (Non-Af Amer) > 60 Random Glucose 96 Calcium 9.5 Total Bilirubin 0.3 AST 17 ALT 21 Alkaline Phosphatase 56 Total Protein 7.4 Albumin 4.5 Globulin 2.9 Albumin/Globulin Ratio 1.6 Triglycerides Cholesterol LDL Cholesterol Direct HDL Cholesterol Free T4 TSH 3rd Generation Urine Color Urine Appearance Urine pH Ur Specific [place] Urine Protein Urine Glucose (UA) Urine Ketones Urine Blood Urine Nitrate Urine Bilirubin Urine Urobilinogen Ur Leukocyte Esterase Urine Opiates Screen Urine Methadone Screen Ur Barbiturates Screen Ur Phencyclidine Scrn Ur Amphetamines Screen U Benzodiazepines Scrn U Oth Cocaine Metabols U Cannabinoids Screen Alcohol, Quantitative RPR Vital Signs Temp Pulse Resp BP Pulse Ox 12/22/17 07:00 97.8 F 73 20 130/75 12/22/17 06:48 97.8 F 73 20 130/75 12/21/17 07:03 97.4 F L 86 20 121/75 12/20/17 15:39 98.0 F 74 16 116/70 99 12/20/17 14:38 74 18 116/70 98 12/20/17 12:00 88 18 131/67 99 12/20/17 10:28 98.1 F 93 H 18 123/80 98 Temp Pulse Resp BP Pulse Ox 97.9 F 90 20 104/69 99 12/23/17 07:13 12/23/17 07:13 12/23/17 07:13 12/23/17 07:13 12/20/17 15:39 CT of the head 12/31/17 WNL DSM 5 Symptoms Update: Patient is single 32 year old male with psychiatric history of Mood disorder, Psychotic disorder, Opioid abuse, substance-induced mood disorder, substance induced psychotic disorder, recent admission to [place] psychiatric unit last month 12/08/17, was signed AMA, the for that 10/21-10/26/17 and ultimately discharged AMA on a 48 hour letter ([facility] [place] not [place]), patient brought himself to the hospital complaining for hallucinations, disorganized thoughts and behavior, possible noncompliance with the medications , follow-up appointments. Patient was so disorganized that he sneaked into the hospital, was knocking on the psych inpatient unit entrance door, staff refer him to the emergency room and patient was admitted 12/20/2017.patient requires further evaluation and stabilization, medications resumption and titration, observation. Patient was seen next at nursing station, patient presented with poor personal hygiene, a lot of stains on his shirt patient has greasy, long, uncombed hair, covering all of his face, patient still fixated on discharge, at the same time patient does not have any aggression or agitation, this brief writer canceled screening. pt was seen by for UE weakness and clumsiness, CT of the head WNL. this brief writer called pt's mother but she is not available, at this time it is not safe d/c. pt is Less psychotic, in better impulse control. so far patient tolerates medications well, no side effects observed or reported , aims 0, no EPS Impression: DSM 5 Diagnosis: schizophrenia Medication Change: Yes (Cogentin decreased) Medical Record Reviewed: Yes Consults ordered or reviewed: medical team evaluated pt see notes for more detailed information patient was seen today by neurologist consult appreciated, see notes Mental Status Examination - Cognitive Function Orientation: Person, Place Memory: Impaired Attention: Poor (some improvement) Concentration: Poor (some improvement) Association: Loose Fund of Knowledge: Poor - Mood Mood: Depressed ("I think I am fine"), Anxious - Affect Affect: Constricted - Formal Thought Process Formal Thought Process: Hallucinations (I don't have any hallucinations) - Suicidal Ideation Suicidal Ideation: No - Homicidal Ideation Homicidal Ideation: No Goal/Treatment Plan - Goal/Treatment Plan Need for Continued Stay: Remain at risks for inpatient hospitalization, Severe depression anxiety, Discharge may exacerbated symptoms, Failed transitioning, Severe functional impairment Progress Toward Problem(s) and Goals/Treatment Plan: Milieu/structure/supportive therapy Medical consult appreciated, see medical team note for more detailed info SW consultation for discharge plan and social issues Med management (specify the name, doses, plan to titrate or wean it off) Divalproex 500 mg BID for mood stabilization depakote level at am 12/29/17 was75 haldol 10 mg amha for psychosis cogentin 1mg amhs for possible EPS traZODone [Desyrel] 50 mg PO HS PRNfor insomnia resumed clonazePAM [Klonopin] 0.5 mg 3 times a day for anxiety screening was counseled Patient rescinded at 48 hour notice, willing to continue therapy Family involvement Follow up on labs Will monitor closely Pt was educated about risk/benefits and alternatives of medications, coping strategies (safety plan, suicide prevention), relapse prevention, importance of follow up with psychiatrist and therapist, stay away from drugs/alcohol/smoking Estimated Date of D/C: 01/03/18
[2018-01-01 07:30] VITALS: BP 101/66; RESP 20; TEMP 98.3
[2018-01-01] MEDS: Divalproex 500 mg DR(BID formulation) PO SCH (09:05)
--- NOTE | 2018-01-01 10:41 | PCM.PYCHPN ---
Psychiatric Progress Note - Psychiatric Progress Note Patient seen today, length of contact: 30 min Problems Identified/Issues Discussed: Patient is single 32 year old male with psychiatric history of Mood disorder, Psychotic disorder, Opioid abuse, substance-induced mood disorder, substance induced psychotic disorder, recent admission to [place] psychiatric unit last month 12/08/17, was signed AMA, the for that 10/21-10/26/17 and ultimately discharged AMA on a 48 hour letter ([facility] [place] patient brought himself to the hospital complaining for hallucinations, disorganized thoughts and behavior, possible noncompliance with the medications , follow-up appointments. Patient was so disorganized that he sneaked into the hospital, was knocking on the psych inpatient unit entrance door, staff refer him to the emergency room and patient was admitted 12/20/2017.patient requires further evaluation and stabilization, medications resumption and titration, observation. Patient was seen at bedside. He is presenting better than last week. Oriented x3 , brighter, more spontaneous and communicative. Subjectively he reports feeling better. Indicates he feels hopeful and denies any SI/HI or AVH. Responses are coherent and relevant to questioning though affect, overall, is flat. Patient indicates he feels tired and "a little nervous" about going home but feeling more prepared than last week. Denies any new side effects, discomfort or pain. Staff notes indicate that patient is calmer with improved impulse control. There were no behavioral issues overnight. Diagnostic Results: Schizophrenia Medication Change: Yes (Cogentin decreased) Medical Record Reviewed: Yes Mental Status Examination - Cognitive Function Orientation: Person, Place Memory: Impaired Attention: Poor (some improvement) Concentration: Poor (some improvement) Association: Loose Fund of Knowledge: Poor - Mood Mood: Depressed ("I think I am fine"), Anxious - Affect Affect: Constricted - Formal Thought Process Formal Thought Process: Hallucinations (I don't have any hallucinations) - Suicidal Ideation Suicidal Ideation: No - Homicidal Ideation Homicidal Ideation: No Goal/Treatment Plan - Goal/Treatment Plan Need for Continued Stay: Remain at risks for inpatient hospitalization, Severe depression anxiety, Discharge may exacerbated symptoms, Failed transitioning, Severe functional impairment Progress Toward Problem(s) and Goals/Treatment Plan: * c/w current tx and plan * Divalproex 500 mg BID for mood stabilization depakote level at am 12/29/17 was75 * haldol 10 mg amhs for psychosis, cogentin 1mg amhs for possible EPS * trazodone 50 mg PO HS PRN for insomnia * Klonopin 0.5 mg 3 times a day for anxiety * Vitals reviewed and noted below: 12/31/17 12/31/17 07:29 16:47 Temperature 96.2 F L Pulse Rate 81 Respiratory 18 18 Rate Blood Pressure 110/59 L 93/54 L * No new weekend labs thus far Estimated Date of D/C: 01/03/18
--- NOTE | 2018-01-04 09:36 | PCM.PYCHDC ---
Mental Status Examination - Mental Status Examination Orientation: Person, Place, Situation, Time Memory: Intact Mood: Neutral Affect: Constricted (but reactive, mood congruent) Speech: Soft (uderproductive) Attention: WNL (with much improvement) Concentration: WNL (with much improvement) Formal Thought Process: No Impairment Description of patient's judgement and insight: Pt has improved insight into mental and medical illness, pt was compliant with medications and unit rules and regulations, pt was going to groups, was calm, cooperative, socially appropriate, no behavioral incidents, no agitation, no aggression. Psychotic Thoughts and Behaviors: Pt denied v/a/t hallucinations, denied paranoid ideations, pt does not appear to be psychotic, and thought process is goal directed. Suicidal Ideation: No Current Homicidal Ideation?: No Plan: pt adamantly denied thoughts of harming self or others denied intent or plan. Discharge Summary - Discharge Note Reason for Hospitalization: patient was admitted to the psychiatric inpatient unit for evaluation of psychotic symptoms, disorganized thoughts and behavior, paranoia. Psychiatric History (includes Medical, Family, Personal Hx): see HPI Laboratory Data: 12/20/17 11:07 12/20/17 11:07 Lab Results 12/29/17 07:30: Valproic Acid 75 12/21/17 07:30: Triglycerides 117, Cholesterol 147, LDL Cholesterol Direct 81, HDL Cholesterol 43 12/21/17 07:30: Free T4 1.00, TSH 3rd Generation 0.38 L 12/21/17 07:30: RPR Nonreactive 12/20/17 13:40: Urine Opiates Screen Negative, Urine Methadone Screen Negative, Ur Barbiturates Screen Negative, Ur Phencyclidine Scrn Negative, Ur Amphetamines Screen Negative, U Benzodiazepines Scrn Negative, U Oth Cocaine Metabols Negative, U Cannabinoids Screen Negative 12/20/17 13:40: Urine Color Yellow, Urine Appearance Clear, Urine pH 6.5, Ur Specific Pioneer 1.015, Urine Protein Negative, Urine Glucose (UA) Negative, Urine Ketones 15 H, Urine Blood Negative, Urine Nitrate Negative, Urine Bilirubin Negative, Urine Urobilinogen 0.2, Ur Leukocyte Esterase Negative 12/20/17 11:07: Alcohol, Quantitative < 10 12/20/17 11:07: Sodium 144, Potassium 4.3, Chloride 104, Carbon Dioxide 29, Anion Gap 15, BUN 7, Creatinine 0.7 L, Est GFR ( Amer) > 60, Est GFR (Non -Af Amer) > 60, Random Glucose 96, Calcium 9.5, Total Bilirubin 0.3, AST 17, ALT 21, Alkaline Phosphatase 56, Total Protein 7.4, Albumin 4.5, Globulin 2.9, Albumin/Globulin Ratio 1.6 12/20/17 11:07: WBC 6.3 D, RBC 4.72, Hgb 13.9 L, Hct 42.5, MCV 90.0, MCH 29.4, MCHC 32.7, RDW 14.2, Plt Count 305, MPV 10.0, Gran % 72.2 H, Lymph % (Auto) 19.2 L, Dodge % (Auto) 7.2 H, Eos % (Auto) 1.1 L, Baso % (Auto) 0.3, Gran # 4.54 , Lymph # (Auto) 1.2, Dodge # (Auto) 0.5, Eos # (Auto) 0.1, Baso # (Auto) 0.02 Vital Signs Temp Pulse Resp BP Pulse Ox 01/01/18 07:29 98.3 F 81 20 101/66 12/31/17 16:47 18 93/54 L 12/31/17 07:29 96.2 F L 81 18 110/59 L 12/30/17 16:00 82 87/52 L 12/30/17 07:23 97.4 F L 89 21 119/76 12/29/17 16:00 75 110/73 12/29/17 07:22 98.8 F 90 20 117/67 12/28/17 15:00 82 106/70 12/28/17 07:13 98.7 F 83 20 117/72 12/27/17 16:00 82 106/70 12/27/17 07:27 98.1 F 97 H 20 109/73 12/26/17 16:05 83 129/70 12/26/17 07:27 97.9 F 75 20 101/57 L 12/25/17 21:55 97.7 F 100 H 18 122/74 12/25/17 06:52 97.7 F 100 H 18 122/74 12/24/17 16:00 96 H 127/75 12/24/17 07:16 98.1 F 89 18 100/45 L 12/23/17 16:00 89 117/80 12/23/17 07:13 97.9 F 90 20 104/69 12/22/17 16:00 102 H 112/66 12/22/17 07:00 97.8 F 73 20 130/75 12/22/17 06:48 97.8 F 73 20 130/75 12/21/17 07:03 97.4 F L 86 20 121/75 12/20/17 15:39 98.0 F 74 16 116/70 99 12/20/17 14:38 74 18 116/70 98 12/20/17 12:00 88 18 131/67 99 12/20/17 10:28 98.1 F 93 H 18 123/[address] of the head 12/31/17 no acute intracranial abnormalities Consultations:: List each consultation separately and include: 1. Reason for request. 2. Findings. 3. Follow-up Consultations: medical team evaluated pt see notes for more detailed information patient was seen today by neurologist consult appreciated, see notes Summary of Hospital Course include:: 1. Description of specific treatment plan utilized for patients during their course of treatmen. 2. Summarize the time- course for resolution of acute symptoms and/or regressed behaviors. 3. Describe issues identified and worked on during hospitalization. 4. Describe medication utilized. 5. Describe medical problems identified and treated. 6. Reassessment of suicide risk Summary of Hospital Course: Patient is single 32 year old male with psychiatric history of Mood disorder, Psychotic disorder, Opioid abuse, substance-induced mood disorder, substance induced psychotic disorder, recent admission to [place] psychiatric unit last month 12/08/17, was signed AMA, the for that 10/21-10/26/17 and ultimately discharged AMA on a 48 hour letter [place] [place] patient brought himself to the hospital complaining for hallucinations, disorganized thoughts and behavior, possible noncompliance with the medications , follow-up appointments. Patient was so disorganized that he sneaked into the hospital, was knocking on the psych inpatient unit in to work, staff refer him to the emergency room and patient was admitted yesterday 12/20/2017.patient requires further evaluation and stabilization, medications resumption and titration, observation. at the time of admission patient was started on one-to-one because patient was agitated, submit 48 hour notice, requesting to be discharged as soon as possible , was paranoid saying that he is hearing voices telling him that he is a rapist , patient was spacing on the staff, patient was placed into the seclusion room, and one-to-one observation was started. This real estate underwriter is very familiar with this patient rom multiple psychiatric admissions where patient was sign AGAINST MEDICAL ADVICE as well as on the medical side for agitation and aggression and paranoia. in the emergency room patient verbalized that he is hearing command type hallucinations telling him to kill self. 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 PSYCHIATRIC HISTORY recent admission November 2017, was d/c AMA, after the family meeting with mother. [place] [facility] [place]. Symptoms included paranoia, CAH voices telling him to kill himself as well as AH of hearing voices telling him that he killed people. Patient was not functioning and isolated himself in his home because of his paranoia. Patient was also abusing Suboxone as well as Vicodin. He was ultimately discharged AMA on a 48 hour letter after [facility] did not find that he met criteria for involuntary commitment. Patient was given a diagnosis of psychosis, opioid abuse, SIMD and SIPD. pt was d/c on the following meds: Divalproex [Depakote DR (*BID*)] 250 mg PO BID #30 tcp Multivitamin Therapeutic Tab [Thera Tab] 1 tab PO 0800 #14 tab Nicotine 14 mg/24 hr [Nicoderm CQ] 1 patch TD DAILY #14 patch Quetiapine Fumarate [Seroquel] 200 mg PO AMHS #30 tablet traZODone [Desyrel] 50 mg PO HS PRN #14 tab SOCIAL HISTORY Patient was going to race in [place]. He is single. He has no children. He lives with his parents and his twin brother. Patient graduated high school and he is unemployed. Patient has a history of abusing Suboxone as well as Vicodin prior to his admission last month. Smoked 1 ppd of cigarettes and was provided counseling about morbidity and mortality risks of tobacco use. Patient was also offered a nicotine patch, pt was not receptive due to his mental status. \ 12/20/17 11:07 12/20/17 11:07 Lab Results 12/21/17 07:30: Triglycerides 117, Cholesterol 147, LDL Cholesterol Direct 81, HDL Cholesterol 43 12/21/17 07:30: Free T4 1.00, TSH 3rd Generation 0.38 L 12/20/17 13:40: Urine Opiates Screen Negative, Urine Methadone Screen Negative, Ur Barbiturates Screen Negative, Ur Phencyclidine Scrn Negative, Ur Amphetamines Screen Negative, U Benzodiazepines Scrn Negative, U Oth Cocaine Metabols Negative, U Cannabinoids Screen Negative 12/20/17 13:40: Urine Color Yellow, Urine Appearance Clear, Urine pH 6.5, Ur Specific Pioneer 1.015, Urine Protein Negative, Urine Glucose (UA) Negative, Urine Ketones 15 H, Urine Blood Negative, Urine Nitrate Negative, Urine Bilirubin Negative, Urine Urobilinogen 0.2, Ur Leukocyte Esterase Negative 12/20/17 11:07: Alcohol, Quantitative < 10 12/20/17 11:07: Sodium 144, Potassium 4.3, Chloride 104, Carbon Dioxide 29, Anion Gap 15, BUN 7, Creatinine 0.7 L, Est GFR ( Amer) > 60, Est GFR (Non -Af Amer) > 60, Random Glucose 96, Calcium 9.5, Total Bilirubin 0.3, AST 17, ALT 21, Alkaline Phosphatase 56, Total Protein 7.4, Albumin 4.5, Globulin 2.9, Albumin/Globulin Ratio 1.6 12/20/17 11:07: WBC 6.3 D, RBC 4.72, Hgb 13.9 L, Hct 42.5, MCV 90.0, MCH 29.4, MCHC 32.7, RDW 14.2, Plt Count 305, MPV 10.0, Gran % 72.2 H, Lymph % (Auto) 19.2 L, Dodge % (Auto) 7.2 H, Eos % (Auto) 1.1 L, Baso % (Auto) 0.3, Gran # 4.54 , Lymph # (Auto) 1.2, Dodge # (Auto) 0.5, Eos # (Auto) 0.1, Baso # (Auto) 0.02 Vital Signs Temp Pulse Resp BP Pulse Ox 12/21/17 07:03 97.4 F L 86 20 121/75 12/20/17 15:39 98.0 F 74 16 116/70 99 12/20/17 14:38 74 18 116/70 98 12/20/17 12:00 88 18 131/67 99 12/20/17 10:28 98.1 F 93 H 18 123/80 98 over the course of this hospitalization pt [place] [facility] [place] pt was waiting for bed to be available pt was compliant with meds, no aggression or agitation, did not meet a criteria for screening any longer, pt rescinded 48 hr notice, completed his treatment here in [place]. Pt was stabilized on the following medications: Divalproex 500 mg BID for mood stabilization depakote level at am 12/29/17 was75 haldol 10 mg amha for psychosis cogentin 1mg amhs for possible EPS traZODone [Desyrel] 50 mg PO HS PRNfor insomnia resumed clonazePAM [Klonopin] 0.5 mg 3 times a day for anxiety patient tolerated medications well, no side effects observed or reported, aims 0 , no EPS. Staff contacted patient mother, as per mother patient seems to be improved, mother was appreciated, was willing to accept patient back home, patient was discharged back home on Wednesday01/01/2018. Patient's brother came over and pick patient up. Over the course of this hospitalization pt was attending groups, pt also had medication management, had therapeutic milieu. Overall pt improved significantly, pt's affect became brighter, pt was less depressed, has realistic future oriented plans, pt appears less psychotic, pts insight improved as well and soon pt deemed to be ready for discharge. At the time of the discharge pt denied been depressed, denied thoughts of harming self or others, denied psychotic symptoms, and pt does not appeared to be psychotic, denied been anxious, pt is not in imminent danger to self or others, will be following up at outpatient clinic, information about follow up appointment, time and address provided to the pt, it is patient responsibility to follow up with outpatient clinic, PMD as well as specialists (see note for more detailed information). In case pt will need to obtain results of studies pending at discharge pt was provided with contact information of Psychiatric Inpatient unit [phone] as well as Medical Record Department [phone]. Nicotine patch was offered Counseling about smoking and drugs cessation provided AA meetings as well as smoking cessation treatment program information was provided by the pt was provided with prescriptions for all of medications (please see medication reconciliation form) Pt was educated about safety plan in case of worsening of symptoms or in case of suicidal or homicidal ideation call 911 or go to the nearest ER, also was educated to take meds as prescribed and stay away from drugs, pt verbalized understanding. - Diagnosis (1) Schizophrenia Status: Acute Priority: High - Final Diagnosis (DSM 5) Condition upon Discharge: IMPROVED Disposition: HOME/ ROUTINE Follow-up Treatment Plan: At the time of the discharge pt denied been depressed, denied thoughts of harming self or others, denied psychotic symptoms, and pt does not appeared to be psychotic, denied been anxious, pt is not in imminent danger to self or others, will be following up at outpatient clinic, information about follow up appointment, time and address provided to the pt, it is patient responsibility to follow up with outpatient clinic, PMD as well as specialists (see note for more detailed information). In case pt will need to obtain results of studies pending at discharge pt was provided with contact information of Psychiatric Inpatient unit [phone] as well as Medical Record Department [phone]. Nicotine patch was offered Counseling about smoking and drugs cessation provided AA meetings as well as smoking cessation treatment program information was provided by the pt was provided with prescriptions for all of medications (please see medication reconciliation form) Pt was educated about safety plan in case of worsening of symptoms or in case of suicidal or homicidal ideation call 911 or go to the nearest ER, also was educated to take meds as prescribed and stay away from drugs, pt verbalized understanding. Prescriptions/Medication Reconciliation: Benztropine [Cogentin] 1 mg PO AMHS #30 tab clonazePAM [Klonopin] 0.5 mg PO TID #45 tab Divalproex [Depakote DR(*BID*)] 500 mg PO AMHS #30 tcp Haloperidol [Haldol] 10 mg PO AMHS #30 tab Nicotine 14 mg/24 hr [Nicoderm CQ] 1 patch TD DAILY #14 patch traZODone [Desyrel] 50 mg PO HS PRN #14 tab PRN Reason: depression - Smoking Cessation Smoking Cessation Medication prescribed: Yes - Antipsychotic Medications Pt discharged on 2 or more routine antipsychotic medications: No
== END 2018-01-01 13:00 | disposition home or self-care (01) | DRG 430 ==
LOC: ED 09:46 → ERH 15:16 → PSYC 16:05
PROVIDERS: ADMIT Psychiatry & Neurology Psychiatry; ATTEND Psychiatry & Neurology Psychiatry
DX: F20.9 Schizophrenia, unspecified (principal); F31.9 Bipolar disorder, unspecified; F11.159 Opioid abuse with opioid-induced psychotic disorder, unspecified; G47.30 Sleep apnea, unspecified; G40.909 Epilepsy, unspecified, not intractable, without status epilepticus; F41.9 Anxiety disorder, unspecified; G47.00 Insomnia, unspecified; R29.810 Facial weakness; Q87.0 Congenital malformation syndromes predominantly affecting facial appearance; Z87.891 Personal history of nicotine dependence

== ENCOUNTER 2018-01-06 22:16 | Emergency (ER) | payer MEDICAID ==
[2018-01-06 22:17] VITALS: BMI 17.7
[2018-01-06 22:29] VITALS: BP 116/52; PULSE 90; RESP 15; TEMP 97.6; O2SAT 96
--- NOTE | 2018-01-06 22:40 | ED PDOC ---
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 Patient stated he "sniff" 2 bags of heroin before becoming unresponsive. He stated that the last time he used heroin was 4 weeks ago, but he did not feel the same way as today. Patient denies other somatic complains. Patient was given 8 mg of Narcan IN on route by fire department staff, (Olena Beckett) Past Medical History - Provider Review Nursing Documentation Reviewed: Yes - Infectious Disease Hx of Infectious Diseases: None - Cardiac Hx Cardiac Disorders: No Hx Hypertension: No - Pulmonary Hx Respiratory Disorders: No Hx Tuberculosis: No - Neurological Hx Neurological Disorder: No HX Cerebrovascular Accident: No Hx Seizures: No - HEENT Hx HEENT Disorder: No Other/Comment: deviated septum - Renal Hx Renal Disorder: No - Endocrine/Metabolic Hx Endocrine Disorders: No - Hematological/Oncological Hx Blood Disorders: No Hx Cancer: No - Integumentary Hx Dermatological Disorder: No - Musculoskeletal/Rheumatological Hx Musculoskeletal Disorders: Yes Other/Comment: Hemifacial Microsomia - Gastrointestinal Hx Gastrointestinal Disorders: No - Genitourinary/Gynecological Hx Genitourinary Disorders: No Hx Sexually Transmitted Diseases: No - Psychiatric Hx Anxiety: Yes Hx Depression: Yes Hx Schizophrenia: Yes Hx Substance Use: Yes - Surgical History Other/Comment: Hemifacial Microsomia multiple skull sugery - Anesthesia Hx Anesthesia: Yes Hx Anesthesia Reactions: No Hx Malignant Hyperthermia: No <Olena Beckett P - Last Filed: 01/06/18 23:07> Family/Social History - Physician Review Nursing Documentation Reviewed: Yes Family/Social History: Other (noncontributory) Smoking Status: Heavy Smoker > 10 Cigarettes Daily Hx Alcohol Use: Yes Hx Substance Use: Yes <Olena Beckett P - Last Filed: 01/06/18 23:07> Allergies/Home Meds <Olena Beckett P - Last Filed: 01/06/18 23:07> <RodrigezDenis P - Last Filed: 01/07/18 06:00> Allergies/Adverse Reactions: Allergies No Known Allergies Allergy (Verified 01/06/18 22:18) Home Medications: Home Meds Medication Instructions Recorded Confirmed Benztropine [Cogentin] 1 mg PO [facility] 01/06/18 01/06/18 Divalproex Sodium [Divalproex 500 mg PO [facility] 01/06/18 01/06/18 Sodium ER] Haloperidol [Haldol] 10 mg PO [facility] 01/06/18 01/06/18 traZODone [Desyrel] 50 mg PO 01/06/18 01/06/18 Review of Systems - Review of Systems Constitutional: Normal. absent: Fatigue, Weight Change, Fevers, Night Sweats Eyes: Normal ENT: Normal Respiratory: Normal Cardiovascular: Normal Gastrointestinal: Normal Genitourinary Male: Normal Musculoskeletal: Normal Skin: Normal Neurological: Normal Endocrine: Normal Hemo/Lymphatic: Normal Psychiatric: Other (heroin abuse). absent: Depression, Suicidal Ideation <Olena Beckett P - Last Filed: 01/06/18 23:07> Physical Exam Temperature: Afebrile Blood Pressure: Normal Pulse: Regular Respiratory Rate: Normal Appearance: Positive for: Well-Appearing, Non-Toxic, Comfortable Pain Distress: None Mental Status: Positive for: Alert and Oriented X 3 - Systems Exam Head: Present: Atraumatic, Normocephalic Pupils: Present: PERRL Extroacular Muscles: Present: EOMI Conjunctiva: Present: Normal Mouth: Present: Moist Mucous Membranes Neck: Present: Normal Range of Motion Respiratory/Chest: Present: Clear to Auscultation, Good Air Exchange. No: Respiratory Distress, Accessory Muscle Use Cardiovascular: Present: Regular Rate and Rhythm, Normal S1, S2. No: Murmurs Abdomen: No: Tenderness, Distention, Peritoneal Signs Back: Present: Normal Inspection. No: CVA Tenderness Upper Extremity: Present: Normal Inspection. No: Cyanosis, Edema Lower Extremity: Present: Normal Inspection. No: Edema Neurological: Present: GCS=15, CN II-XII Intact, Speech Normal, Motor Func Grossly Intact, Normal Sensory Function, Normal Cerebellar Funct, Gait Normal, Memory Normal Skin: Present: Warm, Dry, Normal Color. No: Rashes Psychiatric: Present: Alert, Oriented x 3, Normal Insight, Normal Concentration <Olena Beckett P - Last Filed: 01/06/18 23:07> Vital Signs Temp Pulse Resp BP Pulse Ox 01/06/18 22:26 97.6 F 90 15 116/52 L 96 Medical Decision Making <Olena Beckett P - Last Filed: 01/06/18 23:07> - EKG Interpretation Interpreted by ED Physician: Yes Type: 12 lead EKG <Denis Rodrigez P - Last Filed: 01/07/18 06:00> ED Course and Treatment: 01/06/18 22:56 Mother arrived to the ED. Mother stated that she knows why patient was unresponsive. She wants to have patient d/c from this ED 01/06/18 23:07 I was informed patient had ELOPED from the ED room with his mother. (Olena Beckett) 01/06/18 EKG shows NSR at [address] changes. Normal axis and intervals. Interpreted by me. (Denis Rodrigez) - Lab Interpretations Lab Results: Lab Results 01/06/18 22:19: POC Glucose (mg/dL) 246 H Disposition/Present on Arrival - Present on Arrival Any Indicators Present on Arrival: No History of DVT/PE: No History of Uncontrolled Diabetes: No Urinary Catheter: No History of Decub. Ulcer: No History Surgical Site Infection Following: None - Disposition Have Diagnosis and Disposition been Completed?: Yes Disposition Time: 23:08 <Olena Beckett P - Last Filed: 01/06/18 23:07> <Denis Rodrigez P - Last Filed: 01/07/18 06:00> - Disposition Diagnosis: Heroin abuse Disposition: LEFT W/O TREATMENT - ER ONLY Condition: UNKNOWN Referrals: Desiree Lemus MD [Primary Care Provider] - Follow up with primary Forms: [employer] ([place])
--- NOTE | 2018-01-07 19:00 | CARD ---
APPROVED REPORT EKG Measurement Heart [id number] <Conclusion> Normal sinus rhythm Normal ECG
== END 2018-01-06 23:05 | disposition left against medical advice (07) ==
LOC: ED 22:16
DX: F11.10 Opioid abuse, uncomplicated (principal)

== ENCOUNTER 2018-01-28 17:47 | Emergency (ER) | payer MEDICAID ==
[2018-01-28 17:55] VITALS: BMI 19.0
--- NOTE | 2018-01-28 17:55 | ED PDOC ---
Arrival/HPI - General Chief Complaint: Altered Mental Status Time Seen by Provider: 01/28/18 17:48 Historian: Patient, Family (brother) - History of Present Illness Narrative History of Present Illness (Text): 01/28/18 17:55 A 32 year old male, whose past medical history includes schizophrenia, Goldenhar syndrome, multiple surgeries, tobacco abuse, and heroin abuse, brought in by ambulance to the emergency department for AMS. Patient was home with his mother and brother. Per brother, patient stepped out for 25 minutes, and was later found in the kitchen unconscious. Patient had been given new medications for schizophrenia and brother was concerned they may be cause of patient loosing consciousness. Brother called 911 and upon EMS arrival, patient was given Narcan in the field, however patient was unresponsive to this. Upon arrival to the ER, patient became responsive after nurse placed a 40 catheter tube. Patient denies any opiate use, or any complaints at this time. No PMD Past Medical History - Provider Review Nursing Documentation Reviewed: Yes - Infectious Disease Hx of Infectious Diseases: None - Cardiac Hx Cardiac Disorders: No Hx Hypertension: No - Pulmonary Hx Respiratory Disorders: No Hx Tuberculosis: No - Neurological Hx Neurological Disorder: No HX Cerebrovascular Accident: No Hx Seizures: No - HEENT Hx HEENT Disorder: No Other/Comment: deviated septum - Renal Hx Renal Disorder: No - Endocrine/Metabolic Hx Endocrine Disorders: No - Hematological/Oncological Hx Blood Disorders: No Hx Cancer: No - Integumentary Hx Dermatological Disorder: No - Musculoskeletal/Rheumatological Hx Musculoskeletal Disorders: Yes Other/Comment: Hemifacial Microsomia - Gastrointestinal Hx Gastrointestinal Disorders: No - Genitourinary/Gynecological Hx Genitourinary Disorders: No Hx Sexually Transmitted Diseases: No - Psychiatric Hx Anxiety: Yes Hx Depression: Yes Hx Schizophrenia: Yes Hx Substance Use: Yes - Surgical History Other/Comment: Hemifacial Microsomia multiple skull sugery - Anesthesia Hx Anesthesia: Yes Hx Anesthesia Reactions: No Hx Malignant Hyperthermia: No Family/Social History - Physician Review Nursing Documentation Reviewed: Yes Family/Social History: No Known Family HX Smoking Status: Heavy Smoker > 10 Cigarettes Daily Hx Alcohol Use: Yes Hx Substance Use: Yes Allergies/Home Meds Allergies/Adverse Reactions: Allergies No Known Allergies Allergy (Verified 01/28/18 17:57) Home Medications: Home Meds Medication Instructions Recorded Confirmed Benztropine [Cogentin] 0.5 mg PO BID 01/06/18 01/28/18 Divalproex [Depakote DR] 250 mg PO BID 01/28/18 01/28/18 Quetiapine Fumarate [Seroquel] 250 mg PO BID 01/28/18 01/28/18 buPROPion [Bupropion HCl] 75 mg PO BID 01/28/18 01/28/18 Review of Systems - Review of Systems Systems not reviewed;Unavailable: Altered Mental Status Physical Exam Vital Signs Reviewed: Yes Vital Signs Temp Pulse Resp BP Pulse Ox 01/28/18 21:42 98.0 F 90 18 118/72 100 01/28/18 21:22 98.0 F 90 24 116/71 99 01/28/18 17:47 97.8 F 93 H 28 H 145/101 H 95 Temperature: Afebrile Blood Pressure: Normal Pulse: Regular Respiratory Rate: Normal Appearance: Positive for: Well-Appearing, Non-Toxic, Comfortable Pain Distress: None Mental Status: Positive for: Alert and Oriented X 3, other (became responsive after nurse placed a 40 catheter tube) - Systems Exam Head: Present: Atraumatic, Normocephalic Pupils: Present: Other (dilated b/l) Extroacular Muscles: Present: EOMI Conjunctiva: Present: Normal Neck: Present: Normal Range of Motion Respiratory/Chest: Present: Clear to Auscultation (patient breathing very fast) , Good Air Exchange. No: Respiratory Distress, Accessory Muscle Use Cardiovascular: Present: Regular Rate and Rhythm, Normal S1, S2. No: Murmurs Abdomen: No: Tenderness, Distention, Peritoneal Signs Upper Extremity: Present: Normal Inspection. No: Cyanosis, Edema Lower Extremity: Present: Normal Inspection. No: Edema Neurological: Present: GCS=15, CN II-XII Intact, Speech Normal Psychiatric: Present: Alert, Oriented x 3 Medical Decision Making ED Course and Treatment: 01/28/18 18:00 Impression: 32 year old male with altered mental status. Plan: -- EKG -- Chest X-ray -- Labs -- Urinalysis -- Reassess and disposition Prior Visits: Notes and results from previous visits were reviewed. Patient was last seen in the emergency department on 01/06/2018 for heroin overdose. Patient left without treatment. Progress Notes: EKG: Ordered, reviewed, and independently interpreted the EKG. Rate : 93 BPM Rhythm : NSR Interpretation : No ST-segment elevations or depressions, no T-wave inversions, normal intervals. Comparison : No previous EKG for comparison. 01/28/2018 18:11 Chest X-ray IMPRESSION: No focal airspace opacity. Dictator: Ami Lee MD - Lab Interpretations Lab Results: 01/28/18 18:00 01/28/18 18:00 Lab Results 01/28/18 18:00: Urine Opiates Screen Positive H, Urine Methadone Screen Negative , Ur Barbiturates Screen Negative, Ur Phencyclidine Scrn Negative, Ur Amphetamines Screen Negative, U Benzodiazepines Scrn Positive H, U Oth Cocaine Metabols Negative, U Cannabinoids Screen Negative 01/28/18 18:00: Alcohol, Quantitative < 10 01/28/18 18:00: Salicylates < 1 L, Acetaminophen < 10.0 L 01/28/18 18:00: Sodium 143, Potassium 3.9, Chloride 101, Carbon Dioxide 25, Anion Gap 21 H, BUN 7, Creatinine 0.7 L, Est GFR ( Amer) > 60, Est GFR ( Non-Af Amer) > 60, Random Glucose 280 H, Calcium 9.1, Magnesium 2.1, Total Bilirubin 0.3, AST 30, ALT 9, Alkaline Phosphatase 57, Total Protein 7.1, Albumin 4.3, Globulin 2.8, Albumin/Globulin Ratio 1.6 01/28/18 18:00: Urine Color Yellow, Urine Appearance Clear, Urine pH 6.0, Ur Specific [place] 1.020, Urine Protein Negative, Urine Glucose (UA) 100 H, Urine Ketones Negative, Urine Blood Negative, Urine Nitrate Negative, Urine Bilirubin Negative, Urine Urobilinogen 0.2, Ur Leukocyte Esterase Negative 01/28/18 18:00: WBC 15.8 H D, RBC 4.76, Hgb 13.8 L, Hct 42.8, MCV 89.9, MCH 29.0 , MCHC 32.2, RDW 14.9 H, Plt Count 306, MPV 10.5, Gran % 59.2, Lymph % (Auto) 32.9, [place] % (Auto) 6.0, Eos % (Auto) 1.6, Baso % (Auto) 0.3, Gran # 9.36 H, Lymph # (Auto) 5.2 H, [place] # (Auto) 0.9 H, Eos # (Auto) 0.3, Baso # (Auto) 0.04 I have reviewed the lab results: Yes - RAD Interpretation Radiology Orders: 01/28/18 17:57 CHEST PORTABLE [RAD] Stat - Scribe Statement The provider has reviewed the documentation as recorded by the Glendyiblaureen Luque Provider Scribe Attestation: All medical record entries made by the Scribe were at my direction and personally dictated by me. I have reviewed the chart and agree that the record accurately reflects my personal performance of the history, physical exam, medical decision making, and the department course for this patient. I have also personally directed, reviewed, and agree with the discharge instructions and disposition. Disposition/Present on Arrival - Present on Arrival Any Indicators Present on Arrival: No History of DVT/PE: No History of Uncontrolled Diabetes: No Urinary Catheter: No History Surgical Site Infection Following: None - Disposition Have Diagnosis and Disposition been Completed?: Yes Diagnosis: Drug overdose Disposition: HOME/ ROUTINE Disposition Time: 21:42 Patient Plan: Discharge Condition: GOOD Discharge Instructions (ExitCare): Narcotic Overdose Referrals: [facility] at [facility] [place] [Outside] - Follow up with primary [facility] [Outside] - Follow up with primary [facility] at [place] [Outside] - Follow up with primary Forms: [employer] (Maur[place])
--- NOTE | 2018-01-28 18:13 | RAD ---
Date of service: 01/28/2018 PROCEDURE: CHEST RADIOGRAPH, 1 VIEW HISTORY: overdose COMPARISON: 12/20/2017 FINDINGS: LUNGS: Clear. PLEURA: No pneumothorax or pleural fluid seen. CARDIOVASCULAR: Normal. OSSEOUS STRUCTURES: No significant abnormalities. VISUALIZED UPPER ABDOMEN: Normal. OTHER FINDINGS: None. IMPRESSION: No focal airspace opacity.
[2018-01-28 18:18] LABS: BASO # 0.04 K/mm3 (0.0-2.0); BASO % 0.3 % (0.0-3.0); EOS # 0.3 (0.0-0.7); EOS % 1.6 % (1.5-5.0); GRAN # 9.36 (1.4-6.5); GRAN % 59.2 % (50.0-68.0); HEMOGLOBIN 13.8 g/dL (14.0-18.0); LYMPH # 5.2 (1.2-3.4); LYMPH % 32.9 % (22.0-35.0); MEAN CELL VOLUME 89.9 fl (80.0-105.0); MEAN CORPUSCULAR HGB CONC 32.2 g/dl (31.0-37.0); MEAN PLATELET VOLUME 10.5 fl (7.0-11.0); MONO # 0.9 (0.1-0.6); RBC 4.76 10^6/uL (3.5-6.1); RED CELL DISTRIBUTION WIDTH 14.9 % (11.5-14.5); URINE BILIRUBIN NEGATIVE (NEGATIVE); URINE BLOOD NEGATIVE (NEGATIVE); URINE GLUCOSE (UA) 100 mg/dL (NEGATIVE); URINE LEUKOCYTE ESTERASE NEGATIVE Leu/uL (NEGATIVE); URINE PROTEIN NEGATIVE mg/dL (<30 mg/dL); URINE UROBILINOGEN 0.2 E.U./dL (<1 E.U./dL); WHITE BLOOD COUNT 15.8 10^3/ul (4.5-11.0)
[2018-01-28 18:19] LABS: URINE APPEARANCE CLEAR (CLEAR); URINE COLOR YELLOW (YELLOW)
[2018-01-28 18:27] LABS: ALB/GLOB RATIO 1.6 (1.1-1.8); ALBUMIN 4.3 g/dL (3.0-4.8); ALT/SGPT 9 U/L (7-56); AST/SGOT 30 U/L (17-59); BLOOD UREA NITROGEN 7 mg/dL (7-21); CALCIUM 9.1 mg/dL (8.4-10.5); GFR AFRICAN-AMERICAN > 60; GFR NON-AFRICAN AMERICAN > 60
[2018-01-28 18:28] LABS: ACETAMINOPHEN < 10.0 ug/ml (10.0-20.0); SALICYLATE < 1 mg/dL (2.0-20.0)
[2018-01-28 18:39] LABS: BARBITURATES, UR NEGATIVE (NEGATIVE); BENZODIAZEPINES, UR POSITIVE (NEGATIVE); OPIATES, UR POSITIVE (NEGATIVE); PHENCYCLIDINE, UR NEGATIVE (NEGATIVE)
[2018-01-28 21:23] VITALS: PULSE 90; TEMP 98
[2018-01-28 21:43] VITALS: BP 118/72; RESP 18; O2SAT 100
--- NOTE | 2018-01-29 12:16 | CARD ---
APPROVED REPORT Date of service: 01/28/2018 EKG Measurement Heart [id number] <Conclusion> Normal sinus rhythm Normal ECG
== END 2018-01-28 21:43 | disposition home or self-care (01) ==
LOC: ED 17:47
DX: T50.901A Poisoning by unspecified drugs, medicaments and biological substances, accidental (unintentional), initial encounter (principal); R41.82 Altered mental status, unspecified; Y92.000 Kitchen of unspecified non-institutional (private) residence as the place of occurrence of the external cause; F17.210 Nicotine dependence, cigarettes, uncomplicated; F20.9 Schizophrenia, unspecified; Q87.0 Congenital malformation syndromes predominantly affecting facial appearance

== ENCOUNTER 2018-04-12 00:25 | Inpatient (IN) | payer MEDICAID ==
--- NOTE | 2018-04-12 00:33 | ED PDOC ---
Arrival/HPI - General Time Seen by Provider: 04/12/18 00:32 Historian: Patient - History of Present Illness Narrative History of Present Illness (Text): 04/12/18 00:32 Perico Gonzalez is a 32 year old male, whose past medical history includes Goldenhar syndrome, epilepsy, and bipolar disorder, who presents to the Emergency department brought in by ALS unresponsive, status post suspected overdose. As per EMS, patient was found by his father unresponsive after an apparent overdose. Patient was administered Narcan after patient was noted with shallow respirations and pinpoint pupils. Patient became responsive after Narcan, but became increasingly tachypneic with labored respirations, requiring intubation in the field prior to arrival. On arrival, patient is currently sedated with 7.0G ET tube in place, 23cm at the lip. Limited HPI and ROS secondary to intubation/altered mental status. Symptom Onset: Sudden Symptom Course: Unchanged Activities at Onset: Light Context: Home Past Medical History - Provider Review Nursing Documentation Reviewed: Yes - Infectious Disease Hx of Infectious Diseases: None - Cardiac Hx Cardiac Disorders: No Hx Hypertension: No - Pulmonary Hx Respiratory Disorders: No Hx Tuberculosis: No - Neurological Hx Neurological Disorder: No HX Cerebrovascular Accident: No Hx Seizures: No - HEENT Hx HEENT Disorder: No Other/Comment: deviated septum - Renal Hx Renal Disorder: No - Endocrine/Metabolic Hx Endocrine Disorders: No - Hematological/Oncological Hx Blood Disorders: No Hx Cancer: No - Integumentary Hx Dermatological Disorder: No - Musculoskeletal/Rheumatological Hx Musculoskeletal Disorders: Yes Other/Comment: Hemifacial Microsomia - Gastrointestinal Hx Gastrointestinal Disorders: No - Genitourinary/Gynecological Hx Genitourinary Disorders: No Hx Sexually Transmitted Diseases: No - Psychiatric Hx Anxiety: Yes Hx Depression: Yes Hx Schizophrenia: Yes Hx Substance Use: Yes - Surgical History Other/Comment: Hemifacial Microsomia multiple skull sugery - Anesthesia Hx Anesthesia: Yes Hx Anesthesia Reactions: No Hx Malignant Hyperthermia: No Family/Social History - Physician Review Nursing Documentation Reviewed: Yes Family/Social History: Unknown Family HX Smoking Status: Heavy Smoker > 10 Cigarettes Daily Hx Alcohol Use: Yes Hx Substance Use: Yes Allergies/Home Meds Allergies/Adverse Reactions: Allergies No Known Allergies Allergy (Verified 04/12/18 00:34) Home Medications: Home Meds Medication Instructions Recorded Confirmed Benztropine [Cogentin] 0.5 mg PO BID 01/06/18 04/12/18 Divalproex [Depakote DR] 250 mg PO BID 01/28/18 04/12/18 Quetiapine Fumarate [Seroquel] 250 mg PO BID 01/28/18 04/12/18 buPROPion [Bupropion HCl] 75 mg PO BID 01/28/18 04/12/18 Review of Systems - Review of Systems Systems not reviewed;Unavailable: Intubated Physical Exam Vital Signs Reviewed: Yes Temperature: Afebrile Pulse: Tachycardic Respiratory Rate: Mechanically Ventilated (intubated) Mental Status: Positive for: other (Somnolent) - Systems Exam Head: Present: Atraumatic Pupils: Present: Other (Pupils dilated and responsive) Extroacular Muscles: Present: EOMI Conjunctiva: Present: Normal Mouth: Present: Moist Mucous Membranes, Other (ET tube in place) Pharnyx: Present: Normal. No: ERYTHEMA, EXUDATE, TONSILS ENLARGED, Peritonsilar Swelling, Uvular Deviation, Muffled/Hoarse Voice, Strider, Soft Palate/Uvular Edema Nose (External): Present: Atraumatic Nose (Internal): Present: Normal Inspection Neck: No: Meningeal Signs Respiratory/Chest: Present: Clear to Auscultation (Equal breath sounds bilaterally), Good Air Exchange. No: Respiratory Distress Cardiovascular: Present: Normal S1, S2, Tachycardic. No: Murmurs Abdomen: No: Distention, Peritoneal Signs Upper Extremity: No: Cyanosis, Edema Lower Extremity: No: Edema, Cyanosis Neurological: Present: Other (Somnolent, responds to painful stimuli) Skin: Present: Warm, Dry, Normal Color. No: Rashes Medical Decision Making ED Course and Treatment: 04/12/18 00:32 Impression: 32 year old male brought in s/p apparent overdose, intubated in the field. Plan: -- CT Head w/o contrast -- EKG -- CXR -- Labs, cardiac enzymes, alcohol level -- Urinalysis, urine drug screen -- Reassess and disposition Prior Visits: Notes and results from previous visits were reviewed. Progress Notes: Pt seen on arrival to the Emergency department. patient is currently sedated with 7.0G ET tube in place, 23cm at the lip. Pt placed on telemetry monitor. 04/12/18 00:34 Reviewed EKG, sinus tachycardia at [address] bpm. PACs. Non-specific ST/T wave changes. 04/12/18 01:19 Case discussed with medical scientific officer deposition reporter, who is aware and agrees with plan. Case discussed with Dr. Ramirez, who is aware and agree with plan. Pt will be admitted to the ICU for respiratory failure and drug overdose under the hospital ist service. 04/12/18 01:33 Chest X-Ray reviewed, shows ET tube above the jonas, otherwise no acute processes. - Critical Care Critical Care Minutes: 45 minutes - Lab Interpretations I have reviewed the lab results: Yes - RAD Interpretation Clinical Services Director: ED Physician - EKG Interpretation Interpreted by ED Physician: Yes Type: 12 lead EKG - Scribe Statement The provider has reviewed the documentation as recorded by the Scribe Mary King All medical record entries made by the Scribe were at my direction and personally dictated by me. I have reviewed the chart and agree that the record accurately reflects my personal performance of the history, physical exam, medical decision making, and the department course for this patient. I have also personally directed, reviewed, and agree with the discharge instructions and disposition. Disposition/Present on Arrival - Present on Arrival Any Indicators Present on Arrival: No History of DVT/PE: No History of Uncontrolled Diabetes: No Urinary Catheter: No History of Decub. Ulcer: No History Surgical Site Infection Following: None - Disposition Have Diagnosis and Disposition been Completed?: Yes Diagnosis: Respiratory failure, Drug overdose, Leukocytosis, Goldenhar's syndrome Disposition: HOSPITALIZED Disposition Time: 02:10 Condition: CRITICAL
[2018-04-12 01:15] LABS: HEMOGLOBIN 13.2 g/dL (14.0-18.0); MEAN CELL VOLUME 92.4 fl (80.0-105.0); MEAN CORPUSCULAR HEMOGLOBIN 29.4 pg (25.0-35.0); MEAN CORPUSCULAR HGB CONC 31.8 g/dl (31.0-37.0); MEAN PLATELET VOLUME 9.4 fl (7.0-11.0); RBC 4.49 10^6/uL (3.5-6.1); RED CELL DISTRIBUTION WIDTH 15.9 % (11.5-14.5); WHITE BLOOD COUNT 19.1 10^3/ul (4.5-11.0)
[2018-04-12 01:19] LABS: URINE BILIRUBIN NEGATIVE (NEGATIVE); URINE BLOOD NEGATIVE (NEGATIVE); URINE GLUCOSE (UA) NEGATIVE (NEGATIVE); URINE LEUKOCYTE ESTERASE NEGATIVE Leu/uL (NEGATIVE); URINE PROTEIN 100 mg/dL (<30 mg/dL); URINE UROBILINOGEN 0.2 E.U./dL (<1 E.U./dL)
[2018-04-12 01:22] LABS: URINE APPEARANCE CLEAR (CLEAR); URINE COLOR YELLOW (YELLOW)
[2018-04-12 01:23] LABS: INR 1.02; PROTHROMBIN TIME 11.6 SECONDS (9.4-12.5)
[2018-04-12 01:35] LABS: ACETAMINOPHEN < 10.0 ug/ml (10.0-20.0); SALICYLATE < 1 mg/dL (2.0-20.0)
[2018-04-12 01:36] LABS: ALB/GLOB RATIO 1.5 (1.1-1.8); ALBUMIN 4.3 g/dL (3.0-4.8); ALT/SGPT 40 U/L (7-56); AST/SGOT 26 U/L (17-59); BLOOD UREA NITROGEN 11 mg/dL (7-21); GFR NON-AFRICAN AMERICAN 54
[2018-04-12 01:40] LABS: ARTERIAL BLOOD GAS HCO3 26.1 mmol/L (21-28); ARTERIAL BLOOD GAS HEMOGLOBIN 13.4 g/dL (11.7-17.4); ARTERIAL BLOOD GAS O2 CAPACITY 18.1 mL/dl (16-24); ARTERIAL BLOOD GAS O2 CONTENT 17.9 ML/dl (15-23); ARTERIAL BLOOD GAS O2 SAT 98.9 % (95-98); ARTERIAL BLOOD GAS TCO2 28.6 mmol.L (22-28)
[2018-04-12 01:41] LABS: ARTERIAL BLOOD GAS PCO2 82 mm/Hg (35-45); ARTERIAL BLOOD GAS PH 7.11 (7.35-7.45)
[2018-04-12 01:43] LABS: URINE RBC 0 - 2 /hpf (0-2)
[2018-04-12 01:44] LABS: URINE BACTERIA OCC (NEG); URINE HYALINE CAST 0 - 2 /hpf
[2018-04-12 01:46] LABS: TROPONIN I 0.06 ng/mL
[2018-04-12] MEDS ORDERED: Vancomycin 1gm in NS 250ml 1 GM/250 ML BAG IVPB STA (02:09)
[2018-04-12] MEDS ORDERED: Cefepime IV 2 gm in NS 2 GM/100 ML BAG IVPB STA (02:09)
[2018-04-12] MEDS ORDERED: Sodium Chloride 0.9% 1,000 ML IV ONE (02:09)
[2018-04-12 02:48] LABS: VENOUS BLOOD GAS BASE EXCESS -5.3 mmol/L (0.0-2.0); VENOUS BLOOD GAS PO2 147 mm/Hg (30-55)
--- NOTE | 2018-04-12 02:50 | CP.PCM.HP ---
<Sierra Melara - Last Filed: 04/12/18 06:54> History of Present Illness - History of Present Illness History of Present Illness: ICU CONSULT NOTE FOR HOSPITALIST TEAM Sierra Melara D.O. PGY-1 32y/o M with PMHx of Goldenhar syndrome, epilepsy, bipolar disorder, schi zophrenia, substance abuse presents to ED brought by EMS unresponsive. As per EMS, patient was found by his father unresponsive after an apparent overdose. Patient was administered Narcan after patient was noted with shallow respirations and pinpoint pupils. Patient became responsive after Narcan, but became increasingly tachypneic with labored respirations, requiring intubation in the field prior to arrival. On arrival, patient is currently sedated with 7.0G ET tube in place, 23cm at the lip. Limited HPI and ROS secondary to intubation/altered mental status. Surgical History: Patient denies Medical History: Goldenhar syndrome, epilepsy, bipolar, schizophrenia, substance/opiate abuse Allergies: NKDA Social History:+Alcohol, +Tobacco, Morphine and Percocet that is not Rx'd Home meds: See MAR Family History: Non-contributory PMD: Present on Admission - Present on Admission Any Indicators Present on Admission: No Review of Systems - Review of Systems Review of Systems: unobtainable due to patients mental status and intubation Past Patient History - Infectious Disease Hx of Infectious Diseases: None - Past Social History Smoking Status: Heavy Smoker > 10 Cigarettes Daily - CARDIAC Hx Cardiac Disorders: No Hx Hypertension: No - PULMONARY Hx Respiratory Disorders: No Hx Tuberculosis: No - NEUROLOGICAL Hx Neurological Disorder: No HX Cerebrovascular Accident: No Hx Seizures: No - HEENT Hx HEENT Problems: No Other/Comment: deviated septum - RENAL Hx Chronic Kidney Disease: No - ENDOCRINE/METABOLIC Hx Endocrine Disorders: No - HEMATOLOGICAL/ONCOLOGICAL Hx Blood Disorders: No Hx Cancer: No - INTEGUMENTARY Hx Dermatological Problems: No - MUSCULOSKELETAL/RHEUMATOLOGICAL Hx Musculoskeletal Disorders: Yes Other/Comment: Hemifacial Microsomia - GASTROINTESTINAL Hx Gastrointestinal Disorders: No - GENITOURINARY/GYNECOLOGICAL Hx Genitourinary Disorders: No Hx Sexually Transmitted Disorders: No - PSYCHIATRIC Hx Anxiety: Yes Hx Depression: Yes Hx Schizophrenia: Yes Hx Substance Use: Yes - SURGICAL HISTORY Other/Comment: Hemifacial Microsomia multiple skull sugery - ANESTHESIA Hx Anesthesia: Yes Hx Anesthesia Reactions: No Hx Malignant Hyperthermia: No Meds Allergies/Adverse Reactions: Allergies Allergy/AdvReac Type Severity Reaction Status Date / Time No Known Allergies Allergy Verified 04/12/18 00:34 Physical Exam - Head Exam Head Exam: ATRAUMATIC Additional comments: R sided maxillary hypoplasia - ENT Exam ENT Exam: Mucous Membranes Dry, Mucous Membranes Moist - Respiratory Exam Respiratory Exam: Clear to Auscultation Bilateral Additional comments: on ventilator. - Cardiovascular Exam Cardiovascular Exam: Tachycardia, +S1, +S2 - GI/Abdominal Exam GI & Abdominal Exam: Soft. absent: Tenderness - Extremities Exam Extremities exam: Positive for: normal inspection - Neurological Exam Neurological exam: Altered - Psychiatric Exam Additional comments: non-responsive - Skin Skin Exam: Dry, Warm Results - Vital Signs Recent Vital Signs: Last Vital Signs Temp 98 F 04/12/18 00:52 Pulse 124 H 04/12/18 00:52 Resp 15 04/12/18 00:52 BP 137/86 04/12/18 00:52 Pulse Ox 100 04/12/18 00:52 - Labs Result Diagrams: 04/12/18 05:30 04/12/18 00:57 Labs: Laboratory Results - last 24 hr 04/12/18 04/12/18 04/12/18 00:39 00:57 00:57 WBC RBC Hgb Hct MCV MCH MCHC RDW Plt Count MPV PT 11.6 INR 1.02 APTT 30.0 pCO2 pO2 HCO3 ABG pH ABG Total CO2 ABG O2 Saturation ABG O2 Content ABG Base Excess ABG Hemoglobin ABG Carboxyhemoglobin POC ABG HHb (Measured) ABG Methemoglobin ABG O2 Capacity Hgb O2 Saturation FiO2 Sodium 145 Potassium 4.6 Chloride 106 Carbon Dioxide 27 Anion Gap 16 BUN 11 Creatinine 1.5 Est GFR ( Amer) > 60 Est GFR (Non-Af Amer) 54 POC Glucose (mg/dL) 99 Random Glucose 70 Calcium 9.0 Total Bilirubin 0.2 AST 26 ALT 40 Alkaline Phosphatase 103 Lactate Dehydrogenase 455 Total Creatine Kinase 112 Troponin I 0.06 D Total Protein 7.2 Albumin 4.3 Globulin 2.9 Albumin/Globulin Ratio 1.5 Urine Color Urine Appearance Urine pH Ur Specific [place] Urine Protein Urine Glucose (UA) Urine Ketones Urine Blood Urine Nitrate Urine Bilirubin Urine Urobilinogen Ur Leukocyte Esterase Urine RBC Urine WBC Ur Epithelial Cells Urine Bacteria Hyaline Casts Salicylates Acetaminophen Alcohol, Quantitative 04/12/18 04/12/18 04/12/18 00:57 00:57 00:57 WBC 19.1 H D RBC 4.49 Hgb 13.2 L Hct 41.5 L MCV 92.4 MCH 29.4 MCHC 31.8 RDW 15.9 H Plt Count 378 MPV 9.4 PT INR APTT pCO2 pO2 HCO3 ABG pH ABG Total CO2 ABG O2 Saturation ABG O2 Content ABG Base Excess ABG Hemoglobin ABG Carboxyhemoglobin POC ABG HHb (Measured) ABG Methemoglobin ABG O2 Capacity Hgb O2 Saturation FiO2 Sodium Potassium Chloride Carbon Dioxide Anion Gap BUN Creatinine Est GFR ( Amer) Est GFR (Non-Af Amer) POC Glucose (mg/dL) Random Glucose Calcium Total Bilirubin AST ALT Alkaline Phosphatase Lactate Dehydrogenase Total Creatine Kinase Troponin I Total Protein Albumin Globulin Albumin/Globulin Ratio Urine Color Yellow Urine Appearance Clear Urine pH 6.0 Ur Specific [place] >= 1.030 Urine Protein 100 H Urine Glucose (UA) Negative Urine Ketones Negative Urine Blood Negative Urine Nitrate Negative Urine Bilirubin Negative Urine Urobilinogen 0.2 Ur Leukocyte Esterase Negative Urine RBC 0 - 2 Urine WBC 1 - 3 Ur Epithelial Cells 1 - 3 Urine Bacteria Occ Hyaline Casts 0 - 2 Salicylates < 1 L Acetaminophen < 10.0 L Alcohol, Quantitative 04/12/18 04/12/18 00:57 01:25 WBC RBC Hgb Hct MCV MCH MCHC RDW Plt Count MPV PT INR APTT pCO2 82 H* pO2 191.0 H HCO3 26.1 ABG pH 7.11 L* ABG Total CO2 28.6 H ABG O2 Saturation 98.9 H ABG O2 Content 17.9 ABG Base Excess -5.3 L ABG Hemoglobin 13.4 ABG Carboxyhemoglobin 5.6 H POC ABG HHb (Measured) 1.0 ABG Methemoglobin 0.4 ABG O2 Capacity 18.1 Hgb O2 Saturation 93.0 L FiO2 100.0 Sodium Potassium Chloride Carbon Dioxide Anion Gap BUN Creatinine Est GFR ( Amer) Est GFR (Non-Af Amer) POC Glucose (mg/dL) Random Glucose Calcium Total Bilirubin AST ALT Alkaline Phosphatase Lactate Dehydrogenase Total Creatine Kinase Troponin I Total Protein Albumin Globulin Albumin/Globulin Ratio Urine Color Urine Appearance Urine pH Ur Specific [place] Urine Protein Urine Glucose (UA) Urine Ketones Urine Blood Urine Nitrate Urine Bilirubin Urine Urobilinogen Ur Leukocyte Esterase Urine RBC Urine WBC Ur Epithelial Cells Urine Bacteria Hyaline Casts Salicylates Acetaminophen Alcohol, Quantitative < 10 Assessment & Plan - Assessment and Plan (Free Text) Assessment: 32y/o M with PMHx of Goldenhar syndrome, epilepsy, bipolar disorder, schizophrenia, substance abuse admitted to ICU. Pt was found by EMS to be unresponsive with shallow respirations and poinpoint pupils. Narcan was adm inistered, he was intubated in the field and brought to [facility] – [place], [place]. In the ED, pt was started on empiric cefepime and vancomycin and given a bolus of NS. Plan: Respiratory failure Likely secondary to opiate overdose Pt given narcan & intubated in field Currently on ventilaor 450/18/5/100%. Ween off FiO2 f/u repeat ABG Leukocytosis Likely reactive Continue empiric cefepime, vancomycin f/u blood/urine cultures Hx of schizophrenia Pt intubated. hold home meds GI/DVT ppx: protonix/SCD Pt seen, examined and discussed with attending physician, Dr. Acosta <Mike Acosta - Last Filed: 04/13/18 02:04> Results - Vital Signs Recent Vital Signs: Last Vital Signs Temp 72.5 F L 04/12/18 13:04 Pulse 119 H 04/12/18 18:19 Resp 15 04/12/18 18:10 BP 124/75 04/12/18 18:24 Pulse Ox 63 L 04/12/18 17:50 - Labs Result Diagrams: 04/12/18 05:30 04/12/18 05:30 Labs: Laboratory Results - last 24 hr 04/12/18 04/12/18 04/12/18 02:35 05:30 05:30 WBC 15.2 H D RBC 4.52 Hgb 13.0 L Hct 41.0 L MCV 90.7 MCH 28.8 MCHC 31.7 RDW 15.7 H Plt Count 333 MPV 9.8 Gran % 89.7 H Lymph % (Auto) 3.5 L [place] % (Auto) 6.8 H Eos % (Auto) 0.0 L Baso % (Auto) 0.0 Gran # 13.67 H Lymph # (Auto) 0.5 L [place] # (Auto) 1.0 H Eos # (Auto) 0.0 Baso # (Auto) 0.00 Neutrophils % (Manual) 93 H Band Neutrophils % 2 Lymphocytes % (Manual) 1 L Atypical Lymphs % 1 H Monocytes % (Manual) 3 Platelet Evaluation Normal pCO2 pO2 147 H HCO3 ABG pH ABG Total CO2 ABG O2 Saturation ABG O2 Content ABG Base Excess ABG Hemoglobin ABG Carboxyhemoglobin POC ABG HHb (Measured) ABG Methemoglobin ABG O2 Capacity VBG pH 7.13 L* VBG pCO2 77.0 H* VBG HCO3 25.6 VBG Total CO2 28.0 VBG O2 Sat (Calc) 99.1 H VBG Base Excess -5.3 L VBG Potassium 5.1 Hgb O2 Saturation Sodium 140.0 140 Chloride 109.0 H 112 H Glucose 73 L Lactate 1.7 FiO2 21.0 Potassium 5.2 H Carbon Dioxide 20 L Anion Gap 13 BUN 12 Creatinine 1.0 Est GFR ( Amer) > 60 Est GFR (Non-Af Amer) > 60 Random Glucose 113 H Calcium 8.2 L Phosphorus 3.7 Magnesium 1.9 Total Bilirubin 0.4 AST 34 ALT 38 Alkaline Phosphatase 98 Total Protein 6.1 Albumin 3.5 Globulin 2.6 Albumin/Globulin Ratio 1.4 Venous Blood Potassium 5.1 Urine Color Urine Appearance Urine pH Ur Specific [place] Urine Protein Urine Glucose (UA) Urine Ketones Urine Blood Urine Nitrate Urine Bilirubin Urine Urobilinogen Ur Leukocyte Esterase Urine RBC Urine WBC Ur Epithelial Cells Urine Bacteria Urine Opiates Screen Urine Methadone Screen Ur Barbiturates Screen Valproic Acid Ur Phencyclidine Scrn Ur Amphetamines Screen U Benzodiazepines Scrn U Oth Cocaine Metabols U Cannabinoids Screen 04/12/18 04/12/18 04/12/18 08:30 08:30 08:50 WBC RBC Hgb Hct MCV MCH MCHC RDW Plt Count MPV Gran % Lymph % (Auto) [place] % (Auto) Eos % (Auto) Baso % (Auto) Gran # Lymph # (Auto) [place] # (Auto) Eos # (Auto) Baso # (Auto) Neutrophils % (Manual) Band Neutrophils % Lymphocytes % (Manual) Atypical Lymphs % Monocytes % (Manual) Platelet Evaluation pCO2 40 pO2 133.0 H HCO3 19.7 L ABG pH 7.30 L ABG Total CO2 20.9 L ABG O2 Saturation 98.9 H ABG O2 Content 16.8 ABG Base Excess -6.3 L ABG Hemoglobin 12.1 ABG Carboxyhemoglobin 0.9 POC ABG HHb (Measured) 1.1 ABG Methemoglobin 0.6 ABG O2 Capacity 17.0 VBG pH VBG pCO2 VBG HCO3 VBG Total CO2 VBG O2 Sat (Calc) VBG Base Excess VBG Potassium Hgb O2 Saturation 97.4 Sodium Chloride Glucose Lactate FiO2 100.0 Potassium Carbon Dioxide Anion Gap BUN Creatinine Est GFR ( Amer) Est GFR (Non-Af Amer) Random Glucose Calcium Phosphorus Magnesium Total Bilirubin AST ALT Alkaline Phosphatase Total Protein Albumin Globulin Albumin/Globulin Ratio Venous Blood Potassium Urine Color Yellow Urine Appearance Clear Urine pH 5.5 Ur Specific [place] >= 1.030 Urine Protein Negative Urine Glucose (UA) Negative Urine Ketones 15 H Urine Blood Trace-lysed H Urine Nitrate Negative Urine Bilirubin Negative Urine Urobilinogen 0.2 Ur Leukocyte Esterase Negative Urine RBC 2 - 5 Urine WBC 0 - 2 Ur Epithelial Cells None Urine Bacteria Mod Urine Opiates Screen Positive H Urine Methadone Screen Negative Ur Barbiturates Screen Negative Valproic Acid Ur Phencyclidine Scrn Negative Ur Amphetamines Screen Negative U Benzodiazepines Scrn Negative U Oth Cocaine Metabols Negative U Cannabinoids Screen Negative 04/12/18 04/12/18 13:45 19:08 WBC RBC Hgb Hct MCV MCH MCHC RDW Plt Count MPV Gran % Lymph % (Auto) [place] % (Auto) Eos % (Auto) Baso % (Auto) Gran # Lymph # (Auto) [place] # (Auto) Eos # (Auto) Baso # (Auto) Neutrophils % (Manual) Band Neutrophils % Lymphocytes % (Manual) Atypical Lymphs % Monocytes % (Manual) Platelet Evaluation pCO2 42 pO2 94.0 HCO3 24.3 ABG pH 7.37 ABG Total CO2 25.6 ABG O2 Saturation 97.8 ABG O2 Content 16.1 ABG Base Excess -1.0 ABG Hemoglobin 11.8 ABG Carboxyhemoglobin 1.0 POC ABG HHb (Measured) 2.2 ABG Methemoglobin 0.5 ABG O2 Capacity 16.5 VBG pH VBG pCO2 VBG HCO3 VBG Total CO2 VBG O2 Sat (Calc) VBG Base Excess VBG Potassium Hgb O2 Saturation 96.4 Sodium Chloride Glucose Lactate FiO2 40.0 Potassium Carbon Dioxide Anion Gap BUN Creatinine Est GFR ( Amer) Est GFR (Non-Af Amer) Random Glucose Calcium Phosphorus Magnesium Total Bilirubin AST ALT Alkaline Phosphatase Total Protein Albumin Globulin Albumin/Globulin Ratio Venous Blood Potassium Urine Color Urine Appearance Urine pH Ur Specific [place] Urine Protein Urine Glucose (UA) Urine Ketones Urine Blood Urine Nitrate Urine Bilirubin Urine Urobilinogen Ur Leukocyte Esterase Urine RBC Urine WBC Ur Epithelial Cells Urine Bacteria Urine Opiates Screen Urine Methadone Screen Ur Barbiturates Screen Valproic Acid < 10 L Ur Phencyclidine Scrn Ur Amphetamines Screen U Benzodiazepines Scrn U Oth Cocaine Metabols U Cannabinoids Screen Attending/Attestation - Attestation I have personally seen and examined this patient.: Yes I have fully participated in the care of the patient.: Yes I have reviewed all pertinent clinical information: Yes
[2018-04-12 02:51] LABS: VENOUS BLOOD PH 7.13 (7.32-7.43)
[2018-04-12] MEDS: Sodium Chloride 0.9% 1,000 ML IV SCH ×2 (04:30→17:34)
[2018-04-12 05:14] VITALS: BMI 20.2
[2018-04-12] MEDS ORDERED: Influenza Vaccine 60 mcg/0.5 mL SYR (4YR UP) IM ONE (05:14)
[2018-04-12 06:45] LABS: GRAN # 13.67 (1.4-6.5); GRAN % 89.7 % (50.0-68.0); LYMPH # 0.5 (1.2-3.4); LYMPH % 3.5 % (22.0-35.0); MEAN CELL VOLUME 90.7 fl (80.0-105.0); MEAN CORPUSCULAR HEMOGLOBIN 28.8 pg (25.0-35.0); MEAN CORPUSCULAR HGB CONC 31.7 g/dl (31.0-37.0); MEAN PLATELET VOLUME 9.8 fl (7.0-11.0); MONO % 6.8 % (1.0-6.0); PLATELET COUNT 333 10^3/uL (120.0-450.0); RBC 4.52 10^6/uL (3.5-6.1); RED CELL DISTRIBUTION WIDTH 15.7 % (11.5-14.5); WHITE BLOOD COUNT 15.2 10^3/ul (4.5-11.0)
[2018-04-12 07:13] LABS: ALB/GLOB RATIO 1.4 (1.1-1.8); ALBUMIN 3.5 g/dL (3.0-4.8); ALT/SGPT 38 U/L (7-56); AST/SGOT 34 U/L (17-59); BLOOD UREA NITROGEN 12 mg/dL (7-21); CALCIUM 8.2 mg/dL (8.4-10.5); GFR NON-AFRICAN AMERICAN > 60
--- NOTE | 2018-04-12 08:06 | RAD ---
Date of service: 04/12/2018 HISTORY: post intubation COMPARISON: 01/28/2018 FINDINGS: LUNGS: No active pulmonary disease. PLEURA: Small right pleural effusion CARDIOVASCULAR: Normal. OSSEOUS STRUCTURES: No significant abnormalities. VISUALIZED UPPER ABDOMEN: Normal. OTHER FINDINGS: Endotracheal tube in satisfactory position IMPRESSION: No active disease.
[2018-04-12 08:55] LABS: ATYPICAL LYMPHOCYTE 1 % (0.0-0.0); BAND 2 % (0-2); LYMPHOCYTE 1 % (22.0-35.0); MONOCYTE 3 % (1.0-6.0); NEUTROPHIL 93 % (50.0-70.0); PLATELET ESTIMATE NORMAL (NORMAL)
[2018-04-12 09:00] LABS: PH,URINE 5.5 (4.7-8.0); URINE BILIRUBIN NEGATIVE (NEGATIVE); URINE BLOOD TRACE-LYSED (NEGATIVE); URINE GLUCOSE (UA) NEGATIVE (NEGATIVE); URINE LEUKOCYTE ESTERASE NEGATIVE Leu/uL (NEGATIVE); URINE PROTEIN NEGATIVE mg/dL (<30 mg/dL); URINE UROBILINOGEN 0.2 E.U./dL (<1 E.U./dL)
[2018-04-12 09:04] LABS: ARTERIAL BLOOD GAS HCO3 19.7 mmol/L (21-28); ARTERIAL BLOOD GAS HEMOGLOBIN 12.1 g/dL (11.7-17.4); ARTERIAL BLOOD GAS O2 CONTENT 16.8 ML/dl (15-23); ARTERIAL BLOOD GAS O2 SAT 98.9 % (95-98); ARTERIAL BLOOD GAS PCO2 40 mm/Hg (35-45); ARTERIAL BLOOD GAS TCO2 20.9 mmol.L (22-28)
[2018-04-12 09:10] LABS: URINE APPEARANCE CLEAR (CLEAR); URINE COLOR YELLOW (YELLOW)
[2018-04-12 09:12] LABS: URINE BACTERIA MOD (NEG); URINE WBC 0 - 2 /hpf (0-6)
[2018-04-12 09:28] LABS: BARBITURATES, UR NEGATIVE (NEGATIVE); BENZODIAZEPINES, UR NEGATIVE (NEGATIVE); OPIATES, UR POSITIVE (NEGATIVE); PHENCYCLIDINE, UR NEGATIVE (NEGATIVE)
--- NOTE | 2018-04-12 09:31 | CARD ---
APPROVED REPORT Date of service: 04/12/2018 EKG Measurement Heart [id number] <Conclusion> Sinus tachycardia with premature atrial complexes Possible Left atrial enlargement prolonged QT abnormal ecg
--- NOTE | 2018-04-12 10:04 | CT ---
Date of service: 04/12/2018 PROCEDURE: CT HEAD WITHOUT CONTRAST. HISTORY: overdose COMPARISON: 12/31/2017 TECHNIQUE: Axial computed tomography images were obtained through the head/brain without intravenous contrast. Radiation dose: Total exam DLP = 921 mGy-cm. This CT exam was performed using one or more of the following dose reduction techniques: Automated exposure control, adjustment of the mA and/or kV according to patient size, and/or use of iterative reconstruction technique. FINDINGS: HEMORRHAGE: No intracranial hemorrhage. BRAIN: No mass effect or edema. No acute findings VENTRICLES: Mildly dilated ventricles. CALVARIUM: Previous craniotomies PARANASAL SINUSES: Unremarkable as visualized. No significant inflammatory changes. MASTOID AIR CELLS: Unremarkable as visualized. No inflammatory changes. OTHER FINDINGS: The report concurs with the preliminary report IMPRESSION: No acute findings
[2018-04-12] MEDS ORDERED: cefTRIAXone 1 gm 1 GM/100 ML BAG IVPB SCH (10:30)
--- NOTE | 2018-04-12 10:36 | CP.CCUPN ---
<Briana Sotelo - Last Filed: 04/12/18 11:14> CCU Subjective - Physician Review Subjective (Free Text): Briana Sotelo, PGY-1, CCU Progress Note for Dr. Perales Patient seen and examined at bedside. At time of examination, patient was intubated but awake. Patient was able nod to answer questions. Patient reported diffuse pain throughout his body. 12-point ROS was difficult to evaluate due to patient's intubation. Critical Care Time Spent (in minutes): 60 CCU Objective - Vital Signs / Intake & Output Vital Signs (Last 4 hours): Vital Signs Temp Pulse Resp BP Pulse Ox 04/12/18 10:06 101.8 F H 04/12/18 10:00 101.7 F H 110 H 44 H 118/72 93 L 04/12/18 09:50 101.7 F H 112 H 53 H 92 L 04/12/18 09:40 101.7 F H 106 H 47 H 91 L 04/12/18 09:30 101.7 F H 108 H 40 H 90 L 04/12/18 09:20 101.7 F H 111 H 21 94 L 04/12/18 09:15 101.7 F H 101 H 100 04/12/18 09:10 101.7 F H 100 H 27 H 99 04/12/18 09:00 101.3 F H 95 H 23 128/73 100 04/12/18 08:50 101.3 F H 98 H 27 H 100 04/12/18 08:49 101.3 F H 99 H 100 04/12/18 08:48 101.3 F H 102 H 100 04/12/18 08:40 101.3 F H 120 H 44 H 98 04/12/18 08:30 101.5 F H 120 H 39 H 98 04/12/18 08:29 101.5 F H 119 H 97 04/12/18 08:20 101.5 F H 91 H 19 99 04/12/18 08:10 101.5 F H 104 H 28 H 98 04/12/18 08:00 101.5 F H 96 H 21 121/74 99 04/12/18 07:50 101.7 F H 99 H 22 99 04/12/18 07:40 101.7 F H 101 H 18 99 04/12/18 07:38 101.7 F H 98 H 99 04/12/18 07:30 101.5 F H 96 H 25 H 100 04/12/18 07:20 101.5 F H 109 H 29 H 99 04/12/18 07:19 101.5 F H 100 H 100 04/12/18 07:13 101.5 F H 96 H 99 04/12/18 07:10 101.5 F H 106 H 22 98 04/12/18 07:00 101.5 F H 98 H 21 123/80 99 04/12/18 06:50 101.3 F H 104 H 28 H 100 04/12/18 06:45 101.3 F H 110 H 98 04/12/18 06:40 101.3 F H 95 H 19 99 Intake and Output (Last 8hrs): Intake & Output 04/11/18 04/12/18 04/12/18 22:59 06:59 14:59 Weight 121 lb 7 oz Other: Voiding Method Indwelling Catheter - Physical Exam Head: Positive for: Atraumatic Pupils: Positive for: PERRL, Other Extroacular Muscles: Positive for: EOMI Conjunctiva: Positive for: Normal Mouth: Positive for: Moist Mucous Membranes, Other (ET tube in place) Pharnyx: Positive for: Normal. Negative for: ERYTHEMA, EXUDATE, TONSILS ENLARGED, Peritonsilar Swelling, Uvular Deviation, Muffled/Hoarse Voice, Strider, Soft Palate/Uvular Edema Nose (External): Positive for: Atraumatic Nose (Internal): Positive for: Normal Inspection Neck: Negative for: Meningeal Signs Respiratory/Chest: Positive for: Good Air Exchange, Other (coarse breath sounds likely due to intubation). Negative for: Respiratory Distress Cardiovascular: Positive for: Normal S1, S2, Tachycardic. Negative for: Murmurs Abdomen: Positive for: Tenderness (subjective). Negative for: Distention, Normal Bowel Sounds (hypoactive), Peritoneal Signs Upper Extremity: Positive for: Normal ROM (patient able to elevate bilateral upper extremities), NORMAL PULSES. Negative for: Cyanosis, Edema Lower Extremity: Positive for: NORMAL PULSES, Normal ROM (patient able to elevate bilateral lower extremities). Negative for: Edema, Cyanosis Neurological: Positive for: CN II-XII Intact (grossly), Motor Func Grossly Intact, Normal Cerebellar Funct (grossly), Other (Somnolent, responds to painful stimuli) Skin: Positive for: Warm, Dry, Normal Color. Negative for: Rashes Psychiatric: Positive for: Alert - Medications Active Medications: Active Medications Generic Name Dose Route Start Last Admin Trade Name Freq PRN Reason Stop Dose Admin Acetaminophen 650 mg 04/12/18 09:59 04/12/18 10:06 Tylenol 650 Mg Supp RC 650 mg Q6H PRN Administration Fever >100.4 F Heparin Sodium (Porcine) 5,000 units 04/12/18 10:00 Heparin SC Q12 RAMIRO Protocol Sodium Chloride 1,000 mls @ 100 mls/hr 04/12/18 04:00 04/12/18 04:30 Sodium Chloride 0.9% IV 100 mls/hr .Q10H RAMIRO Administration Ceftriaxone Sodium 1 gm in 100 mls @ 100 mls/hr 04/12/18 10:30 Rocephin 1 Gram Ivpb IVPB DAILY RAMIRO Protocol Azithromycin 500 mg in 250 mls @ 167 mls/hr 04/12/18 10:30 Zithromax 500mg In Ns IVPB 04/14/18 11:00 DAILY RAMIRO Protocol Vancomycin HCl 1 gm in 250 mls @ 167 mls/hr 04/12/18 10:45 Vancomycin 1gm IVPB DAILY RAMIRO Protocol Pantoprazole Sodium 40 mg 04/13/18 06:00 Protonix Ec Tab PO 0600 RAMIRO - Patient Studies Lab Studies: Lab Studies 04/12/18 04/12/18 04/12/18 Range/Units 08:50 08:30 08:30 WBC (4.5-11.0) 10^3/ul RBC (3.5-6.1) 10^6/uL Hgb (14.0-18.0) g/dL Hct (42.0-52.0) % MCV (80.0-105.0) fl MCH (25.0-35.0) pg MCHC (31.0-37.0) g/dl RDW (11.5-14.5) % Plt Count (120.0-450.0) 10^3/uL MPV (7.0-11.0) fl Gran % (50.0-68.0) % Lymph % (Auto) (22.0-35.0) % Millard % (Auto) (1.0-6.0) % Eos % (Auto) (1.5-5.0) % Baso % (Auto) (0.0-3.0) % Gran # (1.4-6.5) Lymph # (Auto) (1.2-3.4) Millard # (Auto) (0.1-0.6) Eos # (Auto) (0.0-0.7) Baso # (Auto) (0.0-2.0) K/mm3 Neutrophils % (Manual) (50.0-70.0) % Band Neutrophils % (0-2) % Lymphocytes % (Manual) (22.0-35.0) % Atypical Lymphs % (0.0-0.0) % Monocytes % (Manual) (1.0-6.0) % Platelet Evaluation (NORMAL) PT (9.4-12.5) SECONDS INR APTT (25.1-36.5) Seconds pCO2 40 (35-45) mm/Hg pO2 133.0 H (80-100) mm/Hg HCO3 19.7 L (21-28) mmol/L ABG pH 7.30 L (7.35-7.45) ABG Total CO2 20.9 L (22-28) mmol.L ABG O2 Saturation 98.9 H (95-98) % ABG O2 Content 16.8 (15-23) ML/dl ABG Base Excess -6.3 L (-2.0-3.0) mmol/L ABG Hemoglobin 12.1 (11.7-17.4) g/dL ABG Carboxyhemoglobin 0.9 (0.5-1.5) % POC ABG HHb (Measured) 1.1 (0-5) % ABG Methemoglobin 0.6 (0.0-3.0) % ABG O2 Capacity 17.0 (16-24) mL/dl VBG pH (7.32-7.43) VBG pCO2 (40-60) VBG HCO3 (21-28) mmol/l VBG Total CO2 (22-28) mmol.L VBG O2 Sat (Calc) (40-65) % VBG Base Excess (0.0-2.0) mmol/L VBG Potassium (3.6-5.2) mmol/L Hgb O2 Saturation 97.4 (95.0-98.0) % Glucose (75-110) mg/dl Lactate (0.7-2.1) mmol/L FiO2 100.0 % Sodium (132-148) mmol/L Potassium (3.6-5.0) mmol/L Chloride (98-107) mmol/L Carbon Dioxide (21-33) mmol/L Anion Gap (10-20) BUN (7-21) mg/dL Creatinine (0.8-1.5) mg/dl Est GFR ( Amer) Est GFR (Non-Af Amer) POC Glucose (mg/dL) (65-110) mg/dL Random Glucose (70-110) mg/dL Calcium (8.4-10.5) mg/dL Phosphorus (2.5-4.5) mg/dL Magnesium (1.7-2.2) mg/dL Total Bilirubin (0.2-1.3) mg/dL AST (17-59) U/L ALT (7-56) U/L Alkaline Phosphatase (38-126) U/L Lactate Dehydrogenase (333-699) U/L Total Creatine Kinase (35-230) U/L Troponin I ng/mL Total Protein (5.8-8.3) g/dL Albumin (3.0-4.8) g/dL Globulin gm/dL Albumin/Globulin Ratio (1.1-1.8) Venous Blood Potassium (3.6-5.2) mmol/L Urine Color Yellow (YELLOW) Urine Appearance Clear (CLEAR) Urine pH 5.5 (4.7-8.0) Ur Specific Muir >= 1.030 (1.005-1.035) Urine Protein Negative (<30 mg/dL) mg/dL Urine Glucose (UA) Negative (NEGATIVE) mg/dL Urine Ketones 15 H (NEGATIVE) mg/dL Urine Blood Trace-lysed H (NEGATIVE) Urine Nitrate Negative (NEGATIVE) Urine Bilirubin Negative (NEGATIVE) Urine Urobilinogen 0.2 (<1 E.U./dL) E.U./dL Ur Leukocyte Esterase Negative (NEGATIVE) Sulma/uL Urine RBC 2 - 5 (0-2) /hpf Urine WBC 0 - 2 (0-6) /hpf Ur Epithelial Cells None (0-5) /hpf Urine Bacteria Mod (NEG) Hyaline Casts /hpf Salicylates (2.0-20.0) mg/dL Urine Opiates Screen Positive H (NEGATIVE) Urine Methadone Screen Negative (NEGATIVE) Acetaminophen (10.0-20.0) ug/ml Ur Barbiturates Screen Negative (NEGATIVE) Ur Phencyclidine Scrn Negative (NEGATIVE) Ur Amphetamines Screen Negative (NEGATIVE) U Benzodiazepines Scrn Negative (NEGATIVE) U Oth Cocaine Metabols Negative (NEGATIVE) U Cannabinoids Screen Negative (NEGATIVE) Alcohol, Quantitative (0-10) mg/dL 04/12/18 04/12/18 04/12/18 Range/Units 05:30 05:30 02:35 WBC 15.2 H D (4.5-11.0) 10^3/ul RBC 4.52 (3.5-6.1) 10^6/uL Hgb 13.0 L (14.0-18.0) g/dL Hct 41.0 L (42.0-52.0) % MCV 90.7 (80.0-105.0) fl MCH 28.8 (25.0-35.0) pg MCHC 31.7 (31.0-37.0) g/dl RDW 15.7 H (11.5-14.5) % Plt Count 333 (120.0-450.0) 10^3/uL MPV 9.8 (7.0-11.0) fl Gran % 89.7 H (50.0-68.0) % Lymph % (Auto) 3.5 L (22.0-35.0) % Millard % (Auto) 6.8 H (1.0-6.0) % Eos % (Auto) 0.0 L (1.5-5.0) % Baso % (Auto) 0.0 (0.0-3.0) % Gran # 13.67 H (1.4-6.5) Lymph # (Auto) 0.5 L (1.2-3.4) Millard # (Auto) 1.0 H (0.1-0.6) Eos # (Auto) 0.0 (0.0-0.7) Baso # (Auto) 0.00 (0.0-2.0) K/mm3 Neutrophils % (Manual) 93 H (50.0-70.0) % Band Neutrophils % 2 (0-2) % Lymphocytes % (Manual) 1 L (22.0-35.0) % Atypical Lymphs % 1 H (0.0-0.0) % Monocytes % (Manual) 3 (1.0-6.0) % Platelet Evaluation Normal (NORMAL) PT (9.4-12.5) SECONDS INR APTT (25.1-36.5) Seconds pCO2 (35-45) mm/Hg pO2 147 H (80-100) mm/Hg HCO3 (21-28) mmol/L ABG pH (7.35-7.45) ABG Total CO2 (22-28) mmol.L ABG O2 Saturation (95-98) % ABG O2 Content (15-23) ML/dl ABG Base Excess (-2.0-3.0) mmol/L ABG Hemoglobin (11.7-17.4) g/dL ABG Carboxyhemoglobin (0.5-1.5) % POC ABG HHb (Measured) (0-5) % ABG Methemoglobin (0.0-3.0) % ABG O2 Capacity (16-24) mL/dl VBG pH 7.13 L* (7.32-7.43) VBG pCO2 77.0 H* (40-60) VBG HCO3 25.6 (21-28) mmol/l VBG Total CO2 28.0 (22-28) mmol.L VBG O2 Sat (Calc) 99.1 H (40-65) % VBG Base Excess -5.3 L (0.0-2.0) mmol/L VBG Potassium 5.1 (3.6-5.2) mmol/L Hgb O2 Saturation (95.0-98.0) % Glucose 73 L (75-110) mg/dl Lactate 1.7 (0.7-2.1) mmol/L FiO2 21.0 % Sodium 140 140.0 (132-148) mmol/L Potassium 5.2 H (3.6-5.0) mmol/L Chloride 112 H 109.0 H (98-107) mmol/L Carbon Dioxide 20 L (21-33) mmol/L Anion Gap 13 (10-20) BUN 12 (7-21) mg/dL Creatinine 1.0 (0.8-1.5) mg/dl Est GFR ( Amer) > 60 Est GFR (Non-Af Amer) > 60 POC Glucose (mg/dL) (65-110) mg/dL Random Glucose 113 H (70-110) mg/dL Calcium 8.2 L (8.4-10.5) mg/dL Phosphorus 3.7 (2.5-4.5) mg/dL Magnesium 1.9 (1.7-2.2) mg/dL Total Bilirubin 0.4 (0.2-1.3) mg/dL AST 34 (17-59) U/L ALT 38 (7-56) U/L Alkaline Phosphatase 98 (38-126) U/L Lactate Dehydrogenase (333-699) U/L Total Creatine Kinase (35-230) U/L Troponin I ng/mL Total Protein 6.1 (5.8-8.3) g/dL Albumin 3.5 (3.0-4.8) g/dL Globulin 2.6 gm/dL Albumin/Globulin Ratio 1.4 (1.1-1.8) Venous Blood Potassium 5.1 (3.6-5.2) mmol/L Urine Color (YELLOW) Urine Appearance (CLEAR) Urine pH (4.7-8.0) Ur Specific Muir (1.005-1.035) Urine Protein (<30 mg/dL) mg/dL Urine Glucose (UA) (NEGATIVE) mg/dL Urine Ketones (NEGATIVE) mg/dL Urine Blood (NEGATIVE) Urine Nitrate (NEGATIVE) Urine Bilirubin (NEGATIVE) Urine Urobilinogen (<1 E.U./dL) E.U./dL Ur Leukocyte Esterase (NEGATIVE) Sulma/uL Urine RBC (0-2) /hpf Urine WBC (0-6) /hpf Ur Epithelial Cells (0-5) /hpf Urine Bacteria (NEG) Hyaline Casts /hpf Salicylates (2.0-20.0) mg/dL Urine Opiates Screen (NEGATIVE) Urine Methadone Screen (NEGATIVE) Acetaminophen (10.0-20.0) ug/ml Ur Barbiturates Screen (NEGATIVE) Ur Phencyclidine Scrn (NEGATIVE) Ur Amphetamines Screen (NEGATIVE) U Benzodiazepines Scrn (NEGATIVE) U Oth Cocaine Metabols (NEGATIVE) U Cannabinoids Screen (NEGATIVE) Alcohol, Quantitative (0-10) mg/dL 04/12/18 04/12/18 04/12/18 Range/Units 01:25 00:57 00:57 WBC (4.5-11.0) 10^3/ul RBC (3.5-6.1) 10^6/uL Hgb (14.0-18.0) g/dL Hct (42.0-52.0) % MCV (80.0-105.0) fl MCH (25.0-35.0) pg MCHC (31.0-37.0) g/dl RDW (11.5-14.5) % Plt Count (120.0-450.0) 10^3/uL MPV (7.0-11.0) fl Gran % (50.0-68.0) % Lymph % (Auto) (22.0-35.0) % Millard % (Auto) (1.0-6.0) % Eos % (Auto) (1.5-5.0) % Baso % (Auto) (0.0-3.0) % Gran # (1.4-6.5) Lymph # (Auto) (1.2-3.4) Millard # (Auto) (0.1-0.6) Eos # (Auto) (0.0-0.7) Baso # (Auto) (0.0-2.0) K/mm3 Neutrophils % (Manual) (50.0-70.0) % Band Neutrophils % (0-2) % Lymphocytes % (Manual) (22.0-35.0) % Atypical Lymphs % (0.0-0.0) % Monocytes % (Manual) (1.0-6.0) % Platelet Evaluation (NORMAL) PT (9.4-12.5) SECONDS INR APTT (25.1-36.5) Seconds pCO2 82 H* (35-45) mm/Hg pO2 191.0 H (80-100) mm/Hg HCO3 26.1 (21-28) mmol/L ABG pH 7.11 L* (7.35-7.45) ABG Total CO2 28.6 H (22-28) mmol.L ABG O2 Saturation 98.9 H (95-98) % ABG O2 Content 17.9 (15-23) ML/dl ABG Base Excess -5.3 L (-2.0-3.0) mmol/L ABG Hemoglobin 13.4 (11.7-17.4) g/dL ABG Carboxyhemoglobin 5.6 H (0.5-1.5) % POC ABG HHb (Measured) 1.0 (0-5) % ABG Methemoglobin 0.4 (0.0-3.0) % ABG O2 Capacity 18.1 (16-24) mL/dl VBG pH (7.32-7.43) VBG pCO2 (40-60) VBG HCO3 (21-28) mmol/l VBG Total CO2 (22-28) mmol.L VBG O2 Sat (Calc) (40-65) % VBG Base Excess (0.0-2.0) mmol/L VBG Potassium (3.6-5.2) mmol/L Hgb O2 Saturation 93.0 L (95.0-98.0) % Glucose (75-110) mg/dl Lactate (0.7-2.1) mmol/L FiO2 100.0 % Sodium (132-148) mmol/L Potassium (3.6-5.0) mmol/L Chloride (98-107) mmol/L Carbon Dioxide (21-33) mmol/L Anion Gap (10-20) BUN (7-21) mg/dL Creatinine (0.8-1.5) mg/dl Est GFR ( Amer) Est GFR (Non-Af Amer) POC Glucose (mg/dL) (65-110) mg/dL Random Glucose (70-110) mg/dL Calcium (8.4-10.5) mg/dL Phosphorus (2.5-4.5) mg/dL Magnesium (1.7-2.2) mg/dL Total Bilirubin (0.2-1.3) mg/dL AST (17-59) U/L ALT (7-56) U/L Alkaline Phosphatase (38-126) U/L Lactate Dehydrogenase (333-699) U/L Total Creatine Kinase (35-230) U/L Troponin I ng/mL Total Protein (5.8-8.3) g/dL Albumin (3.0-4.8) g/dL Globulin gm/dL Albumin/Globulin Ratio (1.1-1.8) Venous Blood Potassium (3.6-5.2) mmol/L Urine Color (YELLOW) Urine Appearance (CLEAR) Urine pH (4.7-8.0) Ur Specific Muir (1.005-1.035) Urine Protein (<30 mg/dL) mg/dL Urine Glucose (UA) (NEGATIVE) mg/dL Urine Ketones (NEGATIVE) mg/dL Urine Blood (NEGATIVE) Urine Nitrate (NEGATIVE) Urine Bilirubin (NEGATIVE) Urine Urobilinogen (<1 E.U./dL) E.U./dL Ur Leukocyte Esterase (NEGATIVE) Sulma/uL Urine RBC (0-2) /hpf Urine WBC (0-6) /hpf Ur Epithelial Cells (0-5) /hpf Urine Bacteria (NEG) Hyaline Casts /hpf Salicylates < 1 L (2.0-20.0) mg/dL Urine Opiates Screen (NEGATIVE) Urine Methadone Screen (NEGATIVE) Acetaminophen < 10.0 L (10.0-20.0) ug/ml Ur Barbiturates Screen (NEGATIVE) Ur Phencyclidine Scrn (NEGATIVE) Ur Amphetamines Screen (NEGATIVE) U Benzodiazepines Scrn (NEGATIVE) U Oth Cocaine Metabols (NEGATIVE) U Cannabinoids Screen (NEGATIVE) Alcohol, Quantitative < 10 (0-10) mg/dL 04/12/18 04/12/18 04/12/18 Range/Units 00:57 00:57 00:57 WBC 19.1 H D (4.5-11.0) 10^3/ul RBC 4.49 (3.5-6.1) 10^6/uL Hgb 13.2 L (14.0-18.0) g/dL Hct 41.5 L (42.0-52.0) % MCV 92.4 (80.0-105.0) fl MCH 29.4 (25.0-35.0) pg MCHC 31.8 (31.0-37.0) g/dl RDW 15.9 H (11.5-14.5) % Plt Count 378 (120.0-450.0) 10^3/uL MPV 9.4 (7.0-11.0) fl Gran % (50.0-68.0) % Lymph % (Auto) (22.0-35.0) % Millard % (Auto) (1.0-6.0) % Eos % (Auto) (1.5-5.0) % Baso % (Auto) (0.0-3.0) % Gran # (1.4-6.5) Lymph # (Auto) (1.2-3.4) Millard # (Auto) (0.1-0.6) Eos # (Auto) (0.0-0.7) Baso # (Auto) (0.0-2.0) K/mm3 Neutrophils % (Manual) (50.0-70.0) % Band Neutrophils % (0-2) % Lymphocytes % (Manual) (22.0-35.0) % Atypical Lymphs % (0.0-0.0) % Monocytes % (Manual) (1.0-6.0) % Platelet Evaluation (NORMAL) PT (9.4-12.5) SECONDS INR APTT (25.1-36.5) Seconds pCO2 (35-45) mm/Hg pO2 (80-100) mm/Hg HCO3 (21-28) mmol/L ABG pH (7.35-7.45) ABG Total CO2 (22-28) mmol.L ABG O2 Saturation (95-98) % ABG O2 Content (15-23) ML/dl ABG Base Excess (-2.0-3.0) mmol/L ABG Hemoglobin (11.7-17.4) g/dL ABG Carboxyhemoglobin (0.5-1.5) % POC ABG HHb (Measured) (0-5) % ABG Methemoglobin (0.0-3.0) % ABG O2 Capacity (16-24) mL/dl VBG pH (7.32-7.43) VBG pCO2 (40-60) VBG HCO3 (21-28) mmol/l VBG Total CO2 (22-28) mmol.L VBG O2 Sat (Calc) (40-65) % VBG Base Excess (0.0-2.0) mmol/L VBG Potassium (3.6-5.2) mmol/L Hgb O2 Saturation (95.0-98.0) % Glucose (75-110) mg/dl Lactate (0.7-2.1) mmol/L FiO2 % Sodium 145 (132-148) mmol/L Potassium 4.6 (3.6-5.0) mmol/L Chloride 106 (98-107) mmol/L Carbon Dioxide 27 (21-33) mmol/L Anion Gap 16 (10-20) BUN 11 (7-21) mg/dL Creatinine 1.5 (0.8-1.5) mg/dl Est GFR ( Amer) > 60 Est GFR (Non-Af Amer) 54 POC Glucose (mg/dL) (65-110) mg/dL Random Glucose 70 (70-110) mg/dL Calcium 9.0 (8.4-10.5) mg/dL Phosphorus (2.5-4.5) mg/dL Magnesium (1.7-2.2) mg/dL Total Bilirubin 0.2 (0.2-1.3) mg/dL AST 26 (17-59) U/L ALT 40 (7-56) U/L Alkaline Phosphatase 103 (38-126) U/L Lactate Dehydrogenase 455 (333-699) U/L Total Creatine Kinase 112 (35-230) U/L Troponin I 0.06 D ng/mL Total Protein 7.2 (5.8-8.3) g/dL Albumin 4.3 (3.0-4.8) g/dL Globulin 2.9 gm/dL Albumin/Globulin Ratio 1.5 (1.1-1.8) Venous Blood Potassium (3.6-5.2) mmol/L Urine Color Yellow (YELLOW) Urine Appearance Clear (CLEAR) Urine pH 6.0 (4.7-8.0) Ur Specific Muir >= 1.030 (1.005-1.035) Urine Protein 100 H (<30 mg/dL) mg/dL Urine Glucose (UA) Negative (NEGATIVE) mg/dL Urine Ketones Negative (NEGATIVE) mg/dL Urine Blood Negative (NEGATIVE) Urine Nitrate Negative (NEGATIVE) Urine Bilirubin Negative (NEGATIVE) Urine Urobilinogen 0.2 (<1 E.U./dL) E.U./dL Ur Leukocyte Esterase Negative (NEGATIVE) Sulma/uL Urine RBC 0 - 2 (0-2) /hpf Urine WBC 1 - 3 (0-6) /hpf Ur Epithelial Cells 1 - 3 (0-5) /hpf Urine Bacteria Occ (NEG) Hyaline Casts 0 - 2 /hpf Salicylates (2.0-20.0) mg/dL Urine Opiates Screen (NEGATIVE) Urine Methadone Screen (NEGATIVE) Acetaminophen (10.0-20.0) ug/ml Ur Barbiturates Screen (NEGATIVE) Ur Phencyclidine Scrn (NEGATIVE) Ur Amphetamines Screen (NEGATIVE) U Benzodiazepines Scrn (NEGATIVE) U Oth Cocaine Metabols (NEGATIVE) U Cannabinoids Screen (NEGATIVE) Alcohol, Quantitative (0-10) mg/dL 04/12/18 04/12/18 Range/Units 00:57 00:39 WBC (4.5-11.0) 10^3/ul RBC (3.5-6.1) 10^6/uL Hgb (14.0-18.0) g/dL Hct (42.0-52.0) % MCV (80.0-105.0) fl MCH (25.0-35.0) pg MCHC (31.0-37.0) g/dl RDW (11.5-14.5) % Plt Count (120.0-450.0) 10^3/uL MPV (7.0-11.0) fl Gran % (50.0-68.0) % Lymph % (Auto) (22.0-35.0) % Millard % (Auto) (1.0-6.0) % Eos % (Auto) (1.5-5.0) % Baso % (Auto) (0.0-3.0) % Gran # (1.4-6.5) Lymph # (Auto) (1.2-3.4) Millard # (Auto) (0.1-0.6) Eos # (Auto) (0.0-0.7) Baso # (Auto) (0.0-2.0) K/mm3 Neutrophils % (Manual) (50.0-70.0) % Band Neutrophils % (0-2) % Lymphocytes % (Manual) (22.0-35.0) % Atypical Lymphs % (0.0-0.0) % Monocytes % (Manual) (1.0-6.0) % Platelet Evaluation (NORMAL) PT 11.6 (9.4-12.5) SECONDS INR 1.02 APTT 30.0 (25.1-36.5) Seconds pCO2 (35-45) mm/Hg pO2 (80-100) mm/Hg HCO3 (21-28) mmol/L ABG pH (7.35-7.45) ABG Total CO2 (22-28) mmol.L ABG O2 Saturation (95-98) % ABG O2 Content (15-23) ML/dl ABG Base Excess (-2.0-3.0) mmol/L ABG Hemoglobin (11.7-17.4) g/dL ABG Carboxyhemoglobin (0.5-1.5) % POC ABG HHb (Measured) (0-5) % ABG Methemoglobin (0.0-3.0) % ABG O2 Capacity (16-24) mL/dl VBG pH (7.32-7.43) VBG pCO2 (40-60) VBG HCO3 (21-28) mmol/l VBG Total CO2 (22-28) mmol.L VBG O2 Sat (Calc) (40-65) % VBG Base Excess (0.0-2.0) mmol/L VBG Potassium (3.6-5.2) mmol/L Hgb O2 Saturation (95.0-98.0) % Glucose (75-110) mg/dl Lactate (0.7-2.1) mmol/L FiO2 % Sodium (132-148) mmol/L Potassium (3.6-5.0) mmol/L Chloride (98-107) mmol/L Carbon Dioxide (21-33) mmol/L Anion Gap (10-20) BUN (7-21) mg/dL Creatinine (0.8-1.5) mg/dl Est GFR ( Amer) Est GFR (Non-Af Amer) POC Glucose (mg/dL) 99 (65-110) mg/dL Random Glucose (70-110) mg/dL Calcium (8.4-10.5) mg/dL Phosphorus (2.5-4.5) mg/dL Magnesium (1.7-2.2) mg/dL Total Bilirubin (0.2-1.3) mg/dL AST (17-59) U/L ALT (7-56) U/L Alkaline Phosphatase (38-126) U/L Lactate Dehydrogenase (333-699) U/L Total Creatine Kinase (35-230) U/L Troponin I ng/mL Total Protein (5.8-8.3) g/dL Albumin (3.0-4.8) g/dL Globulin gm/dL Albumin/Globulin Ratio (1.1-1.8) Venous Blood Potassium (3.6-5.2) mmol/L Urine Color (YELLOW) Urine Appearance (CLEAR) Urine pH (4.7-8.0) Ur Specific Muir (1.005-1.035) Urine Protein (<30 mg/dL) mg/dL Urine Glucose (UA) (NEGATIVE) mg/dL Urine Ketones (NEGATIVE) mg/dL Urine Blood (NEGATIVE) Urine Nitrate (NEGATIVE) Urine Bilirubin (NEGATIVE) Urine Urobilinogen (<1 E.U./dL) E.U./dL Ur Leukocyte Esterase (NEGATIVE) Sulma/uL Urine RBC (0-2) /hpf Urine WBC (0-6) /hpf Ur Epithelial Cells (0-5) /hpf Urine Bacteria (NEG) Hyaline Casts /hpf Salicylates (2.0-20.0) mg/dL Urine Opiates Screen (NEGATIVE) Urine Methadone Screen (NEGATIVE) Acetaminophen (10.0-20.0) ug/ml Ur Barbiturates Screen (NEGATIVE) Ur Phencyclidine Scrn (NEGATIVE) Ur Amphetamines Screen (NEGATIVE) U Benzodiazepines Scrn (NEGATIVE) U Oth Cocaine Metabols (NEGATIVE) U Cannabinoids Screen (NEGATIVE) Alcohol, Quantitative (0-10) mg/dL Laboratory Results - last 24 hr 04/12/18 04/12/18 04/12/18 00:39 00:57 00:57 WBC RBC Hgb Hct MCV MCH MCHC RDW Plt Count MPV Gran % Lymph % (Auto) Millard % (Auto) Eos % (Auto) Baso % (Auto) Gran # Lymph # (Auto) Millard # (Auto) Eos # (Auto) Baso # (Auto) Neutrophils % (Manual) Band Neutrophils % Lymphocytes % (Manual) Atypical Lymphs % Monocytes % (Manual) Platelet Evaluation PT 11.6 INR 1.02 APTT 30.0 pCO2 pO2 HCO3 ABG pH ABG Total CO2 ABG O2 Saturation ABG O2 Content ABG Base Excess ABG Hemoglobin ABG Carboxyhemoglobin POC ABG HHb (Measured) ABG Methemoglobin ABG O2 Capacity VBG pH VBG pCO2 VBG HCO3 VBG Total CO2 VBG O2 Sat (Calc) VBG Base Excess VBG Potassium Hgb O2 Saturation Glucose Lactate FiO2 Sodium 145 Potassium 4.6 Chloride 106 Carbon Dioxide 27 Anion Gap 16 BUN 11 Creatinine 1.5 Est GFR ( Amer) > 60 Est GFR (Non-Af Amer) 54 POC Glucose (mg/dL) 99 Random Glucose 70 Calcium 9.0 Phosphorus Magnesium Total Bilirubin 0.2 AST 26 ALT 40 Alkaline Phosphatase 103 Lactate Dehydrogenase 455 Total Creatine Kinase 112 Troponin I 0.06 D Total Protein 7.2 Albumin 4.3 Globulin 2.9 Albumin/Globulin Ratio 1.5 Venous Blood Potassium Urine Color Urine Appearance Urine pH Ur Specific Muir Urine Protein Urine Glucose (UA) Urine Ketones Urine Blood Urine Nitrate Urine Bilirubin Urine Urobilinogen Ur Leukocyte Esterase Urine RBC Urine WBC Ur Epithelial Cells Urine Bacteria Hyaline Casts Salicylates Urine Opiates Screen Urine Methadone Screen Acetaminophen Ur Barbiturates Screen Ur Phencyclidine Scrn Ur Amphetamines Screen U Benzodiazepines Scrn U Oth Cocaine Metabols U Cannabinoids Screen Alcohol, Quantitative 04/12/18 04/12/18 04/12/18 00:57 00:57 00:57 WBC 19.1 H D RBC 4.49 Hgb 13.2 L Hct 41.5 L MCV 92.4 MCH 29.4 MCHC 31.8 RDW 15.9 H Plt Count 378 MPV 9.4 Gran % Lymph % (Auto) Millard % (Auto) Eos % (Auto) Baso % (Auto) Gran # Lymph # (Auto) Millard # (Auto) Eos # (Auto) Baso # (Auto) Neutrophils % (Manual) Band Neutrophils % Lymphocytes % (Manual) Atypical Lymphs % Monocytes % (Manual) Platelet Evaluation PT INR APTT pCO2 pO2 HCO3 ABG pH ABG Total CO2 ABG O2 Saturation ABG O2 Content ABG Base Excess ABG Hemoglobin ABG Carboxyhemoglobin POC ABG HHb (Measured) ABG Methemoglobin ABG O2 Capacity VBG pH VBG pCO2 VBG HCO3 VBG Total CO2 VBG O2 Sat (Calc) VBG Base Excess VBG Potassium Hgb O2 Saturation Glucose Lactate FiO2 Sodium Potassium Chloride Carbon Dioxide Anion Gap BUN Creatinine Est GFR ( Amer) Est GFR (Non-Af Amer) POC Glucose (mg/dL) Random Glucose Calcium Phosphorus Magnesium Total Bilirubin AST ALT Alkaline Phosphatase Lactate Dehydrogenase Total Creatine Kinase Troponin I Total Protein Albumin Globulin Albumin/Globulin Ratio Venous Blood Potassium Urine Color Yellow Urine Appearance Clear Urine pH 6.0 Ur Specific Muir >= 1.030 Urine Protein 100 H Urine Glucose (UA) Negative Urine Ketones Negative Urine Blood Negative Urine Nitrate Negative Urine Bilirubin Negative Urine Urobilinogen 0.2 Ur Leukocyte Esterase Negative Urine RBC 0 - 2 Urine WBC 1 - 3 Ur Epithelial Cells 1 - 3 Urine Bacteria Occ Hyaline Casts 0 - 2 Salicylates < 1 L Urine Opiates Screen Urine Methadone Screen Acetaminophen < 10.0 L Ur Barbiturates Screen Ur Phencyclidine Scrn Ur Amphetamines Screen U Benzodiazepines Scrn U Oth Cocaine Metabols U Cannabinoids Screen Alcohol, Quantitative 04/12/18 04/12/18 04/12/18 00:57 01:25 02:35 WBC RBC Hgb Hct MCV MCH MCHC RDW Plt Count MPV Gran % Lymph % (Auto) Millard % (Auto) Eos % (Auto) Baso % (Auto) Gran # Lymph # (Auto) Millard # (Auto) Eos # (Auto) Baso # (Auto) Neutrophils % (Manual) Band Neutrophils % Lymphocytes % (Manual) Atypical Lymphs % Monocytes % (Manual) Platelet Evaluation PT INR APTT pCO2 82 H* pO2 191.0 H 147 H HCO3 26.1 ABG pH 7.11 L* ABG Total CO2 28.6 H ABG O2 Saturation 98.9 H ABG O2 Content 17.9 ABG Base Excess -5.3 L ABG Hemoglobin 13.4 ABG Carboxyhemoglobin 5.6 H POC ABG HHb (Measured) 1.0 ABG Methemoglobin 0.4 ABG O2 Capacity 18.1 VBG pH 7.13 L* VBG pCO2 77.0 H* VBG HCO3 25.6 VBG Total CO2 28.0 VBG O2 Sat (Calc) 99.1 H VBG Base Excess -5.3 L VBG Potassium 5.1 Hgb O2 Saturation 93.0 L Glucose 73 L Lactate 1.7 FiO2 100.0 21.0 Sodium 140.0 Potassium Chloride 109.0 H Carbon Dioxide Anion Gap BUN Creatinine Est GFR ( Amer) Est GFR (Non-Af Amer) POC Glucose (mg/dL) Random Glucose Calcium Phosphorus Magnesium Total Bilirubin AST ALT Alkaline Phosphatase Lactate Dehydrogenase Total Creatine Kinase Troponin I Total Protein Albumin Globulin Albumin/Globulin Ratio Venous Blood Potassium 5.1 Urine Color Urine Appearance Urine pH Ur Specific Muir Urine Protein Urine Glucose (UA) Urine Ketones Urine Blood Urine Nitrate Urine Bilirubin Urine Urobilinogen Ur Leukocyte Esterase Urine RBC Urine WBC Ur Epithelial Cells Urine Bacteria Hyaline Casts Salicylates Urine Opiates Screen Urine Methadone Screen Acetaminophen Ur Barbiturates Screen Ur Phencyclidine Scrn Ur Amphetamines Screen U Benzodiazepines Scrn U Oth Cocaine Metabols U Cannabinoids Screen Alcohol, Quantitative < 10 04/12/18 04/12/18 04/12/18 05:30 05:30 08:30 WBC 15.2 H D RBC 4.52 Hgb 13.0 L Hct 41.0 L MCV 90.7 MCH 28.8 MCHC 31.7 RDW 15.7 H Plt Count 333 MPV 9.8 Gran % 89.7 H Lymph % (Auto) 3.5 L Millard % (Auto) 6.8 H Eos % (Auto) 0.0 L Baso % (Auto) 0.0 Gran # 13.67 H Lymph # (Auto) 0.5 L Millard # (Auto) 1.0 H Eos # (Auto) 0.0 Baso # (Auto) 0.00 Neutrophils % (Manual) 93 H Band Neutrophils % 2 Lymphocytes % (Manual) 1 L Atypical Lymphs % 1 H Monocytes % (Manual) 3 Platelet Evaluation Normal PT INR APTT pCO2 pO2 HCO3 ABG pH ABG Total CO2 ABG O2 Saturation ABG O2 Content ABG Base Excess ABG Hemoglobin ABG Carboxyhemoglobin POC ABG HHb (Measured) ABG Methemoglobin ABG O2 Capacity VBG pH VBG pCO2 VBG HCO3 VBG Total CO2 VBG O2 Sat (Calc) VBG Base Excess VBG Potassium Hgb O2 Saturation Glucose Lactate FiO2 Sodium 140 Potassium 5.2 H Chloride 112 H Carbon Dioxide 20 L Anion Gap 13 BUN 12 Creatinine 1.0 Est GFR ( Amer) > 60 Est GFR (Non-Af Amer) > 60 POC Glucose (mg/dL) Random Glucose 113 H Calcium 8.2 L Phosphorus 3.7 Magnesium 1.9 Total Bilirubin 0.4 AST 34 ALT 38 Alkaline Phosphatase 98 Lactate Dehydrogenase Total Creatine Kinase Troponin I Total Protein 6.1 Albumin 3.5 Globulin 2.6 Albumin/Globulin Ratio 1.4 Venous Blood Potassium Urine Color Yellow Urine Appearance Clear Urine pH 5.5 Ur Specific Muir >= 1.030 Urine Protein Negative Urine Glucose (UA) Negative Urine Ketones 15 H Urine Blood Trace-lysed H Urine Nitrate Negative Urine Bilirubin Negative Urine Urobilinogen 0.2 Ur Leukocyte Esterase Negative Urine RBC 2 - 5 Urine WBC 0 - 2 Ur Epithelial Cells None Urine Bacteria Mod Hyaline Casts Salicylates Urine Opiates Screen Urine Methadone Screen Acetaminophen Ur Barbiturates Screen Ur Phencyclidine Scrn Ur Amphetamines Screen U Benzodiazepines Scrn U Oth Cocaine Metabols U Cannabinoids Screen Alcohol, Quantitative 04/12/18 04/12/18 08:30 08:50 WBC RBC Hgb Hct MCV MCH MCHC RDW Plt Count MPV Gran % Lymph % (Auto) Millard % (Auto) Eos % (Auto) Baso % (Auto) Gran # Lymph # (Auto) Millard # (Auto) Eos # (Auto) Baso # (Auto) Neutrophils % (Manual) Band Neutrophils % Lymphocytes % (Manual) Atypical Lymphs % Monocytes % (Manual) Platelet Evaluation PT INR APTT pCO2 40 pO2 133.0 H HCO3 19.7 L ABG pH 7.30 L ABG Total CO2 20.9 L ABG O2 Saturation 98.9 H ABG O2 Content 16.8 ABG Base Excess -6.3 L ABG Hemoglobin 12.1 ABG Carboxyhemoglobin 0.9 POC ABG HHb (Measured) 1.1 ABG Methemoglobin 0.6 ABG O2 Capacity 17.0 VBG pH VBG pCO2 VBG HCO3 VBG Total CO2 VBG O2 Sat (Calc) VBG Base Excess VBG Potassium Hgb O2 Saturation 97.4 Glucose Lactate FiO2 100.0 Sodium Potassium Chloride Carbon Dioxide Anion Gap BUN Creatinine Est GFR ( Amer) Est GFR (Non-Af Amer) POC Glucose (mg/dL) Random Glucose Calcium Phosphorus Magnesium Total Bilirubin AST ALT Alkaline Phosphatase Lactate Dehydrogenase Total Creatine Kinase Troponin I Total Protein Albumin Globulin Albumin/Globulin Ratio Venous Blood Potassium Urine Color Urine Appearance Urine pH Ur Specific Muir Urine Protein Urine Glucose (UA) Urine Ketones Urine Blood Urine Nitrate Urine Bilirubin Urine Urobilinogen Ur Leukocyte Esterase Urine RBC Urine WBC Ur Epithelial Cells Urine Bacteria Hyaline Casts Salicylates Urine Opiates Screen Positive H Urine Methadone Screen Negative Acetaminophen Ur Barbiturates Screen Negative Ur Phencyclidine Scrn Negative Ur Amphetamines Screen Negative U Benzodiazepines Scrn Negative U Oth Cocaine Metabols Negative U Cannabinoids Screen Negative Alcohol, Quantitative EKG/Cardiology Studies: Cardiology / EKG Studies 04/12/18 ELECTROCARDIOGRAM Stat Comment: Reason For Exam: overdose Review of Systems - Review of Systems Systems not reviewed;Unavailable: Intubated Critical Care Progress Note - Ventilator Checklist Head of Bed 30 Degrees: Yes PUD Prophalyxis: Yes (protonix ) DVT Prophylaxis: Yes (SCD) - Vent Settings MODE:: ASSIST CONTROL TIDAL VOLUME:: 400 RESP RATE:: 18 FIO2:: 100 PEEP:: 5 - Extremities/Vascular Does the Patient have a Central Venous Catheter?: No Does the Patient need a Central Venous Catheter?: No Does the Patient have a Mane Catheter?: No - Nutrition Nutrition: Nutrition Category Date Time Status NPO Diet [DIET] Diets 04/12/18 Breakfast Ordered Assessment/Plan - Assessment and Plan (Free Text) Assessment: 32 year old male with past medical history of Goldenher Syndrome, epilepsy, bipolar disorder, schizophrenia, substance abuse presented unresponsive to the emergency department due to heroin overdose. Patient was given narcan and responded to narcan before being more tachypneic with labored respirations and subsequently needing intubation. Plan: Neuro: -Patient AAOx1, no FND, fatigued, patient now extubated. -Head CT: shows no acute abnormalities -Monitor neuro status. -Reorient patient as necessary. -Patient's pupils are equal and reactive. Patient has hypoactive bowel sounds. Patient reported consumed two bags of heroin and was given one dose of narcan on the way to the emergency department yesterday. Cardio: -RRR, normotensive, no signs of HD compromise -HR: 94, BP: 131/86, MAP: 91 -EKG: sinus tachycardia with PACs, Ventricular rate: 129, KS: 122, QRS: 82, QTc: 460 -Maintain MAP>65. -Monitor for S/S, HD compromise. Pulm: -Patient recently extubated. Patient in mild respiratory distress. Coarse breath sounds auscultated post extubation. -Patient is stating well on oxygen mask. Patient will be started on Bipap at 16/5. -ABG on the ventilator.: pH: 7.11, pO2: 191, pCO2: 82, O2 saturation: 98.9 -CXR: prior to extubation, patient has situs inversus, right lower lobe effusion. -Maintain O2 saturation>95%. -Elevate bed to 30 degrees due to risk of aspiration -Repeat ABG post extubation. -Patient now is febrile at 101.5. Due to findings on CXR, patient will be started on vancomycin, ceftriaxone, and azithromycin. GI: -NPO -Protonix 40 mg starting tomorrow /Nephro: -BUN/Cr stable -UA: 2-5 RBC, 0-2 WBC, moderate bacteria, 0 epithelial cells, negative leukocyte esterase and nitrates, positive ketones -UDS: positive for opiates -Patient currently without mane catheter. Patient has 0 recorded urine since last night. -Continue monitoring. -Potassium elevated at 5.2. Continue to monitor. -Calcium decreased at 8.2. Continue to monitor. -Replete electrolytes as needed. -Maintain euvolemia. Endocrinology: -Random glucose: 113 -Maintain euglycemia. Heme/Onc: -H/H stable at 13/41.0 -No signs of HD compromise. -Continue monitoring H/H ID: -Febrile at 101.5, leukocytosis at 15.2 -Follow up BCx, UCx, Procalcitonin -CXR: shows right lower lobe infiltrate -VBG Lactate: 1.7 -Patient to receive emperic vancomycin, ceftriaxone, and azithromycin. -Monitor for signs and symptoms of infection. DVT prophylaxis: SCD GI prophylaxis: protonix 40 mg PO starting tomorrow. Disposition: patient for possible transfer this PM pending clinical evaluation and respiratory function improvement. Patient case discussed with Dr. Arpit Perales. - Date & Time Date: 04/12/18 Time: 10:41 <Arpit Perales - Last Filed: 04/12/18 14:46> CCU Objective - Vital Signs / Intake & Output Vital Signs (Last 4 hours): Vital Signs Pulse 04/12/18 12:33 100 H Intake and Output (Last 8hrs): Intake & Output 04/11/18 04/12/18 04/12/18 22:59 06:59 14:59 Weight 55.083 kg Other: Voiding Method Indwelling Catheter - Medications Active Medications: Active Medications Generic Name Dose Route Start Last Admin Trade Name Freq PRN Reason Stop Dose Admin Acetaminophen 650 mg 04/12/18 09:59 04/12/18 10:06 Tylenol 650 Mg Supp RC 650 mg Q6H PRN Administration Fever >100.4 F Heparin Sodium (Porcine) 5,000 units 04/12/18 10:00 04/12/18 10:39 Heparin SC 5,000 units Q12 RAMIRO Administration Protocol Sodium Chloride 1,000 mls @ 100 mls/hr 04/12/18 04:00 04/12/18 04:30 Sodium Chloride 0.9% IV 100 mls/hr .Q10H RAMIRO Administration Ceftriaxone Sodium 1 gm in 100 mls @ 100 mls/hr 04/12/18 10:30 04/12/18 10:39 Rocephin 1 Gram Ivpb IVPB 100 mls/hr DAILY RAMIRO Administration Protocol Azithromycin 500 mg in 250 mls @ 167 mls/hr 04/12/18 10:30 04/12/18 11:30 Zithromax 500mg In Ns IVPB 04/14/18 11:00 167 mls/hr DAILY RAMIRO Administration Protocol Vancomycin HCl 1 gm in 250 mls @ 167 mls/hr 04/12/18 10:45 04/12/18 11:29 Vancomycin 1gm IVPB 167 mls/hr DAILY RAMIRO Administration Protocol Pantoprazole Sodium 40 mg 04/13/18 06:00 Protonix Ec Tab PO 0600 RAMIRO - Patient Studies Lab Studies: Lab Studies 04/12/18 04/12/18 04/12/18 Range/Units 13:45 08:50 08:30 WBC (4.5-11.0) 10^3/ul RBC (3.5-6.1) 10^6/uL Hgb (14.0-18.0) g/dL Hct (42.0-52.0) % MCV (80.0-105.0) fl MCH (25.0-35.0) pg MCHC (31.0-37.0) g/dl RDW (11.5-14.5) % Plt Count (120.0-450.0) 10^3/uL MPV (7.0-11.0) fl Gran % (50.0-68.0) % Lymph % (Auto) (22.0-35.0) % Millard % (Auto) (1.0-6.0) % Eos % (Auto) (1.5-5.0) % Baso % (Auto) (0.0-3.0) % Gran # (1.4-6.5) Lymph # (Auto) (1.2-3.4) Millard # (Auto) (0.1-0.6) Eos # (Auto) (0.0-0.7) Baso # (Auto) (0.0-2.0) K/mm3 Neutrophils % (Manual) (50.0-70.0) % Band Neutrophils % (0-2) % Lymphocytes % (Manual) (22.0-35.0) % Atypical Lymphs % (0.0-0.0) % Monocytes % (Manual) (1.0-6.0) % Platelet Evaluation (NORMAL) PT (9.4-12.5) SECONDS INR APTT (25.1-36.5) Seconds pCO2 42 40 (35-45) mm/Hg pO2 94.0 133.0 H (80-100) mm/Hg HCO3 24.3 19.7 L (21-28) mmol/L ABG pH 7.37 7.30 L (7.35-7.45) ABG Total CO2 25.6 20.9 L (22-28) mmol.L ABG O2 Saturation 97.8 98.9 H (95-98) % ABG O2 Content 16.1 16.8 (15-23) ML/dl ABG Base Excess -1.0 -6.3 L (-2.0-3.0) mmol/L ABG Hemoglobin 11.8 12.1 (11.7-17.4) g/dL ABG Carboxyhemoglobin 1.0 0.9 (0.5-1.5) % POC ABG HHb (Measured) 2.2 1.1 (0-5) % ABG Methemoglobin 0.5 0.6 (0.0-3.0) % ABG O2 Capacity 16.5 17.0 (16-24) mL/dl VBG pH (7.32-7.43) VBG pCO2 (40-60) VBG HCO3 (21-28) mmol/l VBG Total CO2 (22-28) mmol.L VBG O2 Sat (Calc) (40-65) % VBG Base Excess (0.0-2.0) mmol/L VBG Potassium (3.6-5.2) mmol/L Hgb O2 Saturation 96.4 97.4 (95.0-98.0) % Glucose (75-110) mg/dl Lactate (0.7-2.1) mmol/L FiO2 40.0 100.0 % Sodium (132-148) mmol/L Potassium (3.6-5.0) mmol/L Chloride (98-107) mmol/L Carbon Dioxide (21-33) mmol/L Anion Gap (10-20) BUN (7-21) mg/dL Creatinine (0.8-1.5) mg/dl Est GFR ( Amer) Est GFR (Non-Af Amer) POC Glucose (mg/dL) (65-110) mg/dL Random Glucose (70-110) mg/dL Calcium (8.4-10.5) mg/dL Phosphorus (2.5-4.5) mg/dL Magnesium (1.7-2.2) mg/dL Total Bilirubin (0.2-1.3) mg/dL AST (17-59) U/L ALT (7-56) U/L Alkaline Phosphatase (38-126) U/L Lactate Dehydrogenase (333-699) U/L Total Creatine Kinase (35-230) U/L Troponin I ng/mL Total Protein (5.8-8.3) g/dL Albumin (3.0-4.8) g/dL Globulin gm/dL Albumin/Globulin Ratio (1.1-1.8) Venous Blood Potassium (3.6-5.2) mmol/L Urine Color (YELLOW) Urine Appearance (CLEAR) Urine pH (4.7-8.0) Ur Specific Muir (1.005-1.035) Urine Protein (<30 mg/dL) mg/dL Urine Glucose (UA) (NEGATIVE) mg/dL Urine Ketones (NEGATIVE) mg/dL Urine Blood (NEGATIVE) Urine Nitrate (NEGATIVE) Urine Bilirubin (NEGATIVE) Urine Urobilinogen (<1 E.U./dL) E.U./dL Ur Leukocyte Esterase (NEGATIVE) Sulma/uL Urine RBC (0-2) /hpf Urine WBC (0-6) /hpf Ur Epithelial Cells (0-5) /hpf Urine Bacteria (NEG) Hyaline Casts /hpf Salicylates (2.0-20.0) mg/dL Urine Opiates Screen Positive H (NEGATIVE) Urine Methadone Screen Negative (NEGATIVE) Acetaminophen (10.0-20.0) ug/ml Ur Barbiturates Screen Negative (NEGATIVE) Ur Phencyclidine Scrn Negative (NEGATIVE) Ur Amphetamines Screen Negative (NEGATIVE) U Benzodiazepines Scrn Negative (NEGATIVE) U Oth Cocaine Metabols Negative (NEGATIVE) U Cannabinoids Screen Negative (NEGATIVE) Alcohol, Quantitative (0-10) mg/dL 04/12/18 04/12/18 04/12/18 Range/Units 08:30 05:30 05:30 WBC 15.2 H D (4.5-11.0) 10^3/ul RBC 4.52 (3.5-6.1) 10^6/uL Hgb 13.0 L (14.0-18.0) g/dL Hct 41.0 L (42.0-52.0) % MCV 90.7 (80.0-105.0) fl MCH 28.8 (25.0-35.0) pg MCHC 31.7 (31.0-37.0) g/dl RDW 15.7 H (11.5-14.5) % Plt Count 333 (120.0-450.0) 10^3/uL MPV 9.8 (7.0-11.0) fl Gran % 89.7 H (50.0-68.0) % Lymph % (Auto) 3.5 L (22.0-35.0) % Millard % (Auto) 6.8 H (1.0-6.0) % Eos % (Auto) 0.0 L (1.5-5.0) % Baso % (Auto) 0.0 (0.0-3.0) % Gran # 13.67 H (1.4-6.5) Lymph # (Auto) 0.5 L (1.2-3.4) Millard # (Auto) 1.0 H (0.1-0.6) Eos # (Auto) 0.0 (0.0-0.7) Baso # (Auto) 0.00 (0.0-2.0) K/mm3 Neutrophils % (Manual) 93 H (50.0-70.0) % Band Neutrophils % 2 (0-2) % Lymphocytes % (Manual) 1 L (22.0-35.0) % Atypical Lymphs % 1 H (0.0-0.0) % Monocytes % (Manual) 3 (1.0-6.0) % Platelet Evaluation Normal (NORMAL) PT (9.4-12.5) SECONDS INR APTT (25.1-36.5) Seconds pCO2 (35-45) mm/Hg pO2 (80-100) mm/Hg HCO3 (21-28) mmol/L ABG pH (7.35-7.45) ABG Total CO2 (22-28) mmol.L ABG O2 Saturation (95-98) % ABG O2 Content (15-23) ML/dl ABG Base Excess (-2.0-3.0) mmol/L ABG Hemoglobin (11.7-17.4) g/dL ABG Carboxyhemoglobin (0.5-1.5) % POC ABG HHb (Measured) (0-5) % ABG Methemoglobin (0.0-3.0) % ABG O2 Capacity (16-24) mL/dl VBG pH (7.32-7.43) VBG pCO2 (40-60) VBG HCO3 (21-28) mmol/l VBG Total CO2 (22-28) mmol.L VBG O2 Sat (Calc) (40-65) % VBG Base Excess (0.0-2.0) mmol/L VBG Potassium (3.6-5.2) mmol/L Hgb O2 Saturation (95.0-98.0) % Glucose (75-110) mg/dl Lactate (0.7-2.1) mmol/L FiO2 % Sodium 140 (132-148) mmol/L Potassium 5.2 H (3.6-5.0) mmol/L Chloride 112 H (98-107) mmol/L Carbon Dioxide 20 L (21-33) mmol/L Anion Gap 13 (10-20) BUN 12 (7-21) mg/dL Creatinine 1.0 (0.8-1.5) mg/dl Est GFR ( Amer) > 60 Est GFR (Non-Af Amer) > 60 POC Glucose (mg/dL) (65-110) mg/dL Random Glucose 113 H (70-110) mg/dL Calcium 8.2 L (8.4-10.5) mg/dL Phosphorus 3.7 (2.5-4.5) mg/dL Magnesium 1.9 (1.7-2.2) mg/dL Total Bilirubin 0.4 (0.2-1.3) mg/dL AST 34 (17-59) U/L ALT 38 (7-56) U/L Alkaline Phosphatase 98 (38-126) U/L Lactate Dehydrogenase (333-699) U/L Total Creatine Kinase (35-230) U/L Troponin I ng/mL Total Protein 6.1 (5.8-8.3) g/dL Albumin 3.5 (3.0-4.8) g/dL Globulin 2.6 gm/dL Albumin/Globulin Ratio 1.4 (1.1-1.8) Venous Blood Potassium (3.6-5.2) mmol/L Urine Color Yellow (YELLOW) Urine Appearance Clear (CLEAR) Urine pH 5.5 (4.7-8.0) Ur Specific Muir >= 1.030 (1.005-1.035) Urine Protein Negative (<30 mg/dL) mg/dL Urine Glucose (UA) Negative (NEGATIVE) mg/dL Urine Ketones 15 H (NEGATIVE) mg/dL Urine Blood Trace-lysed H (NEGATIVE) Urine Nitrate Negative (NEGATIVE) Urine Bilirubin Negative (NEGATIVE) Urine Urobilinogen 0.2 (<1 E.U./dL) E.U./dL Ur Leukocyte Esterase Negative (NEGATIVE) Sulma/uL Urine RBC 2 - 5 (0-2) /hpf Urine WBC 0 - 2 (0-6) /hpf Ur Epithelial Cells None (0-5) /hpf Urine Bacteria Mod (NEG) Hyaline Casts /hpf Salicylates (2.0-20.0) mg/dL Urine Opiates Screen (NEGATIVE) Urine Methadone Screen (NEGATIVE) Acetaminophen (10.0-20.0) ug/ml Ur Barbiturates Screen (NEGATIVE) Ur Phencyclidine Scrn (NEGATIVE) Ur Amphetamines Screen (NEGATIVE) U Benzodiazepines Scrn (NEGATIVE) U Oth Cocaine Metabols (NEGATIVE) U Cannabinoids Screen (NEGATIVE) Alcohol, Quantitative (0-10) mg/dL 04/12/18 04/12/18 04/12/18 Range/Units 02:35 01:25 00:57 WBC (4.5-11.0) 10^3/ul RBC (3.5-6.1) 10^6/uL Hgb (14.0-18.0) g/dL Hct (42.0-52.0) % MCV (80.0-105.0) fl MCH (25.0-35.0) pg MCHC (31.0-37.0) g/dl RDW (11.5-14.5) % Plt Count (120.0-450.0) 10^3/uL MPV (7.0-11.0) fl Gran % (50.0-68.0) % Lymph % (Auto) (22.0-35.0) % Millard % (Auto) (1.0-6.0) % Eos % (Auto) (1.5-5.0) % Baso % (Auto) (0.0-3.0) % Gran # (1.4-6.5) Lymph # (Auto) (1.2-3.4) Millard # (Auto) (0.1-0.6) Eos # (Auto) (0.0-0.7) Baso # (Auto) (0.0-2.0) K/mm3 Neutrophils % (Manual) (50.0-70.0) % Band Neutrophils % (0-2) % Lymphocytes % (Manual) (22.0-35.0) % Atypical Lymphs % (0.0-0.0) % Monocytes % (Manual) (1.0-6.0) % Platelet Evaluation (NORMAL) PT (9.4-12.5) SECONDS INR APTT (25.1-36.5) Seconds pCO2 82 H* (35-45) mm/Hg pO2 147 H 191.0 H (80-100) mm/Hg HCO3 26.1 (21-28) mmol/L ABG pH 7.11 L* (7.35-7.45) ABG Total CO2 28.6 H (22-28) mmol.L ABG O2 Saturation 98.9 H (95-98) % ABG O2 Content 17.9 (15-23) ML/dl ABG Base Excess -5.3 L (-2.0-3.0) mmol/L ABG Hemoglobin 13.4 (11.7-17.4) g/dL ABG Carboxyhemoglobin 5.6 H (0.5-1.5) % POC ABG HHb (Measured) 1.0 (0-5) % ABG Methemoglobin 0.4 (0.0-3.0) % ABG O2 Capacity 18.1 (16-24) mL/dl VBG pH 7.13 L* (7.32-7.43) VBG pCO2 77.0 H* (40-60) VBG HCO3 25.6 (21-28) mmol/l VBG Total CO2 28.0 (22-28) mmol.L VBG O2 Sat (Calc) 99.1 H (40-65) % VBG Base Excess -5.3 L (0.0-2.0) mmol/L VBG Potassium 5.1 (3.6-5.2) mmol/L Hgb O2 Saturation 93.0 L (95.0-98.0) % Glucose 73 L (75-110) mg/dl Lactate 1.7 (0.7-2.1) mmol/L FiO2 21.0 100.0 % Sodium 140.0 (132-148) mmol/L Potassium (3.6-5.0) mmol/L Chloride 109.0 H (98-107) mmol/L Carbon Dioxide (21-33) mmol/L Anion Gap (10-20) BUN (7-21) mg/dL Creatinine (0.8-1.5) mg/dl Est GFR ( Amer) Est GFR (Non-Af Amer) POC Glucose (mg/dL) (65-110) mg/dL Random Glucose (70-110) mg/dL Calcium (8.4-10.5) mg/dL Phosphorus (2.5-4.5) mg/dL Magnesium (1.7-2.2) mg/dL Total Bilirubin (0.2-1.3) mg/dL AST (17-59) U/L ALT (7-56) U/L Alkaline Phosphatase (38-126) U/L Lactate Dehydrogenase (333-699) U/L Total Creatine Kinase (35-230) U/L Troponin I ng/mL Total Protein (5.8-8.3) g/dL Albumin (3.0-4.8) g/dL Globulin gm/dL Albumin/Globulin Ratio (1.1-1.8) Venous Blood Potassium 5.1 (3.6-5.2) mmol/L Urine Color (YELLOW) Urine Appearance (CLEAR) Urine pH (4.7-8.0) Ur Specific Muir (1.005-1.035) Urine Protein (<30 mg/dL) mg/dL Urine Glucose (UA) (NEGATIVE) mg/dL Urine Ketones (NEGATIVE) mg/dL Urine Blood (NEGATIVE) Urine Nitrate (NEGATIVE) Urine Bilirubin (NEGATIVE) Urine Urobilinogen (<1 E.U./dL) E.U./dL Ur Leukocyte Esterase (NEGATIVE) Sulma/uL Urine RBC (0-2) /hpf Urine WBC (0-6) /hpf Ur Epithelial Cells (0-5) /hpf Urine Bacteria (NEG) Hyaline Casts /hpf Salicylates (2.0-20.0) mg/dL Urine Opiates Screen (NEGATIVE) Urine Methadone Screen (NEGATIVE) Acetaminophen (10.0-20.0) ug/ml Ur Barbiturates Screen (NEGATIVE) Ur Phencyclidine Scrn (NEGATIVE) Ur Amphetamines Screen (NEGATIVE) U Benzodiazepines Scrn (NEGATIVE) U Oth Cocaine Metabols (NEGATIVE) U Cannabinoids Screen (NEGATIVE) Alcohol, Quantitative < 10 (0-10) mg/dL 04/12/18 04/12/18 04/12/18 Range/Units 00:57 00:57 00:57 WBC 19.1 H D (4.5-11.0) 10^3/ul RBC 4.49 (3.5-6.1) 10^6/uL Hgb 13.2 L (14.0-18.0) g/dL Hct 41.5 L (42.0-52.0) % MCV 92.4 (80.0-105.0) fl MCH 29.4 (25.0-35.0) pg MCHC 31.8 (31.0-37.0) g/dl RDW 15.9 H (11.5-14.5) % Plt Count 378 (120.0-450.0) 10^3/uL MPV 9.4 (7.0-11.0) fl Gran % (50.0-68.0) % Lymph % (Auto) (22.0-35.0) % Millard % (Auto) (1.0-6.0) % Eos % (Auto) (1.5-5.0) % Baso % (Auto) (0.0-3.0) % Gran # (1.4-6.5) Lymph # (Auto) (1.2-3.4) Millard # (Auto) (0.1-0.6) Eos # (Auto) (0.0-0.7) Baso # (Auto) (0.0-2.0) K/mm3 Neutrophils % (Manual) (50.0-70.0) % Band Neutrophils % (0-2) % Lymphocytes % (Manual) (22.0-35.0) % Atypical Lymphs % (0.0-0.0) % Monocytes % (Manual) (1.0-6.0) % Platelet Evaluation (NORMAL) PT (9.4-12.5) SECONDS INR APTT (25.1-36.5) Seconds pCO2 (35-45) mm/Hg pO2 (80-100) mm/Hg HCO3 (21-28) mmol/L ABG pH (7.35-7.45) ABG Total CO2 (22-28) mmol.L ABG O2 Saturation (95-98) % ABG O2 Content (15-23) ML/dl ABG Base Excess (-2.0-3.0) mmol/L ABG Hemoglobin (11.7-17.4) g/dL ABG Carboxyhemoglobin (0.5-1.5) % POC ABG HHb (Measured) (0-5) % ABG Methemoglobin (0.0-3.0) % ABG O2 Capacity (16-24) mL/dl VBG pH (7.32-7.43) VBG pCO2 (40-60) VBG HCO3 (21-28) mmol/l VBG Total CO2 (22-28) mmol.L VBG O2 Sat (Calc) (40-65) % VBG Base Excess (0.0-2.0) mmol/L VBG Potassium (3.6-5.2) mmol/L Hgb O2 Saturation (95.0-98.0) % Glucose (75-110) mg/dl Lactate (0.7-2.1) mmol/L FiO2 % Sodium (132-148) mmol/L Potassium (3.6-5.0) mmol/L Chloride (98-107) mmol/L Carbon Dioxide (21-33) mmol/L Anion Gap (10-20) BUN (7-21) mg/dL Creatinine (0.8-1.5) mg/dl Est GFR ( Amer) Est GFR (Non-Af Amer) POC Glucose (mg/dL) (65-110) mg/dL Random Glucose (70-110) mg/dL Calcium (8.4-10.5) mg/dL Phosphorus (2.5-4.5) mg/dL Magnesium (1.7-2.2) mg/dL Total Bilirubin (0.2-1.3) mg/dL AST (17-59) U/L ALT (7-56) U/L Alkaline Phosphatase (38-126) U/L Lactate Dehydrogenase (333-699) U/L Total Creatine Kinase (35-230) U/L Troponin I ng/mL Total Protein (5.8-8.3) g/dL Albumin (3.0-4.8) g/dL Globulin gm/dL Albumin/Globulin Ratio (1.1-1.8) Venous Blood Potassium (3.6-5.2) mmol/L Urine Color Yellow (YELLOW) Urine Appearance Clear (CLEAR) Urine pH 6.0 (4.7-8.0) Ur Specific Muir >= 1.030 (1.005-1.035) Urine Protein 100 H (<30 mg/dL) mg/dL Urine Glucose (UA) Negative (NEGATIVE) mg/dL Urine Ketones Negative (NEGATIVE) mg/dL Urine Blood Negative (NEGATIVE) Urine Nitrate Negative (NEGATIVE) Urine Bilirubin Negative (NEGATIVE) Urine Urobilinogen 0.2 (<1 E.U./dL) E.U./dL Ur Leukocyte Esterase Negative (NEGATIVE) Sulma/uL Urine RBC 0 - 2 (0-2) /hpf Urine WBC 1 - 3 (0-6) /hpf Ur Epithelial Cells 1 - 3 (0-5) /hpf Urine Bacteria Occ (NEG) Hyaline Casts 0 - 2 /hpf Salicylates < 1 L (2.0-20.0) mg/dL Urine Opiates Screen (NEGATIVE) Urine Methadone Screen (NEGATIVE) Acetaminophen < 10.0 L (10.0-20.0) ug/ml Ur Barbiturates Screen (NEGATIVE) Ur Phencyclidine Scrn (NEGATIVE) Ur Amphetamines Screen (NEGATIVE) U Benzodiazepines Scrn (NEGATIVE) U Oth Cocaine Metabols (NEGATIVE) U Cannabinoids Screen (NEGATIVE) Alcohol, Quantitative (0-10) mg/dL 04/12/18 04/12/18 04/12/18 Range/Units 00:57 00:57 00:39 WBC (4.5-11.0) 10^3/ul RBC (3.5-6.1) 10^6/uL Hgb (14.0-18.0) g/dL Hct (42.0-52.0) % MCV (80.0-105.0) fl MCH (25.0-35.0) pg MCHC (31.0-37.0) g/dl RDW (11.5-14.5) % Plt Count (120.0-450.0) 10^3/uL MPV (7.0-11.0) fl Gran % (50.0-68.0) % Lymph % (Auto) (22.0-35.0) % Millard % (Auto) (1.0-6.0) % Eos % (Auto) (1.5-5.0) % Baso % (Auto) (0.0-3.0) % Gran # (1.4-6.5) Lymph # (Auto) (1.2-3.4) Millard # (Auto) (0.1-0.6) Eos # (Auto) (0.0-0.7) Baso # (Auto) (0.0-2.0) K/mm3 Neutrophils % (Manual) (50.0-70.0) % Band Neutrophils % (0-2) % Lymphocytes % (Manual) (22.0-35.0) % Atypical Lymphs % (0.0-0.0) % Monocytes % (Manual) (1.0-6.0) % Platelet Evaluation (NORMAL) PT 11.6 (9.4-12.5) SECONDS INR 1.02 APTT 30.0 (25.1-36.5) Seconds pCO2 (35-45) mm/Hg pO2 (80-100) mm/Hg HCO3 (21-28) mmol/L ABG pH (7.35-7.45) ABG Total CO2 (22-28) mmol.L ABG O2 Saturation (95-98) % ABG O2 Content (15-23) ML/dl ABG Base Excess (-2.0-3.0) mmol/L ABG Hemoglobin (11.7-17.4) g/dL ABG Carboxyhemoglobin (0.5-1.5) % POC ABG HHb (Measured) (0-5) % ABG Methemoglobin (0.0-3.0) % ABG O2 Capacity (16-24) mL/dl VBG pH (7.32-7.43) VBG pCO2 (40-60) VBG HCO3 (21-28) mmol/l VBG Total CO2 (22-28) mmol.L VBG O2 Sat (Calc) (40-65) % VBG Base Excess (0.0-2.0) mmol/L VBG Potassium (3.6-5.2) mmol/L Hgb O2 Saturation (95.0-98.0) % Glucose (75-110) mg/dl Lactate (0.7-2.1) mmol/L FiO2 % Sodium 145 (132-148) mmol/L Potassium 4.6 (3.6-5.0) mmol/L Chloride 106 (98-107) mmol/L Carbon Dioxide 27 (21-33) mmol/L Anion Gap 16 (10-20) BUN 11 (7-21) mg/dL Creatinine 1.5 (0.8-1.5) mg/dl Est GFR ( Amer) > 60 Est GFR (Non-Af Amer) 54 POC Glucose (mg/dL) 99 (65-110) mg/dL Random Glucose 70 (70-110) mg/dL Calcium 9.0 (8.4-10.5) mg/dL Phosphorus (2.5-4.5) mg/dL Magnesium (1.7-2.2) mg/dL Total Bilirubin 0.2 (0.2-1.3) mg/dL AST 26 (17-59) U/L ALT 40 (7-56) U/L Alkaline Phosphatase 103 (38-126) U/L Lactate Dehydrogenase 455 (333-699) U/L Total Creatine Kinase 112 (35-230) U/L Troponin I 0.06 D ng/mL Total Protein 7.2 (5.8-8.3) g/dL Albumin 4.3 (3.0-4.8) g/dL Globulin 2.9 gm/dL Albumin/Globulin Ratio 1.5 (1.1-1.8) Venous Blood Potassium (3.6-5.2) mmol/L Urine Color (YELLOW) Urine Appearance (CLEAR) Urine pH (4.7-8.0) Ur Specific Muir (1.005-1.035) Urine Protein (<30 mg/dL) mg/dL Urine Glucose (UA) (NEGATIVE) mg/dL Urine Ketones (NEGATIVE) mg/dL Urine Blood (NEGATIVE) Urine Nitrate (NEGATIVE) Urine Bilirubin (NEGATIVE) Urine Urobilinogen (<1 E.U./dL) E.U./dL Ur Leukocyte Esterase (NEGATIVE) Sulma/uL Urine RBC (0-2) /hpf Urine WBC (0-6) /hpf Ur Epithelial Cells (0-5) /hpf Urine Bacteria (NEG) Hyaline Casts /hpf Salicylates (2.0-20.0) mg/dL Urine Opiates Screen (NEGATIVE) Urine Methadone Screen (NEGATIVE) Acetaminophen (10.0-20.0) ug/ml Ur Barbiturates Screen (NEGATIVE) Ur Phencyclidine Scrn (NEGATIVE) Ur Amphetamines Screen (NEGATIVE) U Benzodiazepines Scrn (NEGATIVE) U Oth Cocaine Metabols (NEGATIVE) U Cannabinoids Screen (NEGATIVE) Alcohol, Quantitative (0-10) mg/dL Laboratory Results - last 24 hr 04/12/18 04/12/18 04/12/18 00:39 00:57 00:57 WBC RBC Hgb Hct MCV MCH MCHC RDW Plt Count MPV Gran % Lymph % (Auto) Millard % (Auto) Eos % (Auto) Baso % (Auto) Gran # Lymph # (Auto) Millard # (Auto) Eos # (Auto) Baso # (Auto) Neutrophils % (Manual) Band Neutrophils % Lymphocytes % (Manual) Atypical Lymphs % Monocytes % (Manual) Platelet Evaluation PT 11.6 INR 1.02 APTT 30.0 pCO2 pO2 HCO3 ABG pH ABG Total CO2 ABG O2 Saturation ABG O2 Content ABG Base Excess ABG Hemoglobin ABG Carboxyhemoglobin POC ABG HHb (Measured) ABG Methemoglobin ABG O2 Capacity VBG pH VBG pCO2 VBG HCO3 VBG Total CO2 VBG O2 Sat (Calc) VBG Base Excess VBG Potassium Hgb O2 Saturation Glucose Lactate FiO2 Sodium 145 Potassium 4.6 Chloride 106 Carbon Dioxide 27 Anion Gap 16 BUN 11 Creatinine 1.5 Est GFR ( Amer) > 60 Est GFR (Non-Af Amer) 54 POC Glucose (mg/dL) 99 Random Glucose 70 Calcium 9.0 Phosphorus Magnesium Total Bilirubin 0.2 AST 26 ALT 40 Alkaline Phosphatase 103 Lactate Dehydrogenase 455 Total Creatine Kinase 112 Troponin I 0.06 D Total Protein 7.2 Albumin 4.3 Globulin 2.9 Albumin/Globulin Ratio 1.5 Venous Blood Potassium Urine Color Urine Appearance Urine pH Ur Specific Muir Urine Protein Urine Glucose (UA) Urine Ketones Urine Blood Urine Nitrate Urine Bilirubin Urine Urobilinogen Ur Leukocyte Esterase Urine RBC Urine WBC Ur Epithelial Cells Urine Bacteria Hyaline Casts Salicylates Urine Opiates Screen Urine Methadone Screen Acetaminophen Ur Barbiturates Screen Ur Phencyclidine Scrn Ur Amphetamines Screen U Benzodiazepines Scrn U Oth Cocaine Metabols U Cannabinoids Screen Alcohol, Quantitative 04/12/18 04/12/18 04/12/18 00:57 00:57 00:57 WBC 19.1 H D RBC 4.49 Hgb 13.2 L Hct 41.5 L MCV 92.4 MCH 29.4 MCHC 31.8 RDW 15.9 H Plt Count 378 MPV 9.4 Gran % Lymph % (Auto) Millard % (Auto) Eos % (Auto) Baso % (Auto) Gran # Lymph # (Auto) Millard # (Auto) Eos # (Auto) Baso # (Auto) Neutrophils % (Manual) Band Neutrophils % Lymphocytes % (Manual) Atypical Lymphs % Monocytes % (Manual) Platelet Evaluation PT INR APTT pCO2 pO2 HCO3 ABG pH ABG Total CO2 ABG O2 Saturation ABG O2 Content ABG Base Excess ABG Hemoglobin ABG Carboxyhemoglobin POC ABG HHb (Measured) ABG Methemoglobin ABG O2 Capacity VBG pH VBG pCO2 VBG HCO3 VBG Total CO2 VBG O2 Sat (Calc) VBG Base Excess VBG Potassium Hgb O2 Saturation Glucose Lactate FiO2 Sodium Potassium Chloride Carbon Dioxide Anion Gap BUN Creatinine Est GFR ( Amer) Est GFR (Non-Af Amer) POC Glucose (mg/dL) Random Glucose Calcium Phosphorus Magnesium Total Bilirubin AST ALT Alkaline Phosphatase Lactate Dehydrogenase Total Creatine Kinase Troponin I Total Protein Albumin Globulin Albumin/Globulin Ratio Venous Blood Potassium Urine Color Yellow Urine Appearance Clear Urine pH 6.0 Ur Specific Muir >= 1.030 Urine Protein 100 H Urine Glucose (UA) Negative Urine Ketones Negative Urine Blood Negative Urine Nitrate Negative Urine Bilirubin Negative Urine Urobilinogen 0.2 Ur Leukocyte Esterase Negative Urine RBC 0 - 2 Urine WBC 1 - 3 Ur Epithelial Cells 1 - 3 Urine Bacteria Occ Hyaline Casts 0 - 2 Salicylates < 1 L Urine Opiates Screen Urine Methadone Screen Acetaminophen < 10.0 L Ur Barbiturates Screen Ur Phencyclidine Scrn Ur Amphetamines Screen U Benzodiazepines Scrn U Oth Cocaine Metabols U Cannabinoids Screen Alcohol, Quantitative 04/12/18 04/12/18 04/12/18 00:57 01:25 02:35 WBC RBC Hgb Hct MCV MCH MCHC RDW Plt Count MPV Gran % Lymph % (Auto) Millard % (Auto) Eos % (Auto) Baso % (Auto) Gran # Lymph # (Auto) Millard # (Auto) Eos # (Auto) Baso # (Auto) Neutrophils % (Manual) Band Neutrophils % Lymphocytes % (Manual) Atypical Lymphs % Monocytes % (Manual) Platelet Evaluation PT INR APTT pCO2 82 H* pO2 191.0 H 147 H HCO3 26.1 ABG pH 7.11 L* ABG Total CO2 28.6 H ABG O2 Saturation 98.9 H ABG O2 Content 17.9 ABG Base Excess -5.3 L ABG Hemoglobin 13.4 ABG Carboxyhemoglobin 5.6 H POC ABG HHb (Measured) 1.0 ABG Methemoglobin 0.4 ABG O2 Capacity 18.1 VBG pH 7.13 L* VBG pCO2 77.0 H* VBG HCO3 25.6 VBG Total CO2 28.0 VBG O2 Sat (Calc) 99.1 H VBG Base Excess -5.3 L VBG Potassium 5.1 Hgb O2 Saturation 93.0 L Glucose 73 L Lactate 1.7 FiO2 100.0 21.0 Sodium 140.0 Potassium Chloride 109.0 H Carbon Dioxide Anion Gap BUN Creatinine Est GFR ( Amer) Est GFR (Non-Af Amer) POC Glucose (mg/dL) Random Glucose Calcium Phosphorus Magnesium Total Bilirubin AST ALT Alkaline Phosphatase Lactate Dehydrogenase Total Creatine Kinase Troponin I Total Protein Albumin Globulin Albumin/Globulin Ratio Venous Blood Potassium 5.1 Urine Color Urine Appearance Urine pH Ur Specific Muir Urine Protein Urine Glucose (UA) Urine Ketones Urine Blood Urine Nitrate Urine Bilirubin Urine Urobilinogen Ur Leukocyte Esterase Urine RBC Urine WBC Ur Epithelial Cells Urine Bacteria Hyaline Casts Salicylates Urine Opiates Screen Urine Methadone Screen Acetaminophen Ur Barbiturates Screen Ur Phencyclidine Scrn Ur Amphetamines Screen U Benzodiazepines Scrn U Oth Cocaine Metabols U Cannabinoids Screen Alcohol, Quantitative < 10 04/12/18 04/12/18 04/12/18 05:30 05:30 08:30 WBC 15.2 H D RBC 4.52 Hgb 13.0 L Hct 41.0 L MCV 90.7 MCH 28.8 MCHC 31.7 RDW 15.7 H Plt Count 333 MPV 9.8 Gran % 89.7 H Lymph % (Auto) 3.5 L Millard % (Auto) 6.8 H Eos % (Auto) 0.0 L Baso % (Auto) 0.0 Gran # 13.67 H Lymph # (Auto) 0.5 L Millard # (Auto) 1.0 H Eos # (Auto) 0.0 Baso # (Auto) 0.00 Neutrophils % (Manual) 93 H Band Neutrophils % 2 Lymphocytes % (Manual) 1 L Atypical Lymphs % 1 H Monocytes % (Manual) 3 Platelet Evaluation Normal PT INR APTT pCO2 pO2 HCO3 ABG pH ABG Total CO2 ABG O2 Saturation ABG O2 Content ABG Base Excess ABG Hemoglobin ABG Carboxyhemoglobin POC ABG HHb (Measured) ABG Methemoglobin ABG O2 Capacity VBG pH VBG pCO2 VBG HCO3 VBG Total CO2 VBG O2 Sat (Calc) VBG Base Excess VBG Potassium Hgb O2 Saturation Glucose Lactate FiO2 Sodium 140 Potassium 5.2 H Chloride 112 H Carbon Dioxide 20 L Anion Gap 13 BUN 12 Creatinine 1.0 Est GFR ( Amer) > 60 Est GFR (Non-Af Amer) > 60 POC Glucose (mg/dL) Random Glucose 113 H Calcium 8.2 L Phosphorus 3.7 Magnesium 1.9 Total Bilirubin 0.4 AST 34 ALT 38 Alkaline Phosphatase 98 Lactate Dehydrogenase Total Creatine Kinase Troponin I Total Protein 6.1 Albumin 3.5 Globulin 2.6 Albumin/Globulin Ratio 1.4 Venous Blood Potassium Urine Color Yellow Urine Appearance Clear Urine pH 5.5 Ur Specific Muir >= 1.030 Urine Protein Negative Urine Glucose (UA) Negative Urine Ketones 15 H Urine Blood Trace-lysed H Urine Nitrate Negative Urine Bilirubin Negative Urine Urobilinogen 0.2 Ur Leukocyte Esterase Negative Urine RBC 2 - 5 Urine WBC 0 - 2 Ur Epithelial Cells None Urine Bacteria Mod Hyaline Casts Salicylates Urine Opiates Screen Urine Methadone Screen Acetaminophen Ur Barbiturates Screen Ur Phencyclidine Scrn Ur Amphetamines Screen U Benzodiazepines Scrn U Oth Cocaine Metabols U Cannabinoids Screen Alcohol, Quantitative 04/12/18 04/12/18 04/12/18 08:30 08:50 13:45 WBC RBC Hgb Hct MCV MCH MCHC RDW Plt Count MPV Gran % Lymph % (Auto) Millard % (Auto) Eos % (Auto) Baso % (Auto) Gran # Lymph # (Auto) Millard # (Auto) Eos # (Auto) Baso # (Auto) Neutrophils % (Manual) Band Neutrophils % Lymphocytes % (Manual) Atypical Lymphs % Monocytes % (Manual) Platelet Evaluation PT INR APTT pCO2 40 42 pO2 133.0 H 94.0 HCO3 19.7 L 24.3 ABG pH 7.30 L 7.37 ABG Total CO2 20.9 L 25.6 ABG O2 Saturation 98.9 H 97.8 ABG O2 Content 16.8 16.1 ABG Base Excess -6.3 L -1.0 ABG Hemoglobin 12.1 11.8 ABG Carboxyhemoglobin 0.9 1.0 POC ABG HHb (Measured) 1.1 2.2 ABG Methemoglobin 0.6 0.5 ABG O2 Capacity 17.0 16.5 VBG pH VBG pCO2 VBG HCO3 VBG Total CO2 VBG O2 Sat (Calc) VBG Base Excess VBG Potassium Hgb O2 Saturation 97.4 96.4 Glucose Lactate FiO2 100.0 40.0 Sodium Potassium Chloride Carbon Dioxide Anion Gap BUN Creatinine Est GFR ( Amer) Est GFR (Non-Af Amer) POC Glucose (mg/dL) Random Glucose Calcium Phosphorus Magnesium Total Bilirubin AST ALT Alkaline Phosphatase Lactate Dehydrogenase Total Creatine Kinase Troponin I Total Protein Albumin Globulin Albumin/Globulin Ratio Venous Blood Potassium Urine Color Urine Appearance Urine pH Ur Specific Muir Urine Protein Urine Glucose (UA) Urine Ketones Urine Blood Urine Nitrate Urine Bilirubin Urine Urobilinogen Ur Leukocyte Esterase Urine RBC Urine WBC Ur Epithelial Cells Urine Bacteria Hyaline Casts Salicylates Urine Opiates Screen Positive H Urine Methadone Screen Negative Acetaminophen Ur Barbiturates Screen Negative Ur Phencyclidine Scrn Negative Ur Amphetamines Screen Negative U Benzodiazepines Scrn Negative U Oth Cocaine Metabols Negative U Cannabinoids Screen Negative Alcohol, Quantitative EKG/Cardiology Studies: Cardiology / EKG Studies 04/12/18 ELECTROCARDIOGRAM Stat Comment: Reason For Exam: overdose Critical Care Progress Note - Nutrition Nutrition: Nutrition Category Date Time Status NPO Diet [DIET] Diets 04/12/18 Breakfast Ordered Addendum Addendum: 04/12/18 14:43 ICU Attending Addendum Patient seen and examined. Case reviewed on round with housestaff. Agree with resident note above with the following additions/exceptions: 32 M with hx of Goldenher Syndrome, epilepsy, bipolar disorder, schizophrenia, substance abuse presented unresponsive to the emergency department due to heroin overdose. Found to be hypercapnic. Intubated. This morning, plan to give more narcan improve mental status repeat ABG once awake if appropriate will extubate will need drug counseling empiric abx for fever and leukocytosis will resume home meds once extubated Arpit Perales MD Dental Technician [employer] TIme: 35 mins
[2018-04-12] MEDS: Vancomycin 1gm in NS 250ml 1 GM/250 ML BAG IVPB SCH (11:29)
[2018-04-12] MEDS: Azithromycin 500MG/NS 250ml 500 MG/250 ML BAG IVPB SCH (11:30)
[2018-04-12 13:55] LABS: ARTERIAL BLOOD GAS HCO3 24.3 mmol/L (21-28); ARTERIAL BLOOD GAS HEMOGLOBIN 11.8 g/dL (11.7-17.4); ARTERIAL BLOOD GAS O2 CAPACITY 16.5 mL/dl (16-24); ARTERIAL BLOOD GAS O2 CONTENT 16.1 ML/dl (15-23); ARTERIAL BLOOD GAS O2 SAT 97.8 % (95-98); ARTERIAL BLOOD GAS PCO2 42 mm/Hg (35-45); ARTERIAL BLOOD GAS PH 7.37 (7.35-7.45); ARTERIAL BLOOD GAS TCO2 25.6 mmol.L (22-28)
[2018-04-12] MEDS: Divalproex 250 mg DR (BID formulation) PO SCH (22:21)
[2018-04-12] MEDS: Cefepime 1gm in NS 100ml 1 GM/100 ML BAG IVPB SCH (22:22)
--- NOTE | 2018-04-13 04:56 | CON ---
DATE: 04/12/2018 LOCATION: The patient is seen earlier this morning in [facility], bed 2. The patient was just extubated. CHIEF COMPLAINT: Fever. HISTORY OF PRESENT ILLNESS: This is a 32-year-old male with Goldenhar syndrome, obstructive sleep apnea, bipolar, anxiety, schizophrenia, epilepsy, depression and substance abuse, questionable heroin overdose, multiple skull surgeries, no known allergies, who is admitted with a diagnosis of respiratory failure, drug overdose, was intubated on a ventilator, now extubated. Infectious Disease consultation requested because of fever. The patient is a poor historian. There has been no chest pain, shortness of breath or cough. No headaches or blurred vision. No abdominal pain or diarrhea. REVIEW OF SYSTEMS: A 12-point review of systems performed. PAST MEDICAL HISTORY: Significant for Goldenhar syndrome, obstructive sleep apnea, bipolar, anxiety, schizophrenia, epilepsy, depression, substance abuse, heroin abuse. PAST SURGICAL HISTORY: Significant for multiple skull surgeries. ALLERGIES: THE PATIENT HAS NO KNOWN ALLERGIES. MEDICATIONS AT HOME: Include bupropion, Seroquel, Depakote, Cogentin. PHYSICAL EXAMINATION: GENERAL: Patient is in bed. VITAL SIGNS: With a temperature of 101, blood pressure is 124/70, respiratory rate of 18, heart rate of 110. HEENT: Unremarkable. NECK: Supple. LUNGS: Have decreased breath sounds. HEART: Normal S1, S2. ABDOMEN: Soft. LABORATORY EXAMINATION: Reveals the patient's white count of 19,000, hemoglobin of 13, platelets of 378 with 89% granulocytosis. Coagulation is noted. Chemistries revealed a BUN of 11, creatinine of 1.5, creatinine before that was 0.7. Urinalysis is noted. Microbiology is pending. The patient's chest x-ray is negative. CAT scan of the head is noted which is negative. EKG shows a QTc of 460. ASSESSMENT AND PLAN: A 32-year-old male with Goldenhar syndrome, obstructive sleep apnea, bipolar, multiple skull surgeries, anxiety, schizophrenia, depression. 1. [place] systemic inflammatory response syndrome with acute kidney injury and status post respiratory failure, intubated on a ventilator, now extubated. No obvious source for the fever and white count. We will order a CAT scan of the abdomen and pelvis, pending blood cultures, urine cultures, sputum cultures, nasal methicillin-resistant Staphylococcus aureus screen. On vancomycin, Maxipime and Zithromax pending pancultures. Head CT with the chest x-rays reported to be negative. Urinalysis is negative. We will follow closely with you. Yoan Aquino MD
[2018-04-13] MEDS: Cefepime 1gm in NS 100ml 1 GM/100 ML BAG IVPB SCH ×3 (05:06→21:23)
[2018-04-13] MEDS: Pantoprazole 40 mg EC Tab PO SCH (05:07)
[2018-04-13] MEDS: Sodium Chloride 0.9% 1,000 ML IV SCH (05:08)
[2018-04-13] MEDS ORDERED: Barium Sulfate Susp 2.1% w/v, 2.0% w/w 450 mL Bottle PO ONE (06:27)
[2018-04-13 07:40] LABS: BASO # 0.01 K/mm3 (0.0-2.0); BASO % 0.1 % (0.0-3.0); EOS # 0.1 (0.0-0.7); EOS % 0.4 % (1.5-5.0); GRAN # 9.75 (1.4-6.5); GRAN % 83.8 % (50.0-68.0); HEMOGLOBIN 11.8 g/dL (14.0-18.0); LYMPH % 8.5 % (22.0-35.0); MEAN CELL VOLUME 87.1 fl (80.0-105.0); MEAN CORPUSCULAR HEMOGLOBIN 28.7 pg (25.0-35.0); MEAN PLATELET VOLUME 9.8 fl (7.0-11.0); MONO # 0.8 (0.1-0.6); MONO % 7.2 % (1.0-6.0); RBC 4.11 10^6/uL (3.5-6.1); RED CELL DISTRIBUTION WIDTH 15.5 % (11.5-14.5); WHITE BLOOD COUNT 11.6 10^3/ul (4.5-11.0)
[2018-04-13 08:46] VITALS: RESP 20
--- NOTE | 2018-04-13 10:29 | CT ---
Date of service: 04/13/2018 PROCEDURE: CT Abdomen and Pelvis without intravenous contrast HISTORY: sirs COMPARISON: Portable chest 04/12/2018 TECHNIQUE: Without contrast.. Contrast dose: Radiation dose: Total exam DLP = 196 mGy-cm. This CT exam was performed using one or more of the following dose reduction techniques: Automated exposure control, adjustment of the mA and/or kV according to patient size, and/or use of iterative reconstruction technique. FINDINGS: LOWER THORAX: There is dense consolidation in the right lower lobe consistent with pneumonia. There is also peripheral consolidation in the right middle lobe LIVER: Unremarkable. No gross lesion or ductal dilatation. GALLBLADDER AND BILE DUCTS: Unremarkable. PANCREAS: Unremarkable. No gross lesion or ductal dilatation. SPLEEN: Unremarkable. ADRENALS: Unremarkable. No mass. KIDNEYS AND URETERS: Unremarkable. No hydronephrosis. No solid mass. VASCULATURE: Unremarkable. No aortic aneurysm. BOWEL: Unremarkable. No obstruction. No gross mural thickening. APPENDIX: Unremarkable. Normal appendix. PERITONEUM: Unremarkable. No free fluid. No free air. LYMPH NODES: Unremarkable. No enlarged lymph nodes. BLADDER: Unremarkable. REPRODUCTIVE: Unremarkable. BONES: No acute fracture. OTHER FINDINGS: None. IMPRESSION: There is dense consolidation in the right lower lobe consistent with pneumonia. There is also peripheral consolidation in the right middle lobe
[2018-04-13] MEDS: Divalproex 250 mg DR (BID formulation) PO SCH ×2 (10:55→17:19)
[2018-04-13] MEDS: Azithromycin 500MG/NS 250ml 500 MG/250 ML BAG IVPB SCH (10:56)
[2018-04-13] MEDS: Vancomycin 1gm in NS 250ml 1 GM/250 ML BAG IVPB SCH (10:56)
[2018-04-13 10:57] LABS: ALB/GLOB RATIO 1.2 (1.1-1.8); ALBUMIN 3.4 g/dL (3.0-4.8); ALT/SGPT 34 U/L (7-56); AST/SGOT 35 U/L (17-59); BLOOD UREA NITROGEN 8 mg/dL (7-21); GFR NON-AFRICAN AMERICAN > 60
[2018-04-13 12:15] LABS: ALB/GLOB RATIO 1.2 (1.1-1.8); ALBUMIN 3.4 g/dL (3.0-4.8); ALT/SGPT 32 U/L (7-56); AST/SGOT 33 U/L (17-59); BLOOD UREA NITROGEN 8 mg/dL (7-21); GFR NON-AFRICAN AMERICAN > 60
[2018-04-13] MEDS ORDERED: Sodium Phosphate 30 MMOLE in Sodium Chloride 0.9% 250 ML IVPB ONE (12:55)
[2018-04-13] MEDS: Potassium & Sodium Phosphate PO SCH ×2 (13:16→17:19)
--- NOTE | 2018-04-13 13:46 | CP.PCM.PN ---
<[facility] - Last Filed: 04/13/18 14:06> Subjective - Date & Time of Evaluation Date of Evaluation: 04/13/18 Time of Evaluation: 07:30 - Subjective Subjective: PGY-1 [facility] D.O. Medicine progress note for Dr. Madison service: Patient was seen and examined this morning. He has moved from ICU to med/surg. Patient is awake and oriented. No over night events reported, including seizure activity or agitation. Patient is unable to recall why he is in the hospital; he just knows his mother told him he was found unresponsive. He admits to taking dope and oxycodone but does not recall the specific event before becoming unresponsive. He denies being depressed or suicidal. Patient does not work. He lives with his parents and receives [employer] for support. He completed high school. He denies seeing a primary care doctor or psychiatrist. He only takes meds when he receives them after being hospitalized. Patient denies any acute complaints. He is eating and sleeping well. He denies pain. Objective - Vital Signs/Intake and Output Vital Signs (last 24 hours): Temp Pulse Resp BP Pulse Ox 97.6 F 96 H 20 123/85 94 L 04/13/18 06:00 04/13/18 06:00 04/13/18 06:00 04/13/18 06:00 04/13/18 06:00 Intake and Output: 04/13/18 04/13/18 06:59 18:59 Intake Total 1060 Output Total 1150 Balance -90 - Medications Medications: Current Medications Acetaminophen (Tylenol 650 Mg Supp) 650 mg RC Q6H PRN PRN Reason: Fever >100.4 F Last Admin: 04/12/18 10:06 Dose: 650 mg Divalproex Sodium (Depakote Dr (*Bid*)) 250 mg PO BID RAMIRO; Protocol Last Admin: 04/13/18 10:55 Dose: 250 mg Heparin Sodium (Porcine) (Heparin) 5,000 units SC Q12 RAMIRO; Protocol Last Admin: 04/13/18 10:56 Dose: 5,000 units Sodium Chloride (Sodium Chloride 0.9%) 1,000 mls @ 100 mls/hr IV .Q10H RAMIRO Last Admin: 04/13/18 05:08 Dose: 100 mls/hr Azithromycin (Zithromax 500mg In Ns) 500 mg in 250 mls @ 167 mls/hr IVPB DAILY RAMIRO; Protocol Stop: 04/14/18 11:00 Last Admin: 04/13/18 10:56 Dose: 167 mls/hr Vancomycin HCl (Vancomycin 1gm) 1 gm in 250 mls @ 167 mls/hr IVPB DAILY RAMIRO; Protocol Last Admin: 04/13/18 10:56 Dose: 167 mls/hr Cefepime HCl (Maxipime 1gm) 1 gm in 100 mls @ 100 mls/hr IVPB Q8 RAMIRO; Protocol Stop: 04/21/18 22:01 Last Admin: 04/13/18 05:06 Dose: 100 mls/hr Sodium Phosphate 30 mmole/ (Sodium Chloride) 260 mls @ 42.5 mls/hr IVPB ONCE ONE Stop: 04/13/18 19:02 Lorazepam (Ativan) 1 mg IVP Q6H PRN; Protocol PRN Reason: Seizure activity Pantoprazole Sodium (Protonix Ec Tab) 40 mg PO 0600 [facility] Last Admin: 04/13/18 05:07 Dose: 40 mg Potassium Phos/Sodium Phos (Neutra-Phos) 1 pkt PO TID [facility] Last Admin: 04/13/18 13:16 Dose: 1 pkt - Labs Labs: 04/13/18 07:15 04/13/18 11:45 PT 11.6 SECONDS (9.4-12.5) 04/12/18 00:57 INR 1.02 04/12/18 00:57 APTT 30.0 Seconds (25.1-36.5) 04/12/18 00:57 - Constitutional Appears: Non-toxic, No Acute Distress, Unkempt, Younger Than Stated Age - Head Exam Head Exam: ATRAUMATIC Additional comments: L-sided facial deformity 2/2 Goldenharr syndrome and previous surgeries - Eye Exam Eye Exam: EOMI, PERRL - ENT Exam ENT Exam: Mucous Membranes Moist, Normal Exam - Neck Exam Neck Exam: Full ROM, Normal Inspection - Respiratory Exam Respiratory Exam: Clear to Ausculation Bilateral, NORMAL BREATHING PATTERN - Cardiovascular Exam Cardiovascular Exam: REGULAR RHYTHM, +S1, +S2 - GI/Abdominal Exam GI & Abdominal Exam: Soft, Normal Bowel Sounds - Rectal Exam Rectal Exam: Deferred - Extremities Exam Extremities Exam: Normal Capillary Refill, Normal Inspection - Back Exam Back Exam: NORMAL INSPECTION - Neurological Exam Neurological Exam: Alert, Awake, CN II-XII Intact, Oriented x3 Neuro motor strength exam: Left Upper Extremity: 5, Right Upper Extremity: 5, Left Lower Extremity: 5, Right Lower Extremity: 5 - Psychiatric Exam Psychiatric exam: Normal Affect, Normal Mood - Skin Skin Exam: Dry, Intact, Normal Color, Warm Assessment and Plan - Assessment and Plan (Free Text) Assessment: Patient is a 32 you male with a history of epilepsy, polysubstance use, and schizophrenia vs bipolar disorder who presented after being found unresponsive. Patient tested positive for opiates. He was initially managed in the ICU and intubated. He was successfully extubated in less than 24 hours and downgraded to med/surg. He is being treated for PNA. Plan: Pneumonia RLL- suspect aspiration - CT A/P: RLL infiltration, likely PNA, some RML consolidation as well - WBC improving (11.6) - Fevers- most recent 100.8, Tmax 101.7 - Tylenol 650 mg PO Q6H PRN - Lactate 1.7 - Blood Cx no growth >24 hrs - Vancomycin 1 g IV daily - Cefepime 1 g IV Q8H - Azithromycin 500 mg IV daily - ID consulted (Mercedes) Respiratory failure, resolved- 2/2 to opiate overdose - Narcan & intubated in field- successfully extubated next day - Most recent ABG: pH 7.37, pCO2 42, pO2 94 Epilepsy - VPA level <10- patient admits noncompliance with meds - Resume Depakote 250 mg PO BID - Ativan 2 mg IV Q6H PRN Schizophrenia vs Bipolar disorder- h/o suicide attempts - Psychiatry consulted (Molly Dickinson) Hypophosphatemia - Repleted - Recheck in AM IVF: NS @ 100 Diet: regular GI ppx: Protonix 40 mg PO daily VTE ppx: heparin 5000 u SC Q12H Code status: full code Case discussed with attending, Dr. Salas. <Guillermo Salas - Last Filed: 04/14/18 17:33> Objective - Vital Signs/Intake and Output Vital Signs (last 24 hours): Temp Pulse Resp BP Pulse Ox 97.3 F L 89 20 118/79 98 04/14/18 06:00 04/14/18 06:00 04/14/18 06:00 04/14/18 06:00 04/14/18 06:00 Intake and Output: 04/14/18 04/14/18 06:59 18:59 Intake Total 3660 Output Total 2200 Balance 1460 - Labs Labs: 04/14/18 05:20 04/14/18 05:20 PT 11.6 SECONDS (9.4-12.5) 04/12/18 00:57 INR 1.02 04/12/18 00:57 APTT 30.0 Seconds (25.1-36.5) 04/12/18 00:57 Attending/Attestation - Attestation I have personally seen and examined this patient.: Yes I have fully participated in the care of the patient.: Yes I have reviewed all pertinent clinical information, including history, physical exam and plan: Yes Notes (Text): 04/14/18 17:27 Attending note; Patient seen and examined with resident. Patient is a 32 year old male with a past medical history of epilepsy, poly substance use, Goldenhar syndrome,and schizophrenia is admitted after being found unresponsive. Patient tested positive for opiates. Patient was initially admitted to ICU after intubation . Currently successfully extubated . Patient is alert and able to give some history. Episodes of fever ; started on vancomycin, Rocephin and Zithromax. Chest x-ray showed no acute infiltrates . CT head is negative . CAT scan shows dense right lobar infiltrate .continue antibiotics . ID evaluation appreciated. History of bipolar disorder versus schizophrenia; psychiatric evaluation requested. Patient does not follow up with psychiatrist as outpatient. The patient does not follow up with any PMD or psychiatrist. Patient will be referred to [facility] clinic upon discharge.
--- NOTE | 2018-04-13 22:16 | CON ---
DATE: 04/13/2018 HISTORY OF PRESENT ILLNESS: In short, the patient is a 32-year-old male with history of polysubstance abuse and dependence, multiple medical problems including Goldenhar syndrome, epilepsy. The patient also has multiple admissions to the Psychiatric Inpatient Unit for psychotic symptoms. Patient has chronic noncompliance with the medication and followup appointment. The patient was admitted for evaluation of altered mental status and possible overdose on drugs. The patient got better after Narcan. The patient was admitted to ICU initially, but was downgraded to the third floor. Psych consult was called for evaluation of status post overdose and the patient has history of substance abuse as well as mental illness. This telegraphic typewriter repairer is very familiar with this patient from the multiple admissions to the Psychiatric Inpatient Unit, also delirium stage and consultation services. The patient was seen today. The patient presented to be alert. The patient adamantly denied that he wanted to kill himself. The patient reported that he has used some drugs which was bought from the street. The patient denied feeling depressed. Denied any thoughts of killing himself. Denied hearing voices, denied seeing things. The patient gave permission to talk to his mother, Yelena, . residential treatment specialist call for collateral information, but mother was not available. The patient denied that he has any thoughts of killing himself. The patient does not want to sign himself into the Psychiatric Inpatient Unit. As per nursing staff, there is no agitation or aggression. No psychosis. Vital signs reviewed. Temperature is 97.4, pulse is 90, blood pressure 130/86, respiration 20, oxygen saturation is 94. Medications reviewed. The patient is on Tylenol, Zithromax, Maxipime, Depakote 250 twice a day, heparin, Ativan, Protonix, Neutra-Phos, sodium chloride, vancomycin. Labs reviewed. The patient had leukocytosis, but it is trending down. Hemoglobin and hematocrit is 11.8 and 35.8 respectively. Chemistry reviewed, phosphorus was low. Urinalysis showed no infection. Urine drug screen was positive for opioids. Microbiology also reviewed. MENTAL STATUS EXAM: The patient presented to be alert, seems to be unreliable historian. Intermittent eye contact. Mood described "I am fine." Affect was constricted. Thought process concrete. Thought content, the patient denied any psychotic symptoms. The patient does not present to be psychotic. Insight and judgment limited. Impulses are unpredictable. IMPRESSION: The patient is status post overdose, most likely, it is unintentional, but we need to have collateral information. The patient has history of psychosis, also polysubstance abuse and dependence. PLAN: Continue current management. Continue current medications. This telegraphic typewriter repairer will initiate as-needed medication. The patient was doing well on haloperidol. We will put order as needed. Collateral information needs to be obtained from the patient's mother. The patient is not cleared by Psychiatry team as of yet. Should you have any questions, give me a call back. Thank you very much for letting me participate in the care of your patient Molly Dickinson MD
--- NOTE | 2018-04-14 00:43 | PN ---
DATE: 04/13/2018 LOCATION: Patient is in room 376, bed 2. SUBJECTIVE: Patient was seen earlier this morning in 376, bed 1. PHYSICAL EXAMINATION: VITAL SIGNS: Patient's temperature 97, blood pressure is 130/80, respiratory rate of 20, heart rate of 96. HEENT: Unremarkable. NECK: Supple. LUNGS: Have decreased breath sounds. HEART: Normal S1 and S2. ABDOMEN: Soft and nontender. LABORATORY EXAMINATION: Reveals a white count is down to 11,600. Chemistries reveal the BUN of 8, creatinine of 0.5. Urinalysis is noted. Microbiology reveals the urine culture is negative. Nares MRSA is negative. Blood cultures, there is no growth. Review of orders reveals the cefepime and vancomycin active. His blood cultures negative. MRSA is negative and we will discontinue the vancomycin. Patient had a CAT scan of the abdomen and pelvis, which shows a dense consolidation in the right lower lobe consistent with pneumonia. ASSESSMENT AND PLAN: This is a 32-year-old male with Goldenhar syndrome, obstructive sleep apnea, bipolar, multiple skull surgeries, anxiety, schizophrenia, depression with: 1. Systemic inflammatory response syndrome, acute kidney injury, actually with sepsis with healthcare-associated pneumonia. Patient was intubated, extubated initially with severe sepsis with healthcare-associated pneumonia with respiratory failure, intubated, now extubated, on cefepime and Zithromax. We will discontinue the vancomycin. Blood culture and nasal methicillin-resistant Staphylococcus aureus screen is negative and today is #2 of antibiotics. We will able to switch to p.o. antibiotics in the next 24 hours. We will discontinue the intravenous Zithromax and use p.o. Levaquin. Patient's QTc interval of 460. We will also order a procalcitonin. Yoan Aquino MD
[2018-04-14] MEDS: Sodium Chloride 0.9% 1,000 ML IV SCH (03:35)
[2018-04-14] MEDS: Cefepime 1gm in NS 100ml 1 GM/100 ML BAG IVPB SCH ×2 (05:18→13:04)
[2018-04-14] MEDS: Pantoprazole 40 mg EC Tab PO SCH (05:19)
[2018-04-14 05:45] LABS: BASO # 0.02 K/mm3 (0.0-2.0); BASO % 0.2 % (0.0-3.0); EOS # 0.1 (0.0-0.7); EOS % 1.2 % (1.5-5.0); GRAN # 7.76 (1.4-6.5); GRAN % 79.9 % (50.0-68.0); HEMOGLOBIN 11.5 g/dL (14.0-18.0); LYMPH # 1.1 (1.2-3.4); LYMPH % 11.3 % (22.0-35.0); MEAN CORPUSCULAR HEMOGLOBIN 28.8 pg (25.0-35.0); MEAN PLATELET VOLUME 9.8 fl (7.0-11.0); MONO # 0.7 (0.1-0.6); MONO % 7.4 % (1.0-6.0); RED CELL DISTRIBUTION WIDTH 15.3 % (11.5-14.5); WHITE BLOOD COUNT 9.7 10^3/ul (4.5-11.0)
[2018-04-14 05:58] LABS: ALB/GLOB RATIO 1.1 (1.1-1.8); ALBUMIN 3.1 g/dL (3.0-4.8); ALT/SGPT 28 U/L (7-56); AST/SGOT 25 U/L (17-59); BLOOD UREA NITROGEN 5 mg/dL (7-21); CALCIUM 8.6 mg/dL (8.4-10.5); GFR NON-AFRICAN AMERICAN > 60
[2018-04-14] MEDS ORDERED: Potassium Chloride 20 mEq ER Tab PO ONE (07:32)
[2018-04-14] MEDS: Divalproex 250 mg DR (BID formulation) PO SCH (09:34)
[2018-04-14] MEDS: Potassium & Sodium Phosphate PO SCH ×2 (09:35→13:04)
[2018-04-14] MEDS ORDERED: levoFLOXacin 500 MG TAB PO SCH (10:00)
[2018-04-14 11:21] VITALS: BP 118/79; PULSE 89; TEMP 97.3; O2SAT 98
--- NOTE | 2018-04-14 13:49 | CP.PCM.DIS ---
<[facility] - Last Filed: 04/14/18 16:11> Provider - Provider Date of Admission: 04/12/18 02:11 Attending physician: Guillermo Salas MD Primary care physician: none Consults: ICU ID psychiatry Time Spent in preparation of Discharge (in minutes): 45 Diagnosis - Discharge Diagnosis (1) Drug overdose Status: Resolved Priority: High (2) Respiratory failure Status: Resolved Priority: High (3) Aspiration pneumonia Status: Acute Priority: Medium Hospital Course - Lab Results Lab Results: Micro Results 04/12/18 02:28 Blood Blood Culture - Preliminary NO GROWTH AFTER 48 HOURS 04/12/18 00:57 Blood Blood Culture - Preliminary NO GROWTH AFTER 48 HOURS 04/12/18 11:32 Urine Urine Culture - Final No Growth (<1,000 CFU/ML) 04/12/18 03:30 Naris MRSA Culture (Admit) - Final MRSA NOT DETECTED Most Recent Lab Values WBC 9.7 10^3/ul (4.5-11.0) 04/14/18 05:20 RBC 4.00 10^6/uL (3.5-6.1) 04/14/18 05:20 Hgb 11.5 g/dL (14.0-18.0) L 04/14/18 05:20 Hct 34.8 % (42.0-52.0) L 04/14/18 05:20 MCV 87.0 fl (80.0-105.0) 04/14/18 05:20 MCH 28.8 pg (25.0-35.0) 04/14/18 05:20 MCHC 33.0 g/dl (31.0-37.0) 04/14/18 05:20 RDW 15.3 % (11.5-14.5) H 04/14/18 05:20 Plt Count 264 10^3/uL (120.0-450.0) 04/14/18 05:20 MPV 9.8 fl (7.0-11.0) 04/14/18 05:20 Gran % 79.9 % (50.0-68.0) H 04/14/18 05:20 Lymph % (Auto) 11.3 % (22.0-35.0) L 04/14/18 05:20 Douglas % (Auto) 7.4 % (1.0-6.0) H 04/14/18 05:20 Eos % (Auto) 1.2 % (1.5-5.0) L 04/14/18 05:20 Baso % (Auto) 0.2 % (0.0-3.0) 04/14/18 05:20 Gran # 7.76 (1.4-6.5) H 04/14/18 05:20 Lymph # (Auto) 1.1 (1.2-3.4) L 04/14/18 05:20 Douglas # (Auto) 0.7 (0.1-0.6) H 04/14/18 05:20 Eos # (Auto) 0.1 (0.0-0.7) 04/14/18 05:20 Baso # (Auto) 0.02 K/mm3 (0.0-2.0) 04/14/18 05:20 Neutrophils % (Manual) 93 % (50.0-70.0) H 04/12/18 05:30 Band Neutrophils % 2 % (0-2) 04/12/18 05:30 Lymphocytes % (Manual) 1 % (22.0-35.0) L 04/12/18 05:30 Atypical Lymphs % 1 % (0.0-0.0) H 04/12/18 05:30 Monocytes % (Manual) 3 % (1.0-6.0) 04/12/18 05:30 Platelet Evaluation Normal (NORMAL) 04/12/18 05:30 PT 11.6 SECONDS (9.4-12.5) 04/12/18 00:57 INR 1.02 04/12/18 00:57 APTT 30.0 Seconds (25.1-36.5) 04/12/18 00:57 pCO2 42 mm/Hg (35-45) 04/12/18 13:45 pO2 94.0 mm/Hg (80-100) 04/12/18 13:45 HCO3 24.3 mmol/L (21-28) 04/12/18 13:45 ABG pH 7.37 (7.35-7.45) 04/12/18 13:45 ABG Total CO2 25.6 mmol.L (22-28) 04/12/18 13:45 ABG O2 Saturation 97.8 % (95-98) 04/12/18 13:45 ABG O2 Content 16.1 ML/dl (15-23) 04/12/18 13:45 ABG Base Excess -1.0 mmol/L (-2.0-3.0) 04/12/18 13:45 ABG Hemoglobin 11.8 g/dL (11.7-17.4) 04/12/18 13:45 ABG Carboxyhemoglobin 1.0 % (0.5-1.5) 04/12/18 13:45 POC ABG HHb (Measured) 2.2 % (0-5) 04/12/18 13:45 ABG Methemoglobin 0.5 % (0.0-3.0) 04/12/18 13:45 ABG O2 Capacity 16.5 mL/dl (16-24) 04/12/18 13:45 VBG pH 7.13 (7.32-7.43) L* 04/12/18 02:35 VBG pCO2 77.0 (40-60) H* 04/12/18 02:35 VBG HCO3 25.6 mmol/l (21-28) 04/12/18 02:35 VBG Total CO2 28.0 mmol.L (22-28) 04/12/18 02:35 VBG O2 Sat (Calc) 99.1 % (40-65) H 04/12/18 02:35 VBG Base Excess -5.3 mmol/L (0.0-2.0) L 04/12/18 02:35 VBG Potassium 5.1 mmol/L (3.6-5.2) 04/12/18 02:35 Hgb O2 Saturation 96.4 % (95.0-98.0) 04/12/18 13:45 Sodium 140.0 mmol/L (132-148) 04/12/18 02:35 Chloride 109.0 mmol/L (98-107) H 04/12/18 02:35 Glucose 73 mg/dl (75-110) L 04/12/18 02:35 Lactate 1.7 mmol/L (0.7-2.1) 04/12/18 02:35 FiO2 40.0 % 04/12/18 13:45 Sodium 141 mmol/L (132-148) 04/14/18 05:20 Potassium 3.5 mmol/L (3.6-5.0) L 04/14/18 05:20 Chloride 112 mmol/L (98-107) H 04/14/18 05:20 Carbon Dioxide 24 mmol/L (21-33) 04/14/18 05:20 Anion Gap 9 (10-20) L 04/14/18 05:20 BUN 5 mg/dL (7-21) L 04/14/18 05:20 Creatinine 0.6 mg/dl (0.8-1.5) L 04/14/18 05:20 Est GFR ( Amer) > 60 04/14/18 05:20 Est GFR (Non-Af Amer) > 60 04/14/18 05:20 POC Glucose (mg/dL) 99 mg/dL (65-110) 04/12/18 00:39 Random Glucose 101 mg/dL (70-110) 04/14/18 05:20 Calcium 8.6 mg/dL (8.4-10.5) 04/14/18 05:20 Phosphorus 2.5 mg/dL (2.5-4.5) 04/14/18 05:20 Magnesium 1.8 mg/dL (1.7-2.2) 04/14/18 05:20 Total Bilirubin 0.6 mg/dL (0.2-1.3) 04/14/18 05:20 AST 25 U/L (17-59) 04/14/18 05:20 ALT 28 U/L (7-56) 04/14/18 05:20 Alkaline Phosphatase 78 U/L (38-126) 04/14/18 05:20 Lactate Dehydrogenase 455 U/L (333-699) 04/12/18 00:57 Total Creatine Kinase 112 U/L (35-230) 04/12/18 00:57 Troponin I 0.06 ng/mL D 04/12/18 00:57 Total Protein 6.0 g/dL (5.8-8.3) 04/14/18 05:20 Albumin 3.1 g/dL (3.0-4.8) 04/14/18 05:20 Globulin 2.9 gm/dL 04/14/18 05:20 Albumin/Globulin Ratio 1.1 (1.1-1.8) 04/14/18 05:20 Venous Blood Potassium 5.1 mmol/L (3.6-5.2) 04/12/18 02:35 Urine Color Yellow (YELLOW) 04/12/18 08:30 Urine Appearance Clear (CLEAR) 04/12/18 08:30 Urine pH 5.5 (4.7-8.0) 04/12/18 08:30 Ur Specific [place] >= 1.030 (1.005-1.035) 04/12/18 08:30 Urine Protein Negative mg/dL (<30 mg/dL) 04/12/18 08:30 Urine Glucose (UA) Negative mg/dL (NEGATIVE) 04/12/18 08:30 Urine Ketones 15 mg/dL (NEGATIVE) H 04/12/18 08:30 Urine Blood Trace-lysed (NEGATIVE) H 04/12/18 08:30 Urine Nitrate Negative (NEGATIVE) 04/12/18 08:30 Urine Bilirubin Negative (NEGATIVE) 04/12/18 08:30 Urine Urobilinogen 0.2 E.U./dL (<1 E.U./dL) 04/12/18 08:30 Ur Leukocyte Esterase Negative [place]/uL (NEGATIVE) 04/12/18 08:30 Urine RBC 2 - 5 /hpf (0-2) 04/12/18 08:30 Urine WBC 0 - 2 /hpf (0-6) 04/12/18 08:30 Ur Epithelial Cells None /hpf (0-5) 04/12/18 08:30 Urine Bacteria Mod (NEG) 04/12/18 08:30 Hyaline Casts 0 - 2 /hpf 04/12/18 00:57 Salicylates < 1 mg/dL (2.0-20.0) L 04/12/18 00:57 Urine Opiates Screen Positive (NEGATIVE) H 04/12/18 08:30 Urine Methadone Screen Negative (NEGATIVE) 04/12/18 08:30 Acetaminophen < 10.0 ug/ml (10.0-20.0) L 04/12/18 00:57 Ur Barbiturates Screen Negative (NEGATIVE) 04/12/18 08:30 Valproic Acid < 10 ug/mL (50.0-100.0) L 04/12/18 19:08 Ur Phencyclidine Scrn Negative (NEGATIVE) 04/12/18 08:30 Ur Amphetamines Screen Negative (NEGATIVE) 04/12/18 08:30 U Benzodiazepines Scrn Negative (NEGATIVE) 04/12/18 08:30 U Oth Cocaine Metabols Negative (NEGATIVE) 04/12/18 08:30 U Cannabinoids Screen Negative (NEGATIVE) 04/12/18 08:30 Alcohol, Quantitative < 10 mg/dL (0-10) 04/12/18 00:57 - Hospital Course Hospital Course: Perico Gonzalez is a 32 y/o male with PMH of Goldenhar syndrome, epilepsy, bipolar disorder vs. schizophrenia, and substance abuse who presented to ED by EMS unresponsive. As per EMS, patient was found by his father unresponsive after an apparent overdose. Patient was administered Narcan after patient was noted with shallow respirations and pinpoint pupils. Patient became responsive after Narcan, but became increasingly tachypneic with labored respirations, requiring intubation in the field prior to arrival. Patient was diagnosed with opiate overdose which resulted in his respiratory failure treated with narcan successfully. Patient was initially intubated and ABGs revealed pCO2 of 82, Total CO2 of 28.6, pH of 7.11 and caroboxyhemoglobin of 5.6. His venous blood gases revealed pCO2 of 77, Total CO2 of 28, pH of 7.13. He was initially managed in the ICU. He did not require sedation, and became responsive. He was successfully extubated in <24 hours and downgraded to med/surg. Patient admitted noncomplaince with his medications. SHe did not recall the events prior to being unresponsive. He denied a suicide attempt. CT showed evidence of RLL PNA. ID was consulted and patient was treated with IV abx. Patients mother expressed concern regarding patients mental state and substance use. Patient was seen by psychiatry and voluntarily signed into the psychiatric unit. Upon discharge, patient was saturating well on room air without respiratory distress. He was ambulating independently. He was afebrile >24 hours. He was transferred to the psychiatric unit and will continue oral abx for 5 more days. 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 and multiple surgeries - Eye Exam Eye Exam: EOMI, PERRL - ENT Exam ENT Exam: Mucous Membranes Moist - Neck Exam Neck exam: Full Rom, Normal Inspection - Respiratory Exam Respiratory Exam: Clear to PA & Lateral, NORMAL BREATHING PATTERN - Cardiovascular Exam Cardiovascular Exam: REGULAR RHYTHM, +S1, +S2 - GI/Abdominal Exam GI & Abdominal Exam: Normal Bowel Sounds, Soft, Unremarkable - Rectal Exam Rectal Exam: NORMAL INSPECTION - Extremities Exam Extremities exam: normal inspection, pedal pulses present - Back Exam Back exam: NORMAL INSPECTION - Neurological Exam Neurological exam: Alert, CN II-XII Intact, Normal Gait, Oriented x3 - Psychiatric Exam Psychiatric exam: Normal Affect, Normal Mood Additional comments: denies suicidal ideation - Skin Skin Exam: Dry, Intact, Normal Color, Warm Discharge Plan - Follow Up Plan Condition: IMPROVED Disposition: DISCHARGE TO PSYCH HOSPITAL Instructions: Depression, Adult (DC), Respiratory Distress Syndrome, Adult (DC) Additional Instructions: You are being discharged from the medical unit at [facility]. You will be transferred to the psychiatric unit at the hospital. Continue to take Levaquin 500 mg for the next 5 days. Follow-up with primary care provider and psychiatry are very important following discharge. <Guillermo Salas - Last Filed: 04/14/18 17:38> Provider - Provider Date of Admission: 04/12/18 02:11 Attending physician: Guillermo Salas MD Hospital Course - Lab Results Lab Results: Micro Results 04/12/18 02:28 Blood Blood Culture - Preliminary NO GROWTH AFTER 48 HOURS 04/12/18 00:57 Blood Blood Culture - Preliminary NO GROWTH AFTER 48 HOURS 04/12/18 11:32 Urine Urine Culture - Final No Growth (<1,000 CFU/ML) 04/12/18 03:30 Naris MRSA Culture (Admit) - Final MRSA NOT DETECTED Most Recent Lab Values WBC 9.7 10^3/ul (4.5-11.0) 04/14/18 05:20 RBC 4.00 10^6/uL (3.5-6.1) 04/14/18 05:20 Hgb 11.5 g/dL (14.0-18.0) L 04/14/18 05:20 Hct 34.8 % (42.0-52.0) L 04/14/18 05:20 MCV 87.0 fl (80.0-105.0) 04/14/18 05:20 MCH 28.8 pg (25.0-35.0) 04/14/18 05:20 MCHC 33.0 g/dl (31.0-37.0) 04/14/18 05:20 RDW 15.3 % (11.5-14.5) H 04/14/18 05:20 Plt Count 264 10^3/uL (120.0-450.0) 04/14/18 05:20 MPV 9.8 fl (7.0-11.0) 04/14/18 05:20 Gran % 79.9 % (50.0-68.0) H 04/14/18 05:20 Lymph % (Auto) 11.3 % (22.0-35.0) L 04/14/18 05:20 Douglas % (Auto) 7.4 % (1.0-6.0) H 04/14/18 05:20 Eos % (Auto) 1.2 % (1.5-5.0) L 04/14/18 05:20 Baso % (Auto) 0.2 % (0.0-3.0) 04/14/18 05:20 Gran # 7.76 (1.4-6.5) H 04/14/18 05:20 Lymph # (Auto) 1.1 (1.2-3.4) L 04/14/18 05:20 Douglas # (Auto) 0.7 (0.1-0.6) H 04/14/18 05:20 Eos # (Auto) 0.1 (0.0-0.7) 04/14/18 05:20 Baso # (Auto) 0.02 K/mm3 (0.0-2.0) 04/14/18 05:20 Neutrophils % (Manual) 93 % (50.0-70.0) H 04/12/18 05:30 Band Neutrophils % 2 % (0-2) 04/12/18 05:30 Lymphocytes % (Manual) 1 % (22.0-35.0) L 04/12/18 05:30 Atypical Lymphs % 1 % (0.0-0.0) H 04/12/18 05:30 Monocytes % (Manual) 3 % (1.0-6.0) 04/12/18 05:30 Platelet Evaluation Normal (NORMAL) 04/12/18 05:30 PT 11.6 SECONDS (9.4-12.5) 04/12/18 00:57 INR 1.02 04/12/18 00:57 APTT 30.0 Seconds (25.1-36.5) 04/12/18 00:57 pCO2 42 mm/Hg (35-45) 04/12/18 13:45 pO2 94.0 mm/Hg (80-100) 04/12/18 13:45 HCO3 24.3 mmol/L (21-28) 04/12/18 13:45 ABG pH 7.37 (7.35-7.45) 04/12/18 13:45 ABG Total CO2 25.6 mmol.L (22-28) 04/12/18 13:45 ABG O2 Saturation 97.8 % (95-98) 04/12/18 13:45 ABG O2 Content 16.1 ML/dl (15-23) 04/12/18 13:45 ABG Base Excess -1.0 mmol/L (-2.0-3.0) 04/12/18 13:45 ABG Hemoglobin 11.8 g/dL (11.7-17.4) 04/12/18 13:45 ABG Carboxyhemoglobin 1.0 % (0.5-1.5) 04/12/18 13:45 POC ABG HHb (Measured) 2.2 % (0-5) 04/12/18 13:45 ABG Methemoglobin 0.5 % (0.0-3.0) 04/12/18 13:45 ABG O2 Capacity 16.5 mL/dl (16-24) 04/12/18 13:45 VBG pH 7.13 (7.32-7.43) L* 04/12/18 02:35 VBG pCO2 77.0 (40-60) H* 04/12/18 02:35 VBG HCO3 25.6 mmol/l (21-28) 04/12/18 02:35 VBG Total CO2 28.0 mmol.L (22-28) 04/12/18 02:35 VBG O2 Sat (Calc) 99.1 % (40-65) H 04/12/18 02:35 VBG Base Excess -5.3 mmol/L (0.0-2.0) L 04/12/18 02:35 VBG Potassium 5.1 mmol/L (3.6-5.2) 04/12/18 02:35 Hgb O2 Saturation 96.4 % (95.0-98.0) 04/12/18 13:45 Sodium 140.0 mmol/L (132-148) 04/12/18 02:35 Chloride 109.0 mmol/L (98-107) H 04/12/18 02:35 Glucose 73 mg/dl (75-110) L 04/12/18 02:35 Lactate 1.7 mmol/L (0.7-2.1) 04/12/18 02:35 FiO2 40.0 % 04/12/18 13:45 Sodium 141 mmol/L (132-148) 04/14/18 05:20 Potassium 3.5 mmol/L (3.6-5.0) L 04/14/18 05:20 Chloride 112 mmol/L (98-107) H 04/14/18 05:20 Carbon Dioxide 24 mmol/L (21-33) 04/14/18 05:20 Anion Gap 9 (10-20) L 04/14/18 05:20 BUN 5 mg/dL (7-21) L 04/14/18 05:20 Creatinine 0.6 mg/dl (0.8-1.5) L 04/14/18 05:20 Est GFR ( Amer) > 60 04/14/18 05:20 Est GFR (Non-Af Amer) > 60 04/14/18 05:20 POC Glucose (mg/dL) 99 mg/dL (65-110) 04/12/18 00:39 Random Glucose 101 mg/dL (70-110) 04/14/18 05:20 Calcium 8.6 mg/dL (8.4-10.5) 04/14/18 05:20 Phosphorus 2.5 mg/dL (2.5-4.5) 04/14/18 05:20 Magnesium 1.8 mg/dL (1.7-2.2) 04/14/18 05:20 Total Bilirubin 0.6 mg/dL (0.2-1.3) 04/14/18 05:20 AST 25 U/L (17-59) 04/14/18 05:20 ALT 28 U/L (7-56) 04/14/18 05:20 Alkaline Phosphatase 78 U/L (38-126) 04/14/18 05:20 Lactate Dehydrogenase 455 U/L (333-699) 04/12/18 00:57 Total Creatine Kinase 112 U/L (35-230) 04/12/18 00:57 Troponin I 0.06 ng/mL D 04/12/18 00:57 Total Protein 6.0 g/dL (5.8-8.3) 04/14/18 05:20 Albumin 3.1 g/dL (3.0-4.8) 04/14/18 05:20 Globulin 2.9 gm/dL 04/14/18 05:20 Albumin/Globulin Ratio 1.1 (1.1-1.8) 04/14/18 05:20 Procalcitonin 5.57 NG/ML (0.19-0.49) H 04/14/18 05:20 Venous Blood Potassium 5.1 mmol/L (3.6-5.2) 04/12/18 02:35 Urine Color Yellow (YELLOW) 04/12/18 08:30 Urine Appearance Clear (CLEAR) 04/12/18 08:30 Urine pH 5.5 (4.7-8.0) 04/12/18 08:30 Ur Specific [place] >= 1.030 (1.005-1.035) 04/12/18 08:30 Urine Protein Negative mg/dL (<30 mg/dL) 04/12/18 08:30 Urine Glucose (UA) Negative mg/dL (NEGATIVE) 04/12/18 08:30 Urine Ketones 15 mg/dL (NEGATIVE) H 04/12/18 08:30 Urine Blood Trace-lysed (NEGATIVE) H 04/12/18 08:30 Urine Nitrate Negative (NEGATIVE) 04/12/18 08:30 Urine Bilirubin Negative (NEGATIVE) 04/12/18 08:30 Urine Urobilinogen 0.2 E.U./dL (<1 E.U./dL) 04/12/18 08:30 Ur Leukocyte Esterase Negative [place]/uL (NEGATIVE) 04/12/18 08:30 Urine RBC 2 - 5 /hpf (0-2) 04/12/18 08:30 Urine WBC 0 - 2 /hpf (0-6) 04/12/18 08:30 Ur Epithelial Cells None /hpf (0-5) 04/12/18 08:30 Urine Bacteria Mod (NEG) 04/12/18 08:30 Hyaline Casts 0 - 2 /hpf 04/12/18 00:57 Salicylates < 1 mg/dL (2.0-20.0) L 04/12/18 00:57 Urine Opiates Screen Positive (NEGATIVE) H 04/12/18 08:30 Urine Methadone Screen Negative (NEGATIVE) 04/12/18 08:30 Acetaminophen < 10.0 ug/ml (10.0-20.0) L 04/12/18 00:57 Ur Barbiturates Screen Negative (NEGATIVE) 04/12/18 08:30 Valproic Acid < 10 ug/mL (50.0-100.0) L 04/12/18 19:08 Ur Phencyclidine Scrn Negative (NEGATIVE) 04/12/18 08:30 Ur Amphetamines Screen Negative (NEGATIVE) 04/12/18 08:30 U Benzodiazepines Scrn Negative (NEGATIVE) 04/12/18 08:30 U Oth Cocaine Metabols Negative (NEGATIVE) 04/12/18 08:30 U Cannabinoids Screen Negative (NEGATIVE) 04/12/18 08:30 Alcohol, Quantitative < 10 mg/dL (0-10) 04/12/18 00:57 Attending/Attestation - Attestation I have personally seen and examined this patient.: Yes I have fully participated in the care of the patient.: Yes I have reviewed all pertinent clinical information, including history, physical exam and plan: Yes Notes (Text): 04/14/18 17:36 Attending note; Patient seen and examined with resident. Patient is alert and awake. Denies any fevers, chills. Denies any cough. Tolerating diet well. Denies any suicidal ideation. Patient is a 32 year old male with a past medical history of epilepsy, polysubstance use, Goldenhar syndrome,and schizophrenia is admitted after being found unresponsive. Patient tested positive for opiates. Status post extubation. Patient is doing well. Fever ; resolved .mostly secondary to aspiration pneumonia .treated with IV vancomycin, Rocephin and Zithromax. CAT scan shows dense right lobar infiltrate. Can switch to po levofloxacin. ID evaluation appreciated. History of bipolar disorder versus schizophrenia; psychiatric evaluation appreciated. Patient will be transferred to psychiatric floor today. The patient does not follow up with any PMD or psychiatrist. Patient will be referred to [facility] clinic upon discharge.
--- NOTE | 2018-04-15 04:08 | PN ---
DATE: 04/14/2018 SUBJECTIVE: The patient is in bed, in no acute distress, was nontoxic. He was seen early this morning in room 376. OBJECTIVE: VITAL SIGNS: On exam, temperature is 98, blood pressure is 120/70, respiratory rate of 18. HEENT: Examination of HEENT is unremarkable. NECK: Supple. LUNGS: Have decreased breath sounds. HEART: Normal S1, S2. ABDOMEN: Soft. LABORATORY DATA: Reviewed. ASSESSMENT AND PLAN: This a 32-year-old male who has a history of Goldenhar syndrome, obstructive sleep apnea, bipolar, multiple skull surgeries, anxiety, schizophrenia, depression, came with systemic inflammatory response syndrome, acute kidney injury, had severe sepsis with healthcare-associated pneumonia, was intubated. The patient was extubated, doing well. Switched to p.o. antibiotics and p.o. Levaquin. Case discussed with the residents this morning who saw the patient. The patient for discharge with p.o. Levaquin and follow up closely with PMD. Yoan Aquino MD
--- NOTE | 2018-04-15 08:32 | PN ---
DATE: 04/14/2018 SUBJECTIVE: The patient was followed up today. The patient still providing not consistent stories and reported that he feels okay. The patient denied that he is hearing voices, denied seeing things, but the patient presented to be annoyed, irritable, seems to be guarded. The patient gave permission to talk to his mother who was contacted by medical instrument cable fabricator. As per mother, the patient was discharged at the [facility] about 2 weeks ago due to screaming and banging on the hagen. The patient also was responding to internal stimuli and also was afraid that somebody is going to kill him. The patient has chronic noncompliance with the medications and followup appointments. The patient was handcuffed and brought to the [facility], but due to unavailability of beds, the patient was transferred to [facility]. For the past week, the patient with internal stimuli, was banging on the hagen, talking loudly to himself. Neighbors were complaining about the patient's presentation. In regards of overdose on drugs, mother is not sure if he tried to kill himself or not. The patient's mother expressed highest concerns about the patient's safety. Vital signs are stable. Temperature 97.3, pulse is 89, blood pressure 118/79, respiration 20, oxygen saturation is 98. Medications reviewed. Discussed with the medical team. The patient can be switched to p.o. antibiotics. Discussed with Dr. Salas. Labs reviewed. WBC cells going down. Hemoglobin and hematocrit 11.5 and 34.8. Chemistry reviewed. Potassium 3.5, Prolixin level was elevated at 5.57. MENTAL STATUS EXAMINATION: As this ad copy writer described above, the patient is withholding information, providing inconsistent stories, appears to be guarded. As per mother, the patient was disorganized, banging on the door, responding to internal stimuli, responding to the voices. Insight and judgment seems to be limited. Impulses are not predictable. IMPRESSION: As per history, the patient has schizophrenia, polysubstance abuse and dependence. PLAN: The patient signed consent for treatment. The patient will be transferred to the Psychiatric Inpatient Unit for further evaluation and stabilization. The patient was responding well to the Haldol. We will start the patient on scheduled dose as well as needed. Collaterals appreciated. The patient was transferred to the Psychiatric Inpatient Unit only because he does not want to go to [facility]. The patient will be seen into the Psychiatric Inpatient Unit tomorrow. Thank you very much for letting me participate in the care of your patient. Management of this case took more than 45 minutes of this ad copy writer's time. Molly Dickinson MD
== END 2018-04-14 16:30 | DRG 582 ==
LOC: ED 00:25 → ERH 02:11 → CCU 03:35 → 3RSO 21:37
PROVIDERS: ADMIT Internal Medicine; ATTEND Internal Medicine
PROC: 5A1935Z Respiratory Ventilation, Less than 24 Consecutive Hours (ICD-10-PCS; principal; 2018-04-12)
PROC: 5A09357 Assistance with Respiratory Ventilation, Less than 24 Consecutive Hours, Continuous Positive Airway Pressure (ICD-10-PCS; 2018-04-12)
DX: T40.1X1A Poisoning by heroin, accidental (unintentional), initial encounter (principal); J96.90 Respiratory failure, unspecified, unspecified whether with hypoxia or hypercapnia; J69.0 Pneumonitis due to inhalation of food and vomit; A41.9 Sepsis, unspecified organism; N17.9 Acute kidney failure, unspecified; R65.20 Severe sepsis without septic shock; F11.20 Opioid dependence, uncomplicated; F20.9 Schizophrenia, unspecified; F31.9 Bipolar disorder, unspecified; G40.909 Epilepsy, unspecified, not intractable, without status epilepticus; F41.9 Anxiety disorder, unspecified; G47.33 Obstructive sleep apnea (adult) (pediatric); E83.39 Other disorders of phosphorus metabolism; Z91.14 Patient's other noncompliance with medication regimen; Z87.891 Personal history of nicotine dependence; Q87.0 Congenital malformation syndromes predominantly affecting facial appearance

== ENCOUNTER 2018-04-14 16:34 | Inpatient (IN) | payer MEDICAID ==
[2018-04-14 16:57] VITALS: BMI 19.0
[2018-04-14] MEDS ORDERED: Alum-Mag Hydrox-Simethicone Susp (30 mL) PO PRN (17:45)
[2018-04-14] MEDS ORDERED: Magnesium Hydroxide Susp 30 ml UD PO PRN (17:45)
[2018-04-14] MEDS ORDERED: DiphenhydrAMINE 50 mg/ml Inj IM PRN (17:55)
[2018-04-14 21:52] VITALS: O2SAT 97
[2018-04-14] MEDS: Divalproex 250 mg DR (BID formulation) PO SCH (22:12)
--- NOTE | 2018-04-14 22:30 | PCM.BM ---
<HarjitNato - Last Filed: 04/14/18 22:27> Treatment Plan Problems - Problems identified on initial assessmt Denial Date Initiated: 04/14/18 Time Initiated: 17:00 Assessment reference: NA Status: Active Priority: 1 Hopelessness/Helplessness Date Initiated: 04/14/18 Time Initiated: 17:00 Assessment reference: NA Status: Active Priority: 2 Feelings of Worthlessness Date Initiated: 04/14/18 Time Initiated: 17:00 Assessment reference: NA Status: Active Priority: 3 Ineffective Coping Date Initiated: 04/14/18 Time Initiated: 17:00 Assessment reference: NA Status: Active Priority: 4 Treatment assets and liabiliti Patient Assests: cooperative, ADL independent, good support system, negotiates basic needs, cognitively intact Patient Liabilities: financial problems, medical problems - Milieu Protocol Maintain good personal hygiene: daily Encourage regular showers, every shift R emind patient to perform daily oral care, every shift Assist patient to perform ADL's Maintain personal safety: every shift Educate patient to report safety concerns to staff, every shift Monitor environment for contraband/sharps Medication safety: Monitor for expected outcome, potential side effects: every shift, Assess barriers to learning: every shift, Assess readiness for medication education: every shift Family Contact Family involvement: Family/SO is involved Family contact: Patient agrees to contact - Goals for Treatment Patient goals for treatment: "Go home." Discharge/Continuing Care - Education Needs Education Needs: Patient Medication, Patient Diagnosis/Disease Process, Patient Coping Skills, Patient Anger Management skills, Patient Placement options, Patient Community resources, Patient Activities of Daily Living, Patient Pain, Patient Nutrition, Patient Uses of Medical Equipment, Patient Health Practices/Safety, Patient Personal Hygiene/Grooming, Patient Aftercare Safety Plan - Discharge Discharge Criteria: Tolerates medication w/o severe side effects <Molly Dickinson - Last Filed: 04/15/18 13:47> - Diagnosis (1) Schizophrenia Status: Acute Interventions: 04/15/18 13:47 Psychoeducation/psychotherapy Psychopharmacology/adjustment of medications as needed/ monitoring possible side effects Evaluate pt on daily basis Compliance with medications and follow up appointments Long acting medication if pt is noncompliant with pill form Suicide and homicide risk assessment and prevention, coping strategies, safety plan Relapse prevention Reduction of symptoms Improve functional status Possible assertive community treatment Cognitive behavioral therapy Family involvement Possible social skill training as outpatient (2) Opioid abuse Status: Chronic Interventions: 04/15/18 13:48 Monitoring withdrawal symptoms Medical detoxification Pharmacotherapy for alcohol/benzos/opioid dependence Maintaining sobriety Relapse prevention Possible rehabilitation Motivational interviewing 12-step programs: AA meetings <Josette Briones - Last Filed: 04/15/18 16:34>
[2018-04-15] MEDS: Pantoprazole 40 mg EC Tab PO SCH (06:20)
--- NOTE | 2018-04-15 06:55 | CP.PCM.CON ---
<S[facility] Pond - Last Filed: 04/15/18 13:06> History of Present Illness - History of Present Illness History of Present Illness: PGY-1 [facility] P[facility] D.O. Medicine consult note for Dr. Madison service: Perico Gonzalez is a 32 yo male with PMH of Goldenhar syndrome, epilepsy, bipolar disorder vs. schizophrenia, and substance abuse who is currently admitted to the psychiatric unit for management of his psychiatric disorders and medication adjustments. He was just admitted to the med/surg unit 04/12-04/14 for opiate overdose requiring intubation. Patient was found to have a RLL PNA and treated with IV abx. Hospitalist team was consulted for treatment of PNA. PMH: Goldenhar syndrome, epilepsy, bipolar disorder vs. schizophrenia, and substance abuse (dope, oxycodone) PSH: multiple facial surgeries Meds: Cogentin 0.5 mg PO TID, Klonopin 0.5 mg PO TID, VPA 500 mg PO TID, Haldol 5 mg PO TID, Protonix 40 mg PO daily, Trazodone 50 mg PO QHS PRN All: morphine FH: reviewed and unremarkable SH: lives with mother unemployed- receives SSI admits to tobacco, dope, and oxycodone use PMD: none Review of Systems - Constitutional Constitutional: absent: Chills, Fatigue, Fever, Headache - EENT Eyes: absent: Change in Vision Ears: absent: Decreased Hearing, Tinnitus Nose/Mouth/Throat: absent: Sore Throat - Cardiovascular Cardiovascular: absent: Chest Pain, Diaphoresis, Dyspnea, Edema, Lightheadedness, Palpitations - Respiratory Respiratory: Cough (mild). absent: Dyspnea, Chest Congestion - Gastrointestinal Gastrointestinal: absent: Constipation, Diarrhea, Nausea, Vomiting - Genitourinary Genitourinary: absent: Dysuria, Hematuria - Musculoskeletal Musculoskeletal: absent: Numbness, Tingling - Integumentary Integumentary: absent: Lesions - Neurological Neurological: absent: Dizziness, Numbness, Sensory Deficit, Syncope, Tingling, Tremor, Weakness - Psychiatric Psychiatric: absent: Anxiety, Depression, Suicidal Ideation - Endocrine Endocrine: absent: Fatigue, Palpitations - Hematologic/Lymphatic Hematologic: absent: Easy Bleeding, Easy Bruising, Lymphadenopathy Past Patient History - Infectious Disease Hx of Infectious Diseases: None - Tetanus Immunizations Tetanus Immunization: Unknown - Past Medical History & Family History Past Medical History?: Yes Past Family History: Reviewed and not pertinent - Past Social History Smoking Status: Heavy Smoker > 10 Cigarettes Daily Chewing Tobacco Use: No Cigar Use: No Alcohol: None Drugs: Cocaine, Opiates, Prescription medications Home Situation {Lives}: With Family - CARDIAC Hx Cardiac Disorders: No Hx Hypertension: No - PULMONARY Hx Respiratory Disorders: No Hx Tuberculosis: No - NEUROLOGICAL Hx Neurological Disorder: No HX Cerebrovascular Accident: No Hx Seizures: No - HEENT Hx HEENT Problems: No Other/Comment: deviated septum - RENAL Hx Chronic Kidney Disease: No - ENDOCRINE/METABOLIC Hx Endocrine Disorders: No - HEMATOLOGICAL/ONCOLOGICAL Hx Blood Disorders: No Hx Cancer: No - INTEGUMENTARY Hx Dermatological Problems: No - MUSCULOSKELETAL/RHEUMATOLOGICAL Hx Musculoskeletal Disorders: Yes Other/Comment: Hemifacial Microsomia - GASTROINTESTINAL Hx Gastrointestinal Disorders: No - GENITOURINARY/GYNECOLOGICAL Hx Genitourinary Disorders: No Hx Sexually Transmitted Disorders: No - PSYCHIATRIC Hx Anxiety: Yes Hx Bipolar Disorder: Yes Hx Depression: Yes Hx Substance Use: Yes (Oxycodone) - SURGICAL HISTORY Other/Comment: Hemifacial Microsomia multiple skull sugery - ANESTHESIA Hx Anesthesia: Yes Hx Anesthesia Reactions: No Hx Malignant Hyperthermia: No Meds Allergies/Adverse Reactions: Allergies Allergy/AdvReac Type Severity Reaction Status Date / Time morphine AdvReac SHORTNESS Verified 04/14/18 16:56 OF BREATH - Medications Medications: Current Medications Acetaminophen (Tylenol 325mg Tab) 650 mg PO Q6H PRN PRN Reason: Pain, moderate (4-7) Al Hydrox/Mg Hydrox/Simethicone (Maalox Plus 30 Ml) 30 ml PO DAILY PRN PRN Reason: Indigestion / Heartburn Benztropine Mesylate (Cogentin) 0.5 mg PO BID RAMIRO Benztropine Mesylate (Cogentin) 0.5 mg PO HS RAMIRO Last Admin: 04/14/18 22:12 Dose: 0.5 mg Clonazepam (Klonopin) 0.5 mg PO TID RAMIRO; Protocol Diphenhydramine HCl (Benadryl) 50 mg PO Q6H PRN PRN Reason: Agitation Last Admin: 04/14/18 18:07 Dose: 50 mg Diphenhydramine HCl (Benadryl) 50 mg IM Q6H PRN PRN Reason: Severe Agitation Divalproex Sodium (Depakote Dr (*Bid*)) 500 mg PO BID RAMIRO; Protocol Divalproex Sodium (Depakote Dr (*Bid*)) 500 mg PO HS RAMIRO; Protocol Last Admin: 04/14/18 22:12 Dose: 500 mg Haloperidol (Haldol) 5 mg PO Q6H PRN; Protocol PRN Reason: Agitation Last Admin: 04/14/18 18:07 Dose: 5 mg Haloperidol (Haldol) 5 mg PO BID RAMIRO; Protocol Haloperidol (Haldol) 5 mg PO HS RAMIRO; Protocol Last Admin: 04/14/18 22:12 Dose: 5 mg Haloperidol Lactate (Haldol) 5 mg IM Q6H PRN; Protocol PRN Reason: Severe Agitation Lorazepam (Ativan) 2 mg PO Q6H PRN; Protocol PRN Reason: Agitation Last Admin: 04/14/18 18:07 Dose: 2 mg Lorazepam (Ativan) 2 mg IM Q6H PRN; Protocol PRN Reason: Severe Agitation Magnesium Hydroxide (Milk Of Magnesia) 30 ml PO DAILY PRN PRN Reason: Constipation Nicotine (Nicoderm Cq) 1 patch TD DAILY [facility] Pantoprazole Sodium (Protonix Ec Tab) 40 mg PO 0600 [facility] Last Admin: 04/15/18 06:20 Dose: 40 mg Trazodone HCl (Desyrel) 50 mg PO HS PRN PRN Reason: Insomnia Physical Exam - Head Exam Head Exam: ATRAUMATIC Additional comments: L-sided facial deformy 2/2 Goldenharr syndrome and multiple surgeries - Eye Exam Eye Exam: EOMI - ENT Exam ENT Exam: Mucous Membranes Moist - Neck Exam Neck exam: Positive for: Full Rom, Normal Inspection - Respiratory Exam Respiratory Exam: Clear to Auscultation Bilateral, NORMAL BREATHING PATTERN - Cardiovascular Exam Cardiovascular Exam: REGULAR RHYTHM, +S1, +S2 - GI/Abdominal Exam GI & Abdominal Exam: Normal Bowel Sounds, Soft - Rectal Exam Rectal Exam: Deferred - Extremities Exam Extremities exam: Positive for: normal inspection, pedal pulses present - Back Exam Back exam: NORMAL INSPECTION - Neurological Exam Neurological exam: Alert, CN II-XII Intact, Normal Gait, Oriented x3 - Psychiatric Exam Psychiatric exam: Normal Affect, Normal Mood Results - Vital Signs Recent Vital Signs: Last Vital Signs Temp 97.9 F 10/04/18 16:34 Pulse 71 04/14/18 17:00 Resp 18 04/14/18 17:00 BP 106/74 04/14/18 16:34 Pulse Ox 97 04/14/18 16:34 Assessment & Plan - Assessment and Plan (Free Text) Assessment: Patient is a 32 yo male with a history of epilepsy, polysubstance use, and schizophrenia vs bipolar disorder who is currently admitted to the psychiatric unit for medication management and stabilization of psychiatric disorders. Patient was just admitted to ICU and med/surg after being found unresponsive with an opiate overdose. Hospitalists were consulted for management of PNA. Plan: Pneumonia RLL- suspect aspiration, s/p respiratory failure and unresponsiveness requiring intubation - CT A/P: RLL infiltration, likely PNA, some RML consolidation as well - Blood Cx no growth >3 days - MRSA negative - Leukocytosis resolved - Afebrile - Levaquin 500 mg PO daily until 04/19 Epilepsy - VPA level <10- patient admits noncompliance with meds - Depakote 500 mg PO BID Schizophrenia vs Bipolar disorder- h/o suicide attempts - Management as per psychiatry Hospitalist will sign-off at this time. Continue oral abx until 04/19. Please re-consult if necessary. Case discussed with attending, Dr. Salas. <Guillermo Salas - Last Filed: 04/16/18 16:23> Results - Vital Signs Recent Vital Signs: Last Vital Signs Temp 97.4 F L 04/16/18 07:18 Pulse 72 04/16/18 07:18 Resp 20 04/16/18 07:18 BP 96/50 L 04/16/18 07:18 Pulse Ox 97 04/14/18 16:34 - Labs Result Diagrams: 04/16/18 05:30 04/16/18 05:30 Labs: Laboratory Results - last 24 hr 04/15/18 04/16/18 04/16/18 06:45 05:30 05:30 WBC 6.9 D RBC 4.40 Hgb 12.4 L Hct 37.9 L MCV 86.1 MCH 28.2 MCHC 32.7 RDW 15.5 H Plt Count 309 MPV 9.5 Gran % 56.6 Lymph % (Auto) 29.2 [place] % (Auto) 10.6 H Eos % (Auto) 3.3 Baso % (Auto) 0.3 Gran # 3.90 Lymph # (Auto) 2.0 [place] # (Auto) 0.7 H Eos # (Auto) 0.2 Baso # (Auto) 0.02 Sodium 143 Potassium 4.0 Chloride 110 H Carbon Dioxide 25 Anion Gap 12 BUN 9 Creatinine 0.6 L Est GFR ( Amer) > 60 Est GFR (Non-Af Amer) > 60 Random Glucose 94 Calcium 9.4 Total Bilirubin 0.3 AST 19 ALT 24 Alkaline Phosphatase 72 Total Protein 6.5 Albumin 3.6 Globulin 2.9 Albumin/Globulin Ratio 1.2 RPR Nonreactive Attending/Attestation - Attestation I have personally seen and examined this patient.: Yes I have fully participated in the care of the patient.: Yes I have reviewed all pertinent clinical information: Yes Notes (Text): 04/16/18 16:21 attending note; Patient seen and examined with resident in psychiatric floor. Patient is alert and awake. Denies any fevers, chills. Denies any cough. Tolerating diet well. Denies any suicidal ideation. Patient was transferred to psychiatric floor yesterday after medical stabilization. Patient is a 32 year old male with a past medical history of epilepsy, p olysubstance use, Goldenhar syndrome,and schizophrenia was initially admitted to medical floor after being found unresponsive. Patient tested positive for opiates. Status post extubation. Patient is doing well. Fever ; resolved .mostly secondary to aspiration pneumonia .treated with IV vancomycin, Rocephin and Zithromax. CAT scan shows dense right lobar infiltrate. currently on po levofloxacin. History of bipolar disorder versus schizophrenia; continue care per psychiatrist. The patient does not follow up with any PMD or psychiatrist. Patient will be referred to [facility] upon discharge.
[2018-04-15 07:21] VITALS: RESP 20
[2018-04-15 07:28] LABS: GLUCOSE,FASTING 97 mg/dL (65-110); HDL CHOLESTEROL 31 mg/dL (29-60)
[2018-04-15 07:38] LABS: LDL CHOLESTEROL 80 mg/dL (0-129)
[2018-04-15] MEDS: Divalproex 250 mg DR (BID formulation) PO SCH ×3 (09:17→21:22)
--- NOTE | 2018-04-15 13:46 | PCM.PSYCH ---
Initial Psychiatric Evaluation - Initial Psychiatric Evaluation Type of Admission: Voluntary Legal Status: Capacity (patient has capacity to sign consent for treatment) Chief Complaint (in patient's own words): "my mother wants to pick me up, I need to be discharged as soon as possible, I do want to stay in the hospital, my mother has no concerns" Off note it is opposite the way his mother feels, patient mother is very concerned about patient safety Patient's Reaction to Hospitalization: patient was transferred from the medical floor for evaluation and stabilization of psychosis, s/p overdose on opioids, questionable intentional vs unintentional History of Present Illness and Precipitating Events: Patient is single 32 year old male with psychiatric history of Mood disorder, Psychotic disorder, Opioid abuse, substance-induced mood disorder, substance induced psychotic disorder, Goldenhar syndrome, epilepsy, pt has multiple psychiatric admissions, including involuntary commitment, pt initially was admitted to the medical floor s/p overdose, ?intentional/unintentional (pt denied), pt was found by his father unresponsive at home, pt got batter on Narcan, pt required to be intubated, successfully extubated, this resume writer was involved as a insurance consultant on the medical site, pt initially refused to sign in, but facing screening by [facility] reluctantly signed consent for treatment. prior to come to the hospital, pt was refusing to f/u with outpatient programs, pt refused to be on any medications, as per mother's collaterals pt was psychotic, agitated, was talking to the hagen, pt's neighbours were filing complaints because pt was banging on hagen, pt requires further evaluation and stabilization, observation, meds titration. This resume writer is very familiar with this patient rom multiple psychiatric admissions where patient was sign AGAINST MEDICAL ADVICE as well as on the medical side for agitation and aggression and paranoia. pt was seen and examined at the treatment team meeting, guarded, started with question when he will be discharged, pt is annoyed and irritable, poor hygiene, acceptable ADLs. during the interview pt did not want to participate, denied depression, denied voices, denied paranoia, denied suicidal ideation, but pt presented to be guarded/responding to internal stimuli, irritable. patient gave consent for collateral information from patient's mother. as per pt 's mother collaterals Carlos Leiva 04/14/18, pt initially was brought in to the [facility] "in handcuffs" because of the agitation/psychosis/resistance to go to the hospital it happened abut three weeks ago. [facility] did not have bed available and that is why pt was transferred to [place] two weeks ago, pt was refusing to take medications, refusing to be following up with outpatient psychiatrist, as a result pt became psychotic, was ganging on hagen, screaming at night, pt believed that neighbours are sending signals about him, pt was hearing voices and talking to himself, pt also verbalized thoughts of harming self with the plan to cut his wrist with the razor blade because of the voices he said to his mother "mom, I cant handle the voices, they just won't stop, I cant deal with it, I want them to stop". recent admission to [place] psychiatric unit last month 12/08/17, was signed AMA, the for that 10/21-10/26/17 and ultimately discharged AMA on a 48 hour letter ([facility] did not commit him). 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 PSYCHIATRIC HISTORY pt was d/c from [place] about two weeks ago recent admission November 2017, was d/c AMA, after the family meeting with mother. Patient was hospitalized at [facility] from October 21 to October 26, 2017. Symptoms included paranoia, CAH voices telling him to kill himself as well as AH of hearing voices telling him that he killed people. Patient was not functioning and isolated himself in his home because of his paranoia. Patient was also abu sing Suboxone as well as Vicodin. He was ultimately discharged AMA on a 48 hour letter after [facility] did not find that he met criteria for involuntary commitment. Patient was given a diagnosis of psychosis, opioid abuse, SIMD and SIPD. pt was doing relatively well on the following meds: Divalproex Haldol traZODone SOCIAL HISTORY Patient was going to race in [place]. He is single. He has no children. He lives with his parents and his twin brother. Patient graduated high school and he is unemployed. Patient has a history of abusing Suboxone as well as Vicodin, pt smokes about 1- 1.5 pack a day, provided counseling about morbidity and mortality risks of tobacco use, offered nicotine patch, but pt was not receptive. Lab Results 04/15/18 06:45: TSH 3rd Generation 0.68 04/15/18 06:45: Fasting Glucose 97, Triglycerides 139, Cholesterol 132, LDL Cholesterol Direct 80, HDL Cholesterol 31 UDS was positive for opioid only Vital Signs Temp Pulse Pulse Resp BP Pulse Ox 04/15/18 07:20 98.3 F 77 20 103/63 04/14/18 17:00 71 18 04/14/18 16:34 97.9 F 71 18 106/74 97 Current Medications: Active Medications Generic Name Dose Route Start Last Admin Trade Name Freq PRN Reason Stop Dose Admin Acetaminophen 650 mg 04/14/18 17:45 Tylenol 325mg Tab PO Q6H PRN Pain, moderate (4-7) Al Hydrox/Mg Hydrox/Simethicone 30 ml 04/14/18 17:45 Maalox Plus 30 Ml PO DAILY PRN Indigestion / Heartburn Benztropine Mesylate 0.5 mg 04/15/18 08:00 04/15/18 09:17 Cogentin PO 0.5 mg BID RAMIRO Administration Benztropine Mesylate 0.5 mg 04/14/18 22:00 04/14/18 22:12 Cogentin PO 0.5 mg HS RAMIRO Administration Clonazepam 0.5 mg 04/15/18 08:00 04/15/18 09:17 Klonopin PO 0.5 mg TID RAMIRO Administration Protocol Diphenhydramine HCl 50 mg 04/14/18 17:49 04/14/18 18:07 Benadryl PO 50 mg Q6H PRN Administration Agitation Diphenhydramine HCl 50 mg 04/14/18 17:55 Benadryl IM Q6H PRN Severe Agitation Divalproex Sodium 500 mg 04/15/18 08:00 04/15/18 09:17 Clara Vázquez (*Bid*) PO 500 mg BID RAMIRO Administration Protocol Divalproex Sodium 500 mg 04/14/18 22:00 04/14/18 22:12 Clara Vázquez (*Bid*) PO 500 mg HS RAMIRO Administration Protocol Haloperidol 5 mg 04/14/18 17:47 04/14/18 18:07 Haldol PO 5 mg Q6H PRN Administration Agitation Protocol Haloperidol 5 mg 04/15/18 08:00 04/15/18 09:17 Haldol PO 5 mg BID RAMIRO Administration Protocol Haloperidol 5 mg 04/14/18 22:00 04/14/18 22:12 Haldol PO 5 mg HS RAMIRO Administration Protocol Haloperidol Lactate 5 mg 04/14/18 17:52 Haldol IM Q6H PRN Severe Agitation Protocol Lorazepam 2 mg 04/14/18 17:48 04/14/18 18:07 Ativan PO 2 mg Q6H PRN Administration Agitation Protocol Lorazepam 2 mg 04/14/18 17:53 Ativan IM Q6H PRN Severe Agitation Protocol Magnesium Hydroxide 30 ml 04/14/18 17:45 Milk Of Magnesia PO DAILY PRN Constipation Nicotine 1 patch 04/15/18 08:00 04/15/18 09:16 Nicoderm Cq TD 1 patch DAILY RAMIRO Administration Pantoprazole Sodium 40 mg 04/15/18 06:00 04/15/18 06:20 Protonix Ec Tab PO 40 mg 0600 RAMIRO Administration Trazodone HCl 50 mg 04/14/18 18:27 Desyrel PO HS PRN Insomnia Past Psychiatric History - Past Psychiatric History Previous Treatment History: Inpatient Prior Professional Help: see HPI Prior Psychiatric Treatment: see HPI At what hospital: see HPI Duration: see HPI Nature of Treatment: see HPI Explanation of prior treatment: see HPI History of Abuse: see HPI History of ETOH/Drug Use: see HPI History of Family Illness: see HPI Pertinent Medical Hx (Current Medical&Sleep Prob, Allergies): Allergies Allergy/AdvReac Type Severity Reaction Status Date / Time morphine AdvReac SHORTNESS Verified 04/14/18 16:56 OF BREATH Divalproex [Depgalina VÁZQUEZ (*BID*)] 250 mg PO BID tcp 04/14/18 Haloperidol Lactate [Haldol] 5 mg IM Q6H PRN vial 04/14/18 LORazepam [Ativan] 2 mg IM Q6H PRN vial 04/14/18 Phosphorus/Potassium/Sodium [Neutra-Phos] 1 pkt PO TID packet 04/14/18 levoFLOXacin [Levaquin] 500 mg PO DAILY tab 04/14/18 Review of Systems - Review of Systems Systems not reviewed;Unavailable: Acuity of Condition - EENT Eyes: As Per HPI Ears: As Per HPI Nose/Mouth/Throat: As Per HPI - Cardiovascular Cardiovascular: As Per HPI - Respiratory Respiratory: As Per HPI - Gastrointestinal Gastrointestinal: As Per HPI - Genitourinary Genitourinary: As Per HPI - Reproductive: Male Reproductive:Male: As Per HPI - Musculoskeletal Musculoskeletal: As Par HPI - Integumentary Integumentary: As Per HPI - Neurological Neurological: As Per HPI - Psychiatric Psychiatric: As Per HPI - Endocrine Endocrine: As Per HPI - Hematologic/Lymphatic Hematologic: As Per HPI Mental Status Examination - Personal Presentation Personal Presentation: Looks younger than stated age - Affect Affect: Constricted, Flat - Motor Activity Motor Activity: Psychomotor Agitation - Reliability in Providing Information Reliability in Providing Information: Poor, due to alteration in thoughts, Poor, due to altered mood - Speech Speech: Disorganized, Irrelevant, Tangential - Mood Mood: Depressed, Anxious - Formal Thought Process Formal Thought Process: Hallucinations, Delusions, Paranoia, Loosening of associations, Circumstantial - Hallucinations/Delusions Hallucinations: Auditory Delusions: Persecution - Obsessions/Compulsions Obsessions: No Compulsions: No - Cognitive Functions Orientation: Person Sensorium: Alert Attention/Concentration: Easily distracted Abstract Thinking: Oriental Estimate of Intelligence: Below average Judgement: Intact, as evidence by: Insight regarding need for hospitalization - Risk Risk: Suicidal, Seizure, Withdrawal, Self-mutilation, Diminished functioning - Strength & Assets Inventory Strength & Assets Inventory: Family support - Limitations Limitations: Other (poor insight, irrational thinking, substances, noncompli ance, agitation/aggression) DSM 5 DX - DSM 5 DSM 5 Diagnosis: schizophrenia opioid abuse/dependence r/o substance induced psychosis r/o schizoaffective disorder - Recommended/Plan of Treatment Treatment Recommendations and Plan of Treatment: Milieu/structure/supportive therapy Medical consult appreciated, see medical team note for more detailed info SW consultation for discharge plan and social issues Med management (specify the name, doses, plan to titrate or wean it off) Divalproex 500 mg PO BID for mood stabilization haldol 5mg po bid and hs for psychosis, pt responded well in the past, moreover it could be given as Decanoate traZODone [Desyrel] 50 mg PO HS PRNfor insomnia resumed clonazePAM [Klonopin] 0.5 mg 3 times a day for anxiety medical consult appreciated pt is on abx for aspiration pneumonia levoFLOXacin [Levaquin] 500 mg PO DAILY collaterals from mother appreciated Follow up on labs Will monitor closely Pt was educated about risk/benefits and alternatives of medications, coping strategies (safety plan, suicide prevention), relapse prevention, importance of follow up with psychiatrist and therapist, stay away from drugs/alcohol/smoking Projected ELOS: 10days Prognosis: guarded Discharge Plan and Discharge Criteria: Pt will be not depressed or manic, will be more hopeful, will be not psychotic or anxious, will be not having thoughts of harming self or others, will be tolerating medications well, will not have major side effects, will be able to function, will not pose threat to self or others. - Smoking Cessation Smoking Cessation Initiated: Yes
[2018-04-15] MEDS: levoFLOXacin 500 MG TAB PO SCH (17:49)
[2018-04-16 06:25] LABS: BASO # 0.02 K/mm3 (0.0-2.0); BASO % 0.3 % (0.0-3.0); EOS # 0.2 (0.0-0.7); EOS % 3.3 % (1.5-5.0); GRAN # 3.9 (1.4-6.5); GRAN % 56.6 % (50.0-68.0); HEMOGLOBIN 12.4 g/dL (14.0-18.0); LYMPH % 29.2 % (22.0-35.0); MEAN CELL VOLUME 86.1 fl (80.0-105.0); MEAN CORPUSCULAR HEMOGLOBIN 28.2 pg (25.0-35.0); MEAN CORPUSCULAR HGB CONC 32.7 g/dl (31.0-37.0); MEAN PLATELET VOLUME 9.5 fl (7.0-11.0); MONO # 0.7 (0.1-0.6); MONO % 10.6 % (1.0-6.0); RBC 4.4 10^6/uL (3.5-6.1); RED CELL DISTRIBUTION WIDTH 15.5 % (11.5-14.5); WHITE BLOOD COUNT 6.9 10^3/ul (4.5-11.0)
[2018-04-16 06:44] LABS: ALB/GLOB RATIO 1.2 (1.1-1.8); ALBUMIN 3.6 g/dL (3.0-4.8); ALT/SGPT 24 U/L (7-56); AST/SGOT 19 U/L (17-59); BLOOD UREA NITROGEN 9 mg/dL (7-21); CALCIUM 9.4 mg/dL (8.4-10.5); GFR NON-AFRICAN AMERICAN > 60
[2018-04-16 07:19] VITALS: BP 96/50; PULSE 72; TEMP 97.4
[2018-04-16] MEDS: levoFLOXacin 500 MG TAB PO SCH (09:28)
[2018-04-16] MEDS: Pantoprazole 40 mg EC Tab PO SCH (09:28)
[2018-04-16] MEDS: Divalproex 250 mg DR (BID formulation) PO SCH (09:29)
--- NOTE | 2018-04-16 14:19 | PCM.PYCHDC ---
Mental Status Examination - Mental Status Examination Orientation: Person, Place, Situation, Time Memory: Intact Mood: Neutral Affect: Constricted Attention: Poor Concentration: Poor Association: Loose Fund of Knowledge: Poor Formal Thought Process: Hallucinations, Delusions Description of patient's judgement and insight: patient still has minimal insight into his mental illness, patient signing himself out of the hospital AGAINST MEDICAL ADVICE Psychotic Thoughts and Behaviors: patient denied hearing voices or seeing things, patient denied thoughts of harming himself or others, thought process is better organized Suicidal Ideation: No Current Homicidal Ideation?: No Plan: patient adamantly denied thoughts of harming himself or others. Discharge Summary - Discharge Note Reason for Hospitalization: patient was transferred from the medical floor for evaluation and stabilization of psychosis, s/p overdose on opioids, questionable intentional vs unintentional Psychiatric History (includes Medical, Family, Personal Hx): see HPI Laboratory Data: Abnormal Lab Results 04/15/18 04/16/18 04/16/18 06:45 05:30 05:30 WBC 6.9 D RBC 4.40 Hgb 12.4 L Hct 37.9 L MCV 86.1 MCH 28.2 MCHC 32.7 RDW 15.5 H Plt Count 309 MPV 9.5 Gran % 56.6 Lymph % (Auto) 29.2 [place] % (Auto) 10.6 H Eos % (Auto) 3.3 Baso % (Auto) 0.3 Gran # 3.90 Lymph # (Auto) 2.0 [place] # (Auto) 0.7 H Eos # (Auto) 0.2 Baso # (Auto) 0.02 Sodium 143 Potassium 4.0 Chloride 110 H Carbon Dioxide 25 Anion Gap 12 BUN 9 Creatinine 0.6 L Est GFR ( Amer) > 60 Est GFR (Non-Af Amer) > 60 Random Glucose 94 Calcium 9.4 Total Bilirubin 0.3 AST 19 ALT 24 Alkaline Phosphatase 72 Total Protein 6.5 Albumin 3.6 Globulin 2.9 Albumin/Globulin Ratio 1.2 RPR Nonreactive Consultations:: List each consultation separately and include: 1. Reason for request. 2. Findings. 3. Follow-up Consultations: patient was seen by medical team, patient was on antibiotics for aspiration pneumonia Summary of Hospital Course include:: 1. Description of specific treatment plan utilized for patients during their course of treatmen. 2. Summarize the time- course for resolution of acute symptoms and/or regressed behaviors. 3. Describe issues identified and worked on during hospitalization. 4. Describe medication utilized. 5. Describe medical problems identified and treated. 6. Reassessment of suicide risk Summary of Hospital Course: Patient is single 32 year old male with psychiatric history of Mood disorder, Psychotic disorder, Opioid abuse, substance-induced mood disorder, substance induced psychotic disorder, Goldenhar syndrome, epilepsy, pt has multiple psychiatric admissions, including involuntary commitment, pt initially was admitted to the medical floor s/p overdose, ?intentional/unintentional (pt denied), pt was found by his father unresponsive at home, pt got batter on Narcan, pt required to be intubated, successfully extubated, this fha underwriter was involved as a remediation bioanalytics consultant on the medical site, pt initially refused to sign in, but facing screening by [facility] reluctantly signed consent for treatment. prior to come to the hospital, pt was refusing to f/u with outpatient programs, pt refused to be on any medications, as per mother's collaterals pt was psychotic, agitated, was talking to the hagen, pt's neighbours were filing complaints because pt was banging on hagen, pt requires further evaluation and stabilization, observation, meds titration. This fha underwriter is very familiar with this patient rom multiple psychiatric admissions where patient was sign AGAINST MEDICAL ADVICE as well as on the medical side for agitation and aggression and paranoia. pt was seen and examined 04/15/2018 at the treatment team meeting, guarded, started with question when he will be discharged, pt is annoyed and irritable, poor hygiene, acceptable ADLs. during the interview pt did not want to participate, denied depression, denied voices, denied paranoia, denied suicidal ideation, but pt presented to be guarded/responding to internal stimuli, irritable. patient gave consent for collateral information from patient's mother. as per pt's mother collaterals Carlos Leiva 04/14/18, pt initially was brought in to the [facility] "in handcuffs" because of the agitation/psychosis/resistance to go to the hospital it happened abut three weeks ago. [facility] did not have bed available and that is why pt was transferred to [place] two weeks ago, pt was refusing to take medications, refusing to be following up with outpatient psychiatrist, as a result pt became psychotic, was ganging on haegn, screaming at night, pt believed that neighbours are sending signals about him, pt was hearing voices and talking to himself, pt also verbalized thoughts of harming self with the plan to cut his wrist with the razor blade because of the voices he said to his mother "mom, I cant handle the voices, they just won't stop, I cant deal with it, I want them to stop". recent admission to [place] psychiatric unit last month 12/08/17, was signed AMA, the for that 10/21-10/26/17 and ultimately discharged AMA on a 48 hour letter ([facility] did not commit him). 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 PSYCHIATRIC HISTORY pt was d/c from [place] about two weeks ago recent admission November 2017, was d/c AMA, after the family meeting with mother. Patient was hospitalized at [facility] from October 21 to October 26, 2017. Symptoms included paranoia, CAH voices telling him to kill himself as well as AH of hearing voices telling him that he killed people. Patient was not functioning and isolated himself in his home because of his paranoia. Patient was also abusing Suboxone as well as Vicodin. He was ultimately discharged AMA on a 48 hour letter after [facility] did not find that he met criteria for involuntary commitment. Patient was given a diagnosis of psychosis, opioid abuse, SIMD and SIPD. pt was doing relatively well on the following meds: Divalproex Haldol traZODone SOCIAL HISTORY Patient was going to race in [place]. He is single. He has no children. He lives with his parents and his twin brother. Patient graduated high school and he is unemployed. Patient has a history of abusing Suboxone as well as Vicodin, pt smokes about 1- 1.5 pack a day, provided counseling about morbidity and mortality risks of tobacco use, offered nicotine patch, but pt was not receptive. Lab Results 04/15/18 06:45: TSH 3rd Generation 0.68 04/15/18 06:45: Fasting Glucose 97, Triglycerides 139, Cholesterol 132, LDL Cholesterol Direct 80, HDL Cholesterol 31 UDS was positive for opioid only Vital Signs Temp Pulse Pulse Resp BP Pulse Ox 04/15/18 07:20 98.3 F 77 20 103/63 04/14/18 17:00 71 18 04/14/18 16:34 97.9 F 71 18 106/74 97 patient submitted 48 hour notice 04/15/2018, this fha underwriter initiated screening, as per [facility] patient does not meet the criteria for involuntary commitment, patient might benefit from further hospitalization but patient refused to stay in the hospital, this fha underwriter had prolonged conversation with patient today on 04/16/2018 patient adamantly refused to stay in the hospital, reported that he feels better, patient reported that he has future plans to continue medications, patient denied thoughts of harming himself or others denied intent or plan, patient gave permission to talk to his mother Abbie, this fha underwriter contacted mother, explained situation, mother was appreciative. Patient wants to continue taking medications, two-week supply and 1 refill medications were given to the patient as well as antibiotics was advised to continue taking them and follow up with outpatient psychiatrist patient verbalized understanding. At the time of the discharge pt denied been depressed, denied thoughts of harming self or others, denied psychotic symptoms, denied been anxious, pt is not in imminent danger to self or others, pt was offered to stay in the hospital but patient refused that option, patient is aware about outpatient providers, it is patient responsibility to follow up with outpatient clinic, PMD as well as specialists (see SW note for more detailed information). In case pt will need to obtain results of studies pending at discharge pt was provided with contact information of Psychiatric Inpatient unit [phone] as well as Medical Record Department [phone]. Counseling about smoking and drugs cessation provided pt was provided with prescriptions for all of medications (please see medication reconciliation form) Pt was educated about safety plan in case of worsening of symptoms or in case of suicidal or homicidal ideation call 911 or go to the nearest ER, also was educated to take meds as prescribed and stay away from drugs, pt verbalized understanding. - Diagnosis (1) Schizophrenia Status: Chronic Priority: High (2) Opioid abuse Status: Chronic Priority: High - Final Diagnosis (DSM 5) Condition upon Discharge: STABLE Disposition: AGAINST MEDICAL ADVICE Follow-up Treatment Plan: At the time of the discharge pt denied been depressed, denied thoughts of harming self or others, denied psychotic symptoms, denied been anxious, pt is not in imminent danger to self or others, pt was offered to stay in the hospital but patient refused that option, patient is aware about outpatient providers, it is patient responsibility to follow up with outpatient clinic, PMD as well as specialists (see SW note for more detailed information). In case pt will need to obtain results of studies pending at discharge pt was provided with contact information of Psychiatric Inpatient unit [phone] as well as Medical Record Department [phone]. Counseling about smoking and drugs cessation provided pt was provided with prescriptions for all of medications (please see medication reconciliation form) Pt was educated about safety plan in case of worsening of symptoms or in case of suicidal or homicidal ideation call 911 or go to the nearest ER, also was educated to take meds as prescribed and stay away from drugs, pt verbalized understanding. Prescriptions/Medication Reconciliation: Benztropine [Cogentin] 0.5 mg PO BID #30 tab Benztropine [Cogentin] 0.5 mg PO HS #14 tab Divalproex [Depakote DR (*BID*)] 500 mg PO BID #30 tcp Divalproex [Depakote DR (*BID*)] 500 mg PO HS #14 tcp Haloperidol [Haldol] 5 mg PO HS #14 tab Haloperidol [Haldol] 5 mg PO BID #30 tab levoFLOXacin [Levaquin] 500 mg PO DAILY #7 tab Nicotine 14 mg/24 hr [Nicoderm CQ] 1 patch TD DAILY #14 patch
== END 2018-04-16 12:32 | disposition left against medical advice (07) | DRG 430 ==
LOC: PSYC 16:34
PROVIDERS: ADMIT Psychiatry & Neurology Psychiatry; ATTEND Psychiatry & Neurology Psychiatry
DX: F20.9 Schizophrenia, unspecified (principal); J18.9 Pneumonia, unspecified organism; F31.9 Bipolar disorder, unspecified; F11.259 Opioid dependence with opioid-induced psychotic disorder, unspecified; G40.909 Epilepsy, unspecified, not intractable, without status epilepticus; Q87.0 Congenital malformation syndromes predominantly affecting facial appearance; F17.210 Nicotine dependence, cigarettes, uncomplicated